=== PATIENT | female | born 1935 | race Caucasian/White ===

== ENCOUNTER 2017-06-09 16:56 | Emergency (ER) | payer MEDICAID, MEDICARE ==
[2017-06-09] MEDS ORDERED: ALBUTEROL SULFATE 0.083% NEB 2.5 MG/3 ML AMPUL NEB ONE (17:37)
--- NOTE | 2017-06-09 17:40 | ER Document Report ---
ED Medical Screen (RME) - General Chief Complaint: Shortness Of Breath Stated Complaint: DIFFICULTY BREATHING Time Seen by Provider: 06/09/17 17:37 Mode of Arrival: Wheelchair Information source: Patient Notes: Patient is an 81-year-old female with COPD who presents to the ER today for worsening shortness of breath with cough over the past couple of days. Patient also admits to right and left foot redness that she thinks is infection from an animal scratching her, specifically her left big toe. TRAVEL OUTSIDE OF THE [place] IN LAST 30 DAYS: No - Related Data Allergies/Adverse Reactions: erythromycin base [Erythromycin Base] Allergy (Verified 06/09/17 17:31) furosemide [From Lasix] Allergy (Verified 06/09/17 17:31) iodine [Iodine] Allergy (Verified 06/09/17 17:31) LOSE MEMORY levofloxacin [From Levaquin] Allergy (Verified 06/09/17 17:31) metformin HCl [From Glucophage] Allergy (Verified 06/09/17 17:31) SWELLING FACE Penicillins Allergy (Verified 06/09/17 17:31) pioglitazone HCl [From Actos] Allergy (Verified 06/09/17 17:31) SWELLING FACE Nexykbk-Dqb-Wwv Reductase Inhibitor Allergy (Verified 06/09/17 17:31) MUSCLE PAIN Sulfa (Sulfonamide Antibiotics) Allergy (Verified 06/09/17 17:31) SICK sulfamethoxazole [From Bactrim] Allergy (Verified 06/09/17 17:31) SICK trimethoprim [From Bactrim] Allergy (Verified 06/09/17 17:31) SICK Past Medical History - General Information source: Patient - Past Medical History Cardiac Medical History: Reports: Hx Coronary Artery Disease, Hx Hypercholesterolemia, Hx Hypertension Denies: Hx Heart Attack Pulmonary Medical History: Reports: Hx Asthma, Hx Bronchitis, Hx COPD, Hx Pneumonia, Hx Tuberculosis Neurological Medical History: Denies: Hx Cerebrovascular Accident, Hx Seizures Endocrine Medical History: Reports: Hx Diabetes Mellitus Type 2 Renal/ Medical History: Denies: Hx Peritoneal Dialysis GI Medical History: Reports: Hx Hiatal Hernia, Hx Ulcer - 50 YEARS AGO. Denies : Hx Hepatitis Musculoskeltal Medical History: Denies Hx Arthritis Infectious Medical History: Denies: Hx Hepatitis Past Surgical History: Reports: Hx Cholecystectomy, Hx Rectal Surgery, Hx Tubal Ligation. Denies: Hx Mastectomy, Hx Open Heart Surgery, Hx Pacemaker - Immunizations Hx Diphtheria, Pertussis, Tetanus Vaccination: Yes History of Influenza Vaccine for 06/2017 - 10/2017 Season: No Review of Systems - Review of Systems Respiratory: See HPI Physical Exam - Vital signs Vitals: Temp Pulse Resp BP Pulse Ox 98.5 F 96 18 98/77 L 94 06/09/17 17:01 06/09/17 17:01 06/09/17 17:01 06/09/17 17:01 06/09/17 17:01 - Notes Notes: PHYSICAL EXAMINATION: GENERAL: Chronically ill-appearing, but in no acute distress. LUNGS: Mild expiratory wheezes throughout, tight, on regular nasal cannula, no rales or rhonchi. Course - Vital Signs Vital signs: Temp Pulse Resp BP Pulse Ox 98.5 F 96 18 98/77 L 94 06/09/17 17:01 06/09/17 17:01 06/09/17 17:01 06/09/17 17:01 06/09/17 17:01
[2017-06-09 18:15] LABS: ABSOLUTE EOSINOPHILS # (AUTO) 0.1 10^3/uL (0.0-0.6); ABSOLUTE LYMPHOCYTES (AUTO) 0.6 10^3/uL (0.5-4.7); ABSOLUTE MONOCYTES (AUTO) 0.5 10^3/uL (0.1-1.4); ABSOLUTE NEUT (AUTO) 10.1 10^3/uL (1.7-8.2); BASOPHILS % (AUTO) 0.3 % (0-2); EOSINOPHILS % (AUTO) 0.7 % (0-6); HEMATOCRIT 36.2 % (36.0-47.0); HEMOGLOBIN 11.9 g/dL (12.0-15.5); HGB HCT DIFFERENCE -0.5; LYMPHOCYTES % (AUTO) 5.1 % (13-45); MEAN CORPUSCULAR HEMOGLOBIN 29.7 pg (27.0-33.4); MEAN CORPUSCULAR HGB CONC 32.9 g/dL (32.0-36.0); MEAN CORPUSCULAR VOLUME 90 fl (80-97); MONOCYTES % (AUTO) 4.4 % (3-13); SEGMENTED NEUTROPHILS % (AUTO) 89.5 % (42-78); WHITE BLOOD COUNT 11.2 10^3/uL (4.0-10.5)
--- NOTE | 2017-06-09 18:30 | RADIOLOGY REPORT (SQ) ---
EXAM DESCRIPTION: CHEST PA/LAT COMPLETED DATE/TIME: 06/09/2017 6:21 pm REASON FOR STUDY: copd/ acute sob with worse cough COMPARISON: 07/23/2015 EXAM PARAMETERS: NUMBER OF VIEWS: two views TECHNIQUE: Digital Frontal and Lateral radiographic views of the chest acquired. RADIATION DOSE: NA LIMITATIONS: none FINDINGS: LUNGS AND PLEURA: The lungs are hyperexpanded. There are no infiltrates or effusions. No mass is seen. MEDIASTINUM AND HILAR STRUCTURES: No masses or contour abnormalities. HEART AND VASCULAR STRUCTURES: Heart normal size. No evidence for failure. BONES: No acute findings. HARDWARE: Multilevel compression changes. Vertebroplasty/kyphoplasty changes in the lower thoracic s pine. OTHER: No other significant finding. IMPRESSION: Chronic lung changes with no acute cardiopulmonary disease. TECHNICAL DOCUMENTATION: JOB ID: [id number] [email or web address]- All Rights Reserved
[2017-06-09 18:35] LABS: ALANINE AMINOTRANSFERASE 30 U/L (9-52); ALKALINE PHOSPHATASE 130 U/L (38-126); ANION GAP 12 (5-19); ASPARTATE AMINO TRANSFERASE 20 U/L (14-36); BILIRUBIN,DIRECT 0.4 mg/dL (0.0-0.4); BILIRUBIN,TOTAL 0.5 mg/dL (0.2-1.3); BLOOD UREA NITROGEN 37 mg/dL (7-20); CALCIUM 9.5 mg/dL (8.4-10.2); CARBON DIOXIDE 31 mmol/L (22-30); CHLORIDE 101 mmol/L (98-107); CREATININE RESULT 1.31 mg/dL (0.52-1.25); GLUCOSE 182 mg/dL (75-110); POTASSIUM 5.3 mmol/L (3.6-5.0); SODIUM 143.6 mmol/L (137-145); TOTAL PROTEIN 6.6 g/dL (6.3-8.2)
--- NOTE | 2017-06-09 18:35 | ER Document Report ---
ED Respiratory Problem - General Chief Complaint: Shortness Of Breath Stated Complaint: DIFFICULTY BREATHING Time Seen by Provider: 06/09/17 17:37 Mode of Arrival: Wheelchair Notes: The patient is an 81-year-old female, past medical history COPD (on home 3L O2) , DM, CHF, presents with worsening shortness of breath over the past week. In addition, her left big toe is red and painful after she was scratched by an animal 2 days ago. She denies fevers, chest pain, nausea, vomiting, back pain, abdominal pain, leg swelling, hemoptysis, rash or headache. TRAVEL OUTSIDE OF THE [place] IN LAST 30 DAYS: No - Related Data Allergies/Adverse Reactions: erythromycin base [Erythromycin Base] Allergy (Verified 06/09/17 17:31) furosemide [From Lasix] Allergy (Verified 06/09/17 17:31) iodine [Iodine] Allergy (Verified 06/09/17 17:31) LOSE MEMORY levofloxacin [From Levaquin] Allergy (Verified 06/09/17 17:31) metformin HCl [From Glucophage] Allergy (Verified 06/09/17 17:31) SWELLING FACE Penicillins Allergy (Verified 06/09/17 17:31) pioglitazone HCl [From Actos] Allergy (Verified 06/09/17 17:31) SWELLING FACE Tqftnvs-Qti-Ssh Reductase Inhibitor Allergy (Verified 06/09/17 17:31) MUSCLE PAIN Sulfa (Sulfonamide Antibiotics) Allergy (Verified 06/09/17 17:31) SICK sulfamethoxazole [From Bactrim] Allergy (Verified 06/09/17 17:31) SICK trimethoprim [From Bactrim] Allergy (Verified 06/09/17 17:31) SICK Past Medical History - General Information source: Patient - Social History Smoking Status: Unknown if Ever Smoked Family History: Reviewed & Not Pertinent Patient has suicidal ideation: No Patient has homicidal ideation: No - Past Medical History Cardiac Medical History: Reports: Hx Coronary Artery Disease, Hx Hypercholesterolemia, Hx Hypertension Denies: Hx Heart Attack Pulmonary Medical History: Reports: Hx Asthma, Hx Bronchitis, Hx COPD, Hx Pneumonia, Hx Tuberculosis Neurological Medical History: Denies: Hx Cerebrovascular Accident, Hx Seizures Endocrine Medical History: Reports: Hx Diabetes Mellitus Type 2 Renal/ Medical History: Denies: Hx Peritoneal Dialysis GI Medical History: Reports: Hx Hiatal Hernia, Hx Ulcer - 50 YEARS AGO. Denies : Hx Hepatitis Musculoskeltal Medical History: Denies Hx Arthritis Infectious Medical History: Denies: Hx Hepatitis Past Surgical History: Reports: Hx Cholecystectomy, Hx Rectal Surgery, Hx Tubal Ligation. Denies: Hx Mastectomy, Hx Open Heart Surgery, Hx Pacemaker - Immunizations Hx Diphtheria, Pertussis, Tetanus Vaccination: Yes Hx Pneumococcal Vaccination: 06/26/13 Review of Systems - Review of Systems Notes: REVIEW OF SYSTEMS: CONSTITUTIONAL: -fevers, -chills EENT: -eye pain, -difficulty swallowing, -nasal congestion CARDIOVASCULAR:-chest pain, -syncope. RESPIRATORY: +cough, +SOB GASTROINTESTINAL: -abdominal pain, - nausea, -vomiting, -diarrhea GENITOURINARY: -dysuria, -hematuria MUSCULOSKELETAL: -back pain, -neck pain, +left foot pain and swelling SKIN: -rash or skin lesions. HEMATOLOGIC: -easy bruising or bleeding. LYMPHATIC: -swollen, enlarged glands. NEUROLOGICAL: -altered mental status or loss of consciousness, -headache, - neurologic symptoms PSYCHIATRIC: -anxiety, -depression. ALL OTHER SYSTEMS REVIEWED AND NEGATIVE. Physical Exam - Vital signs Vitals: Temp Pulse Resp BP Pulse Ox 98.5 F 96 18 98/77 L 94 06/09/17 17:01 06/09/17 17:01 06/09/17 17:01 06/09/17 17:01 06/09/17 17:01 - Notes Notes: PHYSICAL EXAMINATION: GENERAL: Well-appearing, well-nourished and in no acute distress. HEAD: Atraumatic, normocephalic. EYES: Pupils equal round and reactive to light, extraocular movements intact, sclera anicteric, conjunctiva are normal. ENT: nares patent, oropharynx clear without exudates. Moist mucous membranes. NECK: Normal range of motion, supple without lymphadenopathy LUNGS: No respiratory distress. Speaking in full sentences. Mild and expiratory wheezes. HEART: Regular rate and rhythm without murmurs ABDOMEN: Soft, nontender, normoactive bowel sounds. No guarding, no rebound. No masses appreciated. EXTREMITIES: Scratch of left big toe, no drainage or surrounding erythema. Normal range of motion, no pitting or edema. No cyanosis. NEUROLOGICAL: Cranial nerves grossly intact. Normal speech, normal gait. Normal sensory and motor exams. PSYCH: Normal mood, normal affect. Course - Re-evaluation Re-evalutation: Patient appears much better after DuoNebs and steroids. Her chest x-ray does not show a focal infiltrate and she is satting 95% on her usual 3 L nasal cannula. She is in no respiratory distress. Patient also with superficial abrasion from her cat over her left toe. Based on her diabetes history, will begin doxycycline to help with the scratch and bronchitis. Patient given very strict return precautions and she understands. - Vital Signs Vital signs: Temp Pulse Resp BP Pulse Ox 98.5 F 96 22 H 121/68 100 06/09/17 17:01 06/09/17 17:01 06/09/17 20:00 06/09/17 19:52 06/09/17 20:00 - Laboratory Result Diagrams: 06/09/17 17:47 06/09/17 17:47 Laboratory results interpreted by me: 06/09/17 06/09/17 17:47 17:47 WBC 11.2 H Hgb 11.9 L RDW 16.0 H Seg Neutrophils % 89.5 H Lymphocytes % 5.1 L Absolute Neutrophils 10.1 H Potassium 5.3 H Carbon Dioxide 31 H BUN 37 H Creatinine 1.31 H Est GFR ( Amer) 47 L Est GFR (Non-Af Amer) 39 L Glucose 182 H Alkaline Phosphatase 130 H - Diagnostic Test Radiology reviewed: Image reviewed, Reports reviewed Radiology results interpreted by me: CXR: NAD Discharge - Discharge Clinical Impression: COPD exacerbation, Animal scratch Condition: Stable Disposition: HOME, SELF-CARE Additional Instructions: BRONCHITIS WITH BRONCHOSPASM (WHEEZING): You have bronchitis with bronchospasm (wheezing). Sometimes people develop wheezing with a chest cold. This occurs either because of an underlying tendency toward asthma or because the virus itself irritates the bronchial tubes. This irritation causes cough, shortness of breath, and wheezing. Emergency treatment of bronchospasm may include adrenaline shots or bronchodilator aerosol. You may feel lightheaded and have a rapid pulse for an hour or two. Rest and get plenty of fluids. At home, we'll treat you with a bronchodilator inhaler. Corticosteroids may be required for some patients. Until you recover, avoid chemical fumes, dusts, pollens, and exercising in very cold or dry air. If you smoke, stop now! Most cases of bronchitis get better without antibiotics. We prescribe antibiotics when we believe bacteria are damaging your airways, or if there's high risk the bronchitis will worsen into pneumonia. Increase your fluid intake. A cool mist humidifier may make your lungs more comfortable. An expectorant (cough medicine that loosens phlegm) can help. Repeated episodes of bronchitis and bronchospasm may result in lung damage -- for example, chronic bronchitis, recurrent pneumonias, or emphysema. If you develop a fever, increased wheezing, chest pain, or severe shortness of breath, you should contact the doctor immediately. INHALED BRONCHODILATORS: You have received a treatment of and/or prescription for an inhaled bronchodilator -- a medication which stimulates the airways in the lung to dilate. This improves the flow of air in asthma, bronchitis, and emphysema. These medicines have some similarity to adrenaline, and can cause similar side effects: shakiness, racing heart, and a sense of nervousness. These side effects decrease with time. Contact your doctor if these side effects are severe. Do not over-use the medicine. Too-frequent use of the inhaler may make it ineffective. Call your doctor if the inhaler is not controlling your symptoms at the prescribed doses. STEROID MEDICATION: You have been given an injection of or oral medicine of the cortisone/ steroid class. This medication is used to control inflammation or allergy. Pedro t is usually only given for a short period of time, until the acute process subsides. There are usually no side effects from short-term use of cortisone-like medications. Some persons feel an increased sense of well-being and are not sleepy at bedtime. Long-term use of cortisone medications is best avoided, unless required for a severe condition. If your condition does not remit, or relapses after the course of corticosteroid medication, you should consult your physician. ANTIBIOTIC THERAPY: You have been given an antibiotic prescription. It's important that you take all the medication, unless instructed otherwise by your physician. Failure to complete the entire course can result in relapse of your condition. Common side effects of antibiotics include nausea, intestinal cramping, or diarrhea. Women may develop vaginal yeast infections, and babies can get yeast (thrush) in the mouth following the use of antibiotics. Contact your physician if you develop significant side effects from this medication. Allergy to this antibiotic can result in hives, wheezing, faintness, or itching. If symptoms of allergy occur, stop the medication and call your doctor. DOXYCYCLINE: Doxycycline (Vibramycin, Doryx) is an antibiotic of the tetracycline family. This type of drug is useful for infections of the respiratory tract and genital tract, and is sometimes used for intestinal infections. Unlike most tetracyclines, doxycycline can be taken with food. It is longer acting, and (usually) less prone to side effects than regular tetracycline. Tetracycline antibiotics can stain immature teeth and SHOULD NOT BE TAKEN BY CHILDREN, NURSING MOTHERS, OR WOMEN. Tetracyclines can make you more prone to sunburn. Abdominal cramping, nausea, and diarrhea are occasional side effects. Women may experience vaginal yeast infections. Call the doctor at once if you develop hives, itching, shortness of breath , or lightheadedness. USE OF ACETAMINOPHEN (Tylenol): Acetaminophen may be taken for pain relief or fever control. It's much safer than aspirin, offering a wider range of "safe" dosages. It is safe during . Some brand names are Tylenol, Panadol, Datril, Anacin 3, Tempra, and Liquiprin. Acetaminophen can be repeated every four hours. The following are maximum recommended dosages: >89 pounds or adults 650 mg to 900 mg Acetaminophen can be repeated every four hours. Maximum dose not to exceed 4000 mg a day. SMOKING: If you smoke, you should stop smoking. The tar and chemicals in cigarette smoke are harmful. Smoking has been shown to cause: emphysema chronic bronchitis lung cancer mouth and throat cancer stomach and pancreas cancer premature aging defects In addition, smoking increases ear and lung infections in children of smokers. FOLLOW-UP CARE: If you have been referred to a physician for follow-up care, call the physician s office for an appointment as you were instructed or within the next two days. If you experience worsening or a significant change in your symptoms, notify the physician immediately or return to the Emergency Department at any time for re-evaluation. Prescriptions: Albuterol Sulfate [Proair HFA Inhalation Aerosol 8.5 gm MDI] 2 puff IH Q4H PRN # 1 mdi PRN Reason: Doxycycline Hyclate 100 mg PO BID #14 capsule Prednisone [Deltasone 20 mg Tablet] 3 tab PO DAILY 4 Days tablet Referrals: FITO ATKINSON MD [[facility]] - Follow up as needed
[2017-06-09] MEDS ORDERED: DOXYCYCLINE HYCLATE 100 MG TABLET PO ONE (18:48)
[2017-06-09] MEDS ORDERED: IPRATROPIUM/ALBUTEROL 0.5-2.5 MG/3 ML AMPUL NEB ONE (18:49)
[2017-06-09] MEDS ORDERED: BACITRACIN ZINC OINTMENT 15 GM TP ONE (18:49)
[2017-06-09] MEDS ORDERED: PREDNISONE 20 MG TABLET PO ONE (18:50)
[2017-06-09 19:53] VITALS: BP 121/68
== END 2017-06-09 20:24 | disposition home or self-care (01) ==
LOC: ER 16:56
DX: J44.1 Chronic obstructive pulmonary disease with (acute) exacerbation (principal); S90.412A Abrasion, left great toe, initial encounter; R06.02 Shortness of breath; E11.9 Type 2 diabetes mellitus without complications; I50.9 Heart failure, unspecified; X58.XXXA Exposure to other specified factors, initial encounter
CPT/HCPCS: 99285; 36415; 85025; 80053; 71020; A9270 ×3; J3490; J7512

== ENCOUNTER 2017-06-25 02:22 | Emergency (ER) | payer MEDICARE, MEDICAID ==
[2017-06-25] MEDS ORDERED: IPRATROPIUM/ALBUTEROL 0.5-2.5 MG/3 ML AMPUL NEB ONE (02:29)
[2017-06-25] MEDS ORDERED: METHYLPREDNISOLONE INJ 125 MG/2 ML SDV IV ONE (02:29)
[2017-06-25] MEDS ORDERED: ALBUTEROL SULFATE 0.083% NEB 2.5 MG/3 ML AMPUL NEB SCH (02:44)
[2017-06-25 02:56] LABS: ABSOLUTE BASOPHILS # (AUTO) 0.1 10^3/uL (0.0-0.2); ABSOLUTE LYMPHOCYTES (AUTO) 0.6 10^3/uL (0.5-4.7); ABSOLUTE MONOCYTES (AUTO) 0.8 10^3/uL (0.1-1.4); ABSOLUTE NEUT (AUTO) 9.3 10^3/uL (1.7-8.2); BASOPHILS % (AUTO) 0.8 % (0-2); EOSINOPHILS % (AUTO) 0.1 % (0-6); HEMATOCRIT 36.9 % (36.0-47.0); HEMOGLOBIN 12.5 g/dL (12.0-15.5); HGB HCT DIFFERENCE 0.6; LYMPHOCYTES % (AUTO) 5.3 % (13-45); MEAN CORPUSCULAR HEMOGLOBIN 30.4 pg (27.0-33.4); MEAN CORPUSCULAR HGB CONC 33.8 g/dL (32.0-36.0); MEAN CORPUSCULAR VOLUME 90 fl (80-97); RED CELL DISTRIBUTION WIDTH 15.3 % (11.5-14.0); SEGMENTED NEUTROPHILS % (AUTO) 86.8 % (42-78); WHITE BLOOD COUNT 10.7 10^3/uL (4.0-10.5)
--- NOTE | 2017-06-25 03:11 | ER Document Report ---
ED Respiratory Problem - General Chief Complaint: Shortness Of Breath Stated Complaint: BREATHING DIFFICULTY Time Seen by Provider: 06/25/17 02:31 Notes: The patient is an 81-year-old female, past medical history COPD (on home 3L O2) , CHF, hypertension, presents with 1 day of wheezing and shortness of breath. She was seen in the ER last week and treated for a COPD exacerbation. She said that she is feeling much better, but when she stopped the steroids, her wheezing and shortness of breath returns. Patient denies fevers, sputum, chest pain, nausea, vomiting, leg swelling, hemoptysis, headache or rash. TRAVEL OUTSIDE OF THE [place] IN LAST 30 DAYS: No - Related Data Allergies/Adverse Reactions: erythromycin base [Erythromycin Base] Allergy (Verified 06/09/17 17:31) furosemide [From Lasix] Allergy (Verified 06/09/17 17:31) iodine [Iodine] Allergy (Verified 06/09/17 17:31) LOSE MEMORY levofloxacin [From Levaquin] Allergy (Verified 06/09/17 17:31) metformin HCl [From Glucophage] Allergy (Verified 06/09/17 17:31) SWELLING FACE Penicillins Allergy (Verified 06/09/17 17:31) pioglitazone HCl [From Actos] Allergy (Verified 06/09/17 17:31) SWELLING FACE Tsbgtnb-Gbh-Tlg Reductase Inhibitor Allergy (Verified 06/09/17 17:31) MUSCLE PAIN Sulfa (Sulfonamide Antibiotics) Allergy (Verified 06/09/17 17:31) SICK sulfamethoxazole [From Bactrim] Allergy (Verified 06/09/17 17:31) SICK trimethoprim [From Bactrim] Allergy (Verified 06/09/17 17:31) SICK Past Medical History - General Information source: Patient - Social History Smoking Status: Former Smoker Family History: Reviewed & Not Pertinent - Past Medical History Cardiac Medical History: Reports: Hx Coronary Artery Disease, Hx Hypercholesterolemia, Hx Hypertension Denies: Hx Heart Attack Pulmonary Medical History: Reports: Hx Asthma, Hx Bronchitis, Hx COPD, Hx Pneumonia, Hx Tuberculosis Neurological Medical History: Denies: Hx Cerebrovascular Accident, Hx Seizures Endocrine Medical History: Reports: Hx Diabetes Mellitus Type 2 Renal/ Medical History: Denies: Hx Peritoneal Dialysis GI Medical History: Reports: Hx Hiatal Hernia, Hx Ulcer - 50 YEARS AGO. Denies : Hx Hepatitis Musculoskeltal Medical History: Denies Hx Arthritis Infectious Medical History: Denies: Hx Hepatitis Past Surgical History: Reports: Hx Cholecystectomy, Hx Rectal Surgery, Hx Tubal Ligation. Denies: Hx Mastectomy, Hx Open Heart Surgery, Hx Pacemaker - Immunizations Hx Diphtheria, Pertussis, Tetanus Vaccination: Yes Hx Pneumococcal Vaccination: 06/26/13 Review of Systems - Review of Systems Notes: REVIEW OF SYSTEMS: CONSTITUTIONAL: -fevers, -chills EENT: -eye pain, -difficulty swallowing, -nasal congestion CARDIOVASCULAR:-chest pain, -syncope. RESPIRATORY: +cough, +SOB GASTROINTESTINAL: -abdominal pain, - nausea, -vomiting, -diarrhea GENITOURINARY: -dysuria, -hematuria MUSCULOSKELETAL: -back pain, -neck pain SKIN: -rash or skin lesions. HEMATOLOGIC: -easy bruising or bleeding. LYMPHATIC: -swollen, enlarged glands. NEUROLOGICAL: -altered mental status or loss of consciousness, -headache, - neurologic symptoms PSYCHIATRIC: -anxiety, -depression. ALL OTHER SYSTEMS REVIEWED AND NEGATIVE. Physical Exam - Vital signs Vitals: Temp Pulse Resp BP Pulse Ox 98.1 F 116 H 28 H 224/80 H 88 L 06/25/17 02:24 06/25/17 02:24 06/25/17 02:24 06/25/17 02:24 06/25/17 02:24 - Notes Notes: PHYSICAL EXAMINATION: GENERAL: Well-appearing, well-nourished and in mild acute distress. HEAD: Atraumatic, normocephalic. EYES: Pupils equal round and reactive to light, extraocular movements intact, sclera anicteric, conjunctiva are normal. ENT: nares patent, oropharynx clear without exudates. Moist mucous membranes. NECK: Normal range of motion, supple without lymphadenopathy LUNGS: Mild respiratory distress. Diffuse wheezing and tachypnea. HEART: Tachycardia. ABDOMEN: Soft, nontender, normoactive bowel sounds. No guarding, no rebound. No masses appreciated. EXTREMITIES: Normal range of motion, no pitting or edema. No cyanosis. NEUROLOGICAL: Cranial nerves grossly intact. Normal speech, normal gait. Normal sensory and motor exams. PSYCH: Normal mood, normal affect. SKIN: Warm, Dry, normal turgor, no rashes or lesions noted. Course - Re-evaluation Re-evalutation: On arrival to the ER, the patient is tachypneic and has diffuse wheezing. After Solumedrol and 3 duonebs, the patient is feeling much better and is requesting discharge. Her VBG shows a respiratory acidosis, but this was before her treatments. After treatments, she is satting 97% on her usual 3 L nasal cannula and this is maintained during ambulation. Chest x-ray does not show any acute abnormalities and rest of labs are unremarkable. Offered patient admission, but because patient is doing much better and she feels much better, she is requesting discharge. She was on a short prednisone burst last week, so we will add a longer prednisone taper to help her COPD exacerbation. Given very strict return precautions and she understands. - Vital Signs Vital signs: Temp Pulse Resp BP Pulse Ox 98.5 F 109 H 21 H 142/78 H 97 06/25/17 04:16 06/25/17 04:16 06/25/17 04:16 06/25/17 04:16 06/25/17 04:16 - Laboratory Result Diagrams: 06/25/17 02:46 06/25/17 02:46 Laboratory results interpreted by me: 06/25/17 06/25/17 06/25/17 02:46 02:46 02:46 WBC 10.7 H RDW 15.3 H Seg Neutrophils % 86.8 H Lymphocytes % 5.3 L Absolute Neutrophils 9.3 H VBG pH VBG pCO2 VBG HCO3 Sodium 145.7 H Carbon Dioxide 35 H BUN 29 H Est GFR ( Amer) 50 L Est GFR (Non-Af Amer) 41 L Glucose 196 H Alkaline Phosphatase 141 H Creatine Kinase 28 L NT-Pro-B Natriuret Pep 692 H 06/25/17 03:40 WBC RDW Seg Neutrophils % Lymphocytes % Absolute Neutrophils VBG pH 7.29 L VBG pCO2 88.2 H* VBG HCO3 41.1 H Sodium Carbon Dioxide BUN Est GFR ( Amer) Est GFR (Non-Af Amer) Glucose Alkaline Phosphatase Creatine Kinase NT-Pro-B Natriuret Pep - Diagnostic Test Radiology reviewed: Image reviewed, Reports reviewed Radiology results interpreted by me: CXR: NAD - EKG Interpretation by Me EKG shows normal: Sinus rhythm, [place], Intervals, QRS Complexes, ST-T Waves Rate: Normal Discharge - Discharge Clinical Impression: COPD with exacerbation Condition: Good Disposition: HOME, SELF-CARE Additional Instructions: BRONCHITIS WITH BRONCHOSPASM (WHEEZING): You have bronchitis with bronchospasm (wheezing). Sometimes people develop wheezing with a chest cold. This occurs either because of an underlying tendency toward asthma or because the virus itself irritates the bronchial tubes. This irritation causes cough, shortness of breath, and wheezing. Emergency treatment of bronchospasm may include adrenaline shots or bronchodilator aerosol. You may feel lightheaded and have a rapid pulse for an hour or two. Rest and get plenty of fluids. At home, we'll treat you with a bronchodilator inhaler. Corticosteroids may be required for some patients. Until you recover, avoid chemical fumes, dusts, pollens, and exercising in very cold or dry air. If you smoke, stop now! Most cases of bronchitis get better without antibiotics. We prescribe antibiotics when we believe bacteria are damaging your airways, or if there's high risk the bronchitis will worsen into pneumonia. Increase your fluid intake. A cool mist humidifier may make your lungs more comfortable. An expectorant (cough medicine that loosens phlegm) can help. Repeated episodes of bronchitis and bronchospasm may result in lung damage -- for example, chronic bronchitis, recurrent pneumonias, or emphysema. If you develop a fever, increased wheezing, chest pain, or severe shortness of breath, you should contact the doctor immediately. INHALED BRONCHODILATORS: You have received a treatment of and/or prescription for an inhaled bronchodilator -- a medication which stimulates the airways in the lung to dilate. This improves the flow of air in asthma, bronchitis, and emphysema. These medicines have some similarity to adrenaline, and can cause similar side effects: shakiness, racing heart, and a sense of nervousness. These side effects decrease with time. Contact your doctor if these side effects are severe. Do not over-use the medicine. Too-frequent use of the inhaler may make it ineffective. Call your doctor if the inhaler is not controlling your symptoms at the prescribed doses. STEROID MEDICATION: You have been given an injection of or oral medicine of the cortisone/ steroid class. This medication is used to control inflammation or allergy. Pedro t is usually only given for a short period of time, until the acute process subsides. There are usually no side effects from short-term use of cortisone-like medications. Some persons feel an increased sense of well-being and are not sleepy at bedtime. Long-term use of cortisone medications is best avoided, unless required for a severe condition. If your condition does not remit, or relapses after the course of corticosteroid medication, you should consult your physician. USE OF ACETAMINOPHEN (Tylenol): Acetaminophen may be taken for pain relief or fever control. It's much safer than aspirin, offering a wider range of "safe" dosages. It is safe during . Some brand names are Tylenol, Panadol, Datril, Anacin 3, Tempra, and Liquiprin. Acetaminophen can be repeated every four hours. The following are maximum recommended dosages: >89 pounds or adults 650 mg to 900 mg Acetaminophen can be repeated every four hours. Maximum dose not to exceed 4000 mg a day. SMOKING: If you smoke, you should stop smoking. The tar and chemicals in cigarette smoke are harmful. Smoking has been shown to cause: emphysema chronic bronchitis lung cancer mouth and throat cancer stomach and pancreas cancer premature aging defects In addition, smoking increases ear and lung infections in children of smokers. FOLLOW-UP CARE: If you have been referred to a physician for follow-up care, call the physician s office for an appointment as you were instructed or within the next two days. If you experience worsening or a significant change in your symptoms, notify the physician immediately or return to the Emergency Department at any time for re-evaluation. Prescriptions: Albuterol Sulfate [Proair HFA Inhalation Aerosol 8.5 gm MDI] 2 puff IH Q4H PRN # 1 mdi PRN Reason: Prednisone [Deltasone 10 mg Tablet] 10 mg PO ASDIR PRN #21 tablet PRN Reason: Forms: Elevated Blood Pressure Referrals: AUSTIN FIORE MD [ACTIVE STAFF] - Follow up as needed
--- NOTE | 2017-06-25 03:12 | RADIOLOGY REPORT (SQ) ---
EXAM DESCRIPTION: CHEST SINGLE VIEW COMPLETED DATE/TIME: 06/25/2017 2:57 am REASON FOR STUDY: DIFFICULTY BREATHING COMPARISON: 06/09/2017. EXAM PARAMETERS: NUMBER OF VIEWS: One view. TECHNIQUE: Single frontal radiographic view of the chest acquired. RADIATION DOSE: NA LIMITATIONS: None. FINDINGS: LUNGS AND PLEURA: Moderate emphysematous hyperinflation. Prominent interstitium. MEDIASTINUM AND HILAR STRUCTURES: No masses. Contour normal. HEART AND VASCULAR STRUCTURES: Normal cardiac silhouette size. Atherosclerosis. BONES: Moderate dextroconvexity. Vertebroplasty of 2 lower thoracic vertebral levels with partially imaged mild chronic sifh-dm-jroojxhb compression deformities of the mid -lower thoracic spine consist ent with prior exam, 06/09/2017. HARDWARE: None in the chest. OTHER: No other significant finding. IMPRESSION: No acute cardiopulmonary findings. TECHNICAL DOCUMENTATION: JOB ID: [id number]
[2017-06-25 03:22] LABS: ALANINE AMINOTRANSFERASE 25 U/L (9-52); ALBUMIN 3.8 g/dL (3.5-5.0); ALKALINE PHOSPHATASE 141 U/L (38-126); ANION GAP 12 (5-19); ASPARTATE AMINO TRANSFERASE 21 U/L (14-36); BILIRUBIN,DIRECT 0.4 mg/dL (0.0-0.4); BILIRUBIN,TOTAL 0.4 mg/dL (0.2-1.3); BLOOD UREA NITROGEN 29 mg/dL (7-20); CALCIUM 9.2 mg/dL (8.4-10.2); CARBON DIOXIDE 35 mmol/L (22-30); CHLORIDE 99 mmol/L (98-107); CREATINE KINASE 28 U/L (30-135); CREATININE RESULT 1.25 mg/dL (0.52-1.25); GLUCOSE 196 mg/dL (75-110); SODIUM 145.7 mmol/L (137-145); TOTAL PROTEIN 6.4 g/dL (6.3-8.2)
[2017-06-25] MEDS ORDERED: ONDANSETRON HCL INJ/PF 4 MG/2 ML SDV ONE (03:23)
[2017-06-25] MEDS ORDERED: ONDANSETRON HCL INJ/PF 4 MG/2 ML SDV IV ONE (03:26)
[2017-06-25 03:35] LABS: TROPONIN I < 0.012 ng/mL
[2017-06-25 04:09] LABS: VENOUS BLOOD BASE EXCESS 10.6 mmol/L; VENOUS BLOOD HCO3 41.1 mmol/L (20-32); VENOUS BLOOD PH 7.29 (7.30-7.42)
[2017-06-25 04:12] LABS: VENOUS BLOOD PCO2 88.2 mmHg (35-63)
[2017-06-25 04:29] VITALS: BP 157/72
--- NOTE | 2017-06-25 23:16 | EKG REPORT ---
SEVERITY:- ABNORMAL ECG - SINUS TACHYCARDIA ABNRM R PROG, CONSIDER ASMI OR LEAD PLACEMENT : Confirmed by: Chula De Paz 25-Jun-2017 23:15:43
== END 2017-06-25 04:29 | disposition home or self-care (01) ==
LOC: ER 02:22
DX: J44.1 Chronic obstructive pulmonary disease with (acute) exacerbation (principal); R00.0 Tachycardia, unspecified; I25.10 Atherosclerotic heart disease of native coronary artery without angina pectoris; E78.00 Pure hypercholesterolemia, unspecified; I10 Essential (primary) hypertension; E11.9 Type 2 diabetes mellitus without complications; Z90.49 Acquired absence of other specified parts of digestive tract; Z98.51 Tubal ligation status; Z88.3 Allergy status to other anti-infective agents; Z88.0 Allergy status to penicillin; Z88.2 Allergy status to sulfonamides; Z87.891 Personal history of nicotine dependence; Z99.81 Dependence on supplemental oxygen
CPT/HCPCS: 93005; 96376; 94640; 99285; 96374; 36415; 82550; 85025; 80053; 84484; 82803; 83880; 71010; 93010; J2930; J2405; A9270 ×2; J7620

== ENCOUNTER 2017-07-28 23:32 | Inpatient (IN) | payer MEDICAID, MEDICARE ==
[2017-07-28] MEDS ORDERED: IPRATROPIUM/ALBUTEROL 0.5-2.5 MG/3 ML AMPUL NEB ONE (23:49)
[2017-07-28] MEDS ORDERED: METHYLPREDNISOLONE INJ 125 MG/2 ML SDV IV ONE (23:54)
--- NOTE | 2017-07-29 00:23 | ER Document Report ---
ED General - General Chief Complaint: Shortness Of Breath Stated Complaint: DIFFICULTY BREATHING Time Seen by Provider: 07/28/17 23:43 Notes: Patient is an 81-year-old female with a history of COPD who continues to smoke presents to the ER with difficulty breathing. She says started tonight. She is using nebulizer treatment said that seemed to make her feel worse. She has been seen here several times over last month. She moved her month ago. She is still not establish herself with a primary care physician or casing man. She denies any fevers. No vomiting. No chest pain. No other complaints at this time. She wears 3 L of oxygen at home. TRAVEL OUTSIDE OF THE [place] IN LAST 30 DAYS: No - Related Data Allergies/Adverse Reactions: erythromycin base [Erythromycin Base] Allergy (Verified 07/28/17 23:33) furosemide [From Lasix] Allergy (Verified 07/28/17 23:33) iodine [Iodine] Allergy (Verified 07/28/17 23:33) LOSE MEMORY levofloxacin [From Levaquin] Allergy (Verified 07/28/17 23:33) metformin HCl [From Glucophage] Allergy (Verified 07/28/17 23:33) SWELLING FACE Penicillins Allergy (Verified 07/28/17 23:33) pioglitazone HCl [From Actos] Allergy (Verified 07/28/17 23:33) SWELLING FACE Gjshhju-Fid-Bli Reductase Inhibitor Allergy (Verified 07/28/17 23:33) MUSCLE PAIN Sulfa (Sulfonamide Antibiotics) Allergy (Verified 07/28/17 23:33) SICK sulfamethoxazole [From Bactrim] Allergy (Verified 07/28/17 23:33) SICK trimethoprim [From Bactrim] Allergy (Verified 07/28/17 23:33) SICK Past Medical History - Social History Smoking Status: Current Every Day Smoker Frequency of alcohol use: None Drug Abuse: None Family History: Reviewed & Not Pertinent Patient has suicidal ideation: No Patient has homicidal ideation: No - Past Medical History Cardiac Medical History: Reports: Hx Coronary Artery Disease, Hx Hypercholesterolemia, Hx Hypertension Denies: Hx Heart Attack Pulmonary Medical History: Reports: Hx Asthma, Hx Bronchitis, Hx COPD, Hx Pneumonia, Hx Tuberculosis Neurological Medical History: Denies: Hx Cerebrovascular Accident, Hx Seizures Endocrine Medical History: Reports: Hx Diabetes Mellitus Type 2 Renal/ Medical History: Denies: Hx Peritoneal Dialysis GI Medical History: Reports: Hx Hiatal Hernia, Hx Ulcer - 50 YEARS AGO. Denies : Hx Hepatitis Musculoskeltal Medical History: Denies Hx Arthritis Infectious Medical History: Denies: Hx Hepatitis Past Surgical History: Reports: Hx Cholecystectomy, Hx Orthopedic Surgery - back , Hx Rectal Surgery, Hx Tubal Ligation. Denies: Hx Mastectomy, Hx Open Heart Surgery, Hx Pacemaker - Immunizations Hx Diphtheria, Pertussis, Tetanus Vaccination: Yes Hx Pneumococcal Vaccination: 06/26/13 Review of Systems - Review of Systems Notes: My Normal Review Basic REVIEW OF SYSTEMS: CONSTITUTIONAL : Denies fever, chills, or sweats. Denies recent illness. EENT: Denies eye, ear, throat, or mouth pain or symptoms. Denies nasal or sinus congestion. CARDIOVASCULAR: Denies chest pain. RESPIRATORY: Dyspnea GASTROINTESTINAL: Denies abdominal pain. Denies nausea, vomiting, or diarrhea. GENITOURINARY: Denies difficulty urinating, painful urination, burning, frequency, or blood in urine. MUSCULOSKELETAL: Denies neck or back pain or joint pain or swelling. SKIN: Denies rash or skin lesions. NEUROLOGICAL: Denies altered mental status or loss of consciousness. Denies headache. Denies weakness or paralysis or loss of use of either side. Denies problems with gait or speech. Denies sensory or motor loss. ALL OTHER SYSTEMS REVIEWED AND NEGATIVE. Physical Exam - Vital signs Vitals: Temp Pulse Resp BP Pulse Ox 98.0 F 113 H 29 H 185/87 H 100 07/28/17 23:34 07/28/17 23:34 07/28/17 23:34 07/28/17 23:34 07/28/17 23:34 - Notes Notes: General Appearance: Well nourished, alert, cooperative, no acute distress, no obvious discomfort. Vitals: reviewed, See vital signs table. Head: no swelling or tenderness to the head Eyes: PERRL, EOMI, Conjuctiva clear Mouth: No decreasd moisture Throat: No tonsillar inflammation, No airway obstruction, No lymphadenopathy Neck: Supple, no neck tenderness Lungs: No wheezing, No rales, No rhonci, No accessory muscle use, fair air exchange bilaterally. Heart: Normal rate, Regular rythm, No murmur, no rub Abdomen: Normal BS, soft, No rigidity, No abdominal tenderness, No guarding, no rebound Extremities: strength 5/5 in all extremities, good pulses in all extremities, no swelling or tenderness in the extremities, no edema. Very kyphotic thoracic spine curve. Skin: warm, dry, appropriate color, no rash Neuro: speech clear, oriented x 3, normal affect, responds appropriately to questions. Course - Re-evaluation Re-evalutation: 07/29/17 02:16 Patient's lung exam shows diminished in the lung villavicencio with mild wheezing. Her CO2 is elevated 81 and she does have respiratory acidosis with a pH of 7.25 and therefore placed her on BiPAP. I spoke with the hospitalist agrees to admit the patient for further treatment of her COPD exacerbation and respiratory acidosis. Dictation of this chart was performed using voice recognition software; therefore, there may be some unintended grammatical errors. - Vital Signs Vital signs: Temp Pulse Resp BP Pulse Ox 98.0 F 113 H 29 H 185/87 H 100 07/28/17 23:34 07/28/17 23:34 07/28/17 23:34 07/28/17 23:34 07/28/17 23:34 - Laboratory Result Diagrams: 07/29/17 00:20 07/29/17 00:20 Laboratory results interpreted by me: 07/29/17 07/29/17 07/29/17 00:20 00:20 00:20 RDW 14.6 H Seg Neutrophils % 88.8 H Lymphocytes % 5.2 L Absolute Neutrophils 8.3 H VBG pH 7.25 L VBG pCO2 81.6 H* VBG HCO3 34.7 H Carbon Dioxide 37 H BUN 23 H Est GFR ( Amer) 52 L Est GFR (Non-Af Amer) 43 L Alkaline Phosphatase 135 H Discharge - Discharge Clinical Impression: Respiratory acidosis, COPD exacerbation Condition: Stable Disposition: ADMITTED INPATIENT Admitting Provider: Hospitalist Unit Admitted: [facility]
--- NOTE | 2017-07-29 00:45 | RADIOLOGY REPORT (SQ) ---
EXAM DESCRIPTION: CHEST SINGLE VIEW COMPLETED DATE/TIME: 07/29/2017 12:12 am REASON FOR STUDY: dyspnea COMPARISON: Chest x-ray 07/02/2017, 06/25/2017. EXAM PARAMETERS: NUMBER OF VIEWS: One view. TECHNIQUE: Single frontal radiographic view of the chest acquired. RADIATION DOSE: NA LIMITATIONS: The patient is rotated. FINDINGS: LUNGS AND PLEURA: No consolidation, pleural effusion or pneumothorax. Hyperlucent lungs s uggestive of emphysema. MEDIASTINUM AND HILAR STRUCTURES: No masses. Contour normal. HEART AND VASCULAR STRUCTURES: Heart normal in size. Tortuous thoracic aorta. No overt vascular con gestion. BONES: Degenerative changes in the spine. Healed left-sided rib fractures. HARDWARE: None in the chest. IMPRESSION: No acute radiographic finding in the chest. Emphysema. TECHNICAL DOCUMENTATION: JOB ID: [id number] [email or web address]- All Rights Reserved
[2017-07-29 00:49] LABS: ABSOLUTE EOSINOPHILS # (AUTO) 0.1 10^3/uL (0.0-0.6); ABSOLUTE LYMPHOCYTES (AUTO) 0.5 10^3/uL (0.5-4.7); ABSOLUTE MONOCYTES (AUTO) 0.5 10^3/uL (0.1-1.4); ABSOLUTE NEUT (AUTO) 8.3 10^3/uL (1.7-8.2); BASOPHILS % (AUTO) 0.4 % (0-2); EOSINOPHILS % (AUTO) 0.8 % (0-6); HEMATOCRIT 38.2 % (36.0-47.0); HEMOGLOBIN 12.5 g/dL (12.0-15.5); HGB HCT DIFFERENCE -0.7; LYMPHOCYTES % (AUTO) 5.2 % (13-45); MEAN CORPUSCULAR HEMOGLOBIN 29.4 pg (27.0-33.4); MEAN CORPUSCULAR HGB CONC 32.6 g/dL (32.0-36.0); MEAN CORPUSCULAR VOLUME 90 fl (80-97); MONOCYTES % (AUTO) 4.8 % (3-13); RED BLOOD COUNT 4.24 10^6/uL (3.72-5.28); RED CELL DISTRIBUTION WIDTH 14.6 % (11.5-14.0); SEGMENTED NEUTROPHILS % (AUTO) 88.8 % (42-78); WHITE BLOOD COUNT 9.4 10^3/uL (4.0-10.5)
[2017-07-29 00:52] LABS: VENOUS BLOOD BASE EXCESS 5.3 mmol/L; VENOUS BLOOD HCO3 34.7 mmol/L (20-32); VENOUS BLOOD PH 7.25 (7.30-7.42)
[2017-07-29 00:55] LABS: VENOUS BLOOD PCO2 81.6 mmHg (35-63)
[2017-07-29 01:07] LABS: ALANINE AMINOTRANSFERASE 33 U/L (9-52); ALBUMIN 3.8 g/dL (3.5-5.0); ALKALINE PHOSPHATASE 135 U/L (38-126); ANION GAP 9 (5-19); ASPARTATE AMINO TRANSFERASE 21 U/L (14-36); BILIRUBIN,DIRECT 0.4 mg/dL (0.0-0.4); BILIRUBIN,TOTAL 0.4 mg/dL (0.2-1.3); BLOOD UREA NITROGEN 23 mg/dL (7-20); CALCIUM 9.2 mg/dL (8.4-10.2); CARBON DIOXIDE 37 mmol/L (22-30); CHLORIDE 98 mmol/L (98-107); CREATININE RESULT 1.21 mg/dL (0.52-1.25); GLUCOSE 81 mg/dL (75-110); POTASSIUM 4.9 mmol/L (3.6-5.0); SODIUM 143.8 mmol/L (137-145); TOTAL PROTEIN 6.3 g/dL (6.3-8.2)
[2017-07-29] MEDS ORDERED: ALBUTEROL SULFATE 0.083% NEB 2.5 MG/3 ML AMPUL NEB ONE (01:21)
[2017-07-29] MEDS: MAGNESIUM SULFATE/D5W 1 GM/100 ML RTUPB IV SCH ×2 (01:48→03:01)
[2017-07-29] MEDS ORDERED: CHLORPHENIRAMINE MALEATE 4 MG TABLET PO ONE (02:22)
[2017-07-29] MEDS ORDERED: DEXTROSE 50%-WATER 25 GM/50 ML DISP.SYRIN IV PRN ×2 (02:22)
[2017-07-29] MEDS ORDERED: HYDRALAZINE HCL INJ/PF 20 MG/1 ML SDV IV PRN (02:22)
[2017-07-29] MEDS ORDERED: GLUCAGON,HUMAN RECOMB 1 MG INJ IM PRN (02:22)
[2017-07-29] MEDS ORDERED: ACETAMINOPHEN 325 MG TABLET PO PRN (02:22)
[2017-07-29] MEDS ORDERED: DEXTROSE 40% GEL 15 GM TUBE PO PRN ×2 (02:22)
[2017-07-29] MEDS ORDERED: NALOXONE HCL INJ/PF 0.4 MG/1 ML SDV IV ONE (02:26)
[2017-07-29] MEDS ORDERED: FLUTICASONE NASAL SPRAY 50 MCG/SPRY 120 SPRAY/16 GM NASL ONE (02:45)
[2017-07-29] MEDS ORDERED: CEFTRIAXONE 1 GM/D5W RTU 1 GM/50 ML RTUPB IV ONE (03:00)
[2017-07-29] MEDS ORDERED: NICOTINE 14 MG/24 HR PATCH.TD24 TD ONE (03:30)
[2017-07-29] MEDS ORDERED: INFLUENZA ADLT QUAD (36MOS+) 2017-18 VAC 0.5 ML SYR IM PRN (05:09)
[2017-07-29] MEDS ORDERED: FLUTICASONE NASAL SPRAY 50 MCG/SPRY 120 SPRAY/16 GM ONE (05:28)
[2017-07-29] MEDS ORDERED: CHLORPHENIRAMINE MALEATE 4 MG TABLET ONE (05:28)
[2017-07-29] MEDS: HEPARIN SOD (PORCINE) 5,000 UNIT/ML 1 ML SYRINGE SUBCUT SCH ×3 (05:45→22:40)
--- NOTE | 2017-07-29 06:15 | PDOC H&P ---
History of Present Illness Admission Date/PCP: 07/29/17 02:35 Patient complains of: Shortness of breath History of Present Illness: SRINIVASA WINN is a 81 year old female with a past medical history of oxygen dependent COPD and ongoing tobacco dependence. Patient presents after approximately 6 hours of worsening shortness of breath associated with nonproductive cough not alleviated by home regiment of oxygen and nebulizer treatment. In the emergency room she is found to have partially compensated respiratory acidosis, hypoxemia and tachypnea. She receives several albuterol Atrovent nebulizer, IV magnesium, Solu-Medrol and referred to the hospitalist for admission. Patient denies chest pain, nausea vomiting, rhinorrhea, sore throat, uncontrolled GERD or fever. She denies recent antibiotic use. Past Medical History Cardiac Medical History: Reports: Coronary Artery Disease, Hyperlipidema, Hypertension Denies: Myocardial Infarction Pulmonary Medical History: Reports: Asthma, Bronchitis, Chronic Obstructive Pulmonary Disease (COPD), Pneumonia, Tuberculosis Neurological Medical History: Denies: Seizures Endocrine Medical History: Reports: Diabetes Mellitus Type 2 GI Medical History: Reports: Hiatal Hernia Denies: Hepatitis Musculoskeltal Medical History: Denies: Arthritis Psychiatric Medical History: Reports: Tobacco Dependency Hematology: Reports: Anemia - NOW Denies: Sickle Cell Disease Past Surgical History Past Surgical History: Reports: Cholecystectomy, Orthopedic Surgery - back, Tubal Ligation Denies: Amputation, Mastectomy, Pacemaker Social History Information Source: Patient Smoking Status: Current Every Day Smoker Cigarettes Packs Per Day: 0.5 - 110 pack years Number of Years Smokin Last Time Smoked: 07/29/2017 Frequency of Alcohol Use: None Hx Recreational Drug Use: No Hx Prescription Drug Abuse: No - Advance Directive Resuscitation Status: Full Code Family History Family History: COPD Parental Family History Reviewed: Yes Children Family History Reviewed: Yes Sibling(s) Family History Reviewed.: Yes Medication/Allergy Home Medications: Albuterol Sulfate [Albuterol Sulfate 2.5mg/3 mL] 1 vial IH Q4 PRN 06/24/15 Albuterol Sulfate [Proair HFA] 1 - 2 puff IH Q4 PRN 06/24/15 Aspirin [Aspirin 325 mg Tablet] 325 mg PO DAILY 06/24/15 Bupropion HCl [Wellbutrin 100 mg Tablet] 100 mg PO DAILY 06/24/15 Calcium Carbonate/Vitamin D3 [Calcium 500 + Vit D Caplet] 1 each PO DAILY Cyanocobalamin (Vitamin B-12) [Vitamin B-12] 5,000 mcg PO DAILY 06/24/15 Dexlansoprazole [Dexilant 30 mg Capsule] 30 mg PO DAILY 06/24/15 Docusate Sodium [Stool Softener] 100 mg PO DAILY 06/24/15 Ezetimibe/Simvastatin [Vytorin 10-20 Mg Tablet] 1 each PO DAILY 06/24/15 Ferrous Sulfate [Iron] 325 mg PO DAILY 06/24/15 Fluticasone Furoate [Veramyst] 2 spray NS DAILY 06/24/15 Fluticasone/Salmeterol [Advair 500-50 Diskus 14 Dose/Diskus] 1 inh IH Q12H 06/24 Gabapentin 300 mg PO DAILY 06/24/15 Hydrocodone Bit/Acetaminophen [Hydrocodon-Acetaminophn 10-325] 1 each PO Q6H Insulin Aspart Prot/Insuln Asp [Novolog Mix 70-30 Flexpen Syrn] 30 unit SQ QHS 06/24/15 Insulin Aspart Prot/Insuln Asp [Novolog Mix 70-30 Flexpen Syrn] 40 unit SQ QAM 06/24/15 Ipratropium/Albuterol Sulfate [Combivent Respimat Inhal [place]] 2 puff IH QID Levothyroxine Sodium 75 mcg PO DAILY 06/24/15 Magnesium Oxide 400 mg PO DAILY 06/24/15 Nitroglycerin [Nitrostat 0.4 mg (1/150 Gr) Tabs 25/Bottle] 1 tab SL Q5MP PRN Ondansetron HCl [Zofran 4 mg Tablet] 1 - 2 tab PO Q4H PRN 06/24/15 Prednisone [Deltasone 10 mg Tablet] 5 mg PO ASDIR #42 tablet 06/24/15 Rivastigmine [Exelon 4.6 Mg/24 Hr Transdermal Patch] 1 each TD DAILY 06/24/15 Tiotropium [place] [Spiriva Handihaler 18 mcg/dose (30 Dose)] 1 cap IH DAILY Torsemide [Demadex 5 mg Tablet] 5 mg PO DAILY 06/24/15 Vitamin E 400 unit PO DAILY 06/24/15 Hydrocodone/Acetaminophen [[place] 5-325 Tablet] 1 each PO 6XD PRN #12 tablet Ondansetron [Zofran Odt 4 mg Tablet] 1 - 2 tab PO Q4H PRN #15 tab.rapdis Albuterol Sulfate [Proair HFA Inhalation Aerosol 8.5 gm MDI] 2 puff IH Q4H PRN # 1 mdi 06/09/17 Doxycycline Hyclate 100 mg PO BID #14 capsule 06/09/17 Prednisone [Deltasone 20 mg Tablet] 3 tab PO DAILY 4 Days tablet 06/09/17 Albuterol Sulfate [Proair HFA Inhalation Aerosol 8.5 gm MDI] 2 puff IH Q4H PRN # 1 mdi 06/25/17 Prednisone [Deltasone 10 mg Tablet] 10 mg PO ASDIR PRN #21 tablet 06/25/17 Doxycycline Hyclate 100 mg PO BID #14 capsule 07/02/17 Prednisone [Deltasone 20 mg Tablet] 3 tab PO ASDIR #30 tablet 07/02/17 Torsemide 5 mg PO BID #30 tablet 07/02/17 Allergies/Adverse Reactions: erythromycin base [Erythromycin Base] Allergy (Verified 07/28/17 23:33) furosemide [From Lasix] Allergy (Verified 07/28/17 23:33) iodine [Iodine] Allergy (Verified 07/28/17 23:33) LOSE MEMORY levofloxacin [From Levaquin] Allergy (Verified 07/28/17 23:33) metformin HCl [From Glucophage] Allergy (Verified 07/28/17 23:33) SWELLING FACE Penicillins Allergy (Verified 07/28/17 23:33) pioglitazone HCl [From Actos] Allergy (Verified 07/28/17 23:33) SWELLING FACE Socqiog-Lbh-Udx Reductase Inhibitor Allergy (Verified 07/28/17 23:33) MUSCLE PAIN Sulfa (Sulfonamide Antibiotics) Allergy (Verified 07/28/17 23:33) SICK sulfamethoxazole [From Bactrim] Allergy (Verified 07/28/17 23:33) SICK trimethoprim [From Bactrim] Allergy (Verified 07/28/17 23:33) SICK Review of Systems Constitutional: PRESENT: as per HPI, anorexia, fatigue, weakness. ABSENT: chills Eyes: ABSENT: visual disturbances Ears: ABSENT: hearing changes Cardiovascular: ABSENT: chest pain, dyspnea on exertion, edema, orthropnea, palpitations Respiratory: PRESENT: as per HPI, cough, dyspnea. ABSENT: hemoptysis, sputum Gastrointestinal: ABSENT: abdominal pain, constipation, diarrhea, hematemesis, hematochezia, nausea, vomiting Genitourinary: ABSENT: dysuria, hematuria Musculoskeletal: ABSENT: joint swelling Integumentary: ABSENT: rash, wounds Neurological: ABSENT: abnormal gait, abnormal speech, confusion, dizziness, focal weakness, syncope Psychiatric: ABSENT: anxiety, depression, homidical ideation, suicidal ideation Endocrine: ABSENT: cold intolerance, heat intolerance, polydipsia, polyuria Hematologic/Lymphatic: ABSENT: easy bleeding, easy bruising Physical Exam Vital Signs: Temp Pulse Resp BP Pulse Ox 97.9 F 113 H 20 158/68 H 99 07/29/17 04:19 07/29/17 04:19 07/29/17 04:19 07/29/17 04:19 07/29/17 04:12 Intake & Output 07/27/17 07/28/17 07/29/17 11:59 11:59 11:59 Weight 46.5 kg General appearance: PRESENT: cooperative, mild distress, thin, other - Cachexia with temporal wasting Head exam: PRESENT: atraumatic, normocephalic Eye exam: PRESENT: conjunctiva pink, EOMI, PERRLA. ABSENT: scleral icterus Ear exam: PRESENT: normal external ear exam Mouth exam: PRESENT: moist, tongue midline Neck exam: ABSENT: carotid bruit, JVD, lymphadenopathy, thyromegaly Respiratory exam: PRESENT: accessory muscle use, crackles, prolonged expiratory phas, rales, symmetrical, tachypnea. ABSENT: chest wall tenderness, clear to auscultation ramesh, rhonchi, stridor, wheezes Cardiovascular exam: PRESENT: RRR, tachycardia. ABSENT: diastolic murmur, rubs , systolic murmur Pulses: PRESENT: normal carotid pulses Vascular exam: PRESENT: normal capillary refill GI/Abdominal exam: PRESENT: normal bowel sounds, soft. ABSENT: distended, guarding, mass, organolmegaly, rebound, tenderness Rectal exam: PRESENT: deferred Extremities exam: PRESENT: full ROM. ABSENT: calf tenderness, clubbing, pedal edema Neurological exam: PRESENT: alert, awake, oriented to person, oriented to place , oriented to time, oriented to situation, CN II-XII grossly intact. ABSENT: motor sensory deficit Psychiatric exam: PRESENT: appropriate affect, normal mood. ABSENT: homicidal ideation, suicidal ideation Skin exam: PRESENT: dry, intact, warm. ABSENT: cyanosis, rash Results Impressions: Chest X-Ray 07/28/17 23:49 IMPRESSION: No acute radiographic finding in the chest. Emphysema. Assessment & Plan - Diagnosis (1) Pneumonia Is this a current diagnosis for this admission?: Yes Plan: IMCU admission, pneumonia care set, consider CT imaging given risk of malignancy , history of treated TB and lack of chest x-ray findings. Albuterol and Atrovent, flutter valve, prednisone, empiric antibiotics follow- up CBC and blood culture. (2) COPD exacerbation Is this a current diagnosis for this admission?: Yes Plan: Supplemental oxygen, flutter valve, chest PT if tolerated (3) Respiratory acidosis Is this a current diagnosis for this admission?: Yes Plan: Avoid sedation, BiPAP correction #1 (4) Tobacco abuse Is this a current diagnosis for this admission?: Yes Plan: Tobacco Dependence patient received tobacco cessation counseling and offered nicotine replacement options - Time Time Spent: 50 to 70 Minutes - Inpatient Certification Medical Necessity: Need Close Monitoring Due to Risk of Patient Decompensation
[2017-07-29] MEDS: IPRATROPIUM/ALBUTEROL 0.5-2.5 MG/3 ML AMPUL NEB SCH ×3 (07:50→19:58)
[2017-07-29] MEDS: INSULIN LISPRO 100 UNIT/ML 3 ML VIAL SUBCUT PRN ×2 (08:02→20:09)
[2017-07-29] MEDS: AZITHROMYCIN 500 MG in DEXTROSE 5%-WATER 250 ML IV SCH (08:02)
[2017-07-29] MEDS: FLUTICASONE NASAL SPRAY 50 MCG/SPRY 120 SPRAY/16 GM NASL SCH ×2 (09:51→22:38)
[2017-07-29] MEDS: NICOTINE 14 MG/24 HR PATCH.TD24 TD SCH (09:52)
[2017-07-29] MEDS: GUAIFENESIN 600 MG TABLET.SA PO SCH ×2 (09:52→22:41)
--- NOTE | 2017-07-29 10:03 | PROGRESS NOTE E ---
Progress Note NAME: SRINIVASA WINN : 1935 AGE: 81Y DATE: 07/29/2017 ROOM: 306 SUBJECTIVE: The patient is currently sitting on the side of the bed eating her breakfast. The patient is wearing her nasal cannula. She does not have the BiPAP on. The patient does not appear to be distressed. She is able to fully complete sentences. The patient denies any vomiting, but does admit to nausea. No dizziness, chest pain. The patient does admit to a strong cough and some sputum production, and the patient does not voice any other concerns at this time. REVIEW OF SYSTEMS: Rest of review of systems negative. MEDICATIONS: Medications have been reviewed. OBJECTIVE: GENERAL: The patient is an 81-year-old female who is awake, alert. She is oriented to person, place, time, and situation. She is verbal, conversational, does not appear to be in any acute distress. VITAL SIGNS: Temperature is 97.8, pulse 106, respirations 24, blood pressure is 138/67, oxygen saturation is 100% on 40% FiO2 BiPAP. SKIN: Warm and dry. No rash. She is not diaphoretic. HEENT: Pupils equal, round, and reactive to light and accommodation. Conjunctiva is pink. There is no JVP. CARDIOVASCULAR SYSTEM: Heart is regular. No murmur or rub. CHEST: Diminished, symmetrical, unlabored. The patient has severe osteoporosis. ABDOMEN: Soft. Bowel sounds present. EXTREMITIES: No clubbing, cyanosis, edema. PSYCHIATRIC: Appropriate affect. Pleasant mood. DIAGNOSTICS: Lab values are as follows: Hematology obtained on 07/29/2017: WBCs are 9.4, hemoglobin is 12.5, hematocrit is 38.2, platelet count is 248,000. Chemistry obtained on 07/29/2017: Sodium is 143, potassium 4.9, chloride is 98, carbon dioxide 37, BUN 23, creatinine is 1.12. Glucose 81, calcium is 9.2. IMPRESSION AND PLAN: 1. CHRONIC OBSTRUCTIVE PULMONARY DISEASE EXACERBATION. Will continue supplemental O2 as well as steroids and flutter valve and continue. 2. ACUTE ON CHRONIC HYPERCAPNIC RESPIRATORY FAILURE. Will repeat the patient's venous blood gas. At this time, the patient appears fairly compensated. Will continue the BiPAP, though, if needed and will re-evaluate the patient. 3. TOBACCO DEPENDENCY. Spent 3 minutes discussing tobacco cessation education. The patient declines pharmacological intervention at this time. 4. DIABETES MELLITUS TYPE 2. The patient's glucoses are significantly elevated. Most likely this is due to steroids. Will resume the patient's home oral medications once reconcilable. DISPOSITION: The patient is a FULL CODE. Pending patient's symptomatology and diagnostic findings, will re-evaluate in the a.m. Time spent on this followup including assessment, plan, physical examination, patient education, and significant amount of patient education and review of repeat labs is 60 minutes. DICTATING PHYSICIAN: LILIANA GAN NP [id number] PHY#: [id number] ID: [id number] JOB#: [id number] ACCT: [id number] cc: >
[2017-07-29] MEDS ORDERED: BISACODYL 10 MG SUPP.RECT PR ONE (11:00)
[2017-07-29 11:48] LABS: VENOUS BLOOD BASE EXCESS 7.4 mmol/L; VENOUS BLOOD HCO3 33.8 mmol/L (20-32); VENOUS BLOOD PCO2 56.3 mmHg (35-63); VENOUS BLOOD PH 7.4 (7.30-7.42)
[2017-07-29] MEDS ORDERED: ALBUTEROL SULFATE HFA (90 MCG/PUFF) 8 GM MDI (1 MDI/ER DISP) IH PRN (13:30)
[2017-07-29] MEDS ORDERED: ALBUTEROL SULFATE HFA (90 MCG/PUFF) 200 PUFF/8.5 GM MDI IH PRN (13:47)
[2017-07-29] MEDS: PROCHLORPERAZINE MALEATE 5 MG TABLET PO PRN ×2 (14:22→20:13)
[2017-07-29] MEDS ORDERED: BUPROPION HCL 100 MG TABLET PO ONE (14:30)
[2017-07-29] MEDS ORDERED: GABAPENTIN 300 MG CAPSULE PO ONE (14:30)
[2017-07-29] MEDS ORDERED: RIVASTIGMINE 4.6 MG/24 HR PATCH.TD24 TD ONE (14:30)
[2017-07-29] MEDS ORDERED: LISPRO SQ SCH (17:00)
[2017-07-29] MEDS ORDERED: INSULIN LISPRO PROTAMIN SQ SCH (17:00)
[2017-07-29] MEDS ORDERED: [UNRECOGNIZED DRUG - OTHER] SQ SCH (17:00)
[2017-07-29] MEDS: POLYETHYLENE GLYCOL 3350 POWDER 17 GM/1 PACKET PO SCH (18:26)
[2017-07-29] MEDS ORDERED: MONTELUKAST SODIUM 10 MG TABLET PO SCH (22:00)
[2017-07-30] MEDS: IPRATROPIUM/ALBUTEROL 0.5-2.5 MG/3 ML AMPUL NEB SCH ×2 (01:32→07:37)
[2017-07-30] MEDS: HEPARIN SOD (PORCINE) 5,000 UNIT/ML 1 ML SYRINGE SUBCUT SCH (05:14)
[2017-07-30 05:31] LABS: ABSOLUTE BASOPHILS # (AUTO) 0.1 10^3/uL (0.0-0.2); ABSOLUTE EOSINOPHILS # (AUTO) 0.1 10^3/uL (0.0-0.6); ABSOLUTE LYMPHOCYTES (AUTO) 1.5 10^3/uL (0.5-4.7); ABSOLUTE MONOCYTES (AUTO) 0.5 10^3/uL (0.1-1.4); BASOPHILS % (AUTO) 0.9 % (0-2); EOSINOPHILS % (AUTO) 2.3 % (0-6); HEMATOCRIT 31.8 % (36.0-47.0); HEMOGLOBIN 10.8 g/dL (12.0-15.5); HGB HCT DIFFERENCE 0.6; LYMPHOCYTES % (AUTO) 24.4 % (13-45); MEAN CORPUSCULAR HEMOGLOBIN 30.2 pg (27.0-33.4); MEAN CORPUSCULAR HGB CONC 33.8 g/dL (32.0-36.0); MEAN CORPUSCULAR VOLUME 89 fl (80-97); MONOCYTES % (AUTO) 8.7 % (3-13); RED BLOOD COUNT 3.56 10^6/uL (3.72-5.28); RED CELL DISTRIBUTION WIDTH 14.5 % (11.5-14.0); SEGMENTED NEUTROPHILS % (AUTO) 63.7 % (42-78); WHITE BLOOD COUNT 6.3 10^3/uL (4.0-10.5)
[2017-07-30 05:44] LABS: ANION GAP 8 (5-19); BLOOD UREA NITROGEN 31 mg/dL (7-20); CALCIUM 8.9 mg/dL (8.4-10.2); CARBON DIOXIDE 37 mmol/L (22-30); CHLORIDE 98 mmol/L (98-107); CREATININE RESULT 1.44 mg/dL (0.52-1.25); GLUCOSE 130 mg/dL (75-110); POTASSIUM 4.5 mmol/L (3.6-5.0); SODIUM 142.5 mmol/L (137-145)
[2017-07-30] MEDS ORDERED: LEVOTHYROXINE SODIUM 0.075 MG TABLET PO SCH (06:00)
[2017-07-30] MEDS ORDERED: CEFTRIAXONE 1 GM/D5W RTU 1 GM/50 ML RTUPB IV SCH (08:00)
[2017-07-30] MEDS ORDERED: TORSEMIDE 5 MG PO SCH (08:00)
[2017-07-30] MEDS ORDERED: TORSEMIDE 20 MG TABLET PO SCH (08:00)
[2017-07-30] MEDS ORDERED: (PENDING PHARMACY ID) (Linaclotide 145 MCG) PO SCH (08:00)
[2017-07-30] MEDS ORDERED: ISOSORBIDE MONONITRATE 30 MG TAB.ER.24H PO SCH (08:00)
[2017-07-30] MEDS ORDERED: MAG HYDROX/AL HYDROX/SIMETH SUSP 30 ML UDCUP ONE (09:02)
[2017-07-30] MEDS ORDERED: MAG HYDROX/AL HYDROX/SIMETH SUSP 30 ML UDCUP PO SCH (10:00)
[2017-07-30] MEDS ORDERED: GABAPENTIN 300 MG CAPSULE PO SCH (10:00)
[2017-07-30] MEDS ORDERED: RIVASTIGMINE 4.6 MG/24 HR PATCH.TD24 TD SCH (10:00)
[2017-07-30] MEDS ORDERED: POTASSIUM CHLORIDE 10 MEQ TABLET.SA PO SCH (10:00)
[2017-07-30] MEDS ORDERED: BUPROPION HCL 100 MG TABLET PO SCH (10:00)
[2017-07-30] MEDS ORDERED: MAGNESIUM OXIDE 400 MG TABLET PO SCH (10:00)
[2017-07-30] MEDS: AZITHROMYCIN 500 MG in DEXTROSE 5%-WATER 250 ML IV SCH (10:07)
[2017-07-30] MEDS: NICOTINE 14 MG/24 HR PATCH.TD24 TD SCH (10:14)
[2017-07-30] MEDS: FLUTICASONE NASAL SPRAY 50 MCG/SPRY 120 SPRAY/16 GM NASL SCH (10:14)
[2017-07-30] MEDS: GUAIFENESIN 600 MG TABLET.SA PO SCH (10:17)
[2017-07-30] MEDS: POLYETHYLENE GLYCOL 3350 POWDER 17 GM/1 PACKET PO SCH (10:17)
[2017-07-30 11:29] VITALS: BP 158/68
--- NOTE | 2017-07-30 12:23 | DISCHARGE SUMMARY E ---
Discharge Summary NAME: SRINIVASA WINN : 1935 AGE: 81Y ADMITTED: 07/29/2017 DISCHARGED: 07/30/2017 CODE STATUS: FULL CODE. PRIMARY CARE PROVIDER: Sarita. DISCHARGE DIAGNOSES: 1. Chronic obstructive pulmonary disease exacerbation. 2. Lqdkb-ca-puaotdl hypoxemic and hypercapnic respiratory failure secondary to #1. 3. Tobacco dependency, continuous. 4. Diabetes mellitus type 2. 5. Early dementia. 6. Hypothyroidism. 7. Chronic kidney disease stage 3. DISCHARGE MEDICATIONS: 1. Prednisone 60 mg taper. 2. Singulair 10 mg p.o. every hour of sleep 30 tablets with 0 refills. 3. Ceftin 500 mg p.o. b.i.d. 16 tablets 0 refills. 4. Zithromax 500 mg daily x3 days. 5. Potassium chloride 2 mEq p.o. daily. 6. Humalog 75/25 20 units subcutaneous b.i.d. 7. Anoro Ellipta 1 puff inhalation daily. 8. Torsemide 5 mg p.o. q.a.m. 9. Exelon patch daily. 10. MiraLax 1 packet p.o. b.i.d. 11. Magnesium oxide 400 mg daily. 12. Linzess 145 mcg p.o. q.a.m. 13. Synthroid 75 mcg p.o. q.a.m. 14. Isosorbide mononitrate ER 30 mg p.o. q.a.m. 15. Neurontin 300 mg p.o. daily. 16. Colace 100 mg p.o. daily. 17. Wellbutrin 100 mg p.o. daily. 18. Ventolin HFA 2 puff inhalation q.4 h. p.r.n. DIET: As tolerated. ACTIVITY: As tolerated. DIAGNOSTICS: Lab values are as follows: Hematology Obtained on 07/30/2017: WBCs are 6.3, hemoglobin 10.8, hematocrit 31.8, platelet count is 229,000. Venous blood gas Obtained on 07/29/2017: pH 7.4, PCO2 56.3, bicarb 33.8. Chemistry Obtained on 07/30/2017: Sodium is 145, potassium 3.5, chloride 98, carbon dioxide 37, BUN 31, creatinine 1.2, glucose 130, calcium 8.9, bilirubin 0.4, AST 21, ALT 33, alkaline phos 135, total protein 6.3, albumin 3.8. Microbiology: Blood culture Obtained on 07/29/2017 revealed no growth. Chest x-ray obtained on 07/28/2017 revealed no acute radiographic finding of the chest with evidence of emphysema. PHYSICAL EXAMINATION: GENERAL: On examination, the patient is a frail, chronically ill-appearing 81-year-old female who is awake and alert. She is oriented to person, place, time and situation. She is verbal, conversational, and ambulatory and does not appear to be in any acute distress. VITAL SIGNS FOLLOWS: Temperature 97.5, pulse 67, respirations 20, blood pressure 131/52, oxygen saturation is 100% on 3 L nasal cannula. SKIN: Pale. She is not diaphoretic. HEENT: Pupils are equal, round, and reactive to light and accommodation. Conjunctivae is pink. There is no evidence of JVP. CARDIOVASCULAR: Heart is regular. There is no murmur or rub. CHEST: Diminished, symmetrical and unlabored. ABDOMEN: Soft. Nontender, nondistended. BACK: No CVA tenderness or sacral edema. EXTREMITIES: No clubbing, cyanosis or edema. PSYCHIATRIC: Appropriate affect. Pleasant mood. HISTORY OF PRESENT ILLNESS: The patient is an 81-year-old female with a past medical history of oxygen dependent COPD as well as ongoing tobacco dependency. The patient presented to the emergency department, as she has many times before, with a chief complaint of shortness of breath. The patient presented with a 6-hour history of worsening shortness of breath that was associated with a nonproductive cough, not alleviated by home regimen of 02 and nebulizers. While in the emergency department the patient was found to have a partially compensated respiratory acidosis as well as hypoxemia and tachypnea and received several albuterol/Atrovent nebulizers as well as IV magnesium and Solu-Medrol, and the patient was referred to the hospitalist for admission and management. The patient denied any chest pain, nausea or vomiting, rhinorrhea, sore throat, uncontrolled GERD, fever, and denies recent antibiotic use. HOSPITAL COURSE: The patient was admitted to the [facility]. The patient was covered with Rocephin and Zithromax as well as encouraged to take Mucinex; however, the patient does refuse this. However, the patient does have a strong cough which is productive. The patient is on her home setting of 02 and has tolerated this well. On initial presentation, the patient was quite hypercapnic, which she has been in the past, but this did improve with BiPAP. The patient's corrected PCO2 is 56.3 and pH of 7.4. It is to be noted that whenever the patient's PCO2 was 80, she was still conversational. On rounding today, the patient stated that she is at her baseline and would like to go home. The patient was counseled about tobacco dependency and encouraged to take to guaifenesin help liquefy secretions. DISCHARGE PLANNING: The patient is advised to follow up with the primary care provider within 1 week for hospital followup. Time spent on this discharge including assessment and plan, physical examination, patient education and review of records is 25 minutes. DICTATING PHYSICIAN: LILIANA GAN NP [id number] PHY#: [id number] ID: [id number] JOB#: [id number] ACCT: [id number] cc:DOMO AZUL M.D., MICHAEL NP > MTDD
== END 2017-07-30 11:59 | disposition home health service (06) | DRG 190 ==
LOC: ER 23:32 → EH 07-29 02:35 → 3N 07-29 03:52
PROVIDERS: ADMIT Internal Medicine; ATTEND Internal Medicine
PROC: 5A09457 Assistance with Respiratory Ventilation, 24-96 Consecutive Hours, Continuous Positive Airway Pressure (ICD-10-PCS; principal; 2017-07-29)
PROC: 3E0F73Z Introduction of Anti-inflammatory into Respiratory Tract, Via Natural or Artificial Opening (ICD-10-PCS; 2017-07-29)
PROC: 3E0234Z Introduction of Serum, Toxoid and Vaccine into Muscle, Percutaneous Approach (ICD-10-PCS; 2017-07-30)
DX: J44.1 Chronic obstructive pulmonary disease with (acute) exacerbation (principal); J96.22 Acute and chronic respiratory failure with hypercapnia; J96.21 Acute and chronic respiratory failure with hypoxia; F17.210 Nicotine dependence, cigarettes, uncomplicated; F03.90 Unspecified dementia, unspecified severity, without behavioral disturbance, psychotic disturbance, mood disturbance, and anxiety; E03.9 Hypothyroidism, unspecified; E11.22 Type 2 diabetes mellitus with diabetic chronic kidney disease; N18.3 Chronic kidney disease, stage 3 (moderate); I12.9 Hypertensive chronic kidney disease with stage 1 through stage 4 chronic kidney disease, or unspecified chronic kidney disease; I25.10 Atherosclerotic heart disease of native coronary artery without angina pectoris; K21.9 Gastro-esophageal reflux disease without esophagitis; E78.5 Hyperlipidemia, unspecified; Z23 Encounter for immunization; Z79.899 Other long term (current) drug therapy; Z99.81 Dependence on supplemental oxygen; Z90.49 Acquired absence of other specified parts of digestive tract; Z83.6 Family history of other diseases of the respiratory system; Z79.82 Long term (current) use of aspirin; Z79.4 Long term (current) use of insulin; Z79.52 Long term (current) use of systemic steroids; Z88.1 Allergy status to other antibiotic agents; Z88.3 Allergy status to other anti-infective agents; Z88.0 Allergy status to penicillin; Z88.2 Allergy status to sulfonamides; Z88.8 Allergy status to other drugs, medicaments and biological substances
CPT/HCPCS: 36415; 71010; 80048; 80053; 82803; 82962; 85025; 87040; 90686; 94640; 94660; 94799; 96365; 96375; 99285; J0456; J0696; J1644; J1815; J2930; J3475; J3490; J7060; J7620; S0183

== ENCOUNTER 2017-08-29 14:08 | Emergency (ER) | payer MEDICARE, MEDICAID ==
[2017-08-29] MEDS ORDERED: IPRATROPIUM/ALBUTEROL 0.5-2.5 MG/3 ML AMPUL NEB ONE (14:25)
--- NOTE | 2017-08-29 14:41 | ER Document Report ---
ED Medical Screen (RME) - General Mode of Arrival: Ambulatory Information source: Patient TRAVEL OUTSIDE OF THE [place] IN LAST 30 DAYS: No <ELA HONEYCUTT - Last Filed: 08/29/17 16:10> <ZAHRA IRELAND - Last Filed: 08/29/17 19:33> - General Chief Complaint: Breathing Difficulty Stated Complaint: DIFFICULTY BREATHING ABDOMINAL PAIN Time Seen by Provider: 08/29/17 14:22 Notes: Patient is an 82 year old female with a history of anemia presents to the emergency department complaining of abdominal pain and difficulty breathing onset 4 days ago. Patient associated symptoms include diarrhea, which she describes as loose and dark, as well as a productive cough onset 2 weeks ago. Patient states she smoked 3 cigarettes this morning. I have greeted and performed a rapid initial assessment of this patient. A comprehensive ED assessment and evaluation of the patient, analysis of test results and completion of the medical decision making process will be conducted by additional ED providers. (ELA HONEYCUTT) - Related Data Allergies/Adverse Reactions: erythromycin base [Erythromycin Base] Allergy (Verified 07/28/17 23:33) furosemide [From Lasix] Allergy (Verified 07/28/17 23:33) iodine [Iodine] Allergy (Verified 07/28/17 23:33) LOSE MEMORY levofloxacin [From Levaquin] Allergy (Verified 07/28/17 23:33) metformin HCl [From Glucophage] Allergy (Verified 07/28/17 23:33) SWELLING FACE Penicillins Allergy (Verified 07/28/17 23:33) pioglitazone HCl [From Actos] Allergy (Verified 07/28/17 23:33) SWELLING FACE Anuhxra-Ufh-Pap Reductase Inhibitor Allergy (Verified 07/28/17 23:33) MUSCLE PAIN Sulfa (Sulfonamide Antibiotics) Allergy (Verified 07/28/17 23:33) SICK sulfamethoxazole [From Bactrim] Allergy (Verified 07/28/17 23:33) SICK trimethoprim [From Bactrim] Allergy (Verified 07/28/17 23:33) SICK Past Medical History - Social History Chew tobacco use (# tins/day): No Frequency of alcohol use: None Drug Abuse: None - Past Medical History Cardiac Medical History: Reports: Hx Coronary Artery Disease, Hx Hypercholesterolemia, Hx Hypertension Denies: Hx Heart Attack Pulmonary Medical History: Reports: Hx Asthma, Hx Bronchitis, Hx COPD, Hx Pneumonia, Hx Tuberculosis Neurological Medical History: Denies: Hx Cerebrovascular Accident, Hx Seizures Endocrine Medical History: Reports: Hx Diabetes Mellitus Type 2 Renal/ Medical History: Denies: Hx Peritoneal Dialysis GI Medical History: Reports: Hx Hiatal Hernia, Hx Ulcer - 50 YEARS AGO. Denies : Hx Hepatitis Musculoskeltal Medical History: Denies Hx Arthritis Infectious Medical History: Denies: Hx Hepatitis Past Surgical History: Reports: Hx Cholecystectomy, Hx Orthopedic Surgery - back , Hx Rectal Surgery, Hx Tubal Ligation. Denies: Hx Mastectomy, Hx Open Heart Surgery, Hx Pacemaker - Immunizations Hx Diphtheria, Pertussis, Tetanus Vaccination: Yes History of Influenza Vaccine for 06/2017 - 10/2017 Season: No <ELA HONEYCUTT - Last Filed: 08/29/17 16:10> Physical Exam - Vital signs Interpretation: Tachycardic - General General appearance: Appears well In distress: None - HEENT Head: Normocephalic, Atraumatic Eyes: Normal Conjunctiva: Normal - Respiratory Breath sounds: Wheezing - Cardiovascular Rhythm: Regular Heart sounds: Normal auscultation - Abdominal Inspection: Normal Distension: No distension Tenderness: Tender - tender to palpation to the bilateral lower quadrant <ELA HONEYCUTT - Last Filed: 08/29/17 16:10> - Vital signs Vitals: Temp Pulse Resp BP Pulse Ox 98.6 F 90 22 H 102/48 L 96 08/29/17 14:14 08/29/17 14:14 08/29/17 14:14 08/29/17 14:14 08/29/17 14:14 Course - Laboratory Result Diagrams: 08/29/17 14:54 08/29/17 14:54 <ELA HONEYCUTT - Last Filed: 08/29/17 16:10> - Laboratory Result Diagrams: 08/29/17 16:29 08/29/17 16:29 <ZAHRA IRELAND - Last Filed: 08/29/17 19:33> - Re-evaluation Re-evalutation: 08/29/17 19:33 I personally performed the services described in the documentation, reviewed and edited the documentation which was dictated to the scribe in my presence, and it accurately records my words and actions. (ZAHRA IRELAND) - Vital Signs Vital signs: Temp Pulse Resp BP Pulse Ox 98.6 F 90 22 H 102/48 L 96 08/29/17 14:14 08/29/17 14:14 08/29/17 14:14 08/29/17 14:14 08/29/17 14:14 - Laboratory Laboratory results interpreted by me: 08/29/17 08/29/17 08/29/17 16:29 16:29 16:29 RBC 3.63 L Hgb 10.8 L Hct 33.0 L RDW 14.3 H VBG pCO2 64.2 H VBG HCO3 34.2 H Carbon Dioxide 33 H BUN 32 H Creatinine 1.26 H Est GFR ( Amer) 49 L Est GFR (Non-Af Amer) 41 L Glucose 211 H Total Protein 6.0 L Ur Leukocyte Esterase Urine Ascorbic Acid 08/29/17 17:31 RBC Hgb Hct RDW VBG pCO2 VBG HCO3 Carbon Dioxide BUN Creatinine Est GFR ( Amer) Est GFR (Non-Af Amer) Glucose Total Protein Ur Leukocyte Esterase SMALL H Urine Ascorbic Acid 40 H Doctor's Discharge <ELA HONEYCUTT - Last Filed: 08/29/17 16:10> <ZAHRA IRELAND - Last Filed: 08/29/17 19:33> - Discharge Referrals: KATHY ESPITIA MD [Primary Care Provider] - Follow up as needed Scribe Documentation - Scribe Written by Scribe:: Arnie Meier, 08/29/2017 14:41 acting as scribe for :: Amilcar <ELA HONEYCUTT - Last Filed: 08/29/17 16:10>
--- NOTE | 2017-08-29 15:29 | ER Document Report ---
ED Respiratory Problem - General Chief Complaint: Breathing Difficulty Stated Complaint: DIFFICULTY BREATHING ABDOMINAL PAIN Time Seen by Provider: 08/29/17 14:22 Mode of Arrival: Ambulatory Notes: 82 years old female with a history of COPD, presents with difficulty in breathing, for the last few days. She states she went back smoking about 7/2 cigarettes within the last 2 days. Now having wheezing and shortness of breath. With a history of COPD. She also complained of lower abdominal pain particularly over the suprapubic region of the last few days with incontinence of feces. Denies any dysuria frequency or urgency. Denies any fever chills or other constitutional symptoms. Denies any nausea vomiting. TRAVEL OUTSIDE OF THE [place] IN LAST 30 DAYS: No - Related Data Allergies/Adverse Reactions: erythromycin base [Erythromycin Base] Allergy (Verified 07/28/17 23:33) furosemide [From Lasix] Allergy (Verified 07/28/17 23:33) iodine [Iodine] Allergy (Verified 07/28/17 23:33) LOSE MEMORY levofloxacin [From Levaquin] Allergy (Verified 07/28/17 23:33) metformin HCl [From Glucophage] Allergy (Verified 07/28/17 23:33) SWELLING FACE Penicillins Allergy (Verified 07/28/17 23:33) pioglitazone HCl [From Actos] Allergy (Verified 07/28/17 23:33) SWELLING FACE Jbyryhd-Jeg-Yvi Reductase Inhibitor Allergy (Verified 07/28/17 23:33) MUSCLE PAIN Sulfa (Sulfonamide Antibiotics) Allergy (Verified 07/28/17 23:33) SICK sulfamethoxazole [From Bactrim] Allergy (Verified 07/28/17 23:33) SICK trimethoprim [From Bactrim] Allergy (Verified 07/28/17 23:33) SICK Past Medical History - General Information source: Patient - Social History Smoking Status: Current Some Day Smoker Chew tobacco use (# tins/day): No Frequency of alcohol use: None Drug Abuse: None Family History: COPD Patient has suicidal ideation: No Patient has homicidal ideation: No - Past Medical History Cardiac Medical History: Reports: Hx Coronary Artery Disease, Hx Hypercholesterolemia, Hx Hypertension Denies: Hx Heart Attack Pulmonary Medical History: Reports: Hx Asthma, Hx Bronchitis, Hx COPD, Hx Pneumonia, Hx Tuberculosis Neurological Medical History: Denies: Hx Cerebrovascular Accident, Hx Seizures Endocrine Medical History: Reports: Hx Diabetes Mellitus Type 2 Renal/ Medical History: Denies: Hx Peritoneal Dialysis GI Medical History: Reports: Hx Hiatal Hernia, Hx Ulcer - 50 YEARS AGO. Denies : Hx Hepatitis Musculoskeltal Medical History: Denies Hx Arthritis Infectious Medical History: Denies: Hx Hepatitis Past Surgical History: Reports: Hx Cholecystectomy, Hx Orthopedic Surgery - back , Hx Rectal Surgery, Hx Tubal Ligation. Denies: Hx Mastectomy, Hx Open Heart Surgery, Hx Pacemaker - Immunizations Hx Diphtheria, Pertussis, Tetanus Vaccination: Yes Hx Pneumococcal Vaccination: 06/26/13 Review of Systems - Review of Systems Notes: REVIEW OF SYSTEMS: CONSTITUTIONAL : Denies fever, chills, or sweats. Denies recent illness. EENT: Denies eye, ear, throat, or mouth pain or symptoms. Denies nasal or sinus congestion or discharge. Denies throat, tongue, or mouth swelling or difficulty swallowing. CARDIOVASCULAR: Denies chest pain. Denies palpitations or racing or irregular heart beat. Denies ankle edema. RESPIRATORY: As per history of complain GASTROINTESTINAL: Denies abdominal pain or distention. Denies nausea, vomiting , or diarrhea. Denies blood in vomitus, stools, or per rectum. Denies black, tarry stools. Denies constipation. GENITOURINARY: Denies difficulty urinating, painful urination, burning, frequency, blood in urine, or discharge. FEMALE GENITOURINARY: Denies vaginal bleeding, heavy or abnormal periods, irregular periods. Denies vaginal discharge or odor. MUSCULOSKELETAL: Denies back or neck pain or stiffness. Denies joint pain or swelling. SKIN: Denies rash, lesions or sores. HEMATOLOGIC : Denies easy bruising or bleeding. LYMPHATIC: Denies swollen, enlarged glands. NEUROLOGICAL: Denies confusion or altered mental status. Denies passing out or loss of consciousness. Denies dizziness or lightheadedness. Denies headache. Denies weakness or paralysis or loss of use of either side. Denies problems with gait or speech. Denies sensory loss, numbness, or tingling. Denies seizures. PSYCHIATRIC: Denies anxiety or stress. Denies depression, suicidal ideation, or homicidal ideation. ALL OTHER SYSTEMS REVIEWED AND NEGATIVE. PHYSICAL EXAMINATION: GENERAL: Cachexia of chronic lung disease. HEAD: Atraumatic, normocephalic. EYES: Pupils equal round and reactive to light, extraocular movements intact, conjunctiva pale bilaterally ENT: Nares patent, oropharynx clear without exudates. Moist mucous membranes. NECK: Normal range of motion, supple without lymphadenopathy LUNGS: Diffusely decreased breath sounds no rales or wheezing HEART: Regular rate and rhythm without murmurs ABDOMEN: Soft, mild tenderness over the suprapubic region noted no masses.. No guarding, no rebound. No masses appreciated. Female : deferred Musculoskeletal: Normal range of motion, 1-2+ pitting edema over the ankles. No cyanosis. NEUROLOGICAL: Cranial nerves grossly intact. Normal speech, normal gait. Normal sensory, motor exams PSYCH: Normal mood, normal affect. SKIN: Warm, Dry, normal turgor, no rashes or lesions noted. Dictation was performed using [employer] voice recognition software Physical Exam - Vital signs Vitals: Temp Pulse Resp BP Pulse Ox 98.6 F 90 22 H 102/48 L 96 08/29/17 14:14 08/29/17 14:14 08/29/17 14:14 08/29/17 14:14 08/29/17 14:14 Course - Re-evaluation Re-evalutation: 08/29/17 18:39 She was given Solu-Medrol, DuoNeb with clinical improvement subsequently she was discharged home. - Vital Signs Vital signs: Temp Pulse Resp BP Pulse Ox 98.6 F 90 22 H 102/48 L 96 08/29/17 14:14 08/29/17 14:14 08/29/17 14:14 08/29/17 14:14 08/29/17 14:14 - Laboratory Result Diagrams: 08/29/17 16:29 08/29/17 16:29 Laboratory results interpreted by me: 08/29/17 08/29/17 08/29/17 16:29 16:29 16:29 RBC 3.63 L Hgb 10.8 L Hct 33.0 L RDW 14.3 H VBG pCO2 64.2 H VBG HCO3 34.2 H Carbon Dioxide 33 H BUN 32 H Creatinine 1.26 H Est GFR ( Amer) 49 L Est GFR (Non-Af Amer) 41 L Glucose 211 H Total Protein 6.0 L Ur Leukocyte Esterase Urine Ascorbic Acid 08/29/17 17:31 RBC Hgb Hct RDW VBG pCO2 VBG HCO3 Carbon Dioxide BUN Creatinine Est GFR ( Amer) Est GFR (Non-Af Amer) Glucose Total Protein Ur Leukocyte Esterase SMALL H Urine Ascorbic Acid 40 H Discharge - Discharge Clinical Impression: COPD exacerbation, Tobacco abuse Condition: Fair Disposition: HOME, SELF-CARE Instructions: Chronic Obstructive Lung Disease ([facility]) Prescriptions: Montelukast Sodium [Singulair 10 mg Tablet] 10 mg PO QHS #30 tablet Albuterol Sulfate [Proair Hfa Inhalation Aerosol 8.5 gm Mdi] 1 puff IH Q4 PRN # 1 mdi PRN Reason: Methylprednisolone [Medrol Dosepack (4 mg/Tab) 21 Tab/Dosepak] 4 mg PO ASDIR PRN #21 tab.ds.pk PRN Reason:
--- NOTE | 2017-08-29 15:44 | RADIOLOGY REPORT (SQ) ---
EXAM DESCRIPTION: CHEST SINGLE VIEW COMPLETED DATE/TIME: 08/29/2017 3:28 pm REASON FOR STUDY: SOB COMPARISON: AP chest 07/29/2017, 07/02/2017 EXAM PARAMETERS: NUMBER OF VIEWS: One view. TECHNIQUE: Single frontal radiographic view of the chest acquired. RADIATION DOSE: NA LIMITATIONS: None. FINDINGS: LUNGS AND PLEURA: No opacities, masses or pneumothorax. No pleural effusion. Lungs are hy perinflated and hyperlucent MEDIASTINUM AND HILAR STRUCTURES: Moderate size retrocardiac hiatal hernia. HEART AND VASCULAR STRUCTURES: Heart normal in size. Tortuous uncoiled thoracic aorta. BONES: Osteoporotic. Old left posterior upper rib fractures. Kyphoplasties in the thoracic spine HARDWARE: None in the chest. OTHER: No other significant finding. IMPRESSION: No acute findings. Suspect obstructive lung disease. TECHNICAL DOCUMENTATION: JOB ID: [id number] [employer]- All Rights Reserved
[2017-08-29 16:53] LABS: ABSOLUTE EOSINOPHILS # (AUTO) 0.1 10^3/uL (0.0-0.6); ABSOLUTE LYMPHOCYTES (AUTO) 1.4 10^3/uL (0.5-4.7); ABSOLUTE MONOCYTES (AUTO) 0.7 10^3/uL (0.1-1.4); ABSOLUTE NEUT (AUTO) 5.6 10^3/uL (1.7-8.2); BASOPHILS % (AUTO) 0.6 % (0-2); EOSINOPHILS % (AUTO) 1.4 % (0-6); HEMOGLOBIN 10.8 g/dL (12.0-15.5); LYMPHOCYTES % (AUTO) 18.2 % (13-45); MEAN CORPUSCULAR HEMOGLOBIN 29.9 pg (27.0-33.4); MEAN CORPUSCULAR HGB CONC 32.8 g/dL (32.0-36.0); MEAN CORPUSCULAR VOLUME 91 fl (80-97); MONOCYTES % (AUTO) 9.2 % (3-13); PLATELET COUNT 341 10^3/uL (150-450); RED BLOOD COUNT 3.63 10^6/uL (3.72-5.28); RED CELL DISTRIBUTION WIDTH 14.3 % (11.5-14.0); SEGMENTED NEUTROPHILS % (AUTO) 70.6 % (42-78); TOTAL CELLS COUNTED % (AUTO) 100 %; WHITE BLOOD COUNT 7.9 10^3/uL (4.0-10.5)
[2017-08-29 16:57] LABS: VENOUS BLOOD HCO3 34.2 mmol/L (20-32); VENOUS BLOOD PCO2 64.2 mmHg (35-63); VENOUS BLOOD PH 7.34 (7.30-7.42)
[2017-08-29 17:07] LABS: INTERNATIONAL RATION (INR) 0.83
[2017-08-29 17:17] LABS: ALANINE AMINOTRANSFERASE 44 U/L (9-52); ALBUMIN 3.5 g/dL (3.5-5.0); ALKALINE PHOSPHATASE 104 U/L (38-126); ANION GAP 9 (5-19); ASPARTATE AMINO TRANSFERASE 30 U/L (14-36); BILIRUBIN,DIRECT 0.2 mg/dL (0.0-0.4); BILIRUBIN,TOTAL 0.2 mg/dL (0.2-1.3); BLOOD UREA NITROGEN 32 mg/dL (7-20); CALCIUM 9.4 mg/dL (8.4-10.2); CARBON DIOXIDE 33 mmol/L (22-30); CHLORIDE 99 mmol/L (98-107); GLUCOSE 211 mg/dL (75-110); POTASSIUM 4.6 mmol/L (3.6-5.0); SODIUM 141.1 mmol/L (137-145)
[2017-08-29 18:02] LABS: APPEARANCE,URINE SLIGHTLY-CLOUDY; BILIRUBIN,URINE NEGATIVE (NEGATIVE); COLOR,URINE YELLOW; GLUCOSE, URINE NEGATIVE (NEGATIVE); KETONES,URINE NEGATIVE (NEGATIVE); LEUKOCYTE ESTERASE,URINE SMALL (NEGATIVE); NITRITE,URINE NEGATIVE (NEGATIVE); PROTEIN,URINE NEGATIVE (NEGATIVE); URINE SPECIFIC GRAVITY 1.011; UROBILINOGEN,URINE NEGATIVE mg/dL (<2.0)
[2017-08-29] MEDS ORDERED: METHYLPREDNISOLONE INJ 125 MG/2 ML SDV IV ONE (18:09)
--- NOTE | 2017-08-29 19:25 | RADIOLOGY REPORT (SQ) ---
EXAM DESCRIPTION: CT ABD/PELVIS WITH IV ONLY COMPLETED DATE/TIME: 08/29/2017 7:00 pm REASON FOR STUDY: Rule out pancreatitis COMPARISON: None. TECHNIQUE: CT scan of the abdomen and pelvis performed using helical scanning technique with dynamic intravenous contrast injection. No oral contrast. Images reviewed with lung, soft tissue, and bone windows. Reconstructed coronal and sagittal MPR images reviewed. Delayed images for evaluation of the urinary system also acquired. All images stored on PACS. All CT scanners at this facility use dose modulation, iterative reconstruction, and/or weight based d osing when appropriate to reduce radiation dose to as low as reasonably achievable (ALARA). [facility]: Dose Right [facility]: CareDose [facility]: Dose Right [facility]: Teradose 4D [facility]: Metabar CONTRAST TYPE AND DOSE: contrast/concentration: Isovue 370.00 mg/ml; Total Contrast Delivered: 48.0 ml; Total Saline Delivered: 65.0 ml RENAL FUNCTION: BUN 32 creatinine 1.26 RADIATION DOSE: CT Rad equipment meets quality standard of care and radiation dose reduction techniq ues were employed. CTDIvol: 4.8 mGy. DLP: 419 mGy-cm.. LIMITATIONS: None. FINDINGS: LOWER CHEST: No acute findings. Hiatus hernia. No nodules or infiltrates. LIVER: Normal size. No masses. No dilated ducts. SPLEEN: Normal size. No focal lesions. PANCREAS: No masses. No significant calcifications. No adjacent inflammation or peripancreatic fluid collections. Pancreatic duct not dilated. GALLBLADDER: Surgically absent. ADRENAL GLANDS: No significant masses or asymmetry. RIGHT KIDNEY AND URETER: No solid masses. No significant calcifications. No hydronephrosis or hyd roureter. LEFT KIDNEY AND URETER: No solid masses. No significant calcifications. No hydronephrosis or hydr oureter. AORTA AND VESSELS: No significant aneurysm. No dissection. Renal arteries, SMA, celiac without signif icant stenosis. RETROPERITONEUM: No retroperitoneal adenopathy, hemorrhage or masses. BOWEL AND PERITONEAL CAVITY: No masses or inflammatory changes. No free fluid or peritoneal masses. APPENDIX: Normal. PELVIS: No mass. No free fluid. Normal bladder. ABDOMINAL WALL: No masses. No hernias. BONES: No acute findings. OTHER: No other significant finding. IMPRESSION: No acute inflammatory changes. TECHNICAL DOCUMENTATION: JOB ID: [id number] Quality ID # [id number]: Final reports with documentation of one or more dose reduction techniques (e.g., Au tomated exposure control, adjustment of the mA and/or kV according to patient size, use of iterative reconstruction technique) 2010 [employer]- All Rights Reserved
[2017-08-29 20:14] VITALS: BP 149/73
--- NOTE | 2017-08-31 12:48 | EKG REPORT ---
SEVERITY:- BORDERLINE ECG - SINUS RHYTHM BORDERLINE R WAVE PROGRESSION, ANTERIOR LEADS : Confirmed by: Yenny Choi MD 31-Aug-2017 12:47:59
== END 2017-08-29 20:14 | disposition home or self-care (01) ==
LOC: ER 14:08
DX: J44.1 Chronic obstructive pulmonary disease with (acute) exacerbation (principal); R06.02 Shortness of breath; R10.9 Unspecified abdominal pain; R06.2 Wheezing; F17.200 Nicotine dependence, unspecified, uncomplicated
CPT/HCPCS: 93005; 94640; 99285; 96374; 86900; 86901; 36415; 87040; 87086; 86850; 85025; 85610; 82272; 87088; 80053; 81001; 84484; 82803; 83605; 71010; 74177; 93010; J2930; A9270; J7620

== ENCOUNTER 2017-09-13 18:10 | Emergency (ER) | payer MEDICARE, MEDICAID ==
[2017-09-13] MEDS ORDERED: METHYLPREDNISOLONE INJ 125 MG/2 ML SDV IM ONE (18:41)
[2017-09-13] MEDS ORDERED: IPRATROPIUM/ALBUTEROL 0.5-2.5 MG/3 ML AMPUL NEB ONE (18:41)
--- NOTE | 2017-09-13 18:50 | ER Document Report ---
ED Medical Screen (RME) - General Chief Complaint: Headache Stated Complaint: HEADACHE,DIFFICULTY BREATHING Time Seen by Provider: 09/13/17 18:40 Mode of Arrival: Wheelchair Information source: Patient - pt. with c/o L-sided RODRIGUEZ and difficulty breeathing for the past day TRAVEL OUTSIDE OF THE [place] IN LAST 30 DAYS: No - Related Data Allergies/Adverse Reactions: erythromycin base [Erythromycin Base] Allergy (Verified 09/13/17 18:35) furosemide [From Lasix] Allergy (Verified 09/13/17 18:35) iodine [Iodine] Allergy (Verified 09/13/17 18:35) LOSE MEMORY levofloxacin [From Levaquin] Allergy (Verified 09/13/17 18:35) metformin HCl [From Glucophage] Allergy (Verified 09/13/17 18:35) SWELLING FACE Penicillins Allergy (Verified 09/13/17 18:35) pioglitazone HCl [From Actos] Allergy (Verified 09/13/17 18:35) SWELLING FACE Swhlnlh-Ywa-Ezv Reductase Inhibitor Allergy (Verified 09/13/17 18:35) MUSCLE PAIN Sulfa (Sulfonamide Antibiotics) Allergy (Verified 09/13/17 18:35) SICK sulfamethoxazole [From Bactrim] Allergy (Verified 09/13/17 18:35) SICK trimethoprim [From Bactrim] Allergy (Verified 09/13/17 18:35) SICK Home Medications: Current Home Medications Dexlansoprazole [Dexilant 30 mg Capsule] 30 mg PO DAILY 09/13/17 [History] Past Medical History - Social History Chew tobacco use (# tins/day): No Frequency of alcohol use: None Drug Abuse: None - Past Medical History Cardiac Medical History: Reports: Hx Coronary Artery Disease, Hx Hypercholesterolemia, Hx Hypertension Denies: Hx Heart Attack Pulmonary Medical History: Reports: Hx Asthma, Hx Bronchitis, Hx COPD, Hx Pneumonia, Hx Tuberculosis Neurological Medical History: Denies: Hx Cerebrovascular Accident, Hx Seizures Endocrine Medical History: Reports: Hx Diabetes Mellitus Type 2 Renal/ Medical History: Denies: Hx Peritoneal Dialysis GI Medical History: Reports: Hx Hiatal Hernia, Hx Ulcer - 50 YEARS AGO. Denies : Hx Hepatitis Musculoskeltal Medical History: Denies Hx Arthritis Infectious Medical History: Denies: Hx Hepatitis Past Surgical History: Reports: Hx Cholecystectomy, Hx Orthopedic Surgery - back , Hx Rectal Surgery, Hx Tubal Ligation. Denies: Hx Mastectomy, Hx Open Heart Surgery, Hx Pacemaker - Immunizations Hx Diphtheria, Pertussis, Tetanus Vaccination: Yes History of Influenza Vaccine for 06/2017 - 10/2017 Season: No
--- NOTE | 2017-09-13 19:07 | RADIOLOGY REPORT (SQ) ---
EXAM DESCRIPTION: CT HEAD WITHOUT COMPLETED DATE/TIME: 09/13/2017 6:59 pm REASON FOR STUDY: SOB COMPARISON: None. TECHNIQUE: Axial images acquired through the brain without intravenous contrast. Images reviewed wi th bone, brain and subdural windows. Images stored on PACS. All CT scanners at this facility use dose modulation, iterative reconstruction, and/or weight based d osing when appropriate to reduce radiation dose to as low as reasonably achievable (ALARA). [facility]: Dose Right [facility]: CareDose [facility]: Dose Right [facility]: Teradose 4D [facility]: [employer] RADIATION DOSE: mGy. LIMITATIONS: None. FINDINGS: VENTRICLES: Prominent. CEREBRUM: No masses. No hemorrhage. No midline shift. Areas of low density in the white matter mos t likely due to chronic micro-vascular ischemic change. No evidence for acute infarction. CEREBELLUM: No masses. No hemorrhage. No alteration of density. No evidence for acute infarction. EXTRAAXIAL SPACES: Age-related involutional change. No fluid collections. No masses. ORBITS AND GLOBE: No intra- or extraconal masses. Normal contour of globe without masses. CALVARIUM: No fracture. PARANASAL SINUSES: No fluid or mucosal thickening. SOFT TISSUES: No mass or hematoma. OTHER: No other significant finding. IMPRESSION: CHRONIC CHANGES OF ATROPHY AND MICROVASCULAR ISCHEMIA. NO ACUTE PROCESS. EVIDENCE OF ACUTE STROKE: NO. TECHNICAL DOCUMENTATION: JOB ID: [id number] Quality ID # [id number]: Final reports with documentation of one or more dose reduction techniques (e.g., Au tomated exposure control, adjustment of the mA and/or kV according to patient size, use of iterative reconstruction technique) 2010 [employer]- All Rights Reserved
--- NOTE | 2017-09-13 19:22 | RADIOLOGY REPORT (SQ) ---
EXAM DESCRIPTION: CHEST PA/LAT COMPLETED DATE/TIME: 09/13/2017 7:15 pm REASON FOR STUDY: SOB COMPARISON: 06/09/2017, 09/01/2016 EXAM PARAMETERS: NUMBER OF VIEWS: two views TECHNIQUE: Digital Frontal and Lateral radiographic views of the chest acquired. RADIATION DOSE: NA LIMITATIONS: none FINDINGS: LUNGS AND PLEURA: No opacities, masses or pneumothorax. No pleural effusion. MEDIASTINUM AND HILAR STRUCTURES: No masses or contour abnormalities. HEART AND VASCULAR STRUCTURES: Heart normal size. No evidence for failure. BONES: Osteopenia. Scoliosis. Treated compression fractures. HARDWARE: None in the chest. OTHER: No other significant finding. IMPRESSION: No acute pulmonary disease. TECHNICAL DOCUMENTATION: JOB ID: [id number] [employer]- All Rights Reserved
[2017-09-13 19:41] LABS: ABSOLUTE LYMPHOCYTES (AUTO) 0.7 10^3/uL (0.5-4.7); ABSOLUTE MONOCYTES (AUTO) 0.4 10^3/uL (0.1-1.4); ABSOLUTE NEUT (AUTO) 8.9 10^3/uL (1.7-8.2); BASOPHILS % (AUTO) 0.4 % (0-2); EOSINOPHILS % (AUTO) 0.3 % (0-6); HEMATOCRIT 34.2 % (36.0-47.0); HEMOGLOBIN 11.4 g/dL (12.0-15.5); LYMPHOCYTES % (AUTO) 6.7 % (13-45); MEAN CORPUSCULAR HEMOGLOBIN 29.8 pg (27.0-33.4); MEAN CORPUSCULAR HGB CONC 33.2 g/dL (32.0-36.0); MEAN CORPUSCULAR VOLUME 90 fl (80-97); MONOCYTES % (AUTO) 4.4 % (3-13); PLATELET COUNT 326 10^3/uL (150-450); RED BLOOD COUNT 3.81 10^6/uL (3.72-5.28); RED CELL DISTRIBUTION WIDTH 13.7 % (11.5-14.0); SEGMENTED NEUTROPHILS % (AUTO) 88.2 % (42-78); TOTAL CELLS COUNTED % (AUTO) 100 %; WHITE BLOOD COUNT 10.1 10^3/uL (4.0-10.5)
[2017-09-13 19:57] LABS: ALANINE AMINOTRANSFERASE 35 U/L (9-52); ALBUMIN 3.8 g/dL (3.5-5.0); ALKALINE PHOSPHATASE 110 U/L (38-126); ASPARTATE AMINO TRANSFERASE 30 U/L (14-36); BILIRUBIN,DIRECT 0.3 mg/dL (0.0-0.4); BILIRUBIN,TOTAL 0.3 mg/dL (0.2-1.3); BLOOD UREA NITROGEN 30 mg/dL (7-20); CALCIUM 9.8 mg/dL (8.4-10.2); CHLORIDE 96 mmol/L (98-107); GLUCOSE 201 mg/dL (75-110); SODIUM 142.7 mmol/L (137-145); TOTAL PROTEIN 6.3 g/dL (6.3-8.2)
[2017-09-13 20:21] LABS: ERYTHROCYTE SEDIMENTATION RATE 79 mm/hr (0-30)
[2017-09-13 20:23] LABS: ANION GAP 9 (5-19)
[2017-09-13 20:24] LABS: CARBON DIOXIDE 38 mmol/L (22-30)
--- NOTE | 2017-09-13 20:32 | ER Document Report ---
ED General - General Chief Complaint: Headache Stated Complaint: HEADACHE,DIFFICULTY BREATHING Time Seen by Provider: 09/13/17 18:40 Mode of Arrival: Wheelchair TRAVEL OUTSIDE OF THE [place] IN LAST 30 DAYS: No - HPI Notes: Patient is an 82-year-old female with a history of diabetes, oxygen dependent COPD, CKD who presents to the ED with continued wheezing, shortness of breath since her visit about 2 weeks ago. Patient states that she was feeling well during that visit, but when she went home her symptoms began to worsen again. Patient states that she has been having a dry nonproductive cough since then with intermittent episodes of wheezing and trouble breathing. Patient states that she has been having issues with her COPD over the last several months as well. Patient states that she did develop a left-sided mild headache that started gradually 3 days ago from her coughing she will use. Patient states that she will feel nauseous on occasion, but has not been vomiting. Patient states that she had one episode last week of posttussive emesis. Patient is otherwise eating and drinking without any difficulties. She is urinating normally and having normal bowel movements. Patient states that she is able to perform her ADLs without any difficulties. Denies any fever, head injury, neck pain, changes in vision/speech/mentation/hearing, URI, sore throat, chest pain, palpitations, syncope, abdominal pain, nausea/vomiting/diarrhea, urinary retention, dysuria, hematuria, loss of control of bowel or bladder, numbness/ tingling, saddle anesthesia, muscle paralysis/weakness, or rash. Patient denies any significant cardiac history, PE, or DVT. She denies any prolonged immobilization, hormone replacement, diabetes, cancer, recent injury/trauma. - Related Data Allergies/Adverse Reactions: erythromycin base [Erythromycin Base] Allergy (Verified 09/13/17 18:35) furosemide [From Lasix] Allergy (Verified 09/13/17 18:35) iodine [Iodine] Allergy (Verified 09/13/17 18:35) LOSE MEMORY levofloxacin [From Levaquin] Allergy (Verified 09/13/17 18:35) metformin HCl [From Glucophage] Allergy (Verified 09/13/17 18:35) SWELLING FACE Penicillins Allergy (Verified 09/13/17 18:35) pioglitazone HCl [From Actos] Allergy (Verified 01/13/18 18:35) SWELLING FACE Jntrpgb-Lyq-Bws Reductase Inhibitor Allergy (Verified 09/13/17 18:35) MUSCLE PAIN Sulfa (Sulfonamide Antibiotics) Allergy (Verified 09/13/17 18:35) SICK sulfamethoxazole [From Bactrim] Allergy (Verified 09/13/17 18:35) SICK trimethoprim [From Bactrim] Allergy (Verified 09/13/17 18:35) SICK Home Medications: Current Home Medications Dexlansoprazole [Dexilant 30 mg Capsule] 30 mg PO DAILY 09/13/17 [History] Past Medical History - General Information source: Patient - pt. with c/o L-sided RODRIGUEZ and difficulty breeathing for the past day - Social History Smoking Status: Current Some Day Smoker Chew tobacco use (# tins/day): No Frequency of alcohol use: None Drug Abuse: None Family History: Reviewed & Not Pertinent, COPD Patient has suicidal ideation: No Patient has homicidal ideation: No - Past Medical History Cardiac Medical History: Reports: Hx Coronary Artery Disease, Hx Hypercholesterolemia, Hx Hypertension Denies: Hx Heart Attack Pulmonary Medical History: Reports: Hx Asthma, Hx Bronchitis, Hx COPD, Hx Pneumonia, Hx Tuberculosis Neurological Medical History: Denies: Hx Cerebrovascular Accident, Hx Seizures Endocrine Medical History: Reports: Hx Diabetes Mellitus Type 2 Renal/ Medical History: Denies: Hx Peritoneal Dialysis GI Medical History: Reports: Hx Hiatal Hernia, Hx Ulcer - 50 YEARS AGO. Denies : Hx Hepatitis Musculoskeltal Medical History: Denies Hx Arthritis Infectious Medical History: Denies: Hx Hepatitis Past Surgical History: Reports: Hx Cholecystectomy, Hx Orthopedic Surgery - back , Hx Rectal Surgery, Hx Tubal Ligation. Denies: Hx Mastectomy, Hx Open Heart Surgery, Hx Pacemaker - Immunizations Hx Diphtheria, Pertussis, Tetanus Vaccination: Yes Hx Pneumococcal Vaccination: 06/26/13 Review of Systems - Review of Systems Notes: REVIEW OF SYSTEMS: CONSTITUTIONAL : Denies fever, chills, or sweats. Denies recent illness. EENT: Denies eye, ear, throat, or mouth pain or symptoms. Denies nasal or sinus congestion or discharge. Denies throat, tongue, or mouth swelling or difficulty swallowing. CARDIOVASCULAR: Denies chest pain. Denies palpitations or racing or irregular heart beat. Denies ankle edema. RESPIRATORY: See HPI GASTROINTESTINAL: See HPI. denies abdominal pain or distention. Denies current nausea, vomiting, or diarrhea. Denies blood in vomitus, stools, or per rectum. Denies black, tarry stools. Denies constipation. GENITOURINARY: Denies difficulty urinating, painful urination, burning, frequency, blood in urine, or discharge. MUSCULOSKELETAL: Denies back or neck pain or stiffness. Denies joint pain or swelling. SKIN: Denies rash, lesions or sores. NEUROLOGICAL: see hpi. Denies confusion or altered mental status. Denies passing out or loss of consciousness. Denies dizziness or lightheadedness. Denies weakness or paralysis or loss of use of either side. Denies problems with gait or speech. Denies sensory loss, numbness, or tingling. Denies seizures. PSYCHIATRIC: Denies anxiety or stress. Denies depression, suicidal ideation, or homicidal ideation. ALL OTHER SYSTEMS REVIEWED AND NEGATIVE. Dictation was performed using [employer] voice recognition software Physical Exam - Vital signs Notes: PHYSICAL EXAMINATION: GENERAL: Well-appearing, well-nourished and in no acute distress. A&Ox4 HEAD: Atraumatic, normocephalic. Non-tender. No doyle sign EYES: Pupils equal round and reactive to light, extraocular movements intact, sclera anicteric, conjunctiva are normal. No raccoon eyes/entrapment. No nystagmus or lid lag. ENT: EAC clear b/l. TM's intact b/l without erythema, fluid, or perforation. Nares patent and without discharge. oropharynx clear without exudates. No tonsilar hypertrophy or erythema. Moist mucous membranes. No sinus tenderness. No hemotympanum/CSF discharge. NECK: Normal range of motion, supple without lymphadenopathy. No rigidity. No midline tenderness. Spurling negative. NEXUS negative. Chest: No flail chest. equal rise/fall. Non-tender LUNGS: prolonged expiration, b/l wheezes, dec air movement HEART: Regular rate and rhythm without murmurs, rubs, gallops. ABDOMEN: Soft, nontender, nondistended abdomen. No guarding, no rebound. No masses appreciated. Normal bowel sounds present. No CVA tenderness bilaterally. Musculoskeletal: Ext b/l: FROM to passive/active. Strength 5+/5. No deficits noted. No bony tenderness of extremities. Volodymyr neg. no calf erythema/ swelling. Back: FROM to passive/active. Strength 5+/5. No vertebral point tenderness, stepoffs, or deformities. No other bony tenderness or ecchymosis. SLR negative b/l. Extremities: No cyanosis, clubbing, or edema b/l. Peripheral pulses 2+. Capillary refill less than 2 seconds. NEUROLOGICAL: NIH 0, GCS 15, MMSE intact. Cranial nerves grossly intact. Normal speech, normal gait. Normal sensory, motor exams. Reflexes 2+ b/l. JOHN' s negative. Pronator drift negative. Heel/jimenez, finger/nose wnl. PSYCH: Normal mood, normal affect. SKIN: Warm, Dry, normal turgor, no rashes or lesions noted. Course - Re-evaluation Re-evalutation: 09/13/17 21:55 Patient is an afebrile, well-hydrated, 82-year-old female who presents the ED with a COPD exacerbation and RODRIGUEZ. Vitals are stable. PE is otherwise unremarkable. CBC, CMP, cardiac enzymes 1/EKG unremarkable for any acute pathology. Chest x-ray was unremarkable for any acute pathology. Patient was given Solu-Medrol, 2 neb treatments, and magnesium 2. Pt has had this wheezing /sob for 2 weeks +/- w/o any chest pain. CXR and CT scan of the head unremarkable. Pt's RODRIGUEZ has improved. Patient's oxygen saturation is 100% on 3 L NC and is not tachycardic or tachypneic. Lung sounds to improve from initial evaluation. Patient states that she is feeling better than when she first arrived and would like to go home. Low suspicion for any ACS, PE, pneumothorax , pericarditis, dissection, respiratory compromise, severe dehydration, sepsis, meningitis, or other systemic emergent condition at this time. Patient is aware that her condition can change from initial presentation and she needs to monitor symptoms closely and seek medical attention for any acute changes. I will send her home with a prescription for Doxy and a pred taper to take as directed. Recommend conservative measures for symptoms. Recheck with your PCM in 3-5 days. Return to the ED with any worsening/concerning symptoms otherwise as reviewed in discharge. Patient is in agreement. - Laboratory Result Diagrams: 09/13/17 19:24 09/13/17 19:24 Laboratory results interpreted by me: 09/13/17 09/13/17 19:24 19:24 Hgb 11.4 L Hct 34.2 L Seg Neutrophils % 88.2 H Lymphocytes % 6.7 L Absolute Neutrophils 8.9 H ESR 79 H Chloride 96 L Carbon Dioxide 38 H BUN 30 H Creatinine 1.57 H Est GFR ( Amer) 38 L Est GFR (Non-Af Amer) 32 L Glucose 201 H Discharge - Discharge Clinical Impression: COPD exacerbation Headache Qualifiers: Headache type: unspecified Headache chronicity pattern: acute headache Intractability: not intractable Qualified Code(s): R51 - Headache Condition: Stable Disposition: HOME, SELF-CARE Instructions: Chronic Obstructive Lung Disease ([facility]), Headache ([facility]) Additional Instructions: Maintain adequate fluid intake Take meds as directed Continue at-home oxygen and breathing treatments tylenol/ibuprofen as needed over the counter cold medication as needed for symptoms Humidified air may help F/u: with your PCM in 3-5 days for a recheck Return to the ED with any fever, worsening pain, chest pain, palpitations, syncope, worsening RODRIGUEZ, neck pain/stiffness, shortness of breath, wheezing, drooling, trouble swallowing/breathing, abdominal pain, n/v/d, rash, or worsening/concerning symptoms otherwise. Prescriptions: Doxycycline Hyclate 100 mg PO BID #20 capsule Prednisone [Deltasone 20 mg Tablet] 1 tab PO ASDIR PRN 5 Days tablet PRN Reason: Forms: Smoking Cessation Education Referrals: AUSTIN FIORE MD [ACTIVE STAFF] - Follow up as needed
[2017-09-13] MEDS: MAGNESIUM SULFATE/D5W 1 GM/100 ML RTUPB IV SCH ×2 (21:16→21:17)
[2017-09-13] MEDS ORDERED: MECLIZINE HCL 12.5 MG TABLET PO ONE (21:57)
[2017-09-13 22:38] VITALS: BP 134/77
--- NOTE | 2017-09-14 08:51 | EKG REPORT ---
SEVERITY:- ABNORMAL ECG - SINUS TACHYCARDIA BIATRIAL ABNORMALITIES CONSIDER ANTERIOR INFARCT : Confirmed by: Abner Sanchez MD 14-Sep-2017 08:51:18
== END 2017-09-13 22:30 | disposition home or self-care (01) ==
LOC: ER 18:10
DX: J44.1 Chronic obstructive pulmonary disease with (acute) exacerbation (principal); R51 Headache; E11.9 Type 2 diabetes mellitus without complications; N18.9 Chronic kidney disease, unspecified; I25.10 Atherosclerotic heart disease of native coronary artery without angina pectoris; E78.00 Pure hypercholesterolemia, unspecified; I12.9 Hypertensive chronic kidney disease with stage 1 through stage 4 chronic kidney disease, or unspecified chronic kidney disease; Z88.3 Allergy status to other anti-infective agents; Z99.81 Dependence on supplemental oxygen; Z90.49 Acquired absence of other specified parts of digestive tract
CPT/HCPCS: 93005; 99285; 96372; 96365; 36415; 85025; 85652; 80053; 84484; 71046; 70450; 93010; J2930; J3475; A9270; J7620

== ENCOUNTER → 2017-11-13 | Outpatient (CLI) | payer MEDICARE, MEDICAID ==
--- NOTE | 2017-11-13 15:39 | RADIOLOGY REPORT (SQ) ---
EXAM DESCRIPTION: CT CHEST WITHOUT COMPLETED DATE/TIME: 11/13/2017 1:49 pm REASON FOR STUDY: EXERTIONAL DYSPNEA R06.09 OTHER FORMS OF DYSPNEA R09.02 HYPOXEMIA R91.8 OTHER N ONSPECIFIC ABNORMAL FINDING OF LUNG FIELD COMPARISON: Chest x-ray dated 09/13/2017. TECHNIQUE: CT scan performed of the chest without intravenous contrast. Images reviewed with lung, soft tissue and bone windows. Reconstructed coronal and sagittal MPR images reviewed. All images st ored on PACS. All CT scanners at this facility use dose modulation, iterative reconstruction, and/or weight based d osing when appropriate to reduce radiation dose to as low as reasonably achievable (ALARA). [facility]: Dose Right [facility]: CareDose [facility]: Dose Right [facility]: Teradose 4D [facility]: Yuenimei RADIATION DOSE: CT Rad equipment meets quality standard of care and radiation dose reduction techniq ues were employed. CTDIvol: 2.8 mGy. DLP: 114 mGy-cm. mGy. LIMITATIONS: No technical limitations. FINDINGS: LUNGS AND PLEURA: Hyperinflation with chronic emphysematous changes. No masses, infiltrat es, pneumothorax. No pleural effusions, calcifications. HILAR AND MEDIASTINAL STRUCTURES: No identified masses or abnormal nodes. No obvious aneurysm. HEART AND VASCULAR STRUCTURES: No aneurysm. No pericardial effusion. UPPER ABDOMEN: No significant findings. Limited exam. THYROID AND OTHER SOFT TISSUES: No masses. No adenopathy. BONES: No significant finding. Chronic changes in the spine with multiple wedge deformities and prev ious kyphoplasty. HARDWARE: None in the chest. OTHER: No other significant findings. IMPRESSION: COPD. HYPERINFLATION WITH CHRONIC EMPHYSEMATOUS CHANGES. NO OTHER ACUTE OR SIGNIFICANT FINDING ON NON-CONTRASTED CHEST CT. TECHNICAL DOCUMENTATION: JOB ID: [id number] Quality ID # [id number]: Final reports with documentation of one or more dose reduction techniques (e.g., Au tomated exposure control, adjustment of the mA and/or kV according to patient size, use of iterative reconstruction technique) 2010 [employer]- All Rights Reserved Reading location - IP/workstation name: [email or web address]
== END ==
LOC: RAD 13:28
PROVIDERS: ATTEND Internal Medicine Critical Care Medicine
DX: J44.9 Chronic obstructive pulmonary disease, unspecified (principal); R06.09 Other forms of dyspnea; R09.02 Hypoxemia; R91.8 Other nonspecific abnormal finding of lung field; R05 Cough; Z87.01 Personal history of pneumonia (recurrent); Z72.0 Tobacco use; Z85.048 Personal history of other malignant neoplasm of rectum, rectosigmoid junction, and anus; Z92.21 Personal history of antineoplastic chemotherapy
CPT/HCPCS: 71250

== ENCOUNTER 2017-12-11 20:14 | Inpatient (IN) | payer MEDICARE, MEDICAID ==
[2017-12-11] MEDS ORDERED: IPRATROPIUM/ALBUTEROL 0.5-2.5 MG/3 ML AMPUL NEB ONE (21:06)
[2017-12-11] MEDS ORDERED: ALBUTEROL SULFATE 0.083% NEB 2.5 MG/3 ML AMPUL NEB SCH (21:21)
[2017-12-11 22:02] LABS: ABSOLUTE EOSINOPHILS # (AUTO) 0.1 10^3/uL (0.0-0.6); ABSOLUTE LYMPHOCYTES (AUTO) 0.9 10^3/uL (0.5-4.7); ABSOLUTE MONOCYTES (AUTO) 0.6 10^3/uL (0.1-1.4); ABSOLUTE NEUT (AUTO) 6.1 10^3/uL (1.7-8.2); BASOPHILS % (AUTO) 0.4 % (0-2); EOSINOPHILS % (AUTO) 0.8 % (0-6); HEMATOCRIT 31.9 % (36.0-47.0); HEMOGLOBIN 10.5 g/dL (12.0-15.5); LYMPHOCYTES % (AUTO) 11.3 % (13-45); MEAN CORPUSCULAR HEMOGLOBIN 29.4 pg (27.0-33.4); MEAN CORPUSCULAR HGB CONC 32.8 g/dL (32.0-36.0); MEAN CORPUSCULAR VOLUME 90 fl (80-97); MONOCYTES % (AUTO) 8.3 % (3-13); PLATELET COUNT 268 10^3/uL (150-450); RED BLOOD COUNT 3.56 10^6/uL (3.72-5.28); RED CELL DISTRIBUTION WIDTH 14.5 % (11.5-14.0); SEGMENTED NEUTROPHILS % (AUTO) 79.2 % (42-78); TOTAL CELLS COUNTED % (AUTO) 100 %; WHITE BLOOD COUNT 7.7 10^3/uL (4.0-10.5)
[2017-12-11 22:09] LABS: ALANINE AMINOTRANSFERASE 22 U/L (9-52); ALBUMIN 3.6 g/dL (3.5-5.0); ALKALINE PHOSPHATASE 119 U/L (38-126); ANION GAP 9 (5-19); ASPARTATE AMINO TRANSFERASE 28 U/L (14-36); BILIRUBIN,DIRECT 0.2 mg/dL (0.0-0.4); BILIRUBIN,TOTAL 0.2 mg/dL (0.2-1.3); BLOOD UREA NITROGEN 31 mg/dL (7-20); CALCIUM 8.7 mg/dL (8.4-10.2); CARBON DIOXIDE 34 mmol/L (22-30); CHLORIDE 97 mmol/L (98-107); GLUCOSE 184 mg/dL (75-110); POTASSIUM 4.1 mmol/L (3.6-5.0); SODIUM 139.6 mmol/L (137-145); TOTAL PROTEIN 6.7 g/dL (6.3-8.2)
--- NOTE | 2017-12-11 22:09 | RADIOLOGY REPORT (SQ) ---
EXAM DESCRIPTION: CHEST 2 VIEWS COMPLETED DATE/TIME: 12/11/2017 9:29 pm REASON FOR STUDY: cough COMPARISON: 09/13/2017 EXAM PARAMETERS: NUMBER OF VIEWS: two views TECHNIQUE: Digital Frontal and Lateral radiographic views of the chest acquired. RADIATION DOSE: NA LIMITATIONS: none FINDINGS: LUNGS AND PLEURA: No acute opacities, masses or pneumothorax. No pleural effusion. MEDIASTINUM AND HILAR STRUCTURES: Stable. HEART AND VASCULAR STRUCTURES: Stable. BONES: No acute findings. HARDWARE: None in the chest. OTHER: No other significant finding. IMPRESSION: NO ACUTE RADIOGRAPHIC FINDING IN THE CHEST. TECHNICAL DOCUMENTATION: JOB ID: [id number] 2010 [employer]- All Rights Reserved Reading location - IP/workstation name: [email or web address]
[2017-12-11] MEDS ORDERED: MONTELUKAST SODIUM 10 MG TABLET PO ONE (22:41)
[2017-12-11] MEDS ORDERED: METHYLPREDNISOLONE INJ 125 MG/2 ML SDV IV ONE (22:41)
[2017-12-11] MEDS ORDERED: ALBUTEROL SULFATE 0.083% NEB 2.5 MG/3 ML AMPUL NEB ONE (22:41)
[2017-12-11] MEDS ORDERED: NICOTINE 21 MG/24 HR PATCH.TD24 TD ONE (22:41)
[2017-12-11 23:17] LABS: APPEARANCE,URINE CLEAR; BILIRUBIN,URINE NEGATIVE (NEGATIVE); COLOR,URINE YELLOW; GLUCOSE, URINE NEGATIVE (NEGATIVE); KETONES,URINE NEGATIVE (NEGATIVE); LEUKOCYTE ESTERASE,URINE TRACE (NEGATIVE); NITRITE,URINE NEGATIVE (NEGATIVE); PROTEIN,URINE 30 mg/dL (NEGATIVE); URINE SPECIFIC GRAVITY 1.015; UROBILINOGEN,URINE NEGATIVE mg/dL (<2.0)
[2017-12-11] MEDS ORDERED: CEFTRIAXONE INJ 1000 MG VIAL IV ONE (23:42)
--- NOTE | 2017-12-11 23:42 | ER Document Report ---
ED Respiratory Problem - General Chief Complaint: Shortness Of Breath Stated Complaint: TROUBLE BREATHING Time Seen by Provider: 12/11/17 20:39 Mode of Arrival: Wheelchair Information source: Patient TRAVEL OUTSIDE OF THE [place] IN LAST 30 DAYS: No - HPI Patient complains to provider of: COPD, Cough, Short of breath Onset: Last week Duration: Worse/persistent Quality of pain: Achy Severity: Mild Pain Level: 2 Context: Hx COPD, Smoker Short of Breath: Severe Chest pain/discomfort: Tightness Cough: Productive Sputum amount: Small Sputum color: Yellow Sputum consistency: Mucoid At home treatment: Bronchodilators Associated symptoms: Chills, Congestion, Cough, Fever, Short of breath Notes: Patient is an 82-year-old female presenting to the emergency room today complaining of fever with cough and shortness of breath this been worsening over the past week, patient is a smoker, has a history of COPD exacerbation, is on 3 L of oxygen at home, she has not sought medical attention over the past week for her symptoms, arrives to the emergency department today in moderate respiratory distress with hypoxia - Related Data Allergies/Adverse Reactions: erythromycin base [Erythromycin Base] Allergy (Verified 09/13/17 18:35) furosemide [From Lasix] Allergy (Verified 09/13/17 18:35) iodine [Iodine] Allergy (Verified 09/13/17 18:35) LOSE MEMORY levofloxacin [From Levaquin] Allergy (Verified 09/13/17 18:35) metformin HCl [From Glucophage] Allergy (Verified 09/13/17 18:35) SWELLING FACE Penicillins Allergy (Verified 09/13/17 18:35) pioglitazone HCl [From Actos] Allergy (Verified 09/13/17 18:35) SWELLING FACE Xypmcbn-Gml-Lgb Reductase Inhibitor Allergy (Verified 09/13/17 18:35) MUSCLE PAIN Sulfa (Sulfonamide Antibiotics) Allergy (Verified 09/13/17 18:35) SICK sulfamethoxazole [From Bactrim] Allergy (Verified 09/13/17 18:35) SICK trimethoprim [From Bactrim] Allergy (Verified 09/13/17 18:35) SICK Past Medical History - General Information source: Patient - Social History Smoking Status: Current Every Day Smoker Frequency of alcohol use: None Drug Abuse: None Family History: Reviewed & Not Pertinent, COPD Patient has suicidal ideation: No Patient has homicidal ideation: No - Past Medical History Cardiac Medical History: Reports: Hx Coronary Artery Disease, Hx Hypercholesterolemia, Hx Hypertension Denies: Hx Heart Attack Pulmonary Medical History: Reports: Hx Asthma, Hx Bronchitis, Hx COPD, Hx Pneumonia, Hx Tuberculosis Neurological Medical History: Denies: Hx Cerebrovascular Accident, Hx Seizures Endocrine Medical History: Reports: Hx Diabetes Mellitus Type 2 Renal/ Medical History: Denies: Hx Peritoneal Dialysis GI Medical History: Reports: Hx Hiatal Hernia, Hx Ulcer - 50 YEARS AGO. Denies : Hx Hepatitis Musculoskeltal Medical History: Denies Hx Arthritis Infectious Medical History: Denies: Hx Hepatitis Past Surgical History: Reports: Hx Cholecystectomy, Hx Orthopedic Surgery - back , Hx Rectal Surgery, Hx Tubal Ligation. Denies: Hx Mastectomy, Hx Open Heart Surgery, Hx Pacemaker - Immunizations Hx Diphtheria, Pertussis, Tetanus Vaccination: Yes Hx Pneumococcal Vaccination: 06/26/13 Review of Systems - Review of Systems Constitutional: Chills, Fever EENT: No symptoms reported Cardiovascular: No symptoms reported Respiratory: See HPI Gastrointestinal: No symptoms reported Genitourinary: No symptoms reported Female Genitourinary: No symptoms reported Musculoskeletal: No symptoms reported Skin: No symptoms reported Hematologic/Lymphatic: No symptoms reported Neurological/Psychological: No symptoms reported -: Yes All other systems reviewed and negative Physical Exam - Vital signs Vitals: Temp Pulse Resp BP Pulse Ox 99.1 F 106 H 18 160/83 H 90 L 12/11/17 20:22 12/11/17 20:22 12/11/17 20:22 12/11/17 20:22 12/11/17 20:22 Interpretation: Tachycardic, Hypoxic - General General appearance: Appears well, Alert - HEENT Head: Normocephalic, Atraumatic Eyes: Normal Pupils: PERRL - Respiratory Respiratory status: Labored, Pursed lip breathing, Tachypnea Chest status: Nontender Breath sounds: Decreased air movement, Productive cough, Wheezing Chest palpation: Normal - Cardiovascular Rhythm: Regular, Tachycardia Heart sounds: Normal auscultation Murmur: No - Abdominal Inspection: Normal Distension: No distension Bowel sounds: Normal Tenderness: Nontender Organomegaly: No organomegaly - Back Back: Normal, Nontender - Extremities General upper extremity: Normal inspection, Nontender, Normal color, Normal ROM , Normal temperature General lower extremity: Normal inspection, Nontender, Normal color, Normal ROM , Normal temperature, Normal weight bearing. No: Volodymyr's sign - Neurological Neuro grossly intact: Yes Cognition: Normal Orientation: AAOx4 Be Coma Scale Eye Opening: Spontaneous Be Coma Scale Verbal: Oriented Brilliant Coma Scale Motor: Obeys Commands Brilliant Coma Scale Total: 15 Speech: Normal Motor strength normal: LUE, RUE, LLE, RLE Sensory: Normal - Psychological Associated symptoms: Normal affect, Normal mood - Skin Skin Temperature: Warm Skin Moisture: Dry Skin Color: Normal Course - Re-evaluation Re-evalutation: 12/12/17 01:14 Patient with COPD exacerbation, possible clinical pneumonia given the fact that she has had a fever all week and has a productive cough, she was given breathing treatments, IV steroids, and an IV antibiotics, discussed with her primary care provider who agrees to admit for further evaluation and treatment - Vital Signs Vital signs: Temp Pulse Resp BP Pulse Ox 99.1 F 106 H 27 H 183/96 H 98 12/11/17 20:22 12/11/17 20:22 12/12/17 00:00 12/11/17 20:42 12/11/17 23:00 - Laboratory Result Diagrams: 12/11/17 20:50 12/11/17 20:50 Laboratory results interpreted by me: 12/11/17 12/11/17 12/11/17 20:50 20:50 22:28 RBC 3.56 L Hgb 10.5 L Hct 31.9 L RDW 14.5 H Seg Neutrophils % 79.2 H Lymphocytes % 11.3 L Chloride 97 L Carbon Dioxide 34 H BUN 31 H Creatinine 1.61 H Est GFR ( Amer) 37 L Est GFR (Non-Af Amer) 31 L Glucose 184 H Urine Protein 30 H Ur Leukocyte Esterase TRACE H Urine Ascorbic Acid 40 H - Diagnostic Test Radiology reviewed: Image reviewed, Reports reviewed Discharge - Discharge Clinical Impression: COPD exacerbation Acute bronchitis Qualifiers: Bronchitis organism: unspecified organism Qualified Code(s): J20.9 - Acute bronchitis, unspecified Condition: Fair Disposition: ADMITTED INPATIENT Admitting Provider: Sunil Unit Admitted: Telemetry
[2017-12-12] MEDS: NORMAL SALINE 1000 ML 1,000 ML IV PRN ×2 (02:05→21:59)
[2017-12-12] MEDS: IPRATROPIUM/ALBUTEROL 0.5-2.5 MG/3 ML AMPUL NEB PRN ×4 (07:39→23:25)
--- NOTE | 2017-12-12 07:57 | EKG REPORT ---
SEVERITY:- ABNORMAL ECG - SINUS TACHYCARDIA POOR RWAVE PROGRESSION ,? LEAD PLACEMENT ERROR VS OLD ANT.PA : Confirmed by: Abner Sanchez MD 12-Dec-2017 07:57:16
[2017-12-12] MEDS: METHYLPREDNISOLONE INJ 125 MG/2 ML SDV IV SCH ×3 (08:19→21:57)
[2017-12-12] MEDS: LANSOPRAZOLE 30 MG TAB.RAP.DR PO SCH ×2 (08:19→18:31)
[2017-12-12] MEDS ORDERED: CEFTRIAXONE 1 GM/D5W RTU 1 GM/50 ML RTUPB IV SCH (10:00)
[2017-12-12] MEDS ORDERED: DEXTROSE 50%-WATER SYRINGE 25 GM/50 ML DOSE IV PRN (10:23)
[2017-12-12] MEDS ORDERED: DEXTROSE 40% GEL 15 GM TUBE PO PRN (10:23)
[2017-12-12] MEDS ORDERED: DEXTROSE 50%-WATER SYRINGE 12.5 GM/25 ML DOSE IV PRN (10:23)
[2017-12-12] MEDS ORDERED: GLUCAGON,HUMAN RECOMB 1 MG INJ IM PRN (10:23)
[2017-12-12] MEDS ORDERED: DEXTROSE 40% GEL 15 GM TUBE X 2 PO PRN (10:23)
[2017-12-12] MEDS: ENOXAPARIN SODIUM INJ 30 MG/0.3 ML DISP.SYRIN SUBCUT SCH (10:32)
[2017-12-12] MEDS: CEFTRIAXONE SODIUM 1,000 MG in NORMAL SALINE 100 ML IV SCH (10:32)
[2017-12-12] MEDS ORDERED: ISOSORBIDE MONONITRATE 30 MG TAB.ER.24H PO ONE (12:00)
[2017-12-12] MEDS ORDERED: ASPIRIN 81 MG TABLET, CHEWABLE PO ONE (12:00)
[2017-12-12] MEDS ORDERED: BUPROPION HCL 100 MG TABLET PO ONE (12:00)
[2017-12-12] MEDS ORDERED: RIVASTIGMINE 4.6 MG/24 HR PATCH.TD24 TD ONE (12:00)
[2017-12-12] MEDS ORDERED: LEVOTHYROXINE SODIUM 0.075 MG TABLET PO ONE (12:00)
[2017-12-12] MEDS ORDERED: GABAPENTIN 300 MG CAPSULE PO ONE (12:00)
[2017-12-12] MEDS: ONDANSETRON 4 MG TAB.RAPDIS PO PRN (12:16)
[2017-12-12] MEDS: INSULIN LISPRO 100 UNIT/ML 3 ML VIAL SUBCUT PRN ×4 (12:17→22:02)
[2017-12-12] MEDS: ACETAMINOPHEN 325 MG TABLET PO PRN (13:19)
[2017-12-12] MEDS ORDERED: LISPRO SUBCUT SCH (17:00)
[2017-12-12] MEDS ORDERED: INSULIN LISPRO PROTAMIN SUBCUT SCH (17:00)
[2017-12-12] MEDS ORDERED: [UNRECOGNIZED DRUG - OTHER] SUBCUT SCH (17:00)
--- NOTE | 2017-12-12 17:01 | PDOC H&P ---
History of Present Illness Admission Date/PCP: 12/11/17 23:49 Patient complains of: Worsening difficulty with breathing History of Present Illness: SRINIVASA WINN is a 82 year old female known to my practice who presented to the ED with worsening difficulty with breathing and associated fever, chest congestion, productive cough and chest pain with coughing. She described her chest pain as tightness in her chest and her sputum as yellow and mucoid. She denied any blood in her phlegm. She continue to smoke cigarette regularly. She currently smoke about 1/2 PPD. She remain on supplemental oxygen at 3L/min via nasal cannula at home. Her initial evaluation in the ED was remarkable for tachypnea with hypoxemia and need for respiratory support through BiPAP. Her morbidities include Hypertension, Coronary Artery Disease, Hyperlipidemia, COPD , Tobacco dependency, Diabetes Mellitus Type 2, Hypothyroidism, Dementia, and significant Hiatal Hernia. She was advised hospitalization for further evaluation and management for exacerbated COPD with acute bronchitis. Past Medical History Cardiac Medical History: Reports: Coronary Artery Disease, Hyperlipidema, Hypertension Denies: Myocardial Infarction Pulmonary Medical History: Reports: Asthma, Bronchitis, Chronic Obstructive Pulmonary Disease (COPD), Pneumonia, Tuberculosis Neurological Medical History: Denies: Seizures Endocrine Medical History: Reports: Diabetes Mellitus Type 2 GI Medical History: Reports: Hiatal Hernia Denies: Hepatitis Musculoskeltal Medical History: Denies: Arthritis Psychiatric Medical History: Reports: Depression Hematology: Reports: Anemia - NOW Denies: Sickle Cell Disease Past Surgical History Past Surgical History: Reports: Cholecystectomy, Orthopedic Surgery - back, Tubal Ligation Denies: Amputation, Mastectomy, Pacemaker Social History Smoking Status: Current Some Day Smoker Cigarettes Packs Per Day: 1 Number of Years Smokin Last Time Smoked: 12/05/2017 Frequency of Alcohol Use: None Hx Recreational Drug Use: No Hx Prescription Drug Abuse: No - Advance Directive Resuscitation Status: Full Code - I hadextensive discusion with patient at bedside during my visit. At presnt she wants to be a full code status. Family History Family History: Reviewed & Not Pertinent, COPD Parental Family History Reviewed: Yes Children Family History Reviewed: Yes Sibling(s) Family History Reviewed.: Yes Medication/Allergy Home Medications: Albuterol Sulfate [Proair HFA] 2 puff IH Q4HP PRN 12/12/17 Aspirin [Aspirin 81 mg Chewable Tablet] 81 mg PO DAILY 12/12/17 Bupropion HCl [Wellbutrin 100 mg Tablet] 100 mg PO DAILY 12/12/17 Ciclesonide [Alvesco HFA] 1 puff IH BID 12/12/17 Dexlansoprazole [Dexilant 30 mg Capsule] 30 mg PO Q6AM 12/12/17 Docusate Sodium [Colace 100 mg Capsule] 100 mg PO DAILY 12/12/17 Fluticasone Propionate [Flonase Nasal [place] 50 Mcg/[place] 16 gm] 2 sprays NASL Q12 12/12/17 Gabapentin [Neurontin 300 mg Capsule] 300 mg PO DAILY 12/12/17 Insulin Lispro Protamin/Lispro [Humalog Mix 75-25 100 unit/mL] 15 unit SUBCUT BIDBS 12/12/17 Isosorbide Mononitrate [Imdur 30 mg Tablet.er] 30 mg PO DAILY 12/12/17 Levothyroxine Sodium [Synthroid 0.075 mg Tablet] 0.075 mg PO Q6AM 12/12/17 Linaclotide [Linzess 145 Mcg Capsule] 145 mcg PO DAILY 12/12/17 Montelukast Sodium [Singulair 10 mg Tablet] 10 mg PO QHS 12/12/17 Ondansetron [Zofran Odt 4 mg Tablet] 1 tab PO Q8HP PRN 12/12/17 Polyethylene Glycol 3350 [Miralax Powder 17 gm/Packet] 1 packet PO DAILYP PRN Rivastigmine [Exelon 4.6 Mg/24 Hr Transdermal Patch] 1 each TD DAILY 12/12/17 Torsemide [Demadex] 5 mg PO QAM 12/12/17 Umeclidinium Brm/Vilanterol Tr [Anoro Ellipta 62.5-25 Mcg INH] 1 puff IH DAILY 12/12/17 Allergies/Adverse Reactions: erythromycin base [Erythromycin Base] Allergy (Verified 09/13/17 18:35) furosemide [From Lasix] Allergy (Verified 09/13/17 18:35) iodine [Iodine] Allergy (Verified 09/13/17 18:35) LOSE [employer]ORY levofloxacin [From Levaquin] Allergy (Verified 09/13/17 18:35) metformin HCl [From Glucophage] Allergy (Verified 09/13/17 18:35) SWELLING FACE Penicillins Allergy (Verified 09/13/17 18:35) pioglitazone HCl [From Actos] Allergy (Verified 09/13/17 18:35) SWELLING FACE Blauayb-Cni-Uow Reductase Inhibitor Allergy (Verified 09/13/17 18:35) MUSCLE PAIN Sulfa (Sulfonamide Antibiotics) Allergy (Verified 09/13/17 18:35) SICK sulfamethoxazole [From Bactrim] Allergy (Verified 09/13/17 18:35) SICK trimethoprim [From Bactrim] Allergy (Verified 09/13/17 18:35) SICK Review of Systems Constitutional: PRESENT: chills, fever(s) Cardiovascular: PRESENT: dyspnea on exertion Respiratory: PRESENT: cough, dyspnea, sputum Gastrointestinal: ABSENT: abdominal pain, constipation, diarrhea, hematemesis, hematochezia, nausea, vomiting Genitourinary: ABSENT: dysuria, hematuria Musculoskeletal: ABSENT: joint swelling Integumentary: PRESENT: diaphoresis Neurological: ABSENT: abnormal gait, abnormal speech, confusion, dizziness, focal weakness, syncope Psychiatric: ABSENT: anxiety, depression, homidical ideation, suicidal ideation Endocrine: ABSENT: cold intolerance, heat intolerance, polydipsia, polyuria Hematologic/Lymphatic: ABSENT: easy bleeding, easy bruising, lymphadenopathy Allergic/Immunologic: ABSENT: seasonal rhinorrhea Physical Exam Vital Signs: Temp Pulse Resp BP Pulse Ox 97.9 F 92 18 173/68 H 95 12/12/17 08:10 12/12/17 13:17 12/12/17 13:17 12/12/17 08:10 12/12/17 13:17 Intake & Output 12/11/17 12/12/17 12/13/17 06:59 06:59 06:59 Intake Total 468 Output Total 300 Balance 168 General appearance: PRESENT: mild distress - with supplemental oxygen via nasal cannula at 3L/min, thin Head exam: PRESENT: atraumatic, normocephalic Eye exam: PRESENT: conjunctiva pink, EOMI, PERRLA. ABSENT: scleral icterus Mouth exam: PRESENT: moist, tongue midline Neck exam: PRESENT: full ROM. ABSENT: carotid bruit, JVD, lymphadenopathy, thyromegaly Respiratory exam: PRESENT: accessory muscle use, decreased breath sounds, prolonged expiratory phas, rhonchi Cardiovascular exam: PRESENT: RRR. ABSENT: diastolic murmur, rubs, systolic murmur Pulses: PRESENT: +1 pedal pulses bilateral Vascular exam: PRESENT: normal capillary refill. ABSENT: pallor GI/Abdominal exam: PRESENT: normal bowel sounds, soft. ABSENT: distended, guarding, mass, organolmegaly, rebound, tenderness Rectal exam: PRESENT: deferred Extremities exam: PRESENT: pedal edema - chronic bilateral minimal pitting pedal edema Musculoskeletal exam: PRESENT: deformity - significant thoracic kyphosis and multiple joints involvement with arthritis Neurological exam: PRESENT: alert, awake, oriented to person, oriented to place , oriented to time, oriented to situation, CN II-XII grossly intact. ABSENT: motor sensory deficit Psychiatric exam: PRESENT: appropriate affect, normal mood. ABSENT: homicidal ideation, suicidal ideation Skin exam: PRESENT: dry, intact, warm. ABSENT: cyanosis, rash Results Laboratory Results: I reviewed her lab results on [employer] and form significant part of my medical decision making. Impressions: Chest X-Ray 12/11/17 21:06 IMPRESSION: NO ACUTE RADIOGRAPHIC FINDING IN THE CHEST. Assessment & Plan - Diagnosis (1) COPD exacerbation Is this a current diagnosis for this admission?: Yes Plan: See admitting attending physician orders. (2) Acute bronchitis Qualifiers: Bronchitis organism: unspecified organism Qualified Code(s): J20.9 - Acute bronchitis, unspecified Is this a current diagnosis for this admission?: Yes Plan: See admitting attending physician orders. (3) HTN (hypertension) Qualifiers: Hypertension type: essential hypertension Qualified Code(s): I10 - Essential (primary) hypertension Is this a current diagnosis for this admission?: Yes Plan: See admitting attending physician orders. (4) Diabetes mellitus type 2 in nonobese Is this a current diagnosis for this admission?: Yes Plan: See admitting attending physician orders. (5) Adult failure to thrive syndrome Is this a current diagnosis for this admission?: Yes Plan: See admitting attending physician orders. (6) CAD (coronary artery disease) Qualifiers: Coronary Disease-Associated Artery/Lesion type: [place] artery Associated angina: without angina Is this a current diagnosis for this admission?: Yes Plan: See admitting attending physician orders. (7) HLD (hyperlipidemia) Qualifiers: Hyperlipidemia type: pure hypercholesterolemia Qualified Code(s): E78.00 - Pure hypercholesterolemia, unspecified; E78.0 - Pure hypercholesterolemia Is this a current diagnosis for this admission?: Yes Plan: See admitting attending physician orders. (8) Hiatal hernia with GERD Is this a current diagnosis for this admission?: Yes Plan: See admitting attending physician orders. (9) Hypothyroidism (acquired) Is this a current diagnosis for this admission?: Yes Plan: See admitting attending physician orders. (10) Senile dementia uncomp Qualifiers: Dementia behavioral disturbance: without behavioral disturbance Qualified Code(s): F03.90 - Unspecified dementia without behavioral disturbance Plan: See admitting attending physician orders. (11) Tobacco dependence due to cigarettes Is this a current diagnosis for this admission?: Yes Plan: See admitting attending physician orders. - Time Time Spent: 50 to 70 Minutes Smoking Cessation Education: 3 to 10 minutes Medications reviewed and adjusted accordingly: Yes Anticipated discharge: Home with Homehealth Within: Other - Inpatient Certification Based on my medical assessment, after consideration of the patient's comorbidities, presenting symptoms, or acuity I expect that the services needed warrant INPATIENT care.: Yes I certify that my determination is in accordance with my understanding of Medicare's requirements for reasonable and necessary INPATIENT services [42 CFR 412.3e].: Yes Medical Necessity: Need Close Monitoring Due to Risk of Patient Decompensation, Need For IV Fluids, Need For Continuous Telemetry Monitoring, Need for Nebulizer Therapy and Monitoring of Response, Need for IV Antibiotics, Risk of Complication if Not Cared For in Hospital Post Hospital Care: D/C 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
[2017-12-12] MEDS: FLUTICASONE NASAL SPRAY 50 MCG/SPRY 120 SPRAY/16 GM NASL SCH (21:58)
[2017-12-12] MEDS: MONTELUKAST SODIUM 10 MG TABLET PO SCH (21:58)
[2017-12-12] MEDS: NICOTINE 21 MG/24 HR PATCH.TD24 TD PRN (22:07)
[2017-12-13] MEDS ORDERED: ISOSORBIDE MONONITRATE 30 MG TAB.ER.24H PO ONE (00:45)
[2017-12-13] MEDS: LANSOPRAZOLE 30 MG TAB.RAP.DR PO SCH ×2 (05:33→16:52)
[2017-12-13] MEDS: LEVOTHYROXINE SODIUM 0.075 MG TABLET PO SCH (05:33)
[2017-12-13] MEDS: METHYLPREDNISOLONE INJ 125 MG/2 ML SDV IV SCH ×3 (05:33→21:55)
[2017-12-13] MEDS: INSULIN LISPRO 100 UNIT/ML 3 ML VIAL SUBCUT PRN ×3 (07:29→17:48)
[2017-12-13] MEDS: IPRATROPIUM/ALBUTEROL 0.5-2.5 MG/3 ML AMPUL NEB PRN ×4 (07:50→23:46)
[2017-12-13] MEDS ORDERED: TORSEMIDE 5 MG PO SCH (08:00)
[2017-12-13] MEDS: FLUTICASONE NASAL SPRAY 50 MCG/SPRY 120 SPRAY/16 GM NASL SCH ×2 (09:11→21:56)
[2017-12-13] MEDS: GABAPENTIN 300 MG CAPSULE PO SCH (09:11)
[2017-12-13] MEDS: DOCUSATE SODIUM 100 MG CAPSULE PO SCH (09:11)
[2017-12-13] MEDS: ASPIRIN 81 MG TABLET, CHEWABLE PO SCH (09:11)
[2017-12-13] MEDS: BUPROPION HCL 100 MG TABLET PO SCH (09:11)
[2017-12-13] MEDS: CEFTRIAXONE SODIUM 1,000 MG in NORMAL SALINE 100 ML IV SCH (09:12)
[2017-12-13] MEDS: ENOXAPARIN SODIUM INJ 30 MG/0.3 ML DISP.SYRIN SUBCUT SCH (09:12)
[2017-12-13] MEDS: ISOSORBIDE MONONITRATE 30 MG TAB.ER.24H PO SCH (09:12)
[2017-12-13] MEDS: RIVASTIGMINE 4.6 MG/24 HR PATCH.TD24 TD SCH (09:12)
[2017-12-13] MEDS ORDERED: ISOSORBIDE MONONITRATE 30 MG TAB.ER.24H PO SCH (10:00)
[2017-12-13] MEDS ORDERED: (PENDING PHARMACY ID) (Linaclotide 145 MCG) PO SCH (10:00)
[2017-12-13] MEDS ORDERED: NITROGLYCERIN 50 MG/D5W 250 ML IV PRN (10:00)
--- NOTE | 2017-12-13 16:27 | PDOC PROGRESS REPORT ---
Subjective Progress Note for:: 12/13/17 Subjective:: Patient was admitted for COPD exacerbation, blood pressure elevated, transferred to [facility] Reason For Visit: OBSTRUCTIVE CHRONIC BRONCHITIS WITH EXACERBATION Physical Exam Vital Signs: Temp Pulse Resp BP Pulse Ox 98.4 F 104 H 28 H 162/68 H 100 12/13/17 16:00 12/13/17 16:00 12/13/17 16:00 12/13/17 15:38 12/13/17 16:00 Intake & Output 12/12/17 12/13/17 12/14/17 06:59 06:59 06:59 Intake Total 468 2445 Output Total 300 650 Balance 168 1795 General appearance: PRESENT: mild distress Head exam: PRESENT: atraumatic, normocephalic Eye exam: PRESENT: PERRLA. ABSENT: scleral icterus Ear exam: PRESENT: normal external ear exam Mouth exam: PRESENT: moist, tongue midline Neck exam: PRESENT: full ROM Respiratory exam: PRESENT: wheezes Cardiovascular exam: PRESENT: +S1, +S2 Vascular exam: PRESENT: normal capillary refill GI/Abdominal exam: PRESENT: normal bowel sounds, soft Rectal exam: PRESENT: deferred Neurological exam: PRESENT: alert. ABSENT: motor sensory deficit Psychiatric exam: PRESENT: appropriate affect, normal mood Skin exam: PRESENT: dry, intact, warm. ABSENT: cyanosis, rash Results Impressions: Chest X-Ray 12/11/17 21:06 IMPRESSION: NO ACUTE RADIOGRAPHIC FINDING IN THE CHEST. Assessment & Plan - Diagnosis (1) COPD exacerbation Is this a current diagnosis for this admission?: Yes Plan: Continue IV treatment and all the management
[2017-12-13] MEDS ORDERED: AMLODIPINE BESYLATE 10 MG TABLET PO ONE (17:00)
[2017-12-13] MEDS: NORMAL SALINE 1000 ML 1,000 ML IV PRN (18:44)
[2017-12-13] MEDS: MONTELUKAST SODIUM 10 MG TABLET PO SCH (21:54)
[2017-12-13] MEDS: ACETAMINOPHEN 325 MG TABLET PO PRN (21:54)
[2017-12-13] MEDS: ONDANSETRON 4 MG TAB.RAPDIS PO PRN (22:37)
[2017-12-14] MEDS: INSULIN LISPRO 100 UNIT/ML 3 ML VIAL SUBCUT PRN ×5 (00:47→22:44)
[2017-12-14] MEDS: IPRATROPIUM/ALBUTEROL 0.5-2.5 MG/3 ML AMPUL NEB PRN ×4 (04:23→18:28)
[2017-12-14] MEDS: LEVOTHYROXINE SODIUM 0.075 MG TABLET PO SCH (06:32)
[2017-12-14] MEDS: METHYLPREDNISOLONE INJ 125 MG/2 ML SDV IV SCH ×3 (06:32→21:38)
[2017-12-14] MEDS: LANSOPRAZOLE 30 MG TAB.RAP.DR PO SCH ×2 (06:32→17:17)
[2017-12-14] MEDS: NICOTINE 21 MG/24 HR PATCH.TD24 TD PRN (06:59)
[2017-12-14] MEDS: ENOXAPARIN SODIUM INJ 30 MG/0.3 ML DISP.SYRIN SUBCUT SCH (09:13)
[2017-12-14] MEDS: ASPIRIN 81 MG TABLET, CHEWABLE PO SCH (09:14)
[2017-12-14] MEDS: DOCUSATE SODIUM 100 MG CAPSULE PO SCH (09:14)
[2017-12-14] MEDS: AMLODIPINE BESYLATE 10 MG TABLET PO SCH (09:14)
[2017-12-14] MEDS: BUPROPION HCL 100 MG TABLET PO SCH (09:14)
[2017-12-14] MEDS: RIVASTIGMINE 4.6 MG/24 HR PATCH.TD24 TD SCH (09:14)
[2017-12-14] MEDS: ISOSORBIDE MONONITRATE 30 MG TAB.ER.24H PO SCH (09:14)
[2017-12-14] MEDS: GABAPENTIN 300 MG CAPSULE PO SCH (09:14)
[2017-12-14] MEDS: FLUTICASONE NASAL SPRAY 50 MCG/SPRY 120 SPRAY/16 GM NASL SCH ×2 (09:14→21:39)
[2017-12-14] MEDS: CEFTRIAXONE SODIUM 1,000 MG in NORMAL SALINE 100 ML IV SCH (09:15)
[2017-12-14] MEDS: POLYETHYLENE GLYCOL 3350 POWDER 17 GM/1 PACKET PO PRN (09:20)
[2017-12-14] MEDS: NORMAL SALINE 1000 ML 1,000 ML IV PRN (13:25)
[2017-12-14] MEDS: ONDANSETRON 4 MG TAB.RAPDIS PO PRN ×2 (14:07→18:31)
--- NOTE | 2017-12-14 15:11 | PDOC PROGRESS REPORT ---
Subjective Progress Note for:: 12/14/17 Subjective:: She was seen by the bedside, she was admitted for acute COPD, she was transferred to [facility] because of hypertensive urgency, she was supposed to be treated with IV nitroglycerin but this was never started presently on p.o. amlodipine, the combination of IV Solu-Medrol and IV normal saline could increase the blood pressure. The normal saline will be discontinued. 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 Reason For Visit: OBSTRUCTIVE CHRONIC BRONCHITIS WITH EXACERBATION Physical Exam Vital Signs: Temp Pulse Resp BP Pulse Ox 98.4 F 107 H 18 163/56 H 100 12/14/17 11:04 12/14/17 13:22 12/14/17 13:22 12/14/17 11:04 12/14/17 11:04 Intake & Output 12/13/17 12/14/17 12/15/17 06:59 06:59 06:59 Intake Total 2445 2225 118 Output Total 650 Balance 1795 2225 118 General appearance: PRESENT: no acute distress Eye exam: PRESENT: PERRLA Respiratory exam: PRESENT: decreased breath sounds, other - Barrel-shaped deformity of the chest Cardiovascular exam: PRESENT: +S1, +S2 GI/Abdominal exam: PRESENT: soft Neurological exam: PRESENT: alert Results Laboratory Results: 12/12/17 12:28 Sputum Gram Stain - Final 12/12/17 12:28 Sputum Sputum Culture - Final NORMAL ASHLEY Impressions: Chest X-Ray 12/11/17 21:06 IMPRESSION: NO ACUTE RADIOGRAPHIC FINDING IN THE CHEST. Assessment & Plan - Diagnosis (1) COPD exacerbation Is this a current diagnosis for this admission?: Yes Plan: Continue IV Solu-Medrol, bronchodilators and IV antibiotic, patient seems to be responding to this regimen (2) Hypertension Qualifiers: Hypertension type: essential hypertension Qualified Code(s): I10 - Essential (primary) hypertension Is this a current diagnosis for this admission?: Yes Plan: Discontinue IV fluids, continue amlodipine, will need to monitor blood pressure closely
[2017-12-14] MEDS: ACETAMINOPHEN 325 MG TABLET PO PRN (20:11)
[2017-12-14] MEDS: MONTELUKAST SODIUM 10 MG TABLET PO SCH (21:39)
[2017-12-15] MEDS: IPRATROPIUM/ALBUTEROL 0.5-2.5 MG/3 ML AMPUL NEB PRN ×5 (00:40→20:24)
[2017-12-15] MEDS: LEVOTHYROXINE SODIUM 0.075 MG TABLET PO SCH (06:03)
[2017-12-15] MEDS: LANSOPRAZOLE 30 MG TAB.RAP.DR PO SCH ×2 (06:03→18:12)
[2017-12-15] MEDS: METHYLPREDNISOLONE INJ 125 MG/2 ML SDV IV SCH ×3 (06:05→21:19)
--- NOTE | 2017-12-15 08:07 | PDOC PROGRESS REPORT ---
Subjective Progress Note for:: 12/15/17 Subjective:: Patient reported some improvement in her breathing. Coughing is less and less productive. No chest pain. No fever or chills.No nausea, vomiting, or abdominal pain. Reason For Visit: OBSTRUCTIVE CHRONIC BRONCHITIS WITH EXACERBATION Physical Exam Vital Signs: Temp Pulse Resp BP Pulse Ox 98.0 F 101 H 20 154/66 H 100 12/15/17 03:29 12/15/17 03:29 12/15/17 03:29 12/15/17 03:29 12/15/17 03:29 Intake & Output 12/14/17 12/15/17 12/16/17 06:59 06:59 06:59 Intake Total 2225 661 Balance 2225 661 General appearance: PRESENT: no acute distress, cooperative, mild distress - remain on supplemental oxygen via nasal cannula Head exam: PRESENT: atraumatic, normocephalic Mouth exam: PRESENT: moist Respiratory exam: PRESENT: decreased breath sounds - at lung bases, rhonchi - minimal expirtpory rhonchi Cardiovascular exam: PRESENT: RRR. ABSENT: diastolic murmur, rubs, systolic murmur Vascular exam: PRESENT: normal capillary refill. ABSENT: pallor GI/Abdominal exam: PRESENT: normal bowel sounds, soft. ABSENT: distended, guarding, mass, organolmegaly, rebound, tenderness Extremities exam: ABSENT: pedal edema Musculoskeletal exam: PRESENT: deformity - significant thoracic kyphosis Neurological exam: PRESENT: alert, awake, oriented to person, oriented to place , oriented to time, oriented to situation, CN II-XII grossly intact. ABSENT: motor sensory deficit Psychiatric exam: PRESENT: appropriate affect, normal mood. ABSENT: homicidal ideation, suicidal ideation Skin exam: PRESENT: dry, intact, warm. ABSENT: cyanosis, rash Results Laboratory Results: 12/12/17 12:28 Sputum Gram Stain - Final 12/12/17 12:28 Sputum Sputum Culture - Final NORMAL ASHLEY Impressions: Chest X-Ray 12/11/17 21:06 IMPRESSION: NO ACUTE RADIOGRAPHIC FINDING IN THE CHEST. Assessment & Plan - Diagnosis (1) COPD exacerbation Is this a current diagnosis for this admission?: Yes (2) Acute bronchitis Qualifiers: Bronchitis organism: unspecified organism Qualified Code(s): J20.9 - Acute bronchitis, unspecified Is this a current diagnosis for this admission?: Yes (3) HTN (hypertension) Qualifiers: Hypertension type: essential hypertension Qualified Code(s): I10 - Essential (primary) hypertension Is this a current diagnosis for this admission?: Yes (4) Diabetes mellitus type 2 in nonobese Is this a current diagnosis for this admission?: Yes (5) Adult failure to thrive syndrome Is this a current diagnosis for this admission?: Yes (6) CAD (coronary artery disease) Qualifiers: Coronary Disease-Associated Artery/Lesion type: [place] artery Associated angina: without angina Is this a current diagnosis for this admission?: Yes (7) HLD (hyperlipidemia) Qualifiers: Hyperlipidemia type: pure hypercholesterolemia Qualified Code(s): E78.00 - Pure hypercholesterolemia, unspecified; E78.0 - Pure hypercholesterolemia Is this a current diagnosis for this admission?: Yes (8) Hiatal hernia with GERD Is this a current diagnosis for this admission?: Yes (9) Hypothyroidism (acquired) Is this a current diagnosis for this admission?: Yes (10) Senile dementia uncomp Qualifiers: Dementia behavioral disturbance: without behavioral disturbance Qualified Code(s): F03.90 - Unspecified dementia without behavioral disturbance Is this a current diagnosis for this admission?: Yes (11) Tobacco dependence due to cigarettes Is this a current diagnosis for this admission?: Yes - Time Time Spent with patient: 25-34 minutes Medications reviewed and adjusted accordingly: Yes Anticipated discharge: Home with Homehealth Within: Other - Inpatient Certification Based on my medical assessment, after consideration of the patient's comorbidities, presenting symptoms, or acuity I expect that the services needed warrant INPATIENT care.: Yes I certify that my determination is in accordance with my understanding of Medicare's requirements for reasonable and necessary INPATIENT services [42 CFR 412.3e].: Yes Medical Necessity: Need Close Monitoring Due to Risk of Patient Decompensation, Need For IV Fluids, Need For Continuous Telemetry Monitoring, Need for Nebulizer Therapy and Monitoring of Response, Need for IV Antibiotics, Risk of Complication if Not Cared For in Hospital Post Hospital Care: D/C Code Machine Operator Documentation - Plan Summary Plan Summary: See attending physician orders. Decrease IV Solu Medrol to 60 mg IV [id number]. Continue ll other current medication management. Obtain CBC with diff and BMP.
[2017-12-15 09:05] LABS: HEMOGLOBIN 9.8 g/dL (12.0-15.5); MEAN CORPUSCULAR HEMOGLOBIN 28.6 pg (27.0-33.4); MEAN CORPUSCULAR HGB CONC 32.5 g/dL (32.0-36.0); MEAN CORPUSCULAR VOLUME 88 fl (80-97); PLATELET COUNT 340 10^3/uL (150-450); RED BLOOD COUNT 3.41 10^6/uL (3.72-5.28); RED CELL DISTRIBUTION WIDTH 14.6 % (11.5-14.0); WHITE BLOOD COUNT 7.9 10^3/uL (4.0-10.5)
[2017-12-15 09:38] LABS: ANION GAP 9 (5-19); BLOOD UREA NITROGEN 43 mg/dL (7-20); CALCIUM 9.3 mg/dL (8.4-10.2); CARBON DIOXIDE 30 mmol/L (22-30); CHLORIDE 103 mmol/L (98-107); GLUCOSE 363 mg/dL (75-110); POTASSIUM 4.8 mmol/L (3.6-5.0)
[2017-12-15 09:56] LABS: ABSOLUTE LYMPHOCYTES# (MANUAL) 0.2 10^3/uL (0.5-4.7); ABSOLUTE NEUTROPHILS# (MANUAL) 7.7 10^3/uL (1.7-8.2); BASOPHILS % (MANUAL) 0 % (0-2); EOSINOPHILS % (MANUAL) 0 % (0-6); LYMPHOCYTES % (MANUAL) 2 % (13-45); MONOCYTES % (MANUAL) 0 % (3-13); SEGMENTED NEUTROPHILS % (MAN) 98 % (42-78); TOTAL CELLS COUNTED 100; TOXIC GRANULATION 1+
[2017-12-15 09:57] LABS: ANISOCYTOSIS SLIGHT; OVALOCYTES 1+; PLATELET COMMENT ADEQUATE; POIKILOCYTOSIS 1+
[2017-12-15] MEDS: ASPIRIN 81 MG TABLET, CHEWABLE PO SCH (10:06)
[2017-12-15] MEDS: GABAPENTIN 300 MG CAPSULE PO SCH (10:06)
[2017-12-15] MEDS: BUPROPION HCL 100 MG TABLET PO SCH (10:06)
[2017-12-15] MEDS: ISOSORBIDE MONONITRATE 30 MG TAB.ER.24H PO SCH (10:06)
[2017-12-15] MEDS: DOCUSATE SODIUM 100 MG CAPSULE PO SCH (10:07)
[2017-12-15] MEDS: AMLODIPINE BESYLATE 10 MG TABLET PO SCH (10:07)
[2017-12-15] MEDS: NICOTINE 21 MG/24 HR PATCH.TD24 TD PRN (10:08)
[2017-12-15] MEDS: POLYETHYLENE GLYCOL 3350 POWDER 17 GM/1 PACKET PO PRN (10:08)
[2017-12-15] MEDS: ONDANSETRON 4 MG TAB.RAPDIS PO PRN (10:08)
[2017-12-15] MEDS: ENOXAPARIN SODIUM INJ 30 MG/0.3 ML DISP.SYRIN SUBCUT SCH (10:09)
[2017-12-15] MEDS: FLUTICASONE NASAL SPRAY 50 MCG/SPRY 120 SPRAY/16 GM NASL SCH ×2 (10:10→21:20)
[2017-12-15] MEDS: RIVASTIGMINE 4.6 MG/24 HR PATCH.TD24 TD SCH (10:11)
[2017-12-15] MEDS: CEFTRIAXONE SODIUM 1,000 MG in NORMAL SALINE 100 ML IV SCH (10:12)
[2017-12-15] MEDS: INSULIN LISPRO 100 UNIT/ML 3 ML VIAL SUBCUT PRN ×3 (10:27→22:04)
[2017-12-15] MEDS ORDERED: BISACODYL 10 MG SUPP.RECT PR ONE (14:00)
[2017-12-15] MEDS ORDERED: LUBIPROSTONE 24 MCG CAPSULE PO ONE (19:30)
[2017-12-15] MEDS: MONTELUKAST SODIUM 10 MG TABLET PO SCH (21:19)
[2017-12-15] MEDS: ACETAMINOPHEN 325 MG TABLET PO PRN (21:20)
[2017-12-16] MEDS: IPRATROPIUM/ALBUTEROL 0.5-2.5 MG/3 ML AMPUL NEB PRN ×4 (01:10→20:36)
[2017-12-16] MEDS: LANSOPRAZOLE 30 MG TAB.RAP.DR PO SCH ×2 (05:12→17:11)
[2017-12-16] MEDS: METHYLPREDNISOLONE INJ 125 MG/2 ML SDV IV SCH (05:12)
[2017-12-16] MEDS: LEVOTHYROXINE SODIUM 0.075 MG TABLET PO SCH (05:12)
[2017-12-16] MEDS: RIVASTIGMINE 4.6 MG/24 HR PATCH.TD24 TD SCH (09:35)
[2017-12-16] MEDS: ISOSORBIDE MONONITRATE 30 MG TAB.ER.24H PO SCH (09:36)
[2017-12-16] MEDS: FLUTICASONE NASAL SPRAY 50 MCG/SPRY 120 SPRAY/16 GM NASL SCH ×2 (09:36→21:28)
[2017-12-16] MEDS: GABAPENTIN 300 MG CAPSULE PO SCH (09:36)
[2017-12-16] MEDS: BUPROPION HCL 100 MG TABLET PO SCH (09:37)
[2017-12-16] MEDS: AMLODIPINE BESYLATE 10 MG TABLET PO SCH (09:37)
[2017-12-16] MEDS: ASPIRIN 81 MG TABLET, CHEWABLE PO SCH (09:37)
[2017-12-16] MEDS: LUBIPROSTONE 24 MCG CAPSULE PO SCH ×2 (09:37→17:10)
[2017-12-16] MEDS: DOCUSATE SODIUM 100 MG CAPSULE PO SCH (09:38)
[2017-12-16] MEDS: ENOXAPARIN SODIUM INJ 30 MG/0.3 ML DISP.SYRIN SUBCUT SCH (09:38)
[2017-12-16] MEDS: CEFTRIAXONE SODIUM 1,000 MG in NORMAL SALINE 100 ML IV SCH (09:40)
[2017-12-16] MEDS: INSULIN LISPRO 100 UNIT/ML 3 ML VIAL SUBCUT PRN ×3 (09:40→21:54)
[2017-12-16] MEDS: ONDANSETRON 4 MG TAB.RAPDIS PO PRN (10:54)
[2017-12-16] MEDS: ACETAMINOPHEN 325 MG TABLET PO PRN (11:54)
[2017-12-16] MEDS: NICOTINE 21 MG/24 HR PATCH.TD24 TD PRN (11:55)
[2017-12-16] MEDS: METHYLPREDNISOLONE INJ 40 MG/1 ML SDV IV SCH ×2 (13:31→21:28)
--- NOTE | 2017-12-16 19:29 | PDOC PROGRESS REPORT ---
Subjective Progress Note for:: 12/16/17 Subjective:: Patient denied chest pain. Breathing and coughing improving. No fever or chills. No nausea, vomiting, or abdominal pain. Satisfactory bowel movement since last clinical evaluation. Reason For Visit: OBSTRUCTIVE CHRONIC BRONCHITIS WITH EXACERBATION Physical Exam Vital Signs: Temp Pulse Resp BP Pulse Ox 97.8 F 114 H 18 163/63 H 3 L 12/16/17 11:39 12/16/17 18:58 12/16/17 16:17 12/16/17 11:39 12/16/17 16:17 Intake & Output 12/15/17 12/16/17 12/17/17 06:59 06:59 06:59 Intake Total 661 731 200 Balance 661 731 200 Weight 53.5 kg Physical Exam: General appearance: PRESENT: no acute distress, cooperative, mild distress - remain on supplemental oxygen via nasal cannula Head exam: PRESENT: atraumatic, normocephalic Mouth exam: PRESENT: moist Respiratory exam: PRESENT: decreased breath sounds - at lung bases, rhonchi - very minimal expiratory rhonchi Cardiovascular exam: PRESENT: RRR. ABSENT: diastolic murmur, rubs, systolic murmur Vascular exam: PRESENT: normal capillary refill. ABSENT: pallor GI/Abdominal exam: PRESENT: normal bowel sounds, soft. ABSENT: distended, guarding, mass, organomegaly, rebound, tenderness Extremities exam: ABSENT: pedal edema Musculoskeletal exam: PRESENT: deformity - significant thoracic kyphosis Neurological exam: PRESENT: alert, awake, oriented to person, oriented to place , oriented to time, oriented to situation, CN II-XII grossly intact. ABSENT: motor sensory deficit Psychiatric exam: PRESENT: appropriate affect, normal mood. ABSENT: homicidal ideation, suicidal ideation Skin exam: PRESENT: dry, intact, warm. ABSENT: cyanosis, rash Results Laboratory Results: 12/15/17 08:33 12/15/17 08:33 Impressions: Chest X-Ray 12/11/17 21:06 IMPRESSION: NO ACUTE RADIOGRAPHIC FINDING IN THE CHEST. Assessment & Plan - Diagnosis (1) COPD exacerbation Is this a current diagnosis for this admission?: Yes (2) Acute bronchitis Qualifiers: Bronchitis organism: unspecified organism Qualified Code(s): J20.9 - Acute bronchitis, unspecified Is this a current diagnosis for this admission?: Yes (3) HTN (hypertension) Qualifiers: Hypertension type: essential hypertension Qualified Code(s): I10 - Essential (primary) hypertension Is this a current diagnosis for this admission?: Yes (4) Diabetes mellitus type 2 in nonobese Is this a current diagnosis for this admission?: Yes (5) Adult failure to thrive syndrome Is this a current diagnosis for this admission?: Yes (6) CAD (coronary artery disease) Qualifiers: Coronary Disease-Associated Artery/Lesion type: [place] artery Associated angina: without angina Is this a current diagnosis for this admission?: Yes (7) HLD (hyperlipidemia) Qualifiers: Hyperlipidemia type: pure hypercholesterolemia Qualified Code(s): E78.00 - Pure hypercholesterolemia, unspecified; E78.0 - Pure hypercholesterolemia Is this a current diagnosis for this admission?: Yes (8) Hiatal hernia with GERD Is this a current diagnosis for this admission?: Yes (9) Hypothyroidism (acquired) Is this a current diagnosis for this admission?: Yes (10) Senile dementia uncomp Qualifiers: Dementia behavioral disturbance: without behavioral disturbance Qualified Code(s): F03.90 - Unspecified dementia without behavioral disturbance Is this a current diagnosis for this admission?: Yes (11) Tobacco dependence due to cigarettes Is this a current diagnosis for this admission?: Yes - Time Time Spent with patient: 25-34 minutes Medications reviewed and adjusted accordingly: Yes Anticipated discharge: Home with Homehealth Within: within 24 hours - Inpatient Certification Based on my medical assessment, after consideration of the patient's comorbidities, presenting symptoms, or acuity I expect that the services needed warrant INPATIENT care.: Yes I certify that my determination is in accordance with my understanding of Medicare's requirements for reasonable and necessary INPATIENT services [42 CFR 412.3e].: Yes Medical Necessity: Need Close Monitoring Due to Risk of Patient Decompensation, Need For IV Fluids, Need For Continuous Telemetry Monitoring, Need for IV Antibiotics, Risk of Complication if Not Cared For in Hospital Post Hospital Care: D/C Desktop Support Specialist Documentation - Plan Summary Plan Summary: Decrease IV Solu Medrol to 40 mg IV Q 8hours. Possible transition to oral Prednisone therapy and discharge home on same tomorrow.
[2017-12-16] MEDS: MONTELUKAST SODIUM 10 MG TABLET PO SCH (21:28)
[2017-12-17] MEDS: IPRATROPIUM/ALBUTEROL 0.5-2.5 MG/3 ML AMPUL NEB PRN ×2 (01:55→08:37)
[2017-12-17] MEDS: LEVOTHYROXINE SODIUM 0.075 MG TABLET PO SCH (05:17)
[2017-12-17] MEDS: METHYLPREDNISOLONE INJ 40 MG/1 ML SDV IV SCH (05:17)
[2017-12-17] MEDS: LANSOPRAZOLE 30 MG TAB.RAP.DR PO SCH (05:18)
[2017-12-17] MEDS: FLUTICASONE NASAL SPRAY 50 MCG/SPRY 120 SPRAY/16 GM NASL SCH (09:20)
[2017-12-17] MEDS: ENOXAPARIN SODIUM INJ 30 MG/0.3 ML DISP.SYRIN SUBCUT SCH (09:20)
[2017-12-17] MEDS: AMLODIPINE BESYLATE 10 MG TABLET PO SCH (09:21)
[2017-12-17] MEDS: RIVASTIGMINE 4.6 MG/24 HR PATCH.TD24 TD SCH (09:21)
[2017-12-17] MEDS: ISOSORBIDE MONONITRATE 30 MG TAB.ER.24H PO SCH (09:22)
[2017-12-17] MEDS: ASPIRIN 81 MG TABLET, CHEWABLE PO SCH (09:22)
[2017-12-17] MEDS: BUPROPION HCL 100 MG TABLET PO SCH (09:22)
[2017-12-17] MEDS: DOCUSATE SODIUM 100 MG CAPSULE PO SCH (09:23)
[2017-12-17] MEDS: LUBIPROSTONE 24 MCG CAPSULE PO SCH (09:23)
[2017-12-17] MEDS: GABAPENTIN 300 MG CAPSULE PO SCH (09:23)
[2017-12-17] MEDS: CEFTRIAXONE SODIUM 1,000 MG in NORMAL SALINE 100 ML IV SCH (09:23)
[2017-12-17 09:49] VITALS: BP 162/68
--- NOTE | 2017-12-17 18:21 | PDOC DISCHARGE SUMMARY ---
General - Admit/Disc Date/PCP Admission Date/Primary Care Provider: 12/11/17 23:49 Discharge Date: 12/17/17 - Discharge Diagnosis (1) COPD exacerbation Is this a current diagnosis for this admission?: Yes (2) Acute bronchitis Is this a current diagnosis for this admission?: Yes (3) HTN (hypertension) Is this a current diagnosis for this admission?: Yes (4) Diabetes mellitus type 2 in nonobese Is this a current diagnosis for this admission?: Yes (5) Adult failure to thrive syndrome Is this a current diagnosis for this admission?: Yes (6) CAD (coronary artery disease) Is this a current diagnosis for this admission?: Yes (7) HLD (hyperlipidemia) Is this a current diagnosis for this admission?: Yes (8) Hiatal hernia with GERD Is this a current diagnosis for this admission?: Yes (9) Hypothyroidism (acquired) Is this a current diagnosis for this admission?: Yes (10) Senile dementia uncomp Is this a current diagnosis for this admission?: Yes (11) Tobacco dependence due to cigarettes Is this a current diagnosis for this admission?: Yes - Additional Information Resuscitation Status: Full Code - I hadextensive discusion with patient at bedside during my visit. At presnt she wants to be a full code status. Discharge Diet: Cardiac, Diabetic Discharge Activity: Activity As Tolerated Prescriptions: Nicotine [Nicoderm 21 mg/24 Hr Transderm Patch] 1 each TD DAILYP PRN #30 patch.td24 PRN Reason: Prednisone 10 mg PO ASDIR PRN #8 tablet PRN Reason: Home Medications: Albuterol Sulfate [Proair HFA] 2 puff IH Q4HP PRN 12/12/17 Aspirin [Aspirin 81 mg Chewable Tablet] 81 mg PO DAILY 12/12/17 Bupropion HCl [Wellbutrin 100 mg Tablet] 100 mg PO DAILY 12/12/17 Ciclesonide [Alvesco HFA] 1 puff IH BID 12/12/17 Dexlansoprazole [Dexilant 30 mg Capsule] 30 mg PO Q6AM 12/12/17 Docusate Sodium [Colace 100 mg Capsule] 100 mg PO DAILY 12/12/17 Fluticasone Propionate [Flonase Nasal [place] 50 Mcg/[place] 16 gm] 2 sprays NASL Q12 12/12/17 Gabapentin [Neurontin 300 mg Capsule] 300 mg PO DAILY 12/12/17 Insulin Lispro Protamin/Lispro [Humalog Mix 75-25 100 unit/mL] 15 unit SUBCUT BIDBS 12/12/17 Isosorbide Mononitrate [Imdur 30 mg Tablet.er] 30 mg PO DAILY 12/12/17 Levothyroxine Sodium [Synthroid 0.075 mg Tablet] 0.075 mg PO Q6AM 12/12/17 Linaclotide [Linzess 145 Mcg Capsule] 145 mcg PO DAILY 12/12/17 Montelukast Sodium [Singulair 10 mg Tablet] 10 mg PO QHS 12/12/17 Ondansetron [Zofran Odt 4 mg Tablet] 1 tab PO Q8HP PRN 12/12/17 Polyethylene Glycol 3350 [Miralax Powder 17 gm/Packet] 1 packet PO DAILYP PRN Rivastigmine [Exelon 4.6 mg/24 Hr Transdermal Patch] 1 each TD DAILY 12/12/17 Torsemide [Demadex] 5 mg PO QAM 12/12/17 Umeclidinium Brm/Vilanterol Tr [Anoro Ellipta 62.5-25 Mcg INH] 1 puff IH DAILY 12/12/17 Nicotine [Nicoderm 21 mg/24 Hr Transderm Patch] 1 each TD DAILYP PRN #30 patch.td24 12/17/17 Prednisone 10 mg PO ASDIR PRN #8 tablet 12/17/17 History of Present Illness Patient complains of: Difficulty with breathing, productive cough, chest pain and congestion History of Present Illness: SRINIVASA WINN is a 82 year old female known to my practice who presented to the ED with worsening difficulty with breathing and associated fever, chest congestion, productive cough and chest pain with coughing. She described her chest pain as tightness in her chest and her sputum as yellow and mucoid. She denied any blood in her phlegm. She continue to smoke cigarette regularly. She currently smoke about 1/2 PPD. She remain on supplemental oxygen at 3L/min via nasal cannula at home. Her initial evaluation in the ED was remarkable for tachypnea with hypoxemia and need for respiratory support through BiPAP. Her morbidities include Hypertension, Coronary Artery Disease, Hyperlipidemia, COPD , Tobacco dependency, Diabetes Mellitus Type 2, Hypothyroidism, Dementia, and significant Hiatus Hernia. She was advised hospitalization for further evaluation and management for exacerbated COPD with acute bronchitis. Hospital Course Hospital Course: Patient was admitted and treated as case of exacerbated COPD with acute Bronchitis. Her presenting symptoms did improved. Her blood culture and sputum culture were no growth after adequate incubation period. She has been transition off IV Solu Medrol. She will be discharge home on rapid taper oral Prednisone. She will continue on all her preadmission medications. She will follow up with me in the office as instructed upon discharge. Physical Exam Vital Signs: Temp Pulse Resp BP Pulse Ox 97.9 F 98 20 173/58 H 100 12/17/17 07:16 12/17/17 07:16 12/17/17 07:16 12/17/17 07:16 12/17/17 07:16 Intake & Output 12/16/17 12/17/17 12/18/17 06:59 06:59 06:59 Intake Total 731 1227 Balance 731 1227 Weight 53.5 kg Physical Exam: General appearance: PRESENT: no acute distress, cooperative, mild distress - remain on supplemental oxygen via nasal cannula Head exam: PRESENT: atraumatic, normocephalic Mouth exam: PRESENT: moist Respiratory exam: PRESENT: decreased breath sounds - at lung bases, rhonchi - very minimal expiratory rhonchi Cardiovascular exam: PRESENT: RRR. ABSENT: diastolic murmur, rubs, systolic murmur Vascular exam: PRESENT: normal capillary refill. ABSENT: pallor GI/Abdominal exam: PRESENT: normal bowel sounds, soft. ABSENT: distended, guarding, mass, organomegaly, rebound, tenderness Extremities exam: ABSENT: pedal edema Musculoskeletal exam: PRESENT: deformity - significant thoracic kyphosis Neurological exam: PRESENT: alert, awake, oriented to person, oriented to place , oriented to time, oriented to situation, CN II-XII grossly intact. ABSENT: motor sensory deficit Psychiatric exam: PRESENT: appropriate affect, normal mood. ABSENT: homicidal ideation, suicidal ideation Skin exam: PRESENT: dry, intact, warm. ABSENT: cyanosis, rash Results Laboratory Results: 12/15/17 08:33 12/15/17 08:33 Impressions: Chest X-Ray 12/11/17 21:06 IMPRESSION: NO ACUTE RADIOGRAPHIC FINDING IN THE CHEST. Qualifiers - * PATEINT BEING DISCHARGED WITH ANY OF THE FOLLOWING DIAGNOSIS?: No Plan Discharge Plan: D/C home today with CNP services and continue on tapering dose regimen of Prednisone. Follow up in the office as instructed upon discharge.
== END 2017-12-17 11:38 | disposition home health service (06) | DRG 192 ==
LOC: ER 20:14 → UNDOADMIN 23:49 → EH 23:49 → 5 23:49 → EH 12-12 00:52 → 3W 12-13 09:23
PROVIDERS: ADMIT Internal Medicine Geriatric Medicine; ATTEND Internal Medicine Geriatric Medicine
PROC: 3E0F73Z Introduction of Anti-inflammatory into Respiratory Tract, Via Natural or Artificial Opening (ICD-10-PCS; principal; 2017-12-12)
DX: J44.1 Chronic obstructive pulmonary disease with (acute) exacerbation (principal); J20.9 Acute bronchitis, unspecified; J44.0 Chronic obstructive pulmonary disease with (acute) lower respiratory infection; I10 Essential (primary) hypertension; E11.9 Type 2 diabetes mellitus without complications; R62.7 Adult failure to thrive; I25.10 Atherosclerotic heart disease of native coronary artery without angina pectoris; E78.00 Pure hypercholesterolemia, unspecified; K21.9 Gastro-esophageal reflux disease without esophagitis; K44.9 Diaphragmatic hernia without obstruction or gangrene; E03.9 Hypothyroidism, unspecified; F03.90 Unspecified dementia, unspecified severity, without behavioral disturbance, psychotic disturbance, mood disturbance, and anxiety; F32.9 Major depressive disorder, single episode, unspecified; D64.9 Anemia, unspecified; F17.210 Nicotine dependence, cigarettes, uncomplicated; Z90.49 Acquired absence of other specified parts of digestive tract; Z79.82 Long term (current) use of aspirin; Z79.4 Long term (current) use of insulin; Z79.899 Other long term (current) drug therapy; Z88.1 Allergy status to other antibiotic agents; Z88.3 Allergy status to other anti-infective agents; Z88.0 Allergy status to penicillin; Z88.2 Allergy status to sulfonamides; Z88.8 Allergy status to other drugs, medicaments and biological substances; Z83.6 Family history of other diseases of the respiratory system
CPT/HCPCS: 36415; 71046; 80048; 80053; 81001; 82962; 85025; 87040; 87070; 87086; 87088; 87205; 93005; 93010; 94640; 96360; 96361; 99285; J0696; J1650; J1815; J2920; J2930; J3490; J7030; J7620; S0119

== ENCOUNTER 2018-02-07 20:05 | Emergency (ER) | payer MEDICARE, MEDICAID ==
--- NOTE | 2018-02-07 20:32 | ER Document Report ---
ED Medical Screen (RME) - General Chief Complaint: Productive Cough Stated Complaint: BREATHING PROBLEMS Time Seen by Provider: 02/07/18 20:30 Mode of Arrival: Ambulatory Information source: Patient Notes: This is an 82-year-old female with a history of COPD (3 L nasal cannula at home ) who presents to the emergency room with 2-3 days of fever, shortness of breath , new cough productive of green sputum. [facility] physician: Dr. Sunil Jean have greeted and performed a rapid initial assessment of this patient. A comprehensive ED assessment and evaluation of the patient, analysis of test results and completion of medical decision making process we will be contacted by additional ED providers. TRAVEL OUTSIDE OF THE [place] IN LAST 30 DAYS: No - Related Data Allergies/Adverse Reactions: erythromycin base [Erythromycin Base] Allergy (Verified 02/07/18 20:06) furosemide [From Lasix] Allergy (Verified 02/07/18 20:06) levofloxacin [From Levaquin] Allergy (Verified 02/07/18 20:06) metformin HCl [From Glucophage] Allergy (Verified 02/07/18 20:06) SWELLING FACE Penicillins Allergy (Verified 02/07/18 20:06) pioglitazone HCl [From Actos] Allergy (Verified 02/07/18 20:06) SWELLING FACE Jkutywm-Kwn-Jwv Reductase Inhibitor Allergy (Verified 02/07/18 20:06) MUSCLE PAIN Sulfa (Sulfonamide Antibiotics) Allergy (Verified 02/07/18 20:06) SICK sulfamethoxazole [From Bactrim] Allergy (Verified 02/07/18 20:06) SICK trimethoprim [From Bactrim] Allergy (Verified 02/07/18 20:06) SICK Iodinated Contrast- Oral and IV Dye Adverse Reaction (Verified 02/07/18 20:06) Past Medical History - Past Medical History Cardiac Medical History: Reports: Hx Coronary Artery Disease, Hx Hypercholesterolemia, Hx Hypertension Denies: Hx Heart Attack Pulmonary Medical History: Reports: Hx Asthma, Hx Bronchitis, Hx COPD, Hx Pneumonia, Hx Tuberculosis Neurological Medical History: Denies: Hx Cerebrovascular Accident, Hx Seizures Endocrine Medical History: Reports: Hx Diabetes Mellitus Type 2 Renal/ Medical History: Denies: Hx Peritoneal Dialysis GI Medical History: Reports: Hx Hiatal Hernia, Hx Ulcer - 50 YEARS AGO. Denies : Hx Hepatitis Musculoskeltal Medical History: Denies Hx Arthritis Psychiatric Medical History: Reports: Hx Depression Infectious Medical History: Denies: Hx Hepatitis Past Surgical History: Reports: Hx Cholecystectomy, Hx Orthopedic Surgery - back , Hx Rectal Surgery, Hx Tubal Ligation. Denies: Hx Mastectomy, Hx Open Heart Surgery, Hx Pacemaker - Immunizations Hx Diphtheria, Pertussis, Tetanus Vaccination: Yes History of Influenza Vaccine for 06/2017 - 10/2017 Season: Yes Influenza Administration Date for 06/2017 - 10/2017 Season: 06/01/18 Physical Exam - Vital signs Vitals: Temp Pulse Resp BP Pulse Ox 99.0 F 94 16 127/55 H 96 02/07/18 20:11 02/07/18 20:11 02/07/18 20:11 02/07/18 20:11 02/07/18 20:11 Course - Vital Signs Vital signs: Temp Pulse Resp BP Pulse Ox 99.0 F 94 16 127/55 H 96 02/07/18 20:11 02/07/18 20:11 02/07/18 20:11 02/07/18 20:11 02/07/18 20:11 Doctor's Discharge - Discharge Referrals: BIENVENIDO NAM MD [Primary Care Provider] - Follow up as needed
[2018-02-07 21:10] LABS: ABSOLUTE BASOPHILS # (AUTO) 0.1 10^3/uL (0.0-0.2); ABSOLUTE EOSINOPHILS # (AUTO) 0.2 10^3/uL (0.0-0.6); ABSOLUTE LYMPHOCYTES (AUTO) 1.4 10^3/uL (0.5-4.7); ABSOLUTE MONOCYTES (AUTO) 0.7 10^3/uL (0.1-1.4); ABSOLUTE NEUT (AUTO) 5.3 10^3/uL (1.7-8.2); BASOPHILS % (AUTO) 0.9 % (0-2); EOSINOPHILS % (AUTO) 2.2 % (0-6); HEMATOCRIT 30.5 % (36.0-47.0); HEMOGLOBIN 10.1 g/dL (12.0-15.5); MEAN CORPUSCULAR HEMOGLOBIN 28.3 pg (27.0-33.4); MEAN CORPUSCULAR HGB CONC 33.1 g/dL (32.0-36.0); MEAN CORPUSCULAR VOLUME 85 fl (80-97); MONOCYTES % (AUTO) 9.3 % (3-13); PLATELET COUNT 326 10^3/uL (150-450); RED BLOOD COUNT 3.58 10^6/uL (3.72-5.28); RED CELL DISTRIBUTION WIDTH 15.6 % (11.5-14.0); SEGMENTED NEUTROPHILS % (AUTO) 69.6 % (42-78); TOTAL CELLS COUNTED % (AUTO) 100 %; WHITE BLOOD COUNT 7.7 10^3/uL (4.0-10.5)
[2018-02-07 21:36] LABS: ALANINE AMINOTRANSFERASE 16 U/L (9-52); ALBUMIN 3.6 g/dL (3.5-5.0); ALKALINE PHOSPHATASE 101 U/L (38-126); ANION GAP 9 (5-19); ASPARTATE AMINO TRANSFERASE 18 U/L (14-36); BLOOD UREA NITROGEN 25 mg/dL (7-20); CALCIUM 9.4 mg/dL (8.4-10.2); CARBON DIOXIDE 35 mmol/L (22-30); CHLORIDE 101 mmol/L (98-107); GLUCOSE 48 mg/dL (75-110); POTASSIUM 5.3 mmol/L (3.6-5.0); SODIUM 145.4 mmol/L (137-145); TOTAL PROTEIN 6.6 g/dL (6.3-8.2)
[2018-02-07 21:42] LABS: BILIRUBIN,TOTAL < 0.1 mg/dL (0.2-1.3)
--- NOTE | 2018-02-07 22:04 | RADIOLOGY REPORT (SQ) ---
EXAM DESCRIPTION: CHEST SINGLE VIEW COMPLETED DATE/TIME: 02/07/2018 9:26 pm REASON FOR STUDY: sob COMPARISON: Chest x-ray 12/11/2017. EXAM PARAMETERS: NUMBER OF VIEWS: One view. TECHNIQUE: Single frontal radiographic view of the chest acquired. RADIATION DOSE: NA LIMITATIONS: None. FINDINGS: LUNGS AND PLEURA: No consolidation, pneumothorax or pleural effusion. MEDIASTINUM AND HILAR STRUCTURES: No masses. Contour normal. HEART AND VASCULAR STRUCTURES: Heart normal in size. Normal vasculature. BONES: Vertebroplasty changes at the lower thoracic spine. Healed fracture at the left 4th rib. HARDWARE: None in the chest. IMPRESSION: No acute radiographic finding in the chest. TECHNICAL DOCUMENTATION: JOB ID: [id number] [employer]- All Rights Reserved Reading location - IP/workstation name: [email or web address]
[2018-02-07 22:05] VITALS: BP 148/58
[2018-02-07] MEDS ORDERED: IPRATROPIUM/ALBUTEROL 0.5-2.5 MG/3 ML AMPUL NEB ONE (22:07)
[2018-02-07] MEDS ORDERED: DOXYCYCLINE HYCLATE 100 MG TABLET PO ONE (22:08)
[2018-02-07] MEDS ORDERED: PREDNISONE 20 MG TABLET PO ONE (22:08)
--- NOTE | 2018-02-07 22:10 | ER Document Report ---
ED General - General Chief Complaint: Productive Cough Stated Complaint: BREATHING PROBLEMS Time Seen by Provider: 02/07/18 20:30 Mode of Arrival: Ambulatory Notes: The patient is an 82-year-old female with a history of COPD with 3 L of nasal cannula oxygen dependence at baseline who presents with 2 days of progressively worsening cough and sputum production as well as moderately increased shortness of breath relative to baseline. The patient reports that she is concerned that she may have a recurrence of pneumonia which apparently she had approximately 2 months ago. She denies any fever or constitutional symptoms. Nothing seems to improve or worsen her shortness of breath or coughing. She has not seen her primary doctor regarding today's concerns. She denies any increased lower extremity swelling, chest pain, headache, neck pain or syncope. TRAVEL OUTSIDE OF THE [place] IN LAST 30 DAYS: No - Related Data Allergies/Adverse Reactions: erythromycin base [Erythromycin Base] Allergy (Verified 02/07/18 20:06) furosemide [From Lasix] Allergy (Verified 02/07/18 20:06) levofloxacin [From Levaquin] Allergy (Verified 02/07/18 20:06) metformin HCl [From Glucophage] Allergy (Verified 02/07/18 20:06) SWELLING FACE Penicillins Allergy (Verified 02/07/18 20:06) pioglitazone HCl [From Actos] Allergy (Verified 02/07/18 20:06) SWELLING FACE Nuenctf-Jdv-Zqe Reductase Inhibitor Allergy (Verified 02/07/18 20:06) MUSCLE PAIN Sulfa (Sulfonamide Antibiotics) Allergy (Verified 02/07/18 20:06) SICK sulfamethoxazole [From Bactrim] Allergy (Verified 02/07/18 20:06) SICK trimethoprim [From Bactrim] Allergy (Verified 02/07/18 20:06) SICK Iodinated Contrast- Oral and IV Dye Adverse Reaction (Verified 02/07/18 20:06) Past Medical History - General Information source: Patient - Social History Smoking Status: Current Some Day Smoker Frequency of alcohol use: None Drug Abuse: None Lives with: Family Family History: Reviewed & Not Pertinent, COPD Patient has suicidal ideation: No Patient has homicidal ideation: No - Past Medical History Cardiac Medical History: Reports: Hx Coronary Artery Disease, Hx Hypercholesterolemia, Hx Hypertension Denies: Hx Heart Attack Pulmonary Medical History: Reports: Hx Asthma, Hx Bronchitis, Hx COPD, Hx Pneumonia, Hx Tuberculosis Neurological Medical History: Denies: Hx Cerebrovascular Accident, Hx Seizures Endocrine Medical History: Reports: Hx Diabetes Mellitus Type 2 Renal/ Medical History: Denies: Hx Peritoneal Dialysis GI Medical History: Reports: Hx Hiatal Hernia, Hx Ulcer - 50 YEARS AGO. Denies : Hx Hepatitis Musculoskeltal Medical History: Denies Hx Arthritis Psychiatric Medical History: Reports: Hx Depression Infectious Medical History: Denies: Hx Hepatitis Past Surgical History: Reports: Hx Cholecystectomy, Hx Orthopedic Surgery - back , Hx Rectal Surgery, Hx Tubal Ligation. Denies: Hx Mastectomy, Hx Open Heart Surgery, Hx Pacemaker - Immunizations Hx Diphtheria, Pertussis, Tetanus Vaccination: Yes Hx Pneumococcal Vaccination: 06/26/13 Review of Systems - Review of Systems Notes: Constitutional: Negative for fever. HENT: Negative for sore throat. Eyes: Negative for visual changes. Cardiovascular: Negative for chest pain. Respiratory: Positive for shortness of breath, cough and sputum production Gastrointestinal: Negative for abdominal pain, vomiting or diarrhea. Genitourinary: Negative for dysuria. Musculoskeletal: Negative for back pain. Skin: Negative for rash. Neurological: Negative for headaches, weakness or numbness. 10 point ROS negative except as marked above and in HPI. Physical Exam - Vital signs Vitals: Temp Pulse Resp BP Pulse Ox 99.0 F 94 16 127/55 H 96 02/07/18 20:11 02/07/18 20:11 02/07/18 20:11 02/07/18 20:11 02/07/18 20:11 Interpretation: Normal Notes: PHYSICAL EXAMINATION: GENERAL: Cachectic, frail but in no acute distress. HEAD: Atraumatic, normocephalic. EYES: Pupils equal round and reactive to light, extraocular movements intact, sclera anicteric, conjunctiva are normal. ENT: nares patent, oropharynx clear without exudates. Moist mucous membranes. NECK: Normal range of motion, supple without lymphadenopathy LUNGS: Breath sounds clear to auscultation bilaterally and equal. Faint, scattered wheezing in all lung villavicencio. HEART: Regular rate and rhythm without murmurs ABDOMEN: Soft, nontender, normoactive bowel sounds. No guarding, no rebound. No masses appreciated. EXTREMITIES: Normal range of motion, no pitting or edema. No cyanosis. NEUROLOGICAL: No focal neurological deficits. Moves all extremities spontaneously and on command. PSYCH: Normal mood, normal affect. SKIN: Warm, Dry, normal turgor, no rashes or lesions noted. Course - Re-evaluation Re-evalutation: 02/07/18 22:08 Patient presents with a mild exacerbation of their baseline COPD. Mild wheezing at time of presentation but vitals do not show significant hypoxemia or tachypnea. No retractions. Patient did clinically improve after receiving nebulizers here in the emergency department. Chest x-ray without evidence of an acute pneumonia. Laboratories do not show acute kidney injury or significant leukocytosis. Patient able to ambulate without any respiratory distress. Based on patient's overall reassuring assessment, I believe they are stable for outpatient management with steroids and oral antibiotics. Patient has nebulizers at home. I do not suspect an acute alternative pathology at this time based on history and exam including acute pulmonary embolus, ACS, pneumothorax, or aortic dissection. At this time will discharge with return precautions and follow-up recommendations. Verbal discharge instructions given a the bedside and opportunity for questions given. Medication warnings reviewed. Patient is in agreement with this plan and has verbalized understanding of return precautions and the need for primary care follow-up in the next 24-72 hours. - Vital Signs Vital signs: Temp Pulse Resp BP Pulse Ox 98 F 94 18 148/58 H 100 02/07/18 23:03 02/07/18 20:11 02/07/18 22:02 02/07/18 22:02 02/07/18 21:01 - Laboratory Result Diagrams: 02/07/18 20:45 02/07/18 20:45 Laboratory results interpreted by me: 02/07/18 02/07/18 20:45 20:45 RBC 3.58 L Hgb 10.1 L Hct 30.5 L RDW 15.6 H Sodium 145.4 H Potassium 5.3 H Carbon Dioxide 35 H BUN 25 H Creatinine 1.37 H Est GFR ( Amer) 45 L Est GFR (Non-Af Amer) 37 L Glucose 48 L Total Bilirubin < 0.1 L - Diagnostic Test Radiology reviewed: Image reviewed, Reports reviewed Radiology results interpreted by me: 02/07/18 22:08 Chest x-ray: No acute infiltrate or pneumothorax - EKG Interpretation by Me Additional EKG results interpreted by me: 02/08/18 03:49 Sinus rhythm. Rate 88. No ST elevations or depressions. QTC is 446. Discharge - Discharge Clinical Impression: COPD exacerbation, Tobacco dependence due to cigarettes, Shortness of breath Acute bronchitis Qualifiers: Bronchitis organism: unspecified organism Qualified Code(s): J20.9 - Acute bronchitis, unspecified Condition: Stable Disposition: HOME, SELF-CARE Additional Instructions: You were seen for a COPD exacerbation. Your symptoms improved with treatment here in the emergency department. However, it is very important that you return to the emergency department immediately if you began to have worsening difficulty breathing that does not respond to your normal home nebulizers. You are also being sent home on a five-day course of steroids that you should start taking tomorrow. Please also take the antibiotics as prescribed. Please also follow closely with your primary care physician. You should return to emergency department if you develop fever greater than 101, persistent cough, persistent vomiting, pass out, or any other symptoms that are concerning to you. Prescriptions: Doxycycline Hyclate 100 mg PO BID #14 capsule Prednisone [Deltasone 20 mg Tablet] 3 tab PO DAILY 5 Days tablet Referrals: BIENVENIDO NAM MD [Primary Care Provider] - Follow up tomorrow
--- NOTE | 2018-02-09 07:51 | EKG REPORT ---
SEVERITY:- NORMAL ECG - SINUS RHYTHM : Confirmed by: Abner Sanchez MD 09-Feb-2018 07:50:23
== END 2018-02-07 23:17 | disposition home or self-care (01) ==
LOC: ER 20:05
DX: J44.0 Chronic obstructive pulmonary disease with (acute) lower respiratory infection (principal); J20.9 Acute bronchitis, unspecified; J44.1 Chronic obstructive pulmonary disease with (acute) exacerbation; Z99.81 Dependence on supplemental oxygen; R05 Cough; R06.02 Shortness of breath; F17.210 Nicotine dependence, cigarettes, uncomplicated; I25.10 Atherosclerotic heart disease of native coronary artery without angina pectoris; I10 Essential (primary) hypertension; E11.9 Type 2 diabetes mellitus without complications; Z87.01 Personal history of pneumonia (recurrent); Z88.1 Allergy status to other antibiotic agents; Z88.8 Allergy status to other drugs, medicaments and biological substances; Z88.0 Allergy status to penicillin; Z88.2 Allergy status to sulfonamides
CPT/HCPCS: 93005; 94640; 99284; 36415; 85025; 80053; 71045; 93010; A9270 ×3; J7512; J7620

== ENCOUNTER 2018-03-30 13:40 | Emergency (ER) | payer MEDICARE, MEDICAID ==
[2018-03-30] MEDS ORDERED: IPRATROPIUM/ALBUTEROL 0.5-2.5 MG/3 ML AMPUL NEB ONE (13:51)
[2018-03-30] MEDS ORDERED: METHYLPREDNISOLONE INJ 125 MG/2 ML SDV IV ONE (13:51)
[2018-03-30 13:53] VITALS: BP 191/82
--- NOTE | 2018-03-30 13:53 | ER Document Report ---
ED Medical Screen (RME) - General Chief Complaint: Shortness Of Breath Stated Complaint: DIFFICULTY BREATHING Time Seen by Provider: 03/30/18 13:48 Notes: 82 years old female with a history of COPD, on oxygen 3 L/min by nasal cannula, still smoking. Presents today with 3 day history of increasing shortness of breath and wheezing associated with nausea. No fever chills. No chest pain. TRAVEL OUTSIDE OF THE [place] IN LAST 30 DAYS: No - Related Data Allergies/Adverse Reactions: erythromycin base [Erythromycin Base] Allergy (Verified 03/30/18 13:41) furosemide [From Lasix] Allergy (Verified 03/30/18 13:41) levofloxacin [From Levaquin] Allergy (Verified 03/30/18 13:41) metformin HCl [From Glucophage] Allergy (Verified 03/30/18 13:41) SWELLING FACE Penicillins Allergy (Verified 03/30/18 13:41) pioglitazone HCl [From Actos] Allergy (Verified 03/30/18 13:41) SWELLING FACE Xtmppjc-Rly-Hds Reductase Inhibitor Allergy (Verified 03/30/18 13:41) MUSCLE PAIN Sulfa (Sulfonamide Antibiotics) Allergy (Verified 03/30/18 13:41) SICK sulfamethoxazole [From Bactrim] Allergy (Verified 03/30/18 13:41) SICK trimethoprim [From Bactrim] Allergy (Verified 03/30/18 13:41) SICK Iodinated Contrast- Oral and IV Dye Adverse Reaction (Verified 03/30/18 13:41) Past Medical History - Social History Chew tobacco use (# tins/day): No Frequency of alcohol use: None Drug Abuse: None - Past Medical History Cardiac Medical History: Reports: Hx Coronary Artery Disease, Hx Hypercholesterolemia, Hx Hypertension Denies: Hx Heart Attack Pulmonary Medical History: Reports: Hx Asthma, Hx Bronchitis, Hx COPD, Hx Pneumonia, Hx Tuberculosis Neurological Medical History: Denies: Hx Cerebrovascular Accident, Hx Seizures Endocrine Medical History: Reports: Hx Diabetes Mellitus Type 2 Renal/ Medical History: Denies: Hx Peritoneal Dialysis GI Medical History: Reports: Hx Hiatal Hernia, Hx Ulcer - 50 YEARS AGO. Denies : Hx Hepatitis Musculoskeltal Medical History: Denies Hx Arthritis Psychiatric Medical History: Reports: Hx Depression Infectious Medical History: Denies: Hx Hepatitis Past Surgical History: Reports: Hx Cholecystectomy, Hx Orthopedic Surgery - back , Hx Rectal Surgery, Hx Tubal Ligation. Denies: Hx Mastectomy, Hx Open Heart Surgery, Hx Pacemaker - Immunizations Hx Diphtheria, Pertussis, Tetanus Vaccination: Yes History of Influenza Vaccine for 06/2017 - 10/2017 Season: Yes Influenza Administration Date for 06/2017 - 10/2017 Season: 06/01/18 Doctor's Discharge - Discharge Referrals: BIENVENIDO NAM MD [Primary Care Provider] - Follow up as needed
--- NOTE | 2018-03-30 14:34 | RADIOLOGY REPORT (SQ) ---
EXAM DESCRIPTION: CHEST SINGLE VIEW COMPLETED DATE/TIME: 03/30/2018 2:23 pm REASON FOR STUDY: sob COMPARISON: 698 T EXAM PARAMETERS: NUMBER OF VIEWS: One view. TECHNIQUE: Single frontal radiographic view of the chest acquired. RADIATION DOSE: NA LIMITATIONS: None. FINDINGS: LUNGS AND PLEURA: No opacities, masses or pneumothorax. No pleural effusion. Overexpansion concerning COPD MEDIASTINUM AND HILAR STRUCTURES: No masses. Contour normal. HEART AND VASCULAR STRUCTURES: Heart normal in size. Normal vasculature. BONES: Scoliosis and vertebroplasty again noted. HARDWARE: None in the chest. OTHER: No other significant finding. IMPRESSION: Nothing acute. Likely COPD. TECHNICAL DOCUMENTATION: JOB ID: [id number] [employer]- All Rights Reserved Reading location - IP/workstation name: [email or web address]
--- NOTE | 2018-03-30 14:38 | ER Document Report ---
ED Respiratory Problem - General Chief Complaint: Shortness Of Breath Stated Complaint: DIFFICULTY BREATHING Time Seen by Provider: 03/30/18 13:48 Notes: 82-year-old female patient, history of COPD, smoker, frequent pneumonias to the emergency department for evaluation of shortness of breath. Patient states that she is having bronchitis flareup versus pneumonia. Recently she tried to quit smoking. Got a hold of some cigarettes today. Began having increased shortness of breath difficulty breathing. Denies any fever, chills, sweats. Denies any chest pain at this time. Positive wheezing. TRAVEL OUTSIDE OF THE [place] IN LAST 30 DAYS: No - HPI Patient complains to provider of: COPD, Cough, Hurts to breath, Short of breath Onset: Yesterday Duration: Worse/persistent Initiating Event: Exposure to smoke - Related Data Allergies/Adverse Reactions: erythromycin base [Erythromycin Base] Allergy (Verified 03/30/18 13:41) furosemide [From Lasix] Allergy (Verified 03/30/18 13:41) levofloxacin [From Levaquin] Allergy (Verified 03/30/18 13:41) metformin HCl [From Glucophage] Allergy (Verified 03/30/18 13:41) SWELLING FACE Penicillins Allergy (Verified 03/30/18 13:41) pioglitazone HCl [From Actos] Allergy (Verified 03/30/18 13:41) SWELLING FACE Ptlsgov-Tmd-Mmx Reductase Inhibitor Allergy (Verified 03/30/18 13:41) MUSCLE PAIN Sulfa (Sulfonamide Antibiotics) Allergy (Verified 03/30/18 13:41) SICK sulfamethoxazole [From Bactrim] Allergy (Verified 03/30/18 13:41) SICK trimethoprim [From Bactrim] Allergy (Verified 03/30/18 13:41) SICK Iodinated Contrast- Oral and IV Dye Adverse Reaction (Verified 03/30/18 13:41) Past Medical History - Social History Smoking Status: Current Some Day Smoker Chew tobacco use (# tins/day): No Frequency of alcohol use: None Drug Abuse: None Family History: Reviewed & Not Pertinent, COPD Patient has suicidal ideation: No Patient has homicidal ideation: No - Past Medical History Cardiac Medical History: Reports: Hx Coronary Artery Disease, Hx Hypercholesterolemia, Hx Hypertension Denies: Hx Heart Attack Pulmonary Medical History: Reports: Hx Asthma, Hx Bronchitis, Hx COPD, Hx Pneumonia, Hx Tuberculosis Neurological Medical History: Denies: Hx Cerebrovascular Accident, Hx Seizures Endocrine Medical History: Reports: Hx Diabetes Mellitus Type 2 Renal/ Medical History: Denies: Hx Peritoneal Dialysis GI Medical History: Reports: Hx Hiatal Hernia, Hx Ulcer - 50 YEARS AGO. Denies : Hx Hepatitis Musculoskeletal Medical History: Denies Hx Arthritis Psychiatric Medical History: Reports: Hx Depression Infectious Medical History: Denies: Hx Hepatitis Past Surgical History: Reports: Hx Cholecystectomy, Hx Orthopedic Surgery - back , Hx Rectal Surgery, Hx Tubal Ligation. Denies: Hx Mastectomy, Hx Open Heart Surgery, Hx Pacemaker - Immunizations Hx Diphtheria, Pertussis, Tetanus Vaccination: Yes Hx Pneumococcal Vaccination: 06/26/13 Review of Systems - Review of Systems Constitutional: denies: Fever, Malaise, Weakness EENT: denies: Blurred vision, Ear pain, Difficulty swallowing Cardiovascular: Dyspnea. denies: Chest pain, Palpitations, Heart racing Respiratory: Cough, Short of breath, Wheezing. denies: Hurts to breathe Gastrointestinal: denies: Abdominal pain, Diarrhea, Nausea, Vomiting Musculoskeletal: denies: Back pain, Joint pain, Muscle pain, Leg swelling Skin: denies: Dryness, Lesions, Lumps, Rash Hematologic/Lymphatic: denies: Anemia, Blood clots, Easy bleeding, Easy bruising Neurological/Psychological: denies: Confusion, Weakness, Numbness Physical Exam - Vital signs Vitals: Temp Pulse Resp BP Pulse Ox 98.0 F 110 H 22 H 191/82 H 84 L 03/30/18 13:49 03/30/18 13:49 03/30/18 13:49 03/30/18 13:49 03/30/18 13:49 Interpretation: Hypertensive, Tachycardic - General General appearance: Appears well, Alert - HEENT Head: Normocephalic, Atraumatic Eyes: Normal Pupils: PERRL - Respiratory Respiratory status: No respiratory distress Chest status: Nontender Breath sounds: Wheezing. No: Productive cough, Rales, Rhonchi Chest palpation: Normal - Cardiovascular Rhythm: Tachycardia Heart sounds: Normal auscultation Murmur: No - Abdominal Inspection: Normal Distension: No distension Bowel sounds: Normal Tenderness: Nontender Organomegaly: No organomegaly - Back Back: Normal, Nontender - Extremities General upper extremity: Normal inspection, Nontender, Normal color, Normal ROM , Normal temperature General lower extremity: Normal inspection, Nontender, Normal color, Normal ROM , Normal temperature, Normal weight bearing. No: Volodymyr's sign - Neurological Neuro grossly intact: Yes Cognition: Normal Orientation: AAOx4 [place] Coma Scale Eye Opening: Spontaneous [place] Coma Scale Verbal: Oriented [place] Coma Scale Motor: Obeys Commands [place] Coma Scale Total: 15 Speech: Normal Motor strength normal: LUE, RUE, LLE, RLE Sensory: Normal - Psychological Associated symptoms: Normal affect, Normal mood - Skin Skin Temperature: Warm Skin Moisture: Dry Skin Color: Normal Course - Re-evaluation Re-evalutation: 03/30/18 15:59 Patient is a little bit better. Had her Solu-Medrol some magnesium and a breathing treatment. States that she wants to go home because she is here with a friend who just had an upper endoscopy and is getting sleepy. We will prescribe her some doxycycline, prednisone, albuterol. Encourage her to return for worsening symptoms at this time. 03/30/18 15:59 Laboratory 03/30/18 03/30/18 03/30/18 14:46 14:46 14:46 WBC 8.8 RBC 4.03 Hgb 11.2 L Hct 34.2 L MCV 85 MCH 27.9 MCHC 32.9 RDW 16.1 H Plt Count 304 Seg Neutrophils % 90.0 H Lymphocytes % 6.3 L Monocytes % 2.6 L Eosinophils % 0.6 Basophils % 0.5 Absolute Neutrophils 7.9 Absolute Lymphocytes 0.6 Absolute Monocytes 0.2 Absolute Eosinophils 0.1 Absolute Basophils 0.0 Sodium 146.1 H Potassium 4.0 Chloride 98 Carbon Dioxide 34 H Anion Gap 14 BUN 21 H Creatinine 1.25 Est GFR ( Amer) 50 L Est GFR (Non-Af Amer) 41 L Glucose 164 H Calcium 9.2 Total Bilirubin 0.3 Direct Bilirubin 0.3 Neonat Total Bilirubin Not Reportable Neonat Direct Bilirubin Not Reportable Neonat Indirect Bili Not Reportable AST 16 ALT 18 Alkaline Phosphatase 109 Troponin I 0.013 NT-Pro-B Natriuret Pep 1050 H Total Protein 6.7 Albumin 3.7 Chest X-Ray 03/30/18 13:50 IMPRESSION: Nothing acute. Likely COPD. - Vital Signs Vital signs: Temp Pulse Resp BP Pulse Ox 98.0 F 110 H 22 H 191/82 H 84 L 03/30/18 13:49 03/30/18 13:49 03/30/18 13:49 03/30/18 13:49 03/30/18 13:49 - Laboratory Result Diagrams: 03/30/18 14:46 03/30/18 14:46 Laboratory results interpreted by me: 03/30/18 03/30/18 03/30/18 14:46 14:46 14:46 Hgb 11.2 L Hct 34.2 L RDW 16.1 H Seg Neutrophils % 90.0 H Lymphocytes % 6.3 L Monocytes % 2.6 L Sodium 146.1 H Carbon Dioxide 34 H BUN 21 H Est GFR ( Amer) 50 L Est GFR (Non-Af Amer) 41 L Glucose 164 H NT-Pro-B Natriuret Pep 1050 H - EKG Interpretation by Me EKG shows normal: Ewing, Intervals, QRS Complexes, ST-T Waves Rate: Tachycardia Discharge - Discharge Clinical Impression: COPD exacerbation Condition: Good Disposition: HOME, SELF-CARE Instructions: Chronic Obstructive Lung Disease ([facility]) Prescriptions: Albuterol Sulfate [Proair HFA Inhalation Aerosol 8.5 gm MDI] 2 puff IH Q4H PRN # 1 mdi PRN Reason: Doxycycline Hyclate 100 mg PO BID #14 capsule Prednisone [Deltasone 20 mg Tablet] 3 tab PO DAILY 5 Days #15 tablet Referrals: BIENVENIDO NAM MD [Primary Care Provider] - Follow up in 3-5 days
[2018-03-30 15:06] LABS: ABSOLUTE EOSINOPHILS # (AUTO) 0.1 10^3/uL (0.0-0.6); ABSOLUTE LYMPHOCYTES (AUTO) 0.6 10^3/uL (0.5-4.7); ABSOLUTE MONOCYTES (AUTO) 0.2 10^3/uL (0.1-1.4); ABSOLUTE NEUT (AUTO) 7.9 10^3/uL (1.7-8.2); BASOPHILS % (AUTO) 0.5 % (0-2); EOSINOPHILS % (AUTO) 0.6 % (0-6); HEMATOCRIT 34.2 % (36.0-47.0); HEMOGLOBIN 11.2 g/dL (12.0-15.5); LYMPHOCYTES % (AUTO) 6.3 % (13-45); MEAN CORPUSCULAR HEMOGLOBIN 27.9 pg (27.0-33.4); MEAN CORPUSCULAR HGB CONC 32.9 g/dL (32.0-36.0); MEAN CORPUSCULAR VOLUME 85 fl (80-97); MONOCYTES % (AUTO) 2.6 % (3-13); PLATELET COUNT 304 10^3/uL (150-450); RED BLOOD COUNT 4.03 10^6/uL (3.72-5.28); RED CELL DISTRIBUTION WIDTH 16.1 % (11.5-14.0); TOTAL CELLS COUNTED % (AUTO) 100 %; WHITE BLOOD COUNT 8.8 10^3/uL (4.0-10.5)
[2018-03-30] MEDS: MAGNESIUM SULFATE/D5W 1 GM/100 ML RTUPB IV SCH ×2 (15:22→16:13)
[2018-03-30 15:28] LABS: ALANINE AMINOTRANSFERASE 18 U/L (9-52); ALBUMIN 3.7 g/dL (3.5-5.0); ALKALINE PHOSPHATASE 109 U/L (38-126); ANION GAP 14 (5-19); ASPARTATE AMINO TRANSFERASE 16 U/L (14-36); BILIRUBIN,DIRECT 0.3 mg/dL (0.0-0.4); BILIRUBIN,TOTAL 0.3 mg/dL (0.2-1.3); BLOOD UREA NITROGEN 21 mg/dL (7-20); CALCIUM 9.2 mg/dL (8.4-10.2); CARBON DIOXIDE 34 mmol/L (22-30); CHLORIDE 98 mmol/L (98-107); GLUCOSE 164 mg/dL (75-110); SODIUM 146.1 mmol/L (137-145); TOTAL PROTEIN 6.7 g/dL (6.3-8.2)
[2018-03-30 15:38] LABS: TROPONIN I 0.013 ng/mL
[2018-03-30] MEDS ORDERED: DOXYCYCLINE HYCLATE 100 MG TABLET PO ONE (15:58)
--- NOTE | 2018-03-30 17:59 | EKG REPORT ---
SEVERITY:- OTHERWISE NORMAL ECG - SINUS TACHYCARDIA BORDERLINE RIGHT AXIS DEVIATION : Confirmed by: Chula De Paz 30-Mar-2018 17:58:20
== END 2018-03-30 16:34 | disposition home or self-care (01) ==
LOC: ER 13:40
DX: J44.1 Chronic obstructive pulmonary disease with (acute) exacerbation (principal); R06.02 Shortness of breath; R05 Cough; R00.0 Tachycardia, unspecified; I25.10 Atherosclerotic heart disease of native coronary artery without angina pectoris; I10 Essential (primary) hypertension; E11.9 Type 2 diabetes mellitus without complications; F17.210 Nicotine dependence, cigarettes, uncomplicated; Z87.01 Personal history of pneumonia (recurrent); Z88.1 Allergy status to other antibiotic agents; Z88.8 Allergy status to other drugs, medicaments and biological substances; Z88.0 Allergy status to penicillin; Z88.2 Allergy status to sulfonamides
CPT/HCPCS: 93005; 94640; 99285; 96375; 96365; 36415; 85025; 80053; 84484; 83880; 71045; 93010; A9270 ×2; J2930; J3475; J7620

== ENCOUNTER → 2018-04-16 | Outpatient (CLI) | payer MEDICARE, MEDICAID ==
--- NOTE | 2018-04-16 11:54 | RADIOLOGY REPORT (SQ) ---
EXAM DESCRIPTION: CT ABD/PELVIS WITH IV ORAL COMPLETED DATE/TIME: 04/16/2018 9:36 am REASON FOR STUDY: RIGHT LOWER QUADRANT PAIN R10.31 RIGHT LOWER QUADRANT PAIN COMPARISON: CT chest 11/13/2017 CT abdomen pelvis 08/29/2017 TECHNIQUE: CT scan of the abdomen and pelvis performed using helical scanning technique with dynamic intravenous contrast injection. Patient drank oral contrast. Images reviewed with lung, soft tissue , and bone windows. Reconstructed coronal and sagittal MPR images reviewed. Delayed images for evalua tion of the urinary system also acquired. All images stored on PACS. All CT scanners at this facility use dose modulation, iterative reconstruction, and/or weight based d osing when appropriate to reduce radiation dose to as low as reasonably achievable (ALARA). [facility]: Dose Right [facility]: CareDose [facility]: Dose Right [facility]: Teradose 4D [facility]: eTask.it CONTRAST TYPE AND DOSE: contrast/concentration: Isovue 300.00 mg/ml; Total Contrast Delivered: 50.0 ml; Total Saline Delivered: 65.0 ml RENAL FUNCTION: Creatinine 1.2 RADIATION DOSE: CT Rad equipment meets quality standard of care and radiation dose reduction techniq ues were employed. CTDIvol: 3.5 - 4.1 mGy. DLP: 328 mGy-cm.. LIMITATIONS: None. FINDINGS: LOWER CHEST: Large retrocardiac hiatal hernia containing the majority of the stomach fundu s. Obstructive lung disease at the bases. LIVER: Normal size. No masses. No dilated ducts. SPLEEN: Normal size. No focal lesions. PANCREAS: No masses. No significant calcifications. No adjacent inflammation or peripancreatic fluid collections. Pancreatic duct not dilated. GALLBLADDER: Surgically absent. ADRENAL GLANDS: No significant masses or asymmetry. RIGHT KIDNEY AND URETER: No solid masses. No significant calcifications. No hydronephrosis or hyd roureter. LEFT KIDNEY AND URETER: No solid masses. No significant calcifications. No hydronephrosis or hydr oureter. AORTA AND VESSELS: No aneurysm. No dissection. Renal arteries, SMA, celiac without stenosis. RETROPERITONEUM: No retroperitoneal adenopathy, hemorrhage or masses. BOWEL AND PERITONEAL CAVITY: Patient drank oral contrast. No CT evidence of bowel obstruction. No f ree intraperitoneal air or fluid. No CT signs of acute diverticulitis. No abscess. APPENDIX: Normal, best shown on coronal image 44 PELVIS: No mass. No free fluid. Normal bladder. Postmenopausal female pelvic organs are present ABDOMINAL WALL: No masses. No hernias. BONES: Old lower thoracic kyphoplasties OTHER: No other significant finding. IMPRESSION: NO SIGNIFICANT OR ACUTE FINDING IN THE ABDOMEN OR PELVIS ON CT SCAN WITH IV CONTRAST. TECHNICAL DOCUMENTATION: JOB ID: [id number] Quality ID # [id number]: Final reports with documentation of one or more dose reduction techniques (e.g., Au tomated exposure control, adjustment of the mA and/or kV according to patient size, use of iterative reconstruction technique) 2010 [employer]- All Rights Reserved Reading location - IP/workstation name: [email or web address]
== END ==
LOC: RAD 08:40
PROVIDERS: ATTEND Internal Medicine Geriatric Medicine
DX: R10.31 Right lower quadrant pain (principal)
CPT/HCPCS: 74177; 82565

== ENCOUNTER → 2018-06-26 | Outpatient (CLI) | payer MEDICARE, MEDICAID ==
--- NOTE | 2018-06-26 12:07 | RADIOLOGY REPORT (SQ) ---
EXAM DESCRIPTION: CAROTID DOPPLER COMPLETED DATE/TIME: 06/26/2018 11:55 am REASON FOR STUDY: PVD I73.9 PERIPHERAL VASCULAR DISEASE, UNSPECIFIED COMPARISON: None. TECHNIQUE: Grayscale ultrasound, Doppler velocity and spectra, and color Doppler images acquired of the extra-cranial carotid and vertebral arteries. Images stored on PACS. LIMITATIONS: None. FINDINGS: RIGHT CAROTID CCA Velocities: 96 centimeters/second ICA Velocities Peak systolic 121 cm/s. End diastolic 13 cm/s. Proximal ICA/CCA peak systolic ratio 1.3. Multiple small plaques are present in the carotid bulb and internal and external carotid artery LEFT CAROTID CCA Velocities: 168 centimeters/second ICA Velocities Peak systolic 146 cm/s. End diastolic 31 cm/s. Proximal ICA/CCA peak systolic ratio 1. Multiple small plaques are present. There is moderate plaque in the carotid bulb and proximal training intern al carotid. VERTEBRAL ARTERIES: Antegrade flow. Normal waveforms. SUBCLAVIAN ARTERIES: No finding. OTHER: No other significant finding. IMPRESSION: Atherosclerotic changes with no hemodynamically significant lesion. COMMENT: Quality ID #[id number]: Velocity criteria are extrapolated from the diameter data as defined by t he Society of Radiologists in Ultrasound Consensus Conference. Radiology 2003: 229; 340-346. TECHNICAL DOCUMENTATION: JOB ID: [id number] [employer]- All Rights Reserved Reading location - IP/workstation name: [email or web address]
== END ==
LOC: RAD 10:37
PROVIDERS: ATTEND Internal Medicine Geriatric Medicine
DX: I73.9 Peripheral vascular disease, unspecified (principal)
CPT/HCPCS: 93880

== ENCOUNTER 2018-07-30 14:21 | Emergency (ER) | payer MEDICARE, MEDICAID ==
--- NOTE | 2018-07-30 15:15 | ER Document Report ---
ED Medical Screen (RME) - General Chief Complaint: Constipation Stated Complaint: SHORTNESS OF BREATH, NO BOWEL MOVEMENT SINCE THANK Time Seen by Provider: 07/30/18 15:13 Notes: 82 years old female with a history of COPD presents today because of constipations for the last 8 days. Had no bowel movement. This causing increasing shortness of breath. She is on home oxygen. Examination emphysematous chest, barrel-shaped, decreased breath sounds TRAVEL OUTSIDE OF THE [place] IN LAST 30 DAYS: No - Related Data Allergies/Adverse Reactions: erythromycin base [Erythromycin Base] Allergy (Verified 07/30/18 15:15) furosemide [From Lasix] Allergy (Verified 07/30/18 15:15) levofloxacin [From Levaquin] Allergy (Verified 07/30/18 15:15) metformin HCl [From Glucophage] Allergy (Verified 07/30/18 15:15) SWELLING FACE Penicillins Allergy (Verified 07/30/18 15:15) pioglitazone HCl [From Actos] Allergy (Verified 07/30/18 15:15) SWELLING FACE Knebslu-Gnn-Caq Reductase Inhibitor Allergy (Verified 07/30/18 15:15) MUSCLE PAIN Sulfa (Sulfonamide Antibiotics) Allergy (Verified 07/30/18 15:15) SICK sulfamethoxazole [From Bactrim] Allergy (Verified 07/30/18 15:15) SICK trimethoprim [From Bactrim] Allergy (Verified 07/30/18 15:15) SICK Iodinated Contrast- Oral and IV Dye Adverse Reaction (Verified 07/30/18 15:15) Past Medical History - Past Medical History Cardiac Medical History: Reports: Hx Coronary Artery Disease, Hx Hypercholesterolemia, Hx Hypertension Denies: Hx Heart Attack Pulmonary Medical History: Reports: Hx Asthma, Hx Bronchitis, Hx COPD, Hx Pneumonia, Hx Tuberculosis Neurological Medical History: Denies: Hx Cerebrovascular Accident, Hx Seizures Endocrine Medical History: Reports: Hx Diabetes Mellitus Type 2 Renal/ Medical History: Denies: Hx Peritoneal Dialysis GI Medical History: Reports: Hx Hiatal Hernia, Hx Ulcer - 50 YEARS AGO. Denies : Hx Hepatitis Musculoskeltal Medical History: Denies Hx Arthritis Psychiatric Medical History: Reports: Hx Depression Infectious Medical History: Denies: Hx Hepatitis Past Surgical History: Reports: Hx Cholecystectomy, Hx Orthopedic Surgery - back , Hx Rectal Surgery, Hx Tubal Ligation. Denies: Hx Mastectomy, Hx Open Heart Surgery, Hx Pacemaker - Immunizations Hx Diphtheria, Pertussis, Tetanus Vaccination: Yes History of Influenza Vaccine for 06/2017 - 10/2017 Season: Yes Influenza Administration Date for 06/2017 - 10/2017 Season: 06/01/18 Physical Exam - Vital signs Vitals: Temp Pulse Resp BP Pulse Ox 98.1 F 100 16 135/68 H 91 L 07/30/18 14:28 07/30/18 14:28 07/30/18 14:28 07/30/18 14:28 07/30/18 14:28 Course - Vital Signs Vital signs: Temp Pulse Resp BP Pulse Ox 98.1 F 100 16 135/68 H 91 L 07/30/18 14:28 07/30/18 14:28 07/30/18 14:28 07/30/18 14:28 07/30/18 14:28 Doctor's Discharge - Discharge Referrals: BIENVENIDO NAM MD [Primary Care Provider] - Follow up as needed
[2018-07-30] MEDS ORDERED: LACTULOSE SYRUP 20 GM/30 ML UDCUP PR ONE (15:17)
--- NOTE | 2018-07-30 15:46 | RADIOLOGY REPORT (SQ) ---
EXAM DESCRIPTION: KUB/ABDOMEN (SINGLE VIEW) COMPLETED DATE/TIME: 07/30/2018 3:37 pm REASON FOR STUDY: Abdominal pain COMPARISON: 06/18/2015. NUMBER OF VIEWS: One view. TECHNIQUE: Supine radiographic image of the abdomen acquired. LIMITATIONS: None. FINDINGS: BOWEL GAS PATTERN: Normal bowel gas pattern. No dilated loops. CALCIFICATIONS: No suspicious calcifications. SOFT TISSUES: No gross mass or suggestion of organomegaly. HARDWARE: Surgical clips. BONES: Degenerative changes in the spine and hips. Previous kyphoplasty. No acute findings. OTHER: No other significant finding. IMPRESSION: NO RADIOGRAPHIC EVIDENCE FOR ACUTE ABDOMINAL DISEASE. TECHNICAL DOCUMENTATION: JOB ID: [id number] [employer]- All Rights Reserved Reading location - IP/workstation name: [email or web address]
[2018-07-30] MEDS ORDERED: IPRATROPIUM/ALBUTEROL 0.5-2.5 MG/3 ML AMPUL NEB ONE (15:51)
[2018-07-30] MEDS ORDERED: ALBUTEROL SULFATE 0.083% NEB 2.5 MG/3 ML AMPUL NEB ONE (15:51)
--- NOTE | 2018-07-30 16:32 | ER Document Report ---
ED GI/ - General Chief Complaint: Constipation Stated Complaint: SHORTNESS OF BREATH, NO BOWEL MOVEMENT SINCE THANK Time Seen by Provider: 07/30/18 15:13 Mode of Arrival: Ambulatory Information source: Patient TRAVEL OUTSIDE OF THE [place] IN LAST 30 DAYS: No - HPI Patient complains to provider of: Other - constipation Timing/Duration: Persistent Quality of pain: Achy, Cramping Severity at maximum: Moderate Severity in ED: Moderate Pain Level: 3 Associated symptoms: Shortness of breath Exacerbated by: Denies Relieved by: Denies Similar symptoms previously: Yes Recently seen / treated by doctor: Yes Notes: 07/30/18 16:30 Patient is an 82-year-old female with history of COPD/emphysema who is on 3 L oxygen 24/03, presenting to the emergency room complaining of constipation with inability to have a bowel movement for the past 9 days, this is unusual for her although she has had a history of this approximately 2 years ago, states she came to the emergency room and drank something which made her have a bowel movement appropriately, she denies any abdominal surgeries but did have a rectal cancer surgery in 1999, followed by chemotherapy and radiation, she has had a productive cough with yellow sputum, denies any fever, she does have some wheezing and uses nebulizer treatments at home, at home she has tried MiraLAX, Linzess, a suppository and mag citrate and has produced a very small bowel movement in the process, she is complaining of abdominal cramping with increased abdominal distention - Related Data Allergies/Adverse Reactions: erythromycin base [Erythromycin Base] Allergy (Verified 07/30/18 15:15) furosemide [From Lasix] Allergy (Verified 07/30/18 15:15) levofloxacin [From Levaquin] Allergy (Verified 07/30/18 15:15) metformin HCl [From Glucophage] Allergy (Verified 07/30/18 15:15) SWELLING FACE Penicillins Allergy (Verified 07/30/18 15:15) pioglitazone HCl [From Actos] Allergy (Verified 07/30/18 15:15) SWELLING FACE Zkagehl-Hfy-Qwb Reductase Inhibitor Allergy (Verified 07/30/18 15:15) MUSCLE PAIN Sulfa (Sulfonamide Antibiotics) Allergy (Verified 07/30/18 15:15) SICK sulfamethoxazole [From Bactrim] Allergy (Verified 07/30/18 15:15) SICK trimethoprim [From Bactrim] Allergy (Verified 07/30/18 15:15) SICK Iodinated Contrast- Oral and IV Dye Adverse Reaction (Verified 07/30/18 15:15) Past Medical History - General Information source: Patient - Social History Smoking Status: Current Every Day Smoker Family History: Reviewed & Not Pertinent, COPD Patient has suicidal ideation: No Patient has homicidal ideation: No - Past Medical History Cardiac Medical History: Reports: Hx Coronary Artery Disease, Hx Hypercholesterolemia, Hx Hypertension Denies: Hx Heart Attack Pulmonary Medical History: Reports: Hx Asthma, Hx Bronchitis, Hx COPD, Hx Pneumonia, Hx Tuberculosis Neurological Medical History: Denies: Hx Cerebrovascular Accident, Hx Seizures Endocrine Medical History: Reports: Hx Diabetes Mellitus Type 2 Renal/ Medical History: Denies: Hx Peritoneal Dialysis GI Medical History: Reports: Hx Hiatal Hernia, Hx Ulcer - 50 YEARS AGO. Denies : Hx Hepatitis Musculoskeletal Medical History: Denies Hx Arthritis Psychiatric Medical History: Reports: Hx Depression Infectious Medical History: Denies: Hx Hepatitis Past Surgical History: Reports: Hx Cholecystectomy, Hx Orthopedic Surgery - back , Hx Rectal Surgery, Hx Tubal Ligation. Denies: Hx Mastectomy, Hx Open Heart Surgery, Hx Pacemaker - Immunizations Hx Diphtheria, Pertussis, Tetanus Vaccination: Yes Hx Pneumococcal Vaccination: 06/26/13 Review of Systems - Review of Systems Constitutional: No symptoms reported EENT: No symptoms reported Cardiovascular: No symptoms reported Respiratory: Cough, Short of breath, Wheezing Gastrointestinal: Abdomen distended, Constipation Genitourinary: No symptoms reported Female Genitourinary: No symptoms reported Musculoskeletal: No symptoms reported Skin: No symptoms reported Hematologic/Lymphatic: No symptoms reported Neurological/Psychological: No symptoms reported -: Yes All other systems reviewed and negative Physical Exam - Vital signs Vitals: Temp Pulse Resp BP Pulse Ox 98.1 F 100 16 135/68 H 91 L 07/30/18 14:28 07/30/18 14:28 07/30/18 14:28 07/30/18 14:28 07/30/18 14:28 Interpretation: Normal - General General appearance: Alert In distress: None Notes: On oxygen, frail-appearing - HEENT Head: Normocephalic, Atraumatic Eyes: Normal Pupils: PERRL - Respiratory Respiratory status: No respiratory distress Chest status: Nontender Breath sounds: Productive cough, Wheezing Chest palpation: Normal - Cardiovascular Rhythm: Regular Heart sounds: Normal auscultation Murmur: No - Abdominal Inspection: Normal Distension: Distended - Mild Bowel sounds: Normal Tenderness: Tender - Mild diffuse tenderness Organomegaly: No organomegaly - Back Back: Normal, Nontender - Extremities General upper extremity: Normal inspection, Nontender, Normal color, Normal ROM , Normal temperature General lower extremity: Nontender, Edema - Bilateral lower extremities, Normal color, Normal ROM, Normal temperature. No: Volodymyr's sign - Neurological Neuro grossly intact: Yes Cognition: Normal Orientation: AAOx4 Be Coma Scale Eye Opening: Spontaneous Be Coma Scale Verbal: Oriented [place] Coma Scale Motor: Obeys Commands Be Coma Scale Total: 15 Speech: Normal Motor strength normal: LUE, RUE, LLE, RLE Sensory: Normal - Psychological Associated symptoms: Normal affect, Normal mood - Skin Skin Temperature: Warm Skin Moisture: Dry Skin Color: Normal Course - Re-evaluation Re-evalutation: 07/30/18 22:01 Lab and imaging findings discussed with patient at bedside, her main complaint is constipation, she requested has some GoLYTELY to take home so that she could proceed with having a bowel movement in her own home, she did also have slight shortness of breath, CO2 is elevated, patient is on oxygen at home but continues to smoke occasionally, likely this is her baseline, on reevaluation lungs are clear to auscultation, patient was advised to follow-up with her primary care provider, quit smoking, return if symptoms worsen, patient acknowledges understanding and agreement with this plan - Vital Signs Vital signs: Temp Pulse Resp BP Pulse Ox 98.1 F 100 20 165/76 H 99 07/30/18 14:28 07/30/18 14:28 07/30/18 20:02 07/30/18 20:02 07/30/18 20:02 - Laboratory Result Diagrams: 07/30/18 16:38 07/30/18 16:38 Laboratory results interpreted by me: 07/30/18 07/30/18 07/30/18 16:38 16:38 16:38 RBC 3.47 L Hgb 9.8 L Hct 30.1 L RDW 16.6 H Chloride 95 L Carbon Dioxide 40 H* BUN 29 H Creatinine 1.41 H Est GFR ( Amer) 43 L Est GFR (Non-Af Amer) 36 L Glucose 147 H Alkaline Phosphatase 130 H NT-Pro-B Natriuret Pep 956 H - Diagnostic Test Radiology reviewed: Image reviewed, Reports reviewed - EKG Interpretation by Me EKG shows normal: Sinus rhythm Rate: Normal Rhythm: NSR Discharge - Discharge Clinical Impression: COPD exacerbation Constipation Qualifiers: Constipation type: unspecified constipation type Qualified Code(s): K59.00 - Constipation, unspecified Condition: Stable Disposition: HOME, SELF-CARE Instructions: Chronic Obstructive Lung Disease ([facility]), Constipation ([facility]) Additional Instructions: Follow up with your primary care provider in one to 2 days. Return to the emergency room immediately if symptoms worsen or any additional concerns. Referrals: BIENVENIDO NAM MD [Primary Care Provider] - Follow up as needed
--- NOTE | 2018-07-30 16:35 | RADIOLOGY REPORT (SQ) ---
EXAM DESCRIPTION: CHEST 2 VIEWS COMPLETED DATE/TIME: 07/30/2018 4:13 pm REASON FOR STUDY: sob COMPARISON: 12/11/2017. NUMBER OF VIEWS: Two view. TECHNIQUE: Frontal and lateral radiographic views of the chest acquired. LIMITATIONS: None. FINDINGS: LUNGS AND PLEURA: Chronic interstitial scarring. No infiltrates, masses or pneumothorax. No pleural effusion. Attenuated blood vessels and flattened anand-diaphragms. MEDIASTINUM AND HILAR STRUCTURES: No masses. No contour abnormalities. HEART AND VASCULAR STRUCTURES: Heart normal in size and contour. No evidence for failure. BONES: Chronic changes in the spine. Previous kyphoplasty. HARDWARE: None in the chest. OTHER: No other significant finding. IMPRESSION: COPD. NO ACUTE RADIOGRAPHIC FINDING IN THE CHEST. TECHNICAL DOCUMENTATION: JOB ID: [id number] [employer]- All Rights Reserved Reading location - IP/workstation name: [facility]
[2018-07-30 16:57] LABS: ABSOLUTE EOSINOPHILS # (AUTO) 0.3 10^3/uL (0.0-0.6); HEMOGLOBIN 9.8 g/dL (12.0-15.5); TOTAL CELLS COUNTED % (AUTO) 100 %
[2018-07-30 17:00] LABS: ABSOLUTE LYMPHOCYTES (AUTO) 1.6 10^3/uL (0.5-4.7); ABSOLUTE MONOCYTES (AUTO) 0.6 10^3/uL (0.1-1.4); ABSOLUTE NEUT (AUTO) 5.5 10^3/uL (1.7-8.2); BASOPHILS % (AUTO) 0.5 % (0-2); EOSINOPHILS % (AUTO) 4.1 % (0-6); HEMATOCRIT 30.1 % (36.0-47.0); LYMPHOCYTES % (AUTO) 19.8 % (13-45); MEAN CORPUSCULAR HEMOGLOBIN 28.3 pg (27.0-33.4); MEAN CORPUSCULAR HGB CONC 32.6 g/dL (32.0-36.0); MEAN CORPUSCULAR VOLUME 87 fl (80-97); MONOCYTES % (AUTO) 7.6 % (3-13); PLATELET COUNT 322 10^3/uL (150-450); RED BLOOD COUNT 3.47 10^6/uL (3.72-5.28); RED CELL DISTRIBUTION WIDTH 16.6 % (11.5-14.0); WHITE BLOOD COUNT 8.1 10^3/uL (4.0-10.5)
[2018-07-30 17:27] LABS: ALANINE AMINOTRANSFERASE 13 U/L (9-52); ALBUMIN 3.6 g/dL (3.5-5.0); ALKALINE PHOSPHATASE 130 U/L (38-126); ASPARTATE AMINO TRANSFERASE 24 U/L (14-36); BILIRUBIN,DIRECT 0.2 mg/dL (0.0-0.4); BILIRUBIN,TOTAL 0.3 mg/dL (0.2-1.3); BLOOD UREA NITROGEN 29 mg/dL (7-20); CHLORIDE 95 mmol/L (98-107); GLUCOSE 147 mg/dL (75-110); SODIUM 141.7 mmol/L (137-145)
[2018-07-30 17:55] LABS: ANION GAP 7 (5-19)
[2018-07-30 17:57] LABS: CARBON DIOXIDE 40 mmol/L (22-30)
[2018-07-30] MEDS ORDERED: PEG 3350/NA SULF,BICARB,CL/KCL 4000 ML PO ONE (18:54)
[2018-07-30 20:20] VITALS: BP 165/76
--- NOTE | 2018-07-31 07:57 | EKG REPORT ---
SEVERITY:- ABNORMAL ECG - SINUS RHYTHM WITH PACS : Confirmed by: Abner Sanchez MD 31-Jul-2018 07:56:33
== END 2018-07-30 20:30 | disposition home or self-care (01) ==
LOC: ER 14:21
DX: J43.9 Emphysema, unspecified (principal); K59.00 Constipation, unspecified; R06.02 Shortness of breath; R05 Cough; R10.9 Unspecified abdominal pain; R14.0 Abdominal distension (gaseous); Z99.81 Dependence on supplemental oxygen; F17.200 Nicotine dependence, unspecified, uncomplicated; I25.10 Atherosclerotic heart disease of native coronary artery without angina pectoris; I10 Essential (primary) hypertension; E11.9 Type 2 diabetes mellitus without complications
CPT/HCPCS: 93005; 94640 ×2; 99284; 36415; 87040; 85025; 87077; 80053; 87186; 83880; 71046; 74018; 93010; A9270 ×3; J3490; J7620

== ENCOUNTER 2018-08-31 13:51 | Inpatient (IN) | payer MEDICARE, MEDICAID ==
[2018-08-31] MEDS ORDERED: METHYLPREDNISOLONE INJ 125 MG/2 ML SDV IV ONE (14:17)
[2018-08-31] MEDS ORDERED: IPRATROPIUM/ALBUTEROL 0.5-2.5 MG/3 ML AMPUL NEB ONE (14:17)
[2018-08-31 14:29] LABS: HEMATOCRIT 33.3 % (36.0-47.0); HEMOGLOBIN 10.8 g/dL (12.0-15.5); MEAN CORPUSCULAR HEMOGLOBIN 28.1 pg (27.0-33.4); MEAN CORPUSCULAR HGB CONC 32.4 g/dL (32.0-36.0); MEAN CORPUSCULAR VOLUME 87 fl (80-97); PLATELET COUNT 298 10^3/uL (150-450); RED BLOOD COUNT 3.84 10^6/uL (3.72-5.28); RED CELL DISTRIBUTION WIDTH 15.4 % (11.5-14.0); WHITE BLOOD COUNT 8.3 10^3/uL (4.0-10.5)
[2018-08-31 14:44] LABS: ALANINE AMINOTRANSFERASE 12 U/L (9-52); ALBUMIN 3.6 g/dL (3.5-5.0); ALKALINE PHOSPHATASE 163 U/L (38-126); ASPARTATE AMINO TRANSFERASE 18 U/L (14-36); BILIRUBIN,DIRECT 0.2 mg/dL (0.0-0.4); BILIRUBIN,TOTAL 0.4 mg/dL (0.2-1.3); BLOOD UREA NITROGEN 24 mg/dL (7-20); CHLORIDE 94 mmol/L (98-107); CREATINE KINASE 28 U/L (30-135); GLUCOSE 183 mg/dL (75-110); POTASSIUM 4.7 mmol/L (3.6-5.0); SODIUM 139.3 mmol/L (137-145); TOTAL PROTEIN 6.6 g/dL (6.3-8.2)
[2018-08-31 14:51] LABS: ANION GAP 5 (5-19)
[2018-08-31 14:55] LABS: CREATINE KINASE MB 1.63 ng/mL (<4.55)
[2018-08-31 14:56] LABS: CARBON DIOXIDE 40 mmol/L (22-30)
[2018-08-31 14:57] LABS: TROPONIN I 0.073 ng/mL
[2018-08-31 15:08] LABS: ARTERIAL BLOOD H2CO3 1.91 mmol/L (1.05-1.35); ARTERIAL BLOOD HCO3 39.8 mmol/L (20-24); ARTERIAL BLOOD O2 SATURATION 97.1 % (94-98); ARTERIAL BLOOD PCO2 63.4 mmHg (35-45); ARTERIAL BLOOD PH 7.42 (7.35-7.45); ARTERIAL BLOOD PO2 94.3 mmHg (80-100); ARTERIAL BLOOD TOTAL CO2 41.8 mmol/L (21-25)
--- NOTE | 2018-08-31 15:09 | RADIOLOGY REPORT (SQ) ---
EXAM DESCRIPTION: CHEST SINGLE VIEW COMPLETED DATE/TIME: 08/31/2018 2:31 pm REASON FOR STUDY: sob COMPARISON: 07/30/2018 EXAM PARAMETERS: NUMBER OF VIEWS: One view. TECHNIQUE: Single frontal radiographic view of the chest acquired. RADIATION DOSE: NA LIMITATIONS: None. FINDINGS: LUNGS AND PLEURA: Hyperexpansion of the lungs. Mild chronic interstitial changes MEDIASTINUM AND HILAR STRUCTURES: No masses. Contour normal. HEART AND VASCULAR STRUCTURES: Heart normal in size. Normal vasculature. BONES: No acute findings. HARDWARE: None in the chest. OTHER: No other significant finding. IMPRESSION: Chronic lung changes with no acute cardiopulmonary findings. TECHNICAL DOCUMENTATION: JOB ID: [id number] [employer]- All Rights Reserved Reading location - IP/workstation name: [facility]
[2018-08-31 15:10] LABS: ARTERIAL BLOOD FIO2 3L
[2018-08-31 15:17] LABS: ABSOLUTE LYMPHOCYTES# (MANUAL) 0.2 10^3/uL (0.5-4.7); ABSOLUTE MONOCYTES # (MANUAL) 0.2 10^3/uL (0.1-1.4); ABSOLUTE NEUTROPHILS# (MANUAL) 7.8 10^3/uL (1.7-8.2); BASOPHILS % (MANUAL) 0 % (0-2); EOSINOPHILS % (MANUAL) 0 % (0-6); HYPOCHROMASIA SLIGHT; LYMPHOCYTES % (MANUAL) 2 % (13-45); MONOCYTES % (MANUAL) 3 % (3-13); PLATELET COMMENT ADEQUATE; POLYCHROMASIA 1+; SEGMENTED NEUTROPHILS % (MAN) 94 % (42-78); TOTAL CELLS COUNTED 100; TOXIC GRANULATION SLIGHT
[2018-08-31] MEDS ORDERED: ASPIRIN 81 MG TABLET, CHEWABLE PO ONE (15:40)
[2018-08-31] MEDS ORDERED: BUMETANIDE 1 MG TABLET PO ONE (15:41)
[2018-08-31 15:49] LABS: APPEARANCE,URINE CLEAR; BILIRUBIN,URINE NEGATIVE (NEGATIVE); COLOR,URINE YELLOW; GLUCOSE, URINE NEGATIVE (NEGATIVE); KETONES,URINE NEGATIVE (NEGATIVE); LEUKOCYTE ESTERASE,URINE NEGATIVE (NEGATIVE); NITRITE,URINE NEGATIVE (NEGATIVE); PROTEIN,URINE 100 mg/dL (NEGATIVE); URINE SPECIFIC GRAVITY 1.011; UROBILINOGEN,URINE NEGATIVE mg/dL (<2.0)
--- NOTE | 2018-08-31 16:19 | ER Document Report ---
ED Respiratory Problem - General Chief Complaint: Respiratory Distress Stated Complaint: DIFFICULTY BREATHING Time Seen by Provider: 08/31/18 14:12 Notes: 83-year-old female to emergency department for evaluation of shortness of breath. Patient has long-standing history of COPD as well as CHF. Getting worse over the last several days. Followed by Dr. Barber. Intermittent chest pain as well. Denies any fever, chills, sweats. TRAVEL OUTSIDE OF THE [place] IN LAST 30 DAYS: No - HPI Patient complains to provider of: Chest pain, CHF, COPD, Short of breath Duration: Continuous Severity: Severe Pain Level: 1 Context: Hx CHF, Hx COPD Short of Breath: Severe - Related Data Allergies/Adverse Reactions: erythromycin base [Erythromycin Base] Allergy (Verified 08/31/18 13:52) furosemide [From Lasix] Allergy (Verified 08/31/18 13:52) levofloxacin [From Levaquin] Allergy (Verified 08/31/18 13:52) metformin HCl [From Glucophage] Allergy (Verified 08/31/18 13:52) SWELLING FACE Penicillins Allergy (Verified 08/31/18 13:52) pioglitazone HCl [From Actos] Allergy (Verified 08/31/18 13:52) SWELLING FACE Toqqjih-Pal-Htj Reductase Inhibitor Allergy (Verified 08/31/18 13:52) MUSCLE PAIN Sulfa (Sulfonamide Antibiotics) Allergy (Verified 08/31/18 13:52) SICK sulfamethoxazole [From Bactrim] Allergy (Verified 08/31/18 13:52) SICK trimethoprim [From Bactrim] Allergy (Verified 08/31/18 13:52) SICK Iodinated Contrast- Oral and IV Dye Adverse Reaction (Verified 08/31/18 13:52) Past Medical History - General Information source: Patient, [facility] Records - Social History Smoking Status: Current Every Day Smoker Frequency of alcohol use: None Drug Abuse: None Lives with: Alone Family History: Reviewed & Not Pertinent, COPD Patient has suicidal ideation: No Patient has homicidal ideation: No - Past Medical History Cardiac Medical History: Reports: Hx Coronary Artery Disease, Hx Hypercholesterolemia, Hx Hypertension Denies: Hx Heart Attack Pulmonary Medical History: Reports: Hx Asthma, Hx Bronchitis, Hx COPD, Hx Pneumonia, Hx Tuberculosis Neurological Medical History: Denies: Hx Cerebrovascular Accident, Hx Seizures Endocrine Medical History: Reports: Hx Diabetes Mellitus Type 2 Renal/ Medical History: Denies: Hx Peritoneal Dialysis GI Medical History: Reports: Hx Hiatal Hernia, Hx Ulcer - 50 YEARS AGO. Denies: Hx Hepatitis Musculoskeletal Medical History: Denies Hx Arthritis Psychiatric Medical History: Reports: Hx Depression Infectious Medical History: Denies: Hx Hepatitis Past Surgical History: Reports: Hx Cholecystectomy, Hx Orthopedic Surgery - back, Hx Rectal Surgery, Hx Tubal Ligation. Denies: Hx Mastectomy, Hx Open Heart Surgery, Hx Pacemaker - Immunizations Hx Diphtheria, Pertussis, Tetanus Vaccination: Yes Hx Pneumococcal Vaccination: 06/26/13 Review of Systems - Review of Systems Notes: Constitutional: denies: Chills, Diaphoresis, Fever, Malaise, Weakness EENT: denies: Eye discharge, Blurred vision, Tearing, Double vision, Nose congestion, Nose discharge, Throat swelling, Mouth pain Cardiovascular: denies: Palpitations, Heart racing, Orthopnea, Dyspnea,+Chest pain Respiratory: Complaining of shortness of breath, wheeze, cough Gastrointestinal: denies: Abdominal pain, Diarrhea, Nausea, Vomiting, Black st ools, bright red blood in stool Genitourinary: denies: Burning, Dysuria, Discharge, Frequency, Flank pain, Hematuria Musculoskeletal: denies: Joint pain, Joint swelling, Muscle pain, Muscle stiffness, back pain Hematologic/Lymphatic: denies: Anemia, Easy bleeding, Easy bruising, Blood clots Neurological/Psychological: denies: Confusion, Dementia, Depression, Loss of consciousness Skin: No lesions, no masses, no skin breakdown, no abscesses Physical Exam - Vital signs Vitals: Temp Pulse Resp BP Pulse Ox 98.5 F 107 H 16 143/74 H 88 L 08/31/18 13:55 08/31/18 13:55 08/31/18 13:55 08/31/18 13:55 08/31/18 13:55 Interpretation: Tachycardic, Hypoxic, Tachypneic - General General appearance: Appears well, Alert - HEENT Head: Normocephalic, Atraumatic Eyes: Normal Pupils: PERRL - Respiratory Respiratory status: Respiratory distress, Pursed lip breathing, Tachypnea, Tripod position Chest status: Nontender Breath sounds: Rales, Wheezing Chest palpation: Normal - Cardiovascular Rhythm: Tachycardia Heart sounds: Normal auscultation Murmur: No - Abdominal Inspection: Normal Distension: No distension Bowel sounds: Normal Tenderness: Nontender Organomegaly: No organomegaly - Back Back: Normal, Nontender - Extremities General upper extremity: Normal inspection, Nontender, Normal color, Normal ROM, Normal temperature General lower extremity: Normal inspection, Nontender, Normal color, Normal ROM, Normal temperature, Normal weight bearing. No: Volodymyr's sign - Neurological Neuro grossly intact: Yes Cognition: Short term memory loss Orientation: AAOx4 [place] Coma Scale Eye Opening: Spontaneous Be Coma Scale Verbal: Oriented [place] Coma Scale Motor: Obeys Commands Be Coma Scale Total: 15 Speech: Normal Motor strength normal: LUE, RUE, LLE, RLE Sensory: Normal - Psychological Associated symptoms: Normal affect, Normal mood - Skin Skin Temperature: Warm Skin Moisture: Dry Skin Color: Normal Course - Re-evaluation Re-evalutation: 08/31/18 16:19 Laboratory 08/31/18 08/31/18 08/31/18 14:10 14:10 14:10 WBC 8.3 RBC 3.84 Hgb 10.8 L Hct 33.3 L MCV 87 MCH 28.1 MCHC 32.4 RDW 15.4 H Plt Count 298 Total Counted 100 Seg Neutrophils % Not Reportable Seg Neuts % (Manual) 94 H Lymphocytes % Not Reportable Lymphocytes % (Manual) 2 L Atypical Lymphs % 1 Monocytes % Not Reportable Monocytes % (Manual) 3 Eosinophils % Not Reportable Eosinophils % (Manual) 0 Basophils % Not Reportable Basophils % (Manual) 0 Absolute Neutrophils Not Reportable Abs Neuts (Manual) 7.8 Absolute Lymphocytes Not Reportable Abs Lymphs (Manual) 0.2 L Absolute Monocytes Not Reportable Abs Monocytes (Manual) 0.2 Absolute Eosinophils Not Reportable Absolute Eos (Manual) 0.0 Absolute Basophils Not Reportable Abs Basophils (Manual) 0.0 Toxic Granulation SLIGHT Platelet Comment ADEQUATE Polychromasia 1+ Hypochromasia SLIGHT Carbonic Acid HCO3/H2CO3 Ratio ABG pH ABG pCO2 ABG pO2 ABG HCO3 ABG Total CO2 ABG O2 Saturation ABG Base Excess FiO2 Sodium 139.3 Potassium 4.7 Chloride 94 L Carbon Dioxide 40 H* Anion Gap 5 BUN 24 H Creatinine 1.16 Est GFR ( Amer) 54 L Est GFR (Non-Af Amer) 45 L Glucose 183 H Calcium 9.0 Total Bilirubin 0.4 Direct Bilirubin 0.2 Neonat Total Bilirubin Not Reportable Neonat Direct Bilirubin Not Reportable Neonat Indirect Bili Not Reportable AST 18 ALT 12 Alkaline Phosphatase 163 H Creatine Kinase 28 L CK-MB (CK-2) 1.63 Troponin I 0.073 NT-Pro-B Natriuret Pep Total Protein 6.6 Albumin 3.6 Urine Color Urine Appearance Urine pH Ur Specific [place] Urine Protein Urine Glucose (UA) Urine Ketones Urine Blood Urine Nitrite Urine Bilirubin Urine Urobilinogen Ur Leukocyte Esterase Urine WBC (Auto) Urine RBC (Auto) U Hyaline Cast (Auto) Squamous Epi Cells Auto Urine Mucus (Auto) Urine Ascorbic Acid 08/31/18 08/31/18 08/31/18 14:10 14:45 14:56 WBC RBC Hgb Hct MCV MCH MCHC RDW Plt Count Total Counted Seg Neutrophils % Seg Neuts % (Manual) Lymphocytes % Lymphocytes % (Manual) Atypical Lymphs % Monocytes % Monocytes % (Manual) Eosinophils % Eosinophils % (Manual) Basophils % Basophils % (Manual) Absolute Neutrophils Abs Neuts (Manual) Absolute Lymphocytes Abs Lymphs (Manual) Absolute Monocytes Abs Monocytes (Manual) Absolute Eosinophils Absolute Eos (Manual) Absolute Basophils Abs Basophils (Manual) Toxic Granulation Platelet Comment Polychromasia Hypochromasia Carbonic Acid 1.91 H HCO3/H2CO3 Ratio 20:1 ABG pH 7.42 ABG pCO2 63.4 H ABG pO2 94.3 ABG HCO3 39.8 H ABG Total CO2 41.8 H ABG O2 Saturation 97.1 ABG Base Excess 13.0 FiO2 3L Sodium Potassium Chloride Carbon Dioxide Anion Gap BUN Creatinine Est GFR ( Amer) Est GFR (Non-Af Amer) Glucose Calcium Total Bilirubin Direct Bilirubin Neonat Total Bilirubin Neonat Direct Bilirubin Neonat Indirect Bili AST ALT Alkaline Phosphatase Creatine Kinase CK-MB (CK-2) Troponin I NT-Pro-B Natriuret Pep 2230 H Total Protein Albumin Urine Color YELLOW Urine Appearance CLEAR Urine pH 5.0 Ur Specific [place] 1.011 Urine Protein 100 H Urine Glucose (UA) NEGATIVE Urine Ketones NEGATIVE Urine Blood NEGATIVE Urine Nitrite NEGATIVE Urine Bilirubin NEGATIVE Urine Urobilinogen NEGATIVE Ur Leukocyte Esterase NEGATIVE Urine WBC (Auto) 1 Urine RBC (Auto) 0 U Hyaline Cast (Auto) 8 Squamous Epi Cells Auto 1 Urine Mucus (Auto) RARE Urine Ascorbic Acid 40 H Chest X-Ray 08/31/18 14:04 IMPRESSION: Chronic lung changes with no acute cardiopulmonary findings. I did consult with Dr. Barber. Will admit to the [facility] at this time - Vital Signs Vital signs: Temp Pulse Resp BP Pulse Ox 97.9 F 104 H 20 165/113 H 94 08/31/18 17:50 08/31/18 17:50 08/31/18 17:50 08/31/18 17:50 08/31/18 17:50 - Laboratory Result Diagrams: 08/31/18 14:10 08/31/18 14:10 Laboratory results interpreted by me: 08/31/18 08/31/18 08/31/18 14:10 14:10 14:10 Hgb 10.8 L Hct 33.3 L RDW 15.4 H Seg Neuts % (Manual) 94 H Lymphocytes % (Manual) 2 L Abs Lymphs (Manual) 0.2 L Carbonic Acid ABG pCO2 ABG HCO3 ABG Total CO2 Chloride 94 L Carbon Dioxide 40 H* BUN 24 H Est GFR ( Amer) 54 L Est GFR (Non-Af Amer) 45 L Glucose 183 H Alkaline Phosphatase 163 H Creatine Kinase 28 L NT-Pro-B Natriuret Pep 2230 H Urine Protein Urine Ascorbic Acid 08/31/18 08/31/18 14:45 14:56 Hgb Hct RDW Seg Neuts % (Manual) Lymphocytes % (Manual) Abs Lymphs (Manual) Carbonic Acid 1.91 H ABG pCO2 63.4 H ABG HCO3 39.8 H ABG Total CO2 41.8 H Chloride Carbon Dioxide BUN Est GFR ( Amer) Est GFR (Non-Af Amer) Glucose Alkaline Phosphatase Creatine Kinase NT-Pro-B Natriuret Pep Urine Protein 100 H Urine Ascorbic Acid 40 H Critical Care Note - Critical Care Note Total time excluding time spent on procedures (mins): 35 Comments: Hypoxia, tachycardia, congestive heart failure, consultation with primary care doctor Discharge - Discharge Clinical Impression: COPD exacerbation, Elevated troponin Congestive heart failure (CHF) Qualifiers: Heart failure type: unspecified Heart failure chronicity: unspecified Qualified Code(s): I50.9 - Heart failure, unspecified Condition: Good Disposition: ADMITTED INPATIENT Admitting Provider: Sunil Unit Admitted: [facility]
--- NOTE | 2018-08-31 16:38 | EKG REPORT ---
SEVERITY:- NORMAL ECG - SINUS RHYTHM : Confirmed by: Yenny Choi MD 31-Aug-2018 16:37:36
--- NOTE | 2018-08-31 17:02 | RADIOLOGY REPORT (SQ) ---
EXAM DESCRIPTION: CTA CHEST COMPLETED DATE/TIME: 08/31/2018 4:49 pm REASON FOR STUDY: hypoxia, sob COMPARISON: None. TECHNIQUE: CT scan of the chest performed using helical scanning technique with dynamic intravenous contrast injection. Images reviewed with lung, soft tissue and bone windows. Reconstructed coronal and sagittal MPR images reviewed. Additional 3 dimensional post-processing performed to develop Maximal Intensity Projection images ([place] P). All images stored on PACS. All CT scanners at this facility use dose modulation, iterative reconstruction, and/or weight based d osing when appropriate to reduce radiation dose to as low as reasonably achievable (ALARA). [facility]: Dose Right [facility]: CareDose [facility]: Dose Right [facility]: Teradose 4D [facility]: Libratone CONTRAST TYPE AND DOSE: contrast/concentration: Isovue 350.00 mg/ml; Total Contrast Delivered: 61.0 ml; Total Saline Delivered: 96.0 ml Contrast bolus optimized for the pulmonary arteries. Not diagnostic for the aorta. RENAL FUNCTION: BUN 24 creatinine 1.16. RADIATION DOSE: CT Rad equipment meets quality standard of care and radiation dose reduction techniq ues were employed. CTDIvol: 14.3 - 16.5 mGy. DLP: 521 mGy-cm. . LIMITATIONS: None. FINDINGS: LUNGS AND PLEURA: Emphysematous changes. No masses, infiltrates, or pneumothorax. No ple ural effusions or pleural calcifications. AORTA AND GREAT VESSELS: No aneurysm. Contrast bolus not optimized for the aorta. HEART: No pericardial effusion. No significant coronary artery calcifications. PULMONARY ARTERIES: No emboli visualized in the main pulmonary arteries or the segmental branches. HILAR AND MEDIASTINAL STRUCTURES: No identified masses or abnormal nodes. Large hiatal hernia. HARDWARE: None in the chest. UPPER ABDOMEN: No significant findings. Limited exam. THYROID AND OTHER SOFT TISSUES: No masses. No adenopathy. BONES: Chronic degenerative changes in the spine. Numerous old compression deformities. Previous ky phoplasty. 3D MIPS: Confirm above findings. OTHER: No other significant finding. IMPRESSION: 1. NORMAL CTA OF THE CHEST. NO PULMONARY EMBOLI. 2. CHRONIC EMPHYSEMATOUS CHANGES. NO ACUTE FINDINGS. 3. LARGE HIATAL HERNIA. 4. CHRONIC CHANGES IN THE SPINE. NUMEROUS OLD COMPRESSION DEFORMITIES. PREVIOUS KYPHOPLASTY. COMMENT: Quality ID # [id number]: Final reports with documentation of one or more dose reduction techniques (e.g., Automated exposure control, adjustment of the mA and/or kV according to patient size, use of iterative reconstruction technique) TECHNICAL DOCUMENTATION: JOB ID: [id number] [employer]- All Rights Reserved Reading location - IP/workstation name: [facility]
--- NOTE | 2018-08-31 20:18 | PDOC H&P ---
History of Present Illness Admission Date/PCP: 08/31/18 16:25 BIENVENIDO OSUNKRC Patient complains of: Worsening difficuty with breathing History of Present Illness: SRINIVASA WINN is a 83 year old female patient known to my practice who presented to the ED with several days of worsening difficulty with breathing, two pillows orthopnea and wheezing. Patient admitted to bilateral leg swelling with some improvement in recent days since her visit to daughter's home to dog sit. She denied excessive salt intake. Admitted to smoking about three sticks of cigarette daily. She has long standing history of oxygen dependent COPD 0n 3L/min via nasal cannula. She reported intermittent chest pain but denied denied palpitation, dizziness, light headedness. She denied any abdominal pain, nausea or vomiting. No fever or chills. She denied any urinary symptoms to suggest ongoing infection. Her morbidities include end stage COPD oxygen dependent, cigarette smoker, chronic systolic CHF, HTN, HLD, CAD, DM type 2, Hypothyroidism, Osteoarthritis, multiple vertebral compression fractures, and Depression. Past Medical History Cardiac Medical History: Reports: Coronary Artery Disease, Hyperlipidema, Hypertension Denies: Myocardial Infarction Pulmonary Medical History: Reports: Asthma, Bronchitis, Chronic Obstructive Pulmonary Disease (COPD), Pneumonia, Tuberculosis Neurological Medical History: Denies: Seizures Endocrine Medical History: Reports: Diabetes Mellitus Type 2 GI Medical History: Reports: Hiatal Hernia Denies: Hepatitis Musculoskeltal Medical History: Denies: Arthritis Psychiatric Medical History: Reports: Depression Hematology: Reports: Anemia - NOW Denies: Sickle Cell Disease Past Surgical History Past Surgical History: Reports: Cholecystectomy, Orthopedic Surgery - back, Tubal Ligation Denies: Amputation, Mastectomy, Pacemaker Social History Lives with: Alone Smoking Status: Current Every Day Smoker Cigarettes Packs Per Day: 1 Number of Years Smokin Last Time Smoked: 08/30/18 Frequency of Alcohol Use: None Hx Recreational Drug Use: No Drugs: None Hx Prescription Drug Abuse: No - Advance Directive Resuscitation Status: Full Code Family History Family History: Reviewed & Not Pertinent, COPD Parental Family History Reviewed: Yes Children Family History Reviewed: Yes Sibling(s) Family History Reviewed.: Yes Medication/Allergy Home Medications: Albuterol Sulfate [Proair Hfa Inhalation Aerosol 8.5 gm Mdi] 2 puff IH Q4HP PRN 08/31/18 Aspirin [Aspirin 81 mg Chewable Tablet] 81 mg PO DAILY 08/31/18 Bupropion HCl [Wellbutrin 100 mg Tablet] 100 mg PO DAILY 08/31/18 Ciclesonide [[place] HFA] 2 puff IH BID 08/31/18 Cyclosporine 0.05% Oph Emulsio [Restasis 0.05% Opthalmic Droperette] 1 drop OU Q12 08/31/18 Docusate Sodium [Colace 100 mg Capsule] 100 mg PO DAILY 08/31/18 Fluticasone Propionate [Flonase Nasal [place] 50 Mcg/[place] 16 gm] 2 sprays NASL Q12 08/31/18 Gabapentin [Neurontin 300 mg Capsule] 300 mg PO DAILY 08/31/18 Insulin Lispro Protamin/Lispro [Humalog Mix 75-25 100 unit/mL] 15 unit SUBCUT BIDBS 08/31/18 Isosorbide Mononitrate [Imdur 30 mg Tablet.er] 30 mg PO DAILY 08/31/18 Levothyroxine Sodium [Synthroid 0.075 mg Tablet] 0.075 mg PO Q6AM 08/31/18 Linaclotide [Linzess 145 Mcg Capsule] 145 mcg PO DAILY 08/31/18 Montelukast Sodium [Singulair 10 mg Tablet] 10 mg PO QHS 08/31/18 Ondansetron [Zofran Odt 4 mg Tablet] 4 mg PO Q4HP PRN 08/31/18 Pantoprazole Sodium [Protonix] 40 mg PO Q6AM 08/31/18 Rivastigmine [Exelon 4.6 Mg/24 Hr Transdermal Patch] 1 each TD DAILY 08/31/18 Torsemide [Demadex 10 mg Tablet] 5 mg PO QAM 08/31/18 Umeclidinium Brm/Vilanterol Tr [Anoro Ellipta 62.5-25 Mcg INH] 1 each IH DAILY 08/31/18 Allergies/Adverse Reactions: erythromycin base [Erythromycin Base] Allergy (Verified 08/31/18 13:52) furosemide [From Lasix] Allergy (Verified 08/31/18 13:52) levofloxacin [From Levaquin] Allergy (Verified 08/31/18 13:52) metformin HCl [From Glucophage] Allergy (Verified 08/31/18 13:52) SWELLING FACE Penicillins Allergy (Verified 08/31/18 13:52) pioglitazone HCl [From Actos] Allergy (Verified 08/31/18 13:52) SWELLING FACE Unmkkaq-Knq-Iix Reductase Inhibitor Allergy (Verified 08/31/18 13:52) MUSCLE PAIN Sulfa (Sulfonamide Antibiotics) Allergy (Verified 08/31/18 13:52) SICK sulfamethoxazole [From Bactrim] Allergy (Verified 08/31/18 13:52) SICK trimethoprim [From Bactrim] Allergy (Verified 08/31/18 13:52) SICK Iodinated Contrast- Oral and IV Dye Adverse Reaction (Verified 08/31/18 13:52) Review of Systems Constitutional: ABSENT: chills, fever(s), headache(s), weight gain, weight loss Eyes: ABSENT: visual disturbances Ears: ABSENT: hearing changes Nose, Mouth, and Throat: ABSENT: as per HPI, headache(s), mouth pain, sore throat, vertigo, other Cardiovascular: PRESENT: chest pain, dyspnea on exertion, edema, orthropnea. ABSENT: palpitations Respiratory: PRESENT: cough, dyspnea, sputum. ABSENT: hemoptysis Gastrointestinal: ABSENT: abdominal pain, constipation, diarrhea, hematemesis, hematochezia, nausea, vomiting Genitourinary: ABSENT: dysuria, hematuria Musculoskeletal: PRESENT: deformity - related to multiple joints involvment with arthritis Integumentary: ABSENT: rash, wounds Neurological: ABSENT: abnormal gait, abnormal speech, confusion, dizziness, focal weakness, syncope Psychiatric: PRESENT: depression. ABSENT: anxiety, homidical ideation, suicidal ideation Endocrine: ABSENT: cold intolerance, heat intolerance, polydipsia, polyuria Hematologic/Lymphatic: ABSENT: easy bleeding, easy bruising, lymphadenopathy Allergic/Immunologic: ABSENT: seasonal rhinorrhea Physical Exam Vital Signs: Temp Pulse Resp BP Pulse Ox 97.9 F 104 H 20 165/113 H 94 08/31/18 17:50 08/31/18 17:50 08/31/18 17:50 08/31/18 17:50 08/31/18 17:50 Intake & Output 08/30/18 08/31/18 09/01/18 06:59 06:59 06:59 Intake Total 0 Output Total 0 Balance 0 Weight 47.3 kg General appearance: PRESENT: mild distress - with supplemental oxygen at 3L/min, thin - chronically ill looking Head exam: PRESENT: atraumatic, normocephalic Eye exam: PRESENT: conjunctiva pink, EOMI, PERRLA. ABSENT: scleral icterus Ear exam: PRESENT: normal external ear exam Mouth exam: PRESENT: moist Respiratory exam: PRESENT: decreased breath sounds, prolonged expiratory phas, rhonchi, wheezes Cardiovascular exam: PRESENT: RRR. ABSENT: diastolic murmur, rubs, systolic murmur Pulses: PRESENT: +1 pedal pulses bilateral Vascular exam: PRESENT: normal capillary refill. ABSENT: pallor GI/Abdominal exam: PRESENT: normal bowel sounds, soft. ABSENT: distended, guarding, mass, organolmegaly, rebound, tenderness Extremities exam: PRESENT: pedal edema - 2+ bilaterally Musculoskeletal exam: PRESENT: deformity - related to multiple joints invoilvement with arthritis Neurological exam: PRESENT: alert, awake, oriented to person, oriented to place, oriented to time, oriented to situation, CN II-XII grossly intact. ABSENT: motor sensory deficit Psychiatric exam: PRESENT: appropriate affect, normal mood. ABSENT: homicidal ideation, suicidal ideation Skin exam: PRESENT: dry, intact, warm. ABSENT: cyanosis, rash Results Laboratory Results: 08/31/18 14:10 08/31/18 14:10 08/31/18 08/31/18 08/31/18 14:10 14:10 14:45 WBC 8.3 RBC 3.84 Hgb 10.8 L Hct 33.3 L MCV 87 MCH 28.1 MCHC 32.4 RDW 15.4 H Plt Count 298 Seg Neutrophils % Not Reportable Lymphocytes % Not Reportable Monocytes % Not Reportable Eosinophils % Not Reportable Basophils % Not Reportable Absolute Neutrophils Not Reportable Absolute Lymphocytes Not Reportable Absolute Monocytes Not Reportable Absolute Eosinophils Not Reportable Absolute Basophils Not Reportable Carbonic Acid HCO3/H2CO3 Ratio ABG pH ABG pCO2 ABG pO2 ABG HCO3 ABG O2 Saturation ABG Base Excess FiO2 Sodium 139.3 Potassium 4.7 Chloride 94 L Carbon Dioxide 40 H* Anion Gap 5 BUN 24 H Creatinine 1.16 Est GFR ( Amer) 54 L Est GFR (Non-Af Amer) 45 L Glucose 183 H Calcium 9.0 Total Bilirubin 0.4 AST 18 ALT 12 Alkaline Phosphatase 163 H Total Protein 6.6 Albumin 3.6 Urine Color YELLOW Urine Appearance CLEAR Urine pH 5.0 Ur Specific [place] 1.011 Urine Protein 100 H Urine Glucose (UA) NEGATIVE Urine Ketones NEGATIVE Urine Blood NEGATIVE Urine Nitrite NEGATIVE Ur Leukocyte Esterase NEGATIVE Urine WBC (Auto) 1 Urine RBC (Auto) 0 08/31/18 14:56 WBC RBC Hgb Hct MCV MCH MCHC RDW Plt Count Seg Neutrophils % Lymphocytes % Monocytes % Eosinophils % Basophils % Absolute Neutrophils Absolute Lymphocytes Absolute Monocytes Absolute Eosinophils Absolute Basophils Carbonic Acid 1.91 H HCO3/H2CO3 Ratio 20:1 ABG pH 7.42 ABG pCO2 63.4 H ABG pO2 94.3 ABG HCO3 39.8 H ABG O2 Saturation 97.1 ABG Base Excess 13.0 FiO2 3L Sodium Potassium Chloride Carbon Dioxide Anion Gap BUN Creatinine Est GFR ( Amer) Est GFR (Non-Af Amer) Glucose Calcium Total Bilirubin AST ALT Alkaline Phosphatase Total Protein Albumin Urine Color Urine Appearance Urine pH Ur Specific [place] Urine Protein Urine Glucose (UA) Urine Ketones Urine Blood Urine Nitrite Ur Leukocyte Esterase Urine WBC (Auto) Urine RBC (Auto) 08/31/18 08/31/18 08/31/18 14:10 14:10 14:10 Creatine Kinase 28 L CK-MB (CK-2) 1.63 Troponin I 0.073 NT-Pro-B Natriuret Pep 2230 H 08/31/18 17:21 Creatine Kinase CK-MB (CK-2) Troponin I 0.076 NT-Pro-B Natriuret Pep Impressions: Chest X-Ray 08/31/18 14:04 IMPRESSION: Chronic lung changes with no acute cardiopulmonary findings. Chest/Abdomen CTA 08/31/18 15:43 IMPRESSION: 1. NORMAL CTA OF THE CHEST. NO PULMONARY EMBOLI. 2. CHRONIC EMPHYSEMATOUS CHANGES. NO ACUTE FINDINGS. 3. LARGE HIATAL HERNIA. 4. CHRONIC CHANGES IN THE SPINE. NUMEROUS OLD COMPRESSION DEFORMITIES. PREVIOUS KYPHOPLASTY. Assessment & Plan - Diagnosis (1) Congestive heart failure (CHF) Qualifiers: Heart failure type: unspecified Heart failure chronicity: unspecified Qualified Code(s): I50.9 - Heart failure, unspecified Is this a current diagnosis for this admission?: Yes Plan: Obtain complete echocardiogram. Start on Lasix 20 mg IV daily. (2) Elevated troponin Is this a current diagnosis for this admission?: Yes Plan: Obtain serial cardiac enzymes q6 hours. Monitor symptoms intensity. Maintain on preadmission home medications. (3) Chronic respiratory failure with hypercapnia Is this a current diagnosis for this admission?: Yes Plan: Failure compensated with normal pH. Maintain on supplemental oxygen at 3L/min via nasal cannula. (4) End stage chronic obstructive pulmonary disease Is this a current diagnosis for this admission?: Yes Plan: There may be some component of exacerbation in her worsening shortness of breath. I will adjust her home medication as necessary for relief of her symptoms. (5) Adult failure to thrive syndrome Is this a current diagnosis for this admission?: Yes Plan: Maintain on oral supplementation with Ensure 1 can p.o tid with meals. (6) CAD (coronary artery disease) Qualifiers: Coronary Disease-Associated Artery/Lesion type: [place] artery Associated angina: without angina (7) Diabetes mellitus type 2 in nonobese Is this a current diagnosis for this admission?: Yes Plan: Continue preadmission medications with Accuchek achs and Humalog sliding scale coverage. (8) HTN (hypertension) Qualifiers: Hypertension type: essential hypertension Qualified Code(s): I10 - Essential (primary) hypertension Is this a current diagnosis for this admission?: Yes Plan: Continue preadmission medications. (9) HLD (hyperlipidemia) Qualifiers: Hyperlipidemia type: pure hypercholesterolemia Qualified Code(s): E78.00 - Pure hypercholesterolemia, unspecified; E78.0 - Pure hypercholesterolemia Is this a current diagnosis for this admission?: Yes Plan: Continue preadmission medications (10) Hypothyroidism (acquired) Is this a current diagnosis for this admission?: Yes Plan: Continue preadmission medications (11) Hiatal hernia with GERD Is this a current diagnosis for this admission?: Yes Plan: Continue preadmission medications. (12) Senile dementia uncomp Qualifiers: Dementia behavioral disturbance: without behavioral disturbance Qualified Code(s): F03.90 - Unspecified dementia without behavioral disturbance Is this a current diagnosis for this admission?: Yes Plan: Continue preadmission medications - Time Time Spent: 50 to 70 Minutes Medications reviewed and adjusted accordingly: Yes - Inpatient Certification Based on my medical assessment, after consideration of the patient's comorbidities, presenting symptoms, or acuity I expect that the services needed warrant INPATIENT care.: Yes I certify that my determination is in accordance with my understanding of Medicare's requirements for reasonable and necessary INPATIENT services [42 CFR 412.3e].: Yes Medical Necessity: Need Close Monitoring Due to Risk of Patient Decompensation, Need For Continuous Telemetry Monitoring, Need for Nebulizer Therapy and Monitoring of Response, Risk of Complication if Not Cared For in Hospital 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
[2018-08-31 21:38] LABS: CREATINE KINASE MB 1.89 ng/mL (<4.55); TROPONIN I 0.117 ng/mL
[2018-08-31] MEDS: FLUTICASONE NASAL SPRAY 50 MCG/SPRY 120 SPRAY/16 GM NASL SCH (21:59)
[2018-08-31] MEDS ORDERED: METHYLPREDNISOLONE INJ 40 MG/1 ML SDV IV SCH (22:00)
[2018-08-31] MEDS ORDERED: ENOXAPARIN SODIUM INJ 40 MG/0.4 ML DISP.SYRIN SUBCUT SCH (22:00)
[2018-08-31] MEDS: ONDANSETRON 4 MG TAB.RAPDIS PO PRN (22:01)
[2018-08-31] MEDS: METHYLPREDNISOLONE INJ 125 MG/2 ML SDV IV SCH (22:01)
[2018-08-31] MEDS: MONTELUKAST SODIUM 10 MG TABLET PO SCH (22:02)
[2018-08-31] MEDS: NICOTINE 7 MG/24 HR PATCH.TD24 TD SCH (22:06)
[2018-08-31] MEDS: CYCLOSPORINE 0.05% OPH EMULSIO 0.4 ML DROPERETTE OU SCH (22:06)
[2018-08-31] MEDS: IPRATROPIUM/ALBUTEROL 0.5-2.5 MG/3 ML AMPUL NEB PRN (23:10)
[2018-09-01] MEDS: ONDANSETRON 4 MG TAB.RAPDIS PO PRN ×2 (02:02→10:31)
[2018-09-01 03:01] LABS: ABSOLUTE LYMPHOCYTES (AUTO) 0.2 10^3/uL (0.5-4.7); ABSOLUTE MONOCYTES (AUTO) 0.1 10^3/uL (0.1-1.4); ABSOLUTE NEUT (AUTO) 2.7 10^3/uL (1.7-8.2); BASOPHILS % (AUTO) 0.1 % (0-2); HEMATOCRIT 31.5 % (36.0-47.0); HEMOGLOBIN 10.3 g/dL (12.0-15.5); LYMPHOCYTES % (AUTO) 6.1 % (13-45); MEAN CORPUSCULAR HGB CONC 32.7 g/dL (32.0-36.0); MEAN CORPUSCULAR VOLUME 86 fl (80-97); MONOCYTES % (AUTO) 1.9 % (3-13); PLATELET COUNT 238 10^3/uL (150-450); RED BLOOD COUNT 3.68 10^6/uL (3.72-5.28); RED CELL DISTRIBUTION WIDTH 15.4 % (11.5-14.0); SEGMENTED NEUTROPHILS % (AUTO) 91.9 % (42-78); TOTAL CELLS COUNTED % (AUTO) 100 %
[2018-09-01 03:11] LABS: WHITE BLOOD COUNT 2.9 10^3/uL (4.0-10.5)
[2018-09-01 03:27] LABS: CREATINE KINASE MB 1.82 ng/mL (<4.55); TROPONIN I 0.149 ng/mL
[2018-09-01 03:31] LABS: FREE T3 2.5 pg/mL (2.77-5.27); FREE T4 (FREE THYROXINE) 1.32 ng/dL (0.78-2.19)
[2018-09-01 03:45] LABS: THYROID STIMULATING HORMONE 0.37 uIU/mL (0.47-4.68)
[2018-09-01] MEDS: LEVOTHYROXINE SODIUM 0.075 MG TABLET PO SCH (05:29)
[2018-09-01] MEDS: METHYLPREDNISOLONE INJ 125 MG/2 ML SDV IV SCH ×3 (05:30→21:42)
[2018-09-01] MEDS: IPRATROPIUM/ALBUTEROL 0.5-2.5 MG/3 ML AMPUL NEB PRN ×4 (06:15→21:04)
[2018-09-01 07:30] LABS: ALANINE AMINOTRANSFERASE 15 U/L (9-52); ALBUMIN 3.5 g/dL (3.5-5.0); ALKALINE PHOSPHATASE 147 U/L (38-126); ANION GAP 8 (5-19); ASPARTATE AMINO TRANSFERASE 16 U/L (14-36); BILIRUBIN,DIRECT 0.2 mg/dL (0.0-0.4); BILIRUBIN,TOTAL 0.2 mg/dL (0.2-1.3); BLOOD UREA NITROGEN 33 mg/dL (7-20); CARBON DIOXIDE 35 mmol/L (22-30); CHLORIDE 95 mmol/L (98-107); GLUCOSE 268 mg/dL (75-110); POTASSIUM 5.2 mmol/L (3.6-5.0); SODIUM 138.1 mmol/L (137-145); TOTAL PROTEIN 6.2 g/dL (6.3-8.2)
[2018-09-01] MEDS ORDERED: (PENDING PHARMACY ID) (Torsemide [Demadex 10 Mg Tablet] 10 MG) PO SCH (08:00)
[2018-09-01] MEDS ORDERED: [UNRECOGNIZED DRUG - OTHER] SUBCUT SCH (08:00)
[2018-09-01] MEDS ORDERED: LISPRO SUBCUT SCH (08:00)
[2018-09-01] MEDS ORDERED: INSULIN LISPRO PROTAMIN SUBCUT SCH (08:00)
[2018-09-01 09:16] LABS: CREATINE KINASE MB 1.85 ng/mL (<4.55)
[2018-09-01 09:26] LABS: TROPONIN I 0.132 ng/mL
[2018-09-01] MEDS ORDERED: (PENDING PHARMACY ID) (Linaclotide 145 MCG) PO SCH (10:00)
[2018-09-01] MEDS ORDERED: TORSEMIDE 20 MG TABLET PO SCH (10:00)
[2018-09-01] MEDS: DOCUSATE SODIUM 100 MG CAPSULE PO SCH (10:31)
[2018-09-01] MEDS: ISOSORBIDE MONONITRATE 30 MG TAB.ER.24H PO SCH (10:32)
[2018-09-01] MEDS: NICOTINE 7 MG/24 HR PATCH.TD24 TD SCH (10:32)
[2018-09-01] MEDS: RIVASTIGMINE 4.6 MG/24 HR PATCH.TD24 TD SCH (10:32)
[2018-09-01] MEDS: CYCLOSPORINE 0.05% OPH EMULSIO 0.4 ML DROPERETTE OU SCH ×2 (10:32→21:42)
[2018-09-01] MEDS: GABAPENTIN 300 MG CAPSULE PO SCH (10:32)
[2018-09-01] MEDS: ASPIRIN 81 MG TABLET, CHEWABLE PO SCH (10:32)
[2018-09-01] MEDS: FLUTICASONE NASAL SPRAY 50 MCG/SPRY 120 SPRAY/16 GM NASL SCH ×2 (10:34→21:41)
[2018-09-01] MEDS: BUPROPION HCL 100 MG TABLET PO SCH (10:37)
[2018-09-01] MEDS ORDERED: DEXTROSE 50%-WATER 25 GM/50 ML DISP.SYRIN IV PRN ×2 (12:31)
[2018-09-01] MEDS ORDERED: DEXTROSE 40% GEL 15 GM TUBE PO PRN ×2 (12:31)
[2018-09-01] MEDS ORDERED: GLUCAGON,HUMAN RECOMB 1 MG INJ IM PRN (12:31)
--- NOTE | 2018-09-01 12:31 | PDOC PROGRESS REPORT ---
Subjective Progress Note for:: 09/01/18 Subjective:: Patient reported some improvement in her breathing but continue to cough with minimal expectoration. No chest pain. No abdominal pain, nausea, vomiting, or diarrhea. No fever or chills. Requesting for Tylenol due to headache. No dizziness. Reason For Visit: ACUTE SYSTOLIC CHF,EXACERBATED COPD,ELEVATED Physical Exam Vital Signs: Temp Pulse Resp BP Pulse Ox 97.9 F 71 18 160/65 H 96 09/01/18 07:46 09/01/18 11:22 09/01/18 11:22 09/01/18 07:46 09/01/18 11:22 Intake & Output 08/31/18 09/01/18 09/02/18 06:59 06:59 06:59 Intake Total 0 Output Total 0 Balance 0 Weight 49.8 kg General appearance: PRESENT: mild distress - remain on supplemental oxygen via nasal cannula at 2.5 to 3L/min., thin Head exam: PRESENT: atraumatic, normocephalic Eye exam: PRESENT: conjunctiva pink, EOMI, PERRLA. ABSENT: scleral icterus Ear exam: PRESENT: normal external ear exam Mouth exam: PRESENT: moist Respiratory exam: PRESENT: decreased breath sounds, prolonged expiratory phas, rhonchi, wheezes Cardiovascular exam: PRESENT: RRR. ABSENT: diastolic murmur, rubs, systolic murmur GI/Abdominal exam: PRESENT: normal bowel sounds, soft. ABSENT: distended, guarding, mass, organolmegaly, rebound, tenderness Extremities exam: PRESENT: pedal edema - trace to below knee level Musculoskeletal exam: PRESENT: deformity - significant thoracic kyphosis Neurological exam: PRESENT: alert, awake, oriented to person, oriented to place, oriented to time, oriented to situation, CN II-XII grossly intact. ABSENT: motor sensory deficit Psychiatric exam: PRESENT: appropriate affect, normal mood. ABSENT: homicidal ideation, suicidal ideation Skin exam: PRESENT: dry, intact, warm. ABSENT: cyanosis, rash Results Laboratory Results: 09/01/18 02:50 09/01/18 02:50 08/31/18 08/31/18 08/31/18 14:10 14:10 14:45 WBC 8.3 RBC 3.84 Hgb 10.8 L Hct 33.3 L MCV 87 MCH 28.1 MCHC 32.4 RDW 15.4 H Plt Count 298 Seg Neutrophils % Not Reportable Lymphocytes % Not Reportable Monocytes % Not Reportable Eosinophils % Not Reportable Basophils % Not Reportable Absolute Neutrophils Not Reportable Absolute Lymphocytes Not Reportable Absolute Monocytes Not Reportable Absolute Eosinophils Not Reportable Absolute Basophils Not Reportable Carbonic Acid HCO3/H2CO3 Ratio ABG pH ABG pCO2 ABG pO2 ABG HCO3 ABG O2 Saturation ABG Base Excess FiO2 Sodium 139.3 Potassium 4.7 Chloride 94 L Carbon Dioxide 40 H* Anion Gap 5 BUN 24 H Creatinine 1.16 Est GFR ( Amer) 54 L Est GFR (Non-Af Amer) 45 L Glucose 183 H Calcium 9.0 Total Bilirubin 0.4 AST 18 ALT 12 Alkaline Phosphatase 163 H Total Protein 6.6 Albumin 3.6 TSH Free T4 Free T3 pg/mL Urine Color YELLOW Urine Appearance CLEAR Urine pH 5.0 Ur Specific [place] 1.011 Urine Protein 100 H Urine Glucose (UA) NEGATIVE Urine Ketones NEGATIVE Urine Blood NEGATIVE Urine Nitrite NEGATIVE Ur Leukocyte Esterase NEGATIVE Urine WBC (Auto) 1 Urine RBC (Auto) 0 08/31/18 09/01/18 09/01/18 14:56 02:50 02:50 WBC 2.9 L D RBC 3.68 L Hgb 10.3 L Hct 31.5 L MCV 86 MCH 28.0 MCHC 32.7 RDW 15.4 H Plt Count 238 Seg Neutrophils % 91.9 H Lymphocytes % 6.1 L Monocytes % 1.9 L Eosinophils % 0.0 Basophils % 0.1 Absolute Neutrophils 2.7 Absolute Lymphocytes 0.2 L Absolute Monocytes 0.1 Absolute Eosinophils 0.0 Absolute Basophils 0.0 Carbonic Acid 1.91 H HCO3/H2CO3 Ratio 20:1 ABG pH 7.42 ABG pCO2 63.4 H ABG pO2 94.3 ABG HCO3 39.8 H ABG O2 Saturation 97.1 ABG Base Excess 13.0 FiO2 3L Sodium Potassium Chloride Carbon Dioxide Anion Gap BUN Creatinine Est GFR ( Amer) Est GFR (Non-Af Amer) Glucose Calcium Total Bilirubin AST ALT Alkaline Phosphatase Total Protein Albumin TSH 0.37 L Free T4 1.32 Free T3 pg/mL 2.50 L Urine Color Urine Appearance Urine pH Ur Specific [place] Urine Protein Urine Glucose (UA) Urine Ketones Urine Blood Urine Nitrite Ur Leukocyte Esterase Urine WBC (Auto) Urine RBC (Auto) 09/01/18 02:50 WBC RBC Hgb Hct MCV MCH MCHC RDW Plt Count Seg Neutrophils % Lymphocytes % Monocytes % Eosinophils % Basophils % Absolute Neutrophils Absolute Lymphocytes Absolute Monocytes Absolute Eosinophils Absolute Basophils Carbonic Acid HCO3/H2CO3 Ratio ABG pH ABG pCO2 ABG pO2 ABG HCO3 ABG O2 Saturation ABG Base Excess FiO2 Sodium 138.1 Potassium 5.2 H Chloride 95 L Carbon Dioxide 35 H Anion Gap 8 BUN 33 H Creatinine 1.47 H Est GFR ( Amer) 41 L Est GFR (Non-Af Amer) 34 L Glucose 268 H Calcium 9.0 Total Bilirubin 0.2 AST 16 ALT 15 Alkaline Phosphatase 147 H Total Protein 6.2 L Albumin 3.5 TSH Free T4 Free T3 pg/mL Urine Color Urine Appearance Urine pH Ur Specific [place] Urine Protein Urine Glucose (UA) Urine Ketones Urine Blood Urine Nitrite Ur Leukocyte Esterase Urine WBC (Auto) Urine RBC (Auto) 08/31/18 08/31/18 08/31/18 14:10 14:10 14:10 Creatine Kinase 28 L CK-MB (CK-2) 1.63 Troponin I 0.073 NT-Pro-B Natriuret Pep 2230 H 08/31/18 08/31/18 08/31/18 17:21 20:48 20:48 Creatine Kinase 25 L CK-MB (CK-2) 1.89 Troponin I 0.076 0.117 NT-Pro-B Natriuret Pep 09/01/18 09/01/18 09/01/18 02:50 02:50 08:33 Creatine Kinase 26 L 26 L CK-MB (CK-2) 1.82 Troponin I 0.149 NT-Pro-B Natriuret Pep 09/01/18 08:33 Creatine Kinase CK-MB (CK-2) 1.85 Troponin I 0.132 NT-Pro-B Natriuret Pep Impressions: Chest X-Ray 08/31/18 14:04 IMPRESSION: Chronic lung changes with no acute cardiopulmonary findings. Chest/Abdomen CTA 08/31/18 15:43 IMPRESSION: 1. NORMAL CTA OF THE CHEST. NO PULMONARY EMBOLI. 2. CHRONIC EMPHYSEMATOUS CHANGES. NO ACUTE FINDINGS. 3. LARGE HIATAL HERNIA. 4. CHRONIC CHANGES IN THE SPINE. NUMEROUS OLD COMPRESSION DEFORMITIES. PREVI OUS KYPHOPLASTY. Assessment & Plan - Diagnosis (1) Congestive heart failure (CHF) Qualifiers: Heart failure type: diastolic Heart failure chronicity: acute on chronic Qualified Code(s): I50.33 - Acute on chronic diastolic (congestive) heart failure Is this a current diagnosis for this admission?: Yes Plan: Continue current medication management. Her office echocardiogram completed on 06/30/18 suggested mild diastolic dysfunction and mild pulmonary hypertension. She will continue on current medication management. Defer request for repeat echocardiogram. (2) Elevated troponin Is this a current diagnosis for this admission?: Yes Plan: Probably due to cardiac leakage or related to her renal impairment. No acute EKG changes or associated elevated CK and CKMB levels. (3) Chronic respiratory failure with hypercapnia Is this a current diagnosis for this admission?: Yes Plan: Continue current bronchodilators and Solu Medrol therapy. Encouraged use of bedside Flutter to assist expectoration. (4) End stage chronic obstructive pulmonary disease Is this a current diagnosis for this admission?: Yes (5) Adult failure to thrive syndrome Is this a current diagnosis for this admission?: Yes (6) CAD (coronary artery disease) Qualifiers: Coronary Disease-Associated Artery/Lesion type: [place] artery Associated angina: without angina Is this a current diagnosis for this admission?: Yes (7) Diabetes mellitus type 2 in nonobese Is this a current diagnosis for this admission?: Yes Plan: maintain on Humalog insulin sliding scale coverage for steroid exacerbated hyperglycemia management (8) HTN (hypertension) Qualifiers: Hypertension type: essential hypertension Qualified Code(s): I10 - Essential (primary) hypertension Is this a current diagnosis for this admission?: Yes (9) HLD (hyperlipidemia) Qualifiers: Hyperlipidemia type: pure hypercholesterolemia Qualified Code(s): E78.00 - Pure hypercholesterolemia, unspecified; E78.0 - Pure hypercholesterolemia Is this a current diagnosis for this admission?: Yes (10) Hypothyroidism (acquired) Is this a current diagnosis for this admission?: Yes (11) Hiatal hernia with GERD Is this a current diagnosis for this admission?: Yes (12) Senile dementia uncomp Qualifiers: Dementia behavioral disturbance: without behavioral disturbance Qualified Code(s): F03.90 - Unspecified dementia without behavioral disturbance Is this a current diagnosis for this admission?: Yes - Time Time Spent with patient: 25-34 minutes Medications reviewed and adjusted accordingly: Yes Anticipated discharge: Home with Homehealth Within: Other - Inpatient Certification Based on my medical assessment, after consideration of the patient's comorbidities, presenting symptoms, or acuity I expect that the services needed warrant INPATIENT care.: Yes I certify that my determination is in accordance with my understanding of Medicare's requirements for reasonable and necessary INPATIENT services [42 CFR 412.3e].: Yes Medical Necessity: Significant Comorbidiites Make Outpatient Treatment Too [place], Need Close Monitoring Due to Risk of Patient Decompensation, Need For Continuous Telemetry Monitoring, Need for Nebulizer Therapy and Monitoring of Response, Risk of Complication if Not Cared For in Hospital 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
[2018-09-01] MEDS: LOSARTAN POTASSIUM 50 MG TABLET PO SCH (13:54)
[2018-09-01] MEDS: INSULIN LISPRO 100 UNIT/ML 3 ML VIAL SUBCUT PRN ×2 (13:55→22:53)
[2018-09-01] MEDS: ACETAMINOPHEN 325 MG TABLET PO PRN ×2 (13:56→23:22)
[2018-09-01] MEDS: LANSOPRAZOLE 30 MG TAB.RAP.DR PO SCH (13:56)
[2018-09-01] MEDS: ENOXAPARIN SODIUM INJ 30 MG/0.3 ML DISP.SYRIN SUBCUT SCH (13:57)
[2018-09-01] MEDS ORDERED: ENOXAPARIN SODIUM INJ 30 MG/0.3 ML DISP.SYRIN SUBCUT ONE (14:00)
--- NOTE | 2018-09-01 14:22 | EKG REPORT ---
SEVERITY:- ABNORMAL ECG - SINUS RHYTHM CONSIDER ANTEROSEPTAL INFARCT : Confirmed by: Yenny Choi MD 01-Sep-2018 14:21:32
[2018-09-01 15:05] LABS: CREATINE KINASE MB 1.71 ng/mL (<4.55)
[2018-09-01 15:09] LABS: TROPONIN I 0.111 ng/mL
[2018-09-01] MEDS ORDERED: TIOTROPIUM BROMIDE DPI 5 CAP/KIT (18 MCG/CAP) IH ONE ×2 (17:00→17:28)
[2018-09-01] MEDS ORDERED: FLUTICASONE/SALMETEROL DISKUS 250-50 MCG/DOSE IH ONE (17:27)
--- NOTE | 2018-09-01 21:27 | CONSULTATION REPORT E ---
Consultation Report NAME: SRINIVASA WINN : 1935 AGE: 83Y DATE: 309 A TO: RITIKA DALTON M.D. FROM: BIENVENIDO NAM M.D. Requesting Physician REASON FOR CONSULTATION: The patient is an 83-year-old female who came in with severe shortness of breath with COPD exacerbation and pulmonary edema, congestive heart failure. Patient was given nebulizer treatment, IV Solu-Medrol and IV Lasix, Bumex, losartan for blood pressure control, isosorbide mononitrate and furosemide. Patient also in today because of acute shortness of breath. Currently feeling slightly better. Denies any fever, chills, or hemoptysis. Some chest pain. Denies any purulent sputum production. No vomiting, no nausea, no diarrhea. PAST MEDICAL HISTORY: 1. Coronary artery disease. 2. Hyperlipidemia. 3. Hypertension. 4. Asthma. 5. Bronchitis. 6. COPD. 7. Pneumonia. 8. Tuberculosis. 9. History of hiatal hernia. 10. Type 2 diabetes mellitus. PAST SURGICAL HISTORY: 1. Cholecystectomy. 2. Tubal ligation. SOCIAL HISTORY: Lives alone. Current every day smoker 1 pack per day. Has been smoking for the last few years. Denies any alcohol abuse, illicit drug use. MEDICATIONS: Include: 1. Albuterol. 2. Aspirin. 3. Wellbutrin. 5. Cyclosporine. 6. Colace. 7. Flonase nasal spray. 8. Gabapentin. 9. Insulin Lispro. 10. Isosorbide mononitrate. 11. Synthroid. 12. Linzess. 13. Singulair. 14. Zofran. 15. Protonix. 16. Exelon. 17. Furosemide. 18. Anoro Ellipta. ALLERGIES: INCLUDE: 1. AZITHROMYCIN. 2. LASIX. 3. LEVAQUIN. 4. METFORMIN. 5. PENICILLIN. 6. PIOGLITAZONE. 7. STATINS. 8. SULFA. 9. SULFAMETHOXAZOLE. 10. TRIMETHOPRIM. 11. IV CONTRAST. REVIEW OF SYSTEMS: CONSTITUTIONAL: No fever or chills. HEENT: Eyes: No jaundice, no pallor. Ear, nose and throat: No ear drainage, no nasal discharge. CHEST AND LUNGS: Respiration: COPD, shortness of breath, coughing, pulmonary edema, pulmonary congestion. CARDIAC: History of pulmonary edema, heart failure, hypertension. GASTROINTESTINAL: No nausea, vomiting, diarrhea. GENITOURINARY: No dysuria, hematuria. EXTREMITIES: History of bipedal edema on admission. PHYSICAL EXAMINATION: GENERAL: The patient is awake, alert, coherent, oriented x3. Afebrile. Not in apparent respiratory distress. VITAL SIGNS: Temperature of 97.8 with a T-max of 98.8, pulse rate of 96, blood pressure is 135/64, respirations 16, saturation 96% 3 L nasal cannula. EYES: No jaundice or pallor. EARS, NOSE, AND THROAT: No ear drainage. No nasal discharge. CHEST AND LUNGS: No wheezing. No rhonchi, no course crackles. CARDIOVASCULAR: S1 and S2 is distinct. Regular rate and rhythm. ABDOMEN: Flabby, positive bowel sounds, soft, nondistended, nontender. EXTREMITIES: No joint swelling, no cellulitis, +1 bipedal edema. LABORATORY: CBC done today showed white count of 2.9, hemoglobin 10.3, hematocrit 31.5, and platelet count is 238. Chemistry done today showed sodium 138, potassium is 5.2, chloride 95, CO2 is 25, BUN 53, creatinine 1.47, glucose 278, and calcium is 9. Hemoglobin A1c is 5.5. Total protein 6.2 and albumin is 3.5. Chest x-ray done today showed bilateral emphysema, no apparent signs of pneumonia or pneumothorax. bilaterally probably due to pulmonary congestion. ASSESSMENT: 1. COPD IN ACUTE EXACERBATION- BRONCHOSPASM. 2. CONGESTIVE HEART FAILURE DECOMPENSATED. 3. HYPOXEMIA, SEVERE. PLAN/RECOMMENDATION: 1. Will start patient on Spiriva inhaler one puff inhaled once a day. Advair 250 inhaler 1 puff bid daily. 2. Albuterol inhaler. Will give duo nebulizers as needed. 3. Optimize blood pressure control. DICTATING PHYSICIAN: RITIKA DALTON MD,TITA,MPH [id number] PHY#: [id number] ID: [id number] JOB#: [id number] ACCT: [id number] cc:RITIKA DALTON M.D. > [facility]
[2018-09-01] MEDS: FLUTICASONE/SALMETEROL DISKUS 250-50 MCG/DOSE IH SCH (21:41)
[2018-09-01] MEDS: MONTELUKAST SODIUM 10 MG TABLET PO SCH (21:42)
[2018-09-01 21:48] LABS: CREATINE KINASE MB 1.72 ng/mL (<4.55); TROPONIN I 0.102 ng/mL
[2018-09-02] MEDS: IPRATROPIUM/ALBUTEROL 0.5-2.5 MG/3 ML AMPUL NEB PRN ×5 (01:00→23:41)
[2018-09-02 03:53] LABS: HEMATOCRIT 28.5 % (36.0-47.0); HEMOGLOBIN 9.4 g/dL (12.0-15.5); MEAN CORPUSCULAR HEMOGLOBIN 28.6 pg (27.0-33.4); MEAN CORPUSCULAR HGB CONC 33.2 g/dL (32.0-36.0); MEAN CORPUSCULAR VOLUME 86 fl (80-97); PLATELET COUNT 232 10^3/uL (150-450); RED CELL DISTRIBUTION WIDTH 15.9 % (11.5-14.0)
[2018-09-02 04:12] LABS: ABSOLUTE LYMPHOCYTES# (MANUAL) 0.2 10^3/uL (0.5-4.7); ABSOLUTE MONOCYTES # (MANUAL) 0.1 10^3/uL (0.1-1.4); ABSOLUTE NEUTROPHILS# (MANUAL) 7.7 10^3/uL (1.7-8.2); BASOPHILS % (MANUAL) 0 % (0-2); EOSINOPHILS % (MANUAL) 0 % (0-6); LYMPHOCYTES % (MANUAL) 3 % (13-45); MONOCYTES % (MANUAL) 1 % (3-13); SEGMENTED NEUTROPHILS % (MAN) 96 % (42-78); TOTAL CELLS COUNTED 100
[2018-09-02 04:16] LABS: ANISOCYTOSIS 1+; PLATELET COMMENT ADEQUATE; TOXIC GRANULATION SLIGHT
[2018-09-02 04:24] LABS: ANION GAP 8 (5-19); BLOOD UREA NITROGEN 55 mg/dL (7-20); CALCIUM 8.6 mg/dL (8.4-10.2); CARBON DIOXIDE 37 mmol/L (22-30); CHLORIDE 94 mmol/L (98-107); CREATINE KINASE 31 U/L (30-135); GLUCOSE 279 mg/dL (75-110); POTASSIUM 5.1 mmol/L (3.6-5.0); SODIUM 138.6 mmol/L (137-145)
[2018-09-02 04:36] LABS: CREATINE KINASE MB 1.97 ng/mL (<4.55); TROPONIN I 0.087 ng/mL
[2018-09-02] MEDS: LANSOPRAZOLE 30 MG TAB.RAP.DR PO SCH (06:35)
[2018-09-02] MEDS: LEVOTHYROXINE SODIUM 0.075 MG TABLET PO SCH (06:35)
[2018-09-02] MEDS: METHYLPREDNISOLONE INJ 125 MG/2 ML SDV IV SCH (06:35)
[2018-09-02] MEDS: TIOTROPIUM BROMIDE DPI 5 CAP/KIT (18 MCG/CAP) IH SCH (08:00)
[2018-09-02] MEDS: INSULIN LISPRO 100 UNIT/ML 3 ML VIAL SUBCUT PRN ×3 (08:01→22:24)
[2018-09-02] MEDS: FLUTICASONE/SALMETEROL DISKUS 250-50 MCG/DOSE IH SCH ×2 (08:01→19:24)
[2018-09-02] MEDS: CYCLOSPORINE 0.05% OPH EMULSIO 0.4 ML DROPERETTE OU SCH ×2 (09:21→22:24)
[2018-09-02] MEDS: FLUTICASONE NASAL SPRAY 50 MCG/SPRY 120 SPRAY/16 GM NASL SCH ×2 (09:22→22:24)
[2018-09-02] MEDS: NICOTINE 7 MG/24 HR PATCH.TD24 TD SCH (09:22)
[2018-09-02] MEDS: ONDANSETRON 4 MG TAB.RAPDIS PO PRN (09:22)
[2018-09-02] MEDS: TORSEMIDE 20 MG TABLET PO SCH (09:22)
[2018-09-02] MEDS: RIVASTIGMINE 4.6 MG/24 HR PATCH.TD24 TD SCH (09:22)
[2018-09-02] MEDS: LOSARTAN POTASSIUM 50 MG TABLET PO SCH (09:23)
[2018-09-02] MEDS: ASPIRIN 81 MG TABLET, CHEWABLE PO SCH (09:23)
[2018-09-02] MEDS: BUPROPION HCL 100 MG TABLET PO SCH (09:23)
[2018-09-02] MEDS: GABAPENTIN 300 MG CAPSULE PO SCH (09:23)
[2018-09-02] MEDS: DOCUSATE SODIUM 100 MG CAPSULE PO SCH (09:23)
[2018-09-02] MEDS: ISOSORBIDE MONONITRATE 30 MG TAB.ER.24H PO SCH (09:23)
[2018-09-02] MEDS: ENOXAPARIN SODIUM INJ 30 MG/0.3 ML DISP.SYRIN SUBCUT SCH (09:24)
[2018-09-02] MEDS ORDERED: TORSEMIDE 20 MG TABLET PO SCH (10:00)
[2018-09-02] MEDS ORDERED: PREDNISONE 20 MG TABLET PO SCH (10:00)
[2018-09-02 10:08] LABS: CREATINE KINASE MB 2.2 ng/mL (<4.55); TROPONIN I 0.082 ng/mL
--- NOTE | 2018-09-02 21:41 | PROGRESS NOTE E ---
Progress Note NAME: SRINIVASA WINN : 1935 AGE: 83Y DATE: 09/02/2018 ROOM: 309 SUBJECTIVE: The patient is an 83-year-old female who came in with severe dyspnea and acute respiratory failure requiring noninvasive mechanical ventilation. Currently feeling a lot better, down to nasal cannula. Denies any fever, chills, increasing cough, or purulent sputum production, chest pain, hemoptysis. No nausea, vomiting, diarrhea. OBJECTIVE: GENERAL: The patient is awake, alert, coherent, oriented x3. Afebrile, not in apparent severe respiratory distress. VITAL SIGNS: Temperature 98.4 with a T-max of 98.4, heart rate is 87, blood pressure is 128/47, respirations 22, saturation 98% on 3 liters. EYES: No jaundice or pallor. EARS, NOSE, AND THROAT: No ear drainage. No nasal discharge. CHEST AND LUNGS: Mild wheezing bibasilarly. No coarse crackles, no rhonchi noted. CARDIOVASCULAR: S1, S2 distinct. Normal rate and regular rhythm. ABDOMEN: Flabby, positive bowel sounds, soft, nondistended. EXTREMITIES: No joint swelling or cellulitis or bipedal edema. LABORATORY DATA: CBC done this morning showed a white count of 8 from 12.9 yesterday, hemoglobin *------*, hematocrit is 38.5, platelet count is 232. Chemistry done today shows sodium is 138, potassium 5.1, chloride 94, CO2 is 37, BUN is 55, creatinine is 1.51, glucose 279, and calcium is 8.6. IMAGING STUDIES: Reviewed chest CT scan done on 08/21/2018 showed severe emphysema bilaterally, no pneumonia or worsening pulmonary nodules or pleural effusion. ASSESSMENT: 1. SEVERE COPD/EMPHYSEMA, CURRENTLY STABLE AND NOT IN ACUTE EXACERBATION. 2. ACUTE RESPIRATORY FAILURE, CURRENTLY RESOLVED. PLAN/RECOMMENDATION: 1. Continue Spiriva inhaler and Advair 250 DiskHaler one puff b.i.d. 2. Continue albuterol inhaler as needed. 3. Taper prednisone dose to 20 mg daily for 5 days. 4. Recommend pulmonary follow up in 2 to 3 weeks after hospital discharge. DICTATING PHYSICIAN: RITIKA DALTON MD,TITA,MPH [id number] PHY#: [id number] ID: [id number] JOB#: [id number] ACCT: [id number] cc: > [facility]
[2018-09-02] MEDS: MONTELUKAST SODIUM 10 MG TABLET PO SCH (22:24)
[2018-09-03] MEDS: IPRATROPIUM/ALBUTEROL 0.5-2.5 MG/3 ML AMPUL NEB PRN ×3 (04:45→16:12)
[2018-09-03 05:00] LABS: ABSOLUTE LYMPHOCYTES (AUTO) 0.7 10^3/uL (0.5-4.7); ABSOLUTE MONOCYTES (AUTO) 0.9 10^3/uL (0.1-1.4); ABSOLUTE NEUT (AUTO) 9.1 10^3/uL (1.7-8.2); BASOPHILS % (AUTO) 0.1 % (0-2); HEMATOCRIT 29.6 % (36.0-47.0); HEMOGLOBIN 9.9 g/dL (12.0-15.5); LYMPHOCYTES % (AUTO) 6.9 % (13-45); MEAN CORPUSCULAR HEMOGLOBIN 28.7 pg (27.0-33.4); MEAN CORPUSCULAR HGB CONC 33.4 g/dL (32.0-36.0); MEAN CORPUSCULAR VOLUME 86 fl (80-97); MONOCYTES % (AUTO) 8.5 % (3-13); PLATELET COUNT 249 10^3/uL (150-450); RED BLOOD COUNT 3.44 10^6/uL (3.72-5.28); RED CELL DISTRIBUTION WIDTH 15.6 % (11.5-14.0); SEGMENTED NEUTROPHILS % (AUTO) 84.5 % (42-78); TOTAL CELLS COUNTED % (AUTO) 100 %; WHITE BLOOD COUNT 10.7 10^3/uL (4.0-10.5)
[2018-09-03 05:16] LABS: BLOOD UREA NITROGEN 62 mg/dL (7-20); CALCIUM 8.5 mg/dL (8.4-10.2); GLUCOSE 123 mg/dL (75-110); POTASSIUM 4.4 mmol/L (3.6-5.0)
[2018-09-03 05:58] LABS: CARBON DIOXIDE 39 mmol/L (22-30); CHLORIDE 96 mmol/L (98-107); SODIUM 138.6 mmol/L (137-145)
[2018-09-03 06:04] LABS: ANION GAP 4 (5-19)
[2018-09-03] MEDS: LEVOTHYROXINE SODIUM 0.075 MG TABLET PO SCH (06:07)
[2018-09-03] MEDS: LANSOPRAZOLE 30 MG TAB.RAP.DR PO SCH (06:07)
[2018-09-03] MEDS: FLUTICASONE/SALMETEROL DISKUS 250-50 MCG/DOSE IH SCH (08:18)
[2018-09-03] MEDS: TIOTROPIUM BROMIDE DPI 5 CAP/KIT (18 MCG/CAP) IH SCH (08:18)
[2018-09-03] MEDS: INSULIN LISPRO 100 UNIT/ML 3 ML VIAL SUBCUT PRN ×2 (08:19→17:06)
[2018-09-03] MEDS ORDERED: PREDNISONE 20 MG TABLET PO SCH (10:00)
[2018-09-03] MEDS: GABAPENTIN 300 MG CAPSULE PO SCH (10:15)
[2018-09-03] MEDS: LOSARTAN POTASSIUM 50 MG TABLET PO SCH (10:15)
[2018-09-03] MEDS: ISOSORBIDE MONONITRATE 30 MG TAB.ER.24H PO SCH (10:15)
[2018-09-03] MEDS: ASPIRIN 81 MG TABLET, CHEWABLE PO SCH (10:15)
[2018-09-03] MEDS: NICOTINE 7 MG/24 HR PATCH.TD24 TD SCH (10:15)
[2018-09-03] MEDS: DOCUSATE SODIUM 100 MG CAPSULE PO SCH (10:15)
[2018-09-03] MEDS: TORSEMIDE 20 MG TABLET PO SCH (10:16)
[2018-09-03] MEDS: RIVASTIGMINE 4.6 MG/24 HR PATCH.TD24 TD SCH (10:17)
[2018-09-03] MEDS: CYCLOSPORINE 0.05% OPH EMULSIO 0.4 ML DROPERETTE OU SCH (10:17)
[2018-09-03] MEDS: FLUTICASONE NASAL SPRAY 50 MCG/SPRY 120 SPRAY/16 GM NASL SCH (10:17)
[2018-09-03] MEDS: BUPROPION HCL 100 MG TABLET PO SCH (10:20)
[2018-09-03] MEDS: ENOXAPARIN SODIUM INJ 30 MG/0.3 ML DISP.SYRIN SUBCUT SCH (10:20)
--- NOTE | 2018-09-03 18:14 | PDOC PROGRESS REPORT ---
Subjective Progress Note for:: 09/02/18 Subjective:: Patient reported a fall couple of days ago prior to admission and currently claimed worsening right knee pain. Taking Tylenol with some relief. Breathing is improving. No chest pain. No fever or chills. No nausea, vomiting, or abdominal pain. Reason For Visit: ACUTE SYSTOLIC CHF,EXACERBATED COPD,ELEVATED Physical Exam Vital Signs: Temp Pulse Resp BP Pulse Ox 97.6 F 84 17 125/45 L 96 09/02/18 03:45 09/02/18 06:59 09/02/18 06:59 09/02/18 03:45 09/02/18 06:59 Intake & Output 09/01/18 09/02/18 09/03/18 06:59 06:59 06:59 Intake Total 0 640 Output Total 0 500 Balance 0 140 Weight 49.8 kg 49.5 kg Physical Exam: General appearance: PRESENT: mild distress - remain on supplemental oxygen via nasal cannula at 3L/min., thin Head exam: PRESENT: atraumatic, normocephalic Eye exam: PRESENT: conjunctiva pink, EOMI, PERRLA. ABSENT: scleral icterus Ear exam: PRESENT: normal external ear exam Mouth exam: PRESENT: moist Respiratory exam: PRESENT: decreased breath sounds, prolonged expiratory phase, rhonchi, wheezes Cardiovascular exam: PRESENT: RRR. ABSENT: diastolic murmur, rubs, systolic murmur GI/Abdominal exam: PRESENT: normal bowel sounds, soft. ABSENT: distended, guarding, mass, organomegaly, rebound, tenderness Extremities exam: PRESENT: pedal edema - trace to below knee level Musculoskeletal exam: PRESENT: deformity - significant thoracic kyphosis Neurological exam: PRESENT: alert, awake, oriented to person, oriented to place, oriented to time, oriented to situation, CN II-XII grossly intact. ABSENT: motor sensory deficit Psychiatric exam: PRESENT: appropriate affect, normal mood. ABSENT: homicidal ideation, suicidal ideation Skin exam: PRESENT: dry, intact, warm. ABSENT: cyanosis, rash Results Laboratory Results: 09/02/18 03:37 09/02/18 03:37 09/02/18 09/02/18 03:37 03:37 WBC 8.0 D RBC 3.30 L Hgb 9.4 L Hct 28.5 L MCV 86 MCH 28.6 MCHC 33.2 RDW 15.9 H Plt Count 232 Seg Neutrophils % Not Reportable Lymphocytes % Not Reportable Monocytes % Not Reportable Eosinophils % Not Reportable Basophils % Not Reportable Absolute Neutrophils Not Reportable Absolute Lymphocytes Not Reportable Absolute Monocytes Not Reportable Absolute Eosinophils Not Reportable Absolute Basophils Not Reportable Sodium 138.6 Potassium 5.1 H Chloride 94 L Carbon Dioxide 37 H Anion Gap 8 BUN 55 H Creatinine 1.51 H Est GFR ( Amer) 40 L Est GFR (Non-Af Amer) 33 L Glucose 279 H Calcium 8.6 08/31/18 08/31/18 08/31/18 14:10 14:10 14:10 Creatine Kinase 28 L CK-MB (CK-2) 1.63 Troponin I 0.073 NT-Pro-B Natriuret Pep 2230 H 08/31/18 08/31/18 08/31/18 17:21 20:48 20:48 Creatine Kinase 25 L CK-MB (CK-2) 1.89 Troponin I 0.076 0.117 NT-Pro-B Natriuret Pep 09/01/18 09/01/18 09/01/18 02:50 02:50 08:33 Creatine Kinase 26 L 26 L CK-MB (CK-2) 1.82 Troponin I 0.149 NT-Pro-B Natriuret Pep 09/01/18 09/01/18 09/01/18 08:33 14:24 14:24 Creatine Kinase 24 L CK-MB (CK-2) 1.85 1.71 Troponin I 0.132 0.111 NT-Pro-B Natriuret Pep 09/01/18 09/01/18 09/02/18 21:09 21:09 03:37 Creatine Kinase 27 L CK-MB (CK-2) 1.72 1.97 Troponin I 0.102 0.087 NT-Pro-B Natriuret Pep 09/02/18 03:37 Creatine Kinase 31 CK-MB (CK-2) Troponin I NT-Pro-B Natriuret Pep Impressions: Chest X-Ray 08/31/18 14:04 IMPRESSION: Chronic lung changes with no acute cardiopulmonary findings. Chest/Abdomen CTA 08/31/18 15:43 IMPRESSION: 1. NORMAL CTA OF THE CHEST. NO PULMONARY EMBOLI. 2. CHRONIC EMPHYSEMATOUS CHANGES. NO ACUTE FINDINGS. 3. LARGE HIATAL HERNIA. 4. CHRONIC CHANGES IN THE SPINE. NUMEROUS OLD COMPRESSION DEFORMITIES. PREVIOUS KYPHOPLASTY. Assessment & Plan - Diagnosis (1) Congestive heart failure (CHF) Qualifiers: Heart failure type: diastolic Heart failure chronicity: acute on chronic Qualified Code(s): I50.33 - Acute on chronic diastolic (congestive) heart failure Is this a current diagnosis for this admission?: Yes (2) Elevated troponin Is this a current diagnosis for this admission?: Yes (3) Chronic respiratory failure with hypercapnia Is this a current diagnosis for this admission?: Yes (4) End stage chronic obstructive pulmonary disease Is this a current diagnosis for this admission?: Yes (5) Adult failure to thrive syndrome Is this a current diagnosis for this admission?: Yes (6) CAD (coronary artery disease) Qualifiers: Coronary Disease-Associated Artery/Lesion type: [place] artery Associated angina: without angina Is this a current diagnosis for this admission?: Yes (7) Diabetes mellitus type 2 in nonobese Is this a current diagnosis for this admission?: Yes (8) HTN (hypertension) Qualifiers: Hypertension type: essential hypertension Qualified Code(s): I10 - Essential (primary) hypertension Is this a current diagnosis for this admission?: Yes (9) HLD (hyperlipidemia) Qualifiers: Hyperlipidemia type: pure hypercholesterolemia Qualified Code(s): E78.00 - Pure hypercholesterolemia, unspecified; E78.0 - Pure hypercholesterolemia Is this a current diagnosis for this admission?: Yes (10) Hypothyroidism (acquired) Is this a current diagnosis for this admission?: Yes (11) Hiatal hernia with GERD Is this a current diagnosis for this admission?: Yes (12) Senile dementia uncomp Qualifiers: Dementia behavioral disturbance: without behavioral disturbance Qualified Code(s): F03.90 - Unspecified dementia without behavioral disturbance Is this a current diagnosis for this admission?: Yes - Time Time Spent with patient: 25-34 minutes Medications reviewed and adjusted accordingly: Yes Anticipated discharge: Home with Homehealth Within: Other - Inpatient Certification Based on my medical assessment, after consideration of the patient's comorbidities, presenting symptoms, or acuity I expect that the services needed warrant INPATIENT care.: Yes I certify that my determination is in accordance with my understanding of Medicare's requirements for reasonable and necessary INPATIENT services [42 CFR 412.3e].: Yes Medical Necessity: Significant Comorbidiites Make Outpatient Treatment Too Risky, Need Close Monitoring Due to Risk of Patient Decompensation, Need For Continuous Telemetry Monitoring, Need for Nebulizer Therapy and Monitoring of Response, Risk of Complication if Not Cared For in Hospital Post Hospital Care: D/C [employer] Documentation - Plan Summary Plan Summary: D/C Rich Krishnamurthy. Start on Prednisone 40 mg po daily. Continue all other current medication management. Pulmonary consult input appreciated.
[2018-09-03 18:39] VITALS: BP 165/113
--- NOTE | 2018-09-09 17:35 | PDOC DISCHARGE SUMMARY ---
General - Admit/Disc Date/PCP Admission Date/Primary Care Provider: 08/31/18 16:25 BIENVENIDO CYRIL Discharge Date: 09/03/18 - Discharge Diagnosis (1) Congestive heart failure (CHF) Is this a current diagnosis for this admission?: Yes (2) Elevated troponin Is this a current diagnosis for this admission?: Yes (3) Chronic respiratory failure with hypercapnia Is this a current diagnosis for this admission?: Yes (4) End stage chronic obstructive pulmonary disease Is this a current diagnosis for this admission?: Yes (5) Adult failure to thrive syndrome Is this a current diagnosis for this admission?: Yes (6) CAD (coronary artery disease) Is this a current diagnosis for this admission?: Yes (7) Diabetes mellitus type 2 in nonobese Is this a current diagnosis for this admission?: Yes (8) HTN (hypertension) Is this a current diagnosis for this admission?: Yes (9) HLD (hyperlipidemia) Is this a current diagnosis for this admission?: Yes (10) Hypothyroidism (acquired) Is this a current diagnosis for this admission?: Yes (11) Hiatal hernia with GERD Is this a current diagnosis for this admission?: Yes (12) Senile dementia uncomp Is this a current diagnosis for this admission?: Yes - Additional Information Resuscitation Status: Full Code Discharge Diet: Cardiac, Diabetic Discharge Activity: Activity As Tolerated, Balance Activity w/Rest, Weigh Daily Home Medications: Albuterol Sulfate [Proair Hfa Inhalation Aerosol 8.5 gm Mdi] 2 puff IH Q4HP PRN 08/31/18 Aspirin [Aspirin 81 mg Chewable Tablet] 81 mg PO DAILY 08/31/18 Bupropion HCl [Wellbutrin 100 mg Tablet] 100 mg PO DAILY 08/31/18 Ciclesonide [[place] HFA] 2 puff IH BID 08/31/18 Cyclosporine 0.05% Oph Emulsio [Restasis 0.05% Opthalmic Droperette] 1 drop OU Q 12 08/31/18 Docusate Sodium [Colace 100 mg Capsule] 100 mg PO DAILY 08/31/18 Fluticasone Propionate [Flonase Nasal [place] 50 Mcg/[place] 16 gm] 2 sprays NASL Q12 08/31/18 Gabapentin [Neurontin 300 mg Capsule] 300 mg PO DAILY 08/31/18 Insulin Lispro Protamin/Lispro [Humalog Mix 75-25 100 unit/mL] 15 unit SUBCUT BIDBS 08/31/18 Isosorbide Mononitrate [Imdur 30 mg Tablet.er] 30 mg PO DAILY 08/31/18 Levothyroxine Sodium [Synthroid 0.075 mg Tablet] 0.075 mg PO Q6AM 08/31/18 Linaclotide [Linzess 145 Mcg Capsule] 145 mcg PO DAILY 08/31/18 Montelukast Sodium [Singulair 10 mg Tablet] 10 mg PO QHS 08/31/18 Ondansetron [Zofran Odt 4 mg Tablet] 4 mg PO Q4HP PRN 08/31/18 Pantoprazole Sodium [Protonix] 40 mg PO Q6AM 08/31/18 Rivastigmine [Exelon 4.6 Mg/24 Hr Transdermal Patch] 1 each TD DAILY 08/31/18 Torsemide [Demadex 10 mg Tablet] 5 mg PO QAM 08/31/18 Umeclidinium Brm/Vilanterol Tr [Anoro Ellipta 62.5-25 Mcg INH] 1 each IH DAILY 08/31/18 History of Present Illness Patient complains of: Worsening difficulty with breathing History of Present Illness: SRINIVASA WINN is a 83 year old female patient known to my practice who presented to the ED with several days of worsening difficulty with breathing, two pillows orthopnea and wheezing. Patient admitted to bilateral leg swelling with some improvement in recent days since her visit to daughter's home to dog sit. She denied excessive salt intake. Admitted to smoking about three sticks of cigarette daily. She has long standing history of oxygen dependent COPD 0n 3L/m in via nasal cannula. She reported intermittent chest pain but denied denied palpitation, dizziness, light headedness. She denied any abdominal pain, nausea or vomiting. No fever or chills. She denied any urinary symptoms to suggest ongoing infection. Her morbidities include end stage COPD oxygen dependent, cigarette smoker, chronic diastolic CHF, HTN, HLD, CAD, DM type 2, Hypothyroidism, Osteoarthritis, multiple vertebral compression fractures, and Depression. Hospital Course Hospital Course: She was managed as case of exacerbated COPD with IV Solu Medrol and bronchodilators. she was seen in consultation by Dr Gan, nursery supervisor with recommendation of Spiriva as add on to her medication management. She transition to oral Prednisone and will be tapered off gradually. There was concern for possible CHF contribution to her respiratory decompensation. Her recent outpatient echocardiogram did revealed satisfactory systolic LV function but revealed mild LV diastolic dysfunction and pulmonary hypertension. She was initially treated with Bumex and increase in her preadmission Torsemide dosing that could be responsible for her elevated BUN and creatinine at the time of discharge. She will be discharged home on tapering oral Prednisone, Spiriva and Advair therapy. She will follow up with Dr Gan and myself in the office as instructed upon discharge. Physical Exam Vital Signs: Temp Pulse Resp BP Pulse Ox 97.6 F 96 18 115/50 L 91 L 09/03/18 15:58 09/03/18 16:12 09/03/18 16:12 09/03/18 15:58 09/03/18 16:12 Intake & Output 09/02/18 09/03/18 09/04/18 06:59 06:59 06:59 Intake Total 640 724 974 Output Total 500 250 Balance 140 474 974 Weight 49.5 kg 47.8 kg Physical Exam: General appearance: PRESENT: Remain on baseline supplemental oxygen via nasal cannula at 3L/min., thin Head exam: PRESENT: atraumatic, normocephalic Eye exam: PRESENT: conjunctiva pink, EOMI, PERRLA. ABSENT: Pallor, scleral icterus Ear exam: PRESENT: normal external ear exam Mouth exam: PRESENT: moist Respiratory exam: PRESENT: decreased breath sounds, prolonged expiratory phase, minimal rhonchi, no wheezes Cardiovascular exam: PRESENT: RRR. ABSENT: diastolic murmur, rubs, systolic murmur GI/Abdominal exam: PRESENT: normal bowel sounds, soft. ABSENT: distended, guarding, mass, organomegaly, rebound, tenderness Extremities exam: PRESENT: pedal edema - trace to below knee level Musculoskeletal exam: PRESENT: deformity - significant thoracic kyphosis Neurological exam: PRESENT: alert, awake, oriented to person, oriented to place, oriented to time, oriented to situation, CN II-XII grossly intact. ABSENT: motor sensory deficit Psychiatric exam: PRESENT: appropriate affect, normal mood. ABSENT: homicidal ideation, suicidal ideation Skin exam: PRESENT: dry, intact, warm. ABSENT: cyanosis, rash Results Laboratory Results: 09/03/18 04:13 09/03/18 04:13 09/03/18 09/03/18 04:13 04:13 WBC 10.7 H RBC 3.44 L Hgb 9.9 L Hct 29.6 L MCV 86 MCH 28.7 MCHC 33.4 RDW 15.6 H Plt Count 249 Seg Neutrophils % 84.5 H Lymphocytes % 6.9 L Monocytes % 8.5 Eosinophils % 0.0 Basophils % 0.1 Absolute Neutrophils 9.1 H Absolute Lymphocytes 0.7 Absolute Monocytes 0.9 Absolute Eosinophils 0.0 Absolute Basophils 0.0 Sodium 138.6 Potassium 4.4 Chloride 96 L Carbon Dioxide 39 H Anion Gap 4 L BUN 62 H Creatinine 1.55 H Est GFR ( Amer) 39 L Est GFR (Non-Af Amer) 32 L Glucose 123 H Calcium 8.5 08/31/18 08/31/18 08/31/18 14:10 14:10 14:10 Creatine Kinase 28 L CK-MB (CK-2) 1.63 Troponin I 0.073 NT-Pro-B Natriuret Pep 2230 H 08/31/18 08/31/18 08/31/18 17:21 20:48 20:48 Creatine Kinase 25 L CK-MB (CK-2) 1.89 Troponin I 0.076 0.117 NT-Pro-B Natriuret Pep 09/01/18 09/01/18 09/01/18 02:50 02:50 08:33 Creatine Kinase 26 L 26 L CK-MB (CK-2) 1.82 Troponin I 0.149 NT-Pro-B Natriuret Pep 09/01/18 09/01/18 09/01/18 08:33 14:24 14:24 Creatine Kinase 24 L CK-MB (CK-2) 1.85 1.71 Troponin I 0.132 0.111 NT-Pro-B Natriuret Pep 09/01/18 09/01/18 09/02/18 21:09 21:09 03:37 Creatine Kinase 27 L CK-MB (CK-2) 1.72 1.97 Troponin I 0.102 0.087 NT-Pro-B Natriuret Pep 09/02/18 09/02/18 09/02/18 03:37 09:15 09:15 Creatine Kinase 31 35 CK-MB (CK-2) 2.20 Troponin I 0.082 NT-Pro-B Natriuret Pep Impressions: Chest X-Ray 08/31/18 14:04 IMPRESSION: Chronic lung changes with no acute cardiopulmonary findings. Chest/Abdomen CTA 08/31/18 15:43 IMPRESSION: 1. NORMAL CTA OF THE CHEST. NO PULMONARY EMBOLI. 2. CHRONIC EMPHYSEMATOUS CHANGES. NO ACUTE FINDINGS. 3. LARGE HIATAL HERNIA. 4. CHRONIC CHANGES IN THE SPINE. NUMEROUS OLD COMPRESSION DEFORMITIES. PREVIOUS KYPHOPLASTY. Qualifiers - * PATIENT BEING DISCHARGED WITH ANY OF THE FOLLOWING DIAGNOSIS: No Plan Discharge Plan: D/C home today. Follow up appointment with Dr Gan and myself as instructed upon discharge.
== END 2018-09-03 19:14 | disposition home or self-care (01) | DRG 190 ==
LOC: ER 13:51 → EH 16:25 → 3N 17:48
PROVIDERS: ADMIT Internal Medicine Geriatric Medicine; ATTEND Internal Medicine Geriatric Medicine
PROC: 3E0F73Z Introduction of Anti-inflammatory into Respiratory Tract, Via Natural or Artificial Opening (ICD-10-PCS; principal; 2018-08-31)
DX: J43.9 Emphysema, unspecified (principal); I50.33 Acute on chronic diastolic (congestive) heart failure; Z68.1 Body mass index [BMI] 19.9 or less, adult; J96.12 Chronic respiratory failure with hypercapnia; I11.0 Hypertensive heart disease with heart failure; F17.210 Nicotine dependence, cigarettes, uncomplicated; Z99.81 Dependence on supplemental oxygen; I25.10 Atherosclerotic heart disease of native coronary artery without angina pectoris; E11.9 Type 2 diabetes mellitus without complications; R74.8 Abnormal levels of other serum enzymes; R62.7 Adult failure to thrive; E78.5 Hyperlipidemia, unspecified; E03.9 Hypothyroidism, unspecified; M19.90 Unspecified osteoarthritis, unspecified site; F32.9 Major depressive disorder, single episode, unspecified; K21.9 Gastro-esophageal reflux disease without esophagitis; K44.9 Diaphragmatic hernia without obstruction or gangrene; F03.90 Unspecified dementia, unspecified severity, without behavioral disturbance, psychotic disturbance, mood disturbance, and anxiety; D64.9 Anemia, unspecified; Z90.49 Acquired absence of other specified parts of digestive tract; Z79.82 Long term (current) use of aspirin; Z79.4 Long term (current) use of insulin; Z79.899 Other long term (current) drug therapy; Z88.0 Allergy status to penicillin; Z88.2 Allergy status to sulfonamides; Z88.1 Allergy status to other antibiotic agents; Z88.8 Allergy status to other drugs, medicaments and biological substances; Z91.041 Radiographic dye allergy status; Z86.11 Personal history of tuberculosis
CPT/HCPCS: 36415; 71045; 71275; 80048; 80053; 81001; 82550; 82553; 82803; 82962; 83036; 83880; 84439; 84443; 84481; 84484; 85025; 93005; 93010; 94640; 94667; 96374; 99285; J1650; J1815; J2930; J3490; J7512; J7620; S0119

== ENCOUNTER 2018-09-15 19:35 | Inpatient (IN) | payer MEDICARE, MEDICAID ==
[2018-09-15] MEDS ORDERED: ASPIRIN 81 MG TABLET, CHEWABLE PO ONE (19:52)
[2018-09-15] MEDS ORDERED: IPRATROPIUM/ALBUTEROL 0.5-2.5 MG/3 ML AMPUL NEB ONE ×2 (19:55→22:04)
--- NOTE | 2018-09-15 20:27 | ER Document Report ---
ED Respiratory Problem - General Chief Complaint: Shortness Of Breath Stated Complaint: WEAKNESS/SHORTNESS OF BREATH Time Seen by Provider: 09/15/18 19:52 Notes: Patient is an 83-year-old female presents to the emergency department for generalized lower extremity swelling and shortness of breath. Patient states she was cleaning her house yesterday and found an old pack of cigarettes. Patient states she had tried to quit smoking but started smoking cigarettes yesterday and today. Patient noted that she had become more short of breath and her lower extremities were also more swollen than normal. Patient states the doctor told her that she had congestive heart failure and she does not understand what that means. States recently bilateral lower extremities have been more swollen than normal which was concerning to her. Patient states this morning she also had some chest pain in the center of her chest that was nonradiating, did not improve upon deep inspiration or movement. Patient admits to a subjective fever and increase in her cough and congestion since starting smoking yesterday. Per EMS patient's initial room air oxygen saturation was 89%. Patient is usually on O2 nasal cannula 3 L/min. After given 1 DuoNeb treatment by EMS patient's oxygen saturation came up to 99%. They also administered the patient 125 mg of Solu-Medrol IVP. Past medical history: COPD, congestive heart failure, coronary artery disease, hypothyroid, GERD Medications: Cozaar, NicoDerm, Spiriva, Advair, prednisone, Singulair, Synthroid, Flonase, Colace, aspirin, torsemide, Protonix, Zofran, Linzess, Imdur, Neurontin, Wellbutrin, Humalog Allergies: Erythromycin, Lasix, levofloxacin, metformin, penicillin, sulfa, IV dye TRAVEL OUTSIDE OF THE [place] IN LAST 30 DAYS: No - Related Data Allergies/Adverse Reactions: erythromycin base [Erythromycin Base] Allergy (Verified 08/31/18 13:52) furosemide [From Lasix] Allergy (Verified 08/31/18 13:52) levofloxacin [From Levaquin] Allergy (Verified 08/31/18 13:52) metformin HCl [From Glucophage] Allergy (Verified 08/31/18 13:52) SWELLING FACE Penicillins Allergy (Verified 08/31/18 13:52) pioglitazone HCl [From Actos] Allergy (Verified 08/31/18 13:52) SWELLING FACE Xkkfaoy-Bdi-Hkf Reductase Inhibitor Allergy (Verified 08/31/18 13:52) MUSCLE PAIN Sulfa (Sulfonamide Antibiotics) Allergy (Verified 08/31/18 13:52) SICK sulfamethoxazole [From Bactrim] Allergy (Verified 08/31/18 13:52) SICK trimethoprim [From Bactrim] Allergy (Verified 08/31/18 13:52) SICK Iodinated Contrast- Oral and IV Dye Adverse Reaction (Verified 08/31/18 13:52) Past Medical History - General Information source: Patient - Social History Smoking Status: Current Some Day Smoker Family History: Reviewed & Not Pertinent, COPD Patient has suicidal ideation: No Patient has homicidal ideation: No - Past Medical History Cardiac Medical History: Reports: Hx Coronary Artery Disease, Hx Hypercholesterolemia, Hx Hypertension Denies: Hx Heart Attack Pulmonary Medical History: Reports: Hx Asthma, Hx Bronchitis, Hx COPD, Hx Pneumonia, Hx Tuberculosis Neurological Medical History: Denies: Hx Cerebrovascular Accident, Hx Seizures Endocrine Medical History: Reports: Hx Diabetes Mellitus Type 2 Renal/ Medical History: Denies: Hx Peritoneal Dialysis GI Medical History: Reports: Hx Hiatal Hernia, Hx Ulcer - 50 YEARS AGO. Denies: Hx Hepatitis Musculoskeletal Medical History: Denies Hx Arthritis Psychiatric Medical History: Reports: Hx Depression Infectious Medical History: Denies: Hx Hepatitis Past Surgical History: Reports: Hx Cholecystectomy, Hx Orthopedic Surgery - back, Hx Rectal Surgery, Hx Tubal Ligation. Denies: Hx Mastectomy, Hx Open Heart Surgery, Hx Pacemaker - Immunizations Hx Diphtheria, Pertussis, Tetanus Vaccination: Yes Hx Pneumococcal Vaccination: 06/26/13 Review of Systems - Review of Systems Constitutional: See HPI EENT: See HPI Cardiovascular: See HPI Respiratory: See HPI Gastrointestinal: No symptoms reported Genitourinary: No symptoms reported Female Genitourinary: No symptoms reported Musculoskeletal: No symptoms reported Skin: No symptoms reported Hematologic/Lymphatic: No symptoms reported Neurological/Psychological: No symptoms reported Physical Exam - Vital signs Vitals: Resp 11 L 09/15/18 19:46 - Notes Notes: GENERAL: Alert, interacts well. Moderate respiratory distress, tachypneic and in tripod position. HEAD: Normocephalic, atraumatic. EYES: Pupils equal, round, and reactive to light. Extraocular movements intact. ENT: Oral mucosa moist, tongue midline. NECK: Full range of motion. Supple. Trachea midline. LUNGS: Inspiratory expiratory wheeze heard bilateral apices, diminished with very little air movement bilateral bases. Patient speaks in 3 word sentences but states that this is her normal respiratory effort. States she has not necessarily worried about her respiratory effort she is just worried because her bilateral lower extremities have been more swollen than normal. HEART: Regular rate and rhythm. No murmur ABDOMEN: Soft, non-tender. Non-distended. Bowel sounds present in all 4 quadrants. EXTREMITIES: Moves all 4 extremities spontaneously. normal radial and dorsalis pedis pulses bilaterally. No cyanosis. +1 pitting edema noted to bilateral knees bilaterally. BACK: no cervical, thoracic, lumbar midline tenderness. No saddle anesthesia, normal distal neurovascular exam. NEUROLOGICAL: Alert and oriented x3. Normal speech. Is cranial nerves II through XII grossly intact PSYCH: Normal affect, normal mood. SKIN: Warm, dry, normal turgor. No rashes or lesions noted. Course - Re-evaluation Re-evalutation: Patient's labs show no signs of leukocytosis. Her VBG did reveal a PCO2 of 83.3 with a pH of 7.30. Patient's PCO2 appears to be elevated every time she is in the emergency department and she is compensated as her pH is normal. Patient's initial troponin was 0.015 her BNP was 975 which is also downtrending from patient's recent visits. Patient's chest x-ray does show left basilar pneumonia and she was treated for such in the emergency room. Patient does not currently meet curb 65 criteria for admission. I attempted to get the patient up to walk around. Patient states at home she typically walks with a walker or a cane states she does not do much walking but is able to get around her house. Patient initially stood up and walked to the doorway of the patient room and stated that she had increased respiratory distress, felt g eneralized weakness and had to sit down. Patient's oxygen saturation at that time maintained around 93% on 3 L oxygen which she is on all the time. Discussed this case with patient's primary care doctor Dr. Barber who states he will admit the patient for observation due to her increased dyspnea on exertion and diagnosis of pneumonia. - Vital Signs Vital signs: Temp Pulse Resp BP Pulse Ox 98.1 F 97 20 126/86 H 97 09/16/18 03:08 09/16/18 04:17 09/16/18 04:17 09/16/18 03:10 09/16/18 04:17 - Laboratory Result Diagrams: 09/15/18 20:10 09/15/18 19:52 Laboratory results interpreted by me: 09/15/18 09/15/18 09/15/18 19:52 19:52 20:10 RBC 3.20 L Hgb 9.1 L Hct 27.7 L RDW 15.1 H VBG pCO2 VBG HCO3 Chloride 93 L Carbon Dioxide 42 H* Est GFR ( Amer) 51 L Est GFR (Non-Af Amer) 42 L Glucose 153 H Creatine Kinase < 20 L NT-Pro-B Natriuret Pep 975 H Total Protein 5.8 L Albumin 3.2 L 09/15/18 21:25 RBC Hgb Hct RDW VBG pCO2 83.3 H* VBG HCO3 40.1 H Chloride Carbon Dioxide Est GFR ( Amer) Est GFR (Non-Af Amer) Glucose Creatine Kinase NT-Pro-B Natriuret Pep Total Protein Albumin Discharge - Discharge Clinical Impression: Pneumonia Qualifiers: Pneumonia type: due to unspecified organism Laterality: left Lung location: lower lobe of lung Qualified Code(s): J18.1 - Lobar pneumonia, unspecified organism Condition: Stable Disposition: ADMITTED OBSERVATION Admitting Provider: Sunil Unit Admitted: Medical Floor
--- NOTE | 2018-09-15 20:28 | RADIOLOGY REPORT (SQ) ---
EXAM DESCRIPTION: XR CHEST 1 VIEW COMPLETED DATE/TME: 09/15/2018 19:52 CLINICAL HISTORY: 83 years, Female, CP COMPARISON: X-ray chest 08/31/2018 NUMBER OF VIEWS: TECHNIQUE: LIMITATIONS: None. FINDINGS: There is patchy infiltrate at the left lung base, compatible with pneumonia. This is a new finding, as compared with the prior chest x-ray. There is emphysema. There is tortuosity of the thoracic aorta. There is a small to moderate-sized hiatal hernia. The heart is normal in size. No evidence of heart failure. IMPRESSION: Left basilar pneumonia. Other findings as described. copyright 2010 [employer]- All Rights Reserved
[2018-09-15 20:31] LABS: ABSOLUTE EOSINOPHILS # (AUTO) 0.2 10^3/uL (0.0-0.6); ABSOLUTE LYMPHOCYTES (AUTO) 1.2 10^3/uL (0.5-4.7); ABSOLUTE MONOCYTES (AUTO) 0.4 10^3/uL (0.1-1.4); ABSOLUTE NEUT (AUTO) 6.3 10^3/uL (1.7-8.2); BASOPHILS % (AUTO) 0.6 % (0-2); EOSINOPHILS % (AUTO) 2.1 % (0-6); HEMATOCRIT 27.7 % (36.0-47.0); HEMOGLOBIN 9.1 g/dL (12.0-15.5); LYMPHOCYTES % (AUTO) 15.1 % (13-45); MEAN CORPUSCULAR HEMOGLOBIN 28.5 pg (27.0-33.4); MEAN CORPUSCULAR VOLUME 87 fl (80-97); MONOCYTES % (AUTO) 4.4 % (3-13); PLATELET COUNT 391 10^3/uL (150-450); RED CELL DISTRIBUTION WIDTH 15.1 % (11.5-14.0); SEGMENTED NEUTROPHILS % (AUTO) 77.8 % (42-78); TOTAL CELLS COUNTED % (AUTO) 100 %; WHITE BLOOD COUNT 8.1 10^3/uL (4.0-10.5)
[2018-09-15 20:36] LABS: INTERNATIONAL RATION (INR) 0.85; PROTHROMBIN TIME 12.1 SEC (11.4-15.4)
[2018-09-15] MEDS ORDERED: CEFTRIAXONE 1 GM/D5W RTU 1 GM/50 ML RTUPB IV ONE (20:42)
[2018-09-15] MEDS ORDERED: DOXYCYCLINE HYCLATE INJ 100 MG VIAL IV ONE (20:45)
[2018-09-15 20:47] LABS: ALANINE AMINOTRANSFERASE 26 U/L (9-52); ALBUMIN 3.2 g/dL (3.5-5.0); ALKALINE PHOSPHATASE 113 U/L (38-126); ASPARTATE AMINO TRANSFERASE 14 U/L (14-36); BILIRUBIN,DIRECT 0.2 mg/dL (0.0-0.4); BILIRUBIN,TOTAL 0.3 mg/dL (0.2-1.3); BLOOD UREA NITROGEN 16 mg/dL (7-20); CALCIUM 8.5 mg/dL (8.4-10.2); CHLORIDE 93 mmol/L (98-107); GLUCOSE 153 mg/dL (75-110); SODIUM 140.7 mmol/L (137-145); TOTAL PROTEIN 5.8 g/dL (6.3-8.2)
[2018-09-15 20:57] LABS: ANION GAP 6 (5-19); CREATINE KINASE < 20 U/L (30-135)
[2018-09-15 20:59] LABS: CREATINE KINASE MB 0.97 ng/mL (<4.55); TROPONIN I 0.015 ng/mL
[2018-09-15 21:00] LABS: CARBON DIOXIDE 42 mmol/L (22-30)
[2018-09-15 21:35] LABS: VENOUS BLOOD BASE EXCESS 11.4 mmol/L; VENOUS BLOOD HCO3 40.1 mmol/L (20-32); VENOUS BLOOD PH 7.3 (7.30-7.42)
[2018-09-15 21:39] LABS: VENOUS BLOOD PCO2 83.3 mmHg (35-63)
[2018-09-16] MEDS ORDERED: DEXTROSE 40% GEL 15 GM TUBE PO PRN (03:30)
[2018-09-16] MEDS ORDERED: DEXTROSE 40% GEL 15 GM TUBE X 2 PO PRN (03:30)
[2018-09-16] MEDS ORDERED: GLUCAGON,HUMAN RECOMB 1 MG INJ IM PRN (03:30)
[2018-09-16] MEDS ORDERED: DEXTROSE 50%-WATER SYRINGE 25 GM/50 ML DOSE IV PRN (03:30)
[2018-09-16] MEDS ORDERED: DEXTROSE 50%-WATER SYRINGE 12.5 GM/25 ML DOSE IV PRN (03:30)
[2018-09-16] MEDS: IPRATROPIUM/ALBUTEROL 0.5-2.5 MG/3 ML AMPUL NEB SCH ×6 (04:17→23:54)
[2018-09-16] MEDS: METHYLPREDNISOLONE INJ 40 MG/1 ML SDV IV SCH ×3 (06:13→22:31)
[2018-09-16] MEDS: INSULIN LISPRO 100 UNIT/ML 3 ML VIAL SUBCUT PRN ×4 (06:26→22:33)
[2018-09-16 09:30] LABS: ARTERIAL BLOOD H2CO3 1.89 mmol/L (1.05-1.35); ARTERIAL BLOOD HCO3 42.1 mmol/L (20-24); ARTERIAL BLOOD O2 SATURATION 92.5 % (94-98); ARTERIAL BLOOD PCO2 62.9 mmHg (35-45); ARTERIAL BLOOD PH 7.44 (7.35-7.45); ARTERIAL BLOOD PO2 64.1 mmHg (80-100); ARTERIAL BLOOD TOTAL CO2 44.1 mmol/L (21-25)
[2018-09-16 09:33] LABS: ARTERIAL BLOOD FIO2 2L
[2018-09-16] MEDS: DOXYCYCLINE HYCLATE 100 MG in DEXTROSE 5%-WATER 250 ML IV SCH ×2 (09:58→22:32)
[2018-09-16] MEDS: ACETAMINOPHEN 325 MG TABLET PO PRN ×2 (14:17→22:29)
[2018-09-16] MEDS: CEFTRIAXONE 1 GM/D5W RTU 1 GM/50 ML RTUPB IV SCH (17:13)
--- NOTE | 2018-09-16 18:00 | EKG REPORT ---
SEVERITY:- NORMAL ECG - SINUS RHYTHM : Confirmed by: Chula De Paz 16-Sep-2018 18:00:04
--- NOTE | 2018-09-16 19:20 | PDOC H&P ---
History of Present Illness Admission Date/PCP: 09/15/18 23:29 BIENVENIDO CYRIL Patient complains of: Weakness, Shortness of breath History of Present Illness: SRINIVASA WINN is a 83 year old female patient known to my practice who was recently discharged from this hospital. She was brought back to the ED by EMS due to complaint of shortness of breath, nonradiating chest pain, postprandial vomiting, increase coughing and chest congestion. Also, she was concern about her leg swelling. Her oxygen saturation on room air! was reported at 89%. She is oxygen dependent end stage COPD patient and this in unexpected. Her oxygen saturation came up to 99% on her usual baseline 3L/min supplemental oxygen via nasal cannula. She was treated in the field by EMS with DuoNeb and IV Solu Medrol. She denied any definite fever or chills. She denied palpitation or diaphoresis. She denied any dizziness or LOC. No nasal or sinus congestion. No post nasal drip. She expressed concern about constipation and some misalignment in her esophagus that made her swallowing delayed and she had to wait awhile between swallowing. She was admitted due to concern for new airspace disease on her chest X ray that suggested pneumonia. Her morbidities include Coronary Artery Disease, Hypertension, Hyperlipidemia, COPD, Diabetes Mellitus Type 2, Hiatal Hernia, and Depression. Past Medical History Cardiac Medical History: Reports: Coronary Artery Disease, Hyperlipidema, Hypertension Denies: Myocardial Infarction Pulmonary Medical History: Reports: Asthma, Bronchitis, Chronic Obstructive Pulmonary Disease (COPD), Pneumonia, Tuberculosis Neurological Medical History: Denies: Seizures Endocrine Medical History: Reports: Diabetes Mellitus Type 2 GI Medical History: Reports: Hiatal Hernia Denies: Hepatitis Musculoskeltal Medical History: Denies: Arthritis Psychiatric Medical History: Reports: Depression Hematology: Reports: Anemia - NOW Denies: Sickle Cell Disease Past Surgical History Past Surgical History: Reports: Cholecystectomy, Orthopedic Surgery - back, Tubal Ligation Denies: Amputation, Mastectomy, Pacemaker Social History Smoking Status: Current Some Day Smoker Cigarettes Packs Per Day: 1 Cigars Per Day: 0 Pipes Per Day: 0 Number of Years Smokin Last Time Smoked: yesterday Frequency of Alcohol Use: None Hx Recreational Drug Use: No Drugs: None Hx Prescription Drug Abuse: No Family History Family History: Reviewed & Not Pertinent, COPD Parental Family History Reviewed: Yes Children Family History Reviewed: Yes Sibling(s) Family History Reviewed.: Yes Medication/Allergy Home Medications: Albuterol Sulfate [Proair HFA Inhalation Aerosol 8.5 gm MDI] 2 puff IH Q4HP PRN 09/16/18 Aspirin [Aspirin 81 mg Chewable Tablet] 81 mg PO DAILY 09/16/18 Benzonatate [Tessalon [place] 100 mg Capsule] 100 mg PO TIDP PRN 09/16/18 Bupropion HCl [Wellbutrin 100 mg Tablet] 100 mg PO DAILY 09/16/18 Ciclesonide [[place] HFA] 2 puff IH BID 09/16/18 Cyclosporine 0.05% Oph Emulsio [Restasis 0.05% Oph Emulsion Pf 0.4 ml] 1 drop OU Q12 09/16/18 Docusate Sodium [Colace 100 mg Capsule] 100 mg PO DAILY 09/16/18 Fluticasone Propionate [Flonase Nasal [place] 50 Mcg/[place] 16 gm] 2 spray NASL Q12 09/16/18 Fluticasone/Salmeterol [Advair 250-50 Diskus 14 Dose/Diskus] 1 puff IH Q12 09/16/18 Gabapentin [Neurontin 300 mg Capsule] 300 mg PO DAILY 09/16/18 Insulin Lispro Protamin/Lispro [Humalog Mix 75-25 100 unit/mL] 15 units SQ BIDBS 09/16/18 Isosorbide Mononitrate [Imdur 30 mg Tablet.er] 30 mg PO DAILY 09/16/18 Levothyroxine Sodium 75 mcg PO Q6AM 09/16/18 Linaclotide [Linzess 145 Mcg Capsule] 145 mcg PO DAILY 09/16/18 Losartan Potassium [Cozaar 50 mg Tablet] 50 mg PO DAILY 09/16/18 Montelukast Sodium [Singulair 10 mg Tablet] 10 mg PO QPM 09/16/18 Nicotine [Nicoderm 7 mg/24 Hr Transdermal Patch] 1 patch TD DAILY 09/16/18 Ondansetron [Zofran Odt 4 mg Tablet] 4 mg PO Q4HP PRN 09/16/18 Pantoprazole Sodium [Protonix] 40 mg PO Q6AM 09/16/18 Prednisone [Deltasone] 10 mg PO DAILY 09/16/18 Rivastigmine [Exelon 4.6 mg/24 Hr Transdermal Patch] 1 patch TD DAILY 09/16/18 Tiotropium [place] [Spiriva Handihaler 5 Cap/Kit (18 Mcg/Cap)] 1 cap IH DAILY 09/16/18 Torsemide [Demadex 10 mg Tablet] 5 mg PO QAM 09/16/18 Allergies/Adverse Reactions: erythromycin base [Erythromycin Base] Allergy (Verified 08/31/18 13:52) furosemide [From Lasix] Allergy (Verified 08/31/18 13:52) levofloxacin [From Levaquin] Allergy (Verified 08/31/18 13:52) metformin HCl [From Glucophage] Allergy (Verified 08/31/18 13:52) SWELLING FACE Penicillins Allergy (Verified 08/31/18 13:52) pioglitazone HCl [From Actos] Allergy (Verified 08/31/18 13:52) SWELLING FACE Utfhspc-Ygr-Fxk Reductase Inhibitor Allergy (Verified 08/31/18 13:52) MUSCLE PAIN Sulfa (Sulfonamide Antibiotics) Allergy (Verified 08/31/18 13:52) SICK sulfamethoxazole [From Bactrim] Allergy (Verified 08/31/18 13:52) SICK trimethoprim [From Bactrim] Allergy (Verified 08/31/18 13:52) SICK Iodinated Contrast- Oral and IV Dye Adverse Reaction (Verified 08/31/18 13:52) Review of Systems Constitutional: PRESENT: weakness Eyes: PRESENT: visual disturbances Ears: PRESENT: hearing changes Cardiovascular: PRESENT: chest pain, dyspnea on exertion, edema Respiratory: PRESENT: cough, dyspnea Gastrointestinal: PRESENT: constipation, vomiting Genitourinary: ABSENT: dysuria, hematuria Musculoskeletal: PRESENT: deformity - related to multiple joints involvement with arthritis Integumentary: ABSENT: rash, wounds Neurological: ABSENT: abnormal gait, abnormal speech, confusion, dizziness, focal weakness, syncope Psychiatric: ABSENT: anxiety, depression, homidical ideation, suicidal ideation Endocrine: ABSENT: cold intolerance, heat intolerance, polydipsia, polyuria Hematologic/Lymphatic: ABSENT: easy bleeding, easy bruising, lymphadenopathy Allergic/Immunologic: ABSENT: seasonal rhinorrhea Physical Exam Vital Signs: Temp Pulse Resp BP Pulse Ox 97.8 F 81 18 138/46 H 96 09/16/18 08:13 09/16/18 08:13 09/16/18 08:13 09/16/18 08:13 09/16/18 08:13 Intake & Output 09/15/18 09/16/18 09/17/18 06:59 06:59 06:59 Intake Total 50 Balance 50 Weight 54.2 kg General appearance: PRESENT: mild distress - with supplemental oxygen via nasal cannula at 3L/min Head exam: PRESENT: atraumatic, normocephalic Eye exam: PRESENT: conjunctiva pink, EOMI, PERRLA. ABSENT: scleral icterus Ear exam: PRESENT: normal external ear exam Mouth exam: PRESENT: moist, other - oral thrush lesions on soft palate Teeth exam: PRESENT: edentulous Neck exam: PRESENT: full ROM. ABSENT: carotid bruit, JVD, lymphadenopathy, thyromegaly Respiratory exam: PRESENT: decreased breath sounds - at lung bases, prolonged expiratory phas, rhonchi Cardiovascular exam: PRESENT: RRR. ABSENT: diastolic murmur, rubs, systolic murmur Vascular exam: PRESENT: normal capillary refill. ABSENT: pallor GI/Abdominal exam: PRESENT: normal bowel sounds, soft. ABSENT: distended, gua rding, mass, organolmegaly, rebound, tenderness Rectal exam: PRESENT: deferred Extremities exam: PRESENT: pedal edema - minimal 1+ pitting edema bilaterally Musculoskeletal exam: PRESENT: deformity - related to multiple joints involvement with arthritis Neurological exam: PRESENT: alert, awake, oriented to person, oriented to place, oriented to time, oriented to situation, CN II-XII grossly intact. ABSENT: motor sensory deficit Psychiatric exam: PRESENT: appropriate affect, normal mood. ABSENT: homicidal ideation, suicidal ideation Skin exam: PRESENT: dry, warm Results Laboratory Results: 09/15/18 20:10 09/15/18 19:52 09/15/18 09/15/18 09/15/18 19:52 20:10 21:25 WBC 8.1 RBC 3.20 L Hgb 9.1 L Hct 27.7 L MCV 87 MCH 28.5 MCHC 33.0 RDW 15.1 H Plt Count 391 Seg Neutrophils % 77.8 Lymphocytes % 15.1 Monocytes % 4.4 Eosinophils % 2.1 Basophils % 0.6 Absolute Neutrophils 6.3 Absolute Lymphocytes 1.2 Absolute Monocytes 0.4 Absolute Eosinophils 0.2 Absolute Basophils 0.0 VBG pH 7.30 VBG pCO2 83.3 H* VBG HCO3 40.1 H VBG Base Excess 11.4 Sodium 140.7 Potassium 5.0 Chloride 93 L Carbon Dioxide 42 H* Anion Gap 6 BUN 16 Creatinine 1.22 Est GFR ( Amer) 51 L Est GFR (Non-Af Amer) 42 L Glucose 153 H Calcium 8.5 Total Bilirubin 0.3 AST 14 ALT 26 Alkaline Phosphatase 113 Total Protein 5.8 L Albumin 3.2 L 09/15/18 09/15/18 09/15/18 19:52 19:52 23:51 Creatine Kinase < 20 L CK-MB (CK-2) 0.97 Troponin I 0.015 0.013 NT-Pro-B Natriuret Pep 975 H Impressions: Chest X-Ray 09/15/18 19:52 IMPRESSION: Left basilar pneumonia. Other findings as described. copyright 2010 [employer]- All Rights Reserved Assessment & Plan - Diagnosis (1) Pneumonia of left lower lobe due to infectious organism Is this a current diagnosis for this admission?: Yes Plan: Maintain on IV Doxycycline and Rocephin coverage. Obtain sputum gram stain and culture for further evaluation. (2) Chronic respiratory failure with hypercapnia Is this a current diagnosis for this admission?: Yes Plan: Maintain on supplemental oxygen therapy as per her long standing need. (3) End stage chronic obstructive pulmonary disease Is this a current diagnosis for this admission?: Yes Plan: Maintain on bronchodilators. Maintain on low dose IV Solu Medrol in view of her possible infectious process. (4) Diabetes mellitus type 2 in nonobese Is this a current diagnosis for this admission?: Yes Plan: Continue preadmission medication management with Humalog sliding scale insulin coverage. (5) HTN (hypertension) Qualifiers: Hypertension type: essential hypertension Qualified Code(s): I10 - Essential (primary) hypertension Is this a current diagnosis for this admission?: Yes Plan: Continue her preadmission medication management. (6) CAD (coronary artery disease) Qualifiers: Coronary Disease-Associated Artery/Lesion type: [place] artery Associated angina: without angina Is this a current diagnosis for this admission?: Yes Plan: Continue her preadmission medication management. (7) HLD (hyperlipidemia) Qualifiers: Hyperlipidemia type: pure hypercholesterolemia Qualified Code(s): E78.00 - Pure hypercholesterolemia, unspecified; E78.0 - Pure hypercholesterolemia Is this a current diagnosis for this admission?: Yes Plan: Continue her preadmission medication management. (8) Hiatal hernia with GERD Is this a current diagnosis for this admission?: Yes Plan: Continue her preadmission medication management. Obtain barium swallow evaluation due to her report of possible achalasia and associated postprandial vomiting. Maintain on Glucerna supplementation with meals. (9) Hypothyroidism (acquired) Is this a current diagnosis for this admission?: Yes Plan: Continue her preadmission medication management. (10) Thrush, oral Is this a current diagnosis for this admission?: Yes Plan: Start on clotrimazole aristides therapy. - Time Time Spent: 50 to 70 Minutes Medications reviewed and adjusted accordingly: Yes Anticipated discharge: Home with Homehealth Within: Other - Inpatient Certification Based on my medical assessment, after consideration of the patient's comorbidities, presenting symptoms, or acuity I expect that the services needed warrant INPATIENT care.: Yes I certify that my determination is in accordance with my understanding of [facility]'s requirements for reasonable and necessary INPATIENT services [42 CFR 412.3e].: Yes Medical Necessity: Significant Comorbidiites Make Outpatient Treatment Too Risky, Need Close Monitoring Due to Risk of Patient Decompensation, Need For IV Fluids, Need For Continuous Telemetry Monitoring, Need for Nebulizer Therapy and Monitoring of Response, Need for IV Antibiotics, Risk of Complication if Not Cared For in Hospital Post Hospital Care: D/C Mannequin Decorator Documentation - Plan Summary Plan Summary: See admitting attending physician orders as per outlined care plan.
[2018-09-16] MEDS ORDERED: [UNRECOGNIZED DRUG - OTHER] SQ SCH (19:30)
[2018-09-16] MEDS ORDERED: INSULIN LISPRO PROTAMIN SQ SCH (19:30)
[2018-09-16] MEDS ORDERED: LISPRO SQ SCH (19:30)
[2018-09-16] MEDS ORDERED: (PENDING PHARMACY ID) (Linaclotide 145 MCG) PO SCH (19:30)
[2018-09-16] MEDS: ONDANSETRON 4 MG TAB.RAPDIS PO PRN (20:34)
[2018-09-16] MEDS: ISOSORBIDE MONONITRATE 30 MG TAB.ER.24H PO SCH (20:34)
[2018-09-16] MEDS: CLOTRIMAZOLE 10 MG TROCHE PO SCH (22:29)
[2018-09-16] MEDS: FLUTICASONE NASAL SPRAY 50 MCG/SPRY 120 SPRAY/16 GM NASL SCH (22:30)
[2018-09-16] MEDS: CYCLOSPORINE 0.05% OPH EMULSIO 0.4 ML DROPERETTE OU SCH (22:31)
[2018-09-17] MEDS: IPRATROPIUM/ALBUTEROL 0.5-2.5 MG/3 ML AMPUL NEB SCH ×5 (03:21→20:46)
[2018-09-17] MEDS: LEVOTHYROXINE SODIUM 0.075 MG TABLET PO SCH (06:40)
[2018-09-17] MEDS: METHYLPREDNISOLONE INJ 40 MG/1 ML SDV IV SCH ×3 (06:40→22:03)
[2018-09-17] MEDS: INSULIN LISPRO 100 UNIT/ML 3 ML VIAL SUBCUT PRN ×3 (07:39→22:03)
[2018-09-17] MEDS ORDERED: TORSEMIDE 5 MG PO SCH (08:00)
[2018-09-17 08:44] LABS: HEMATOCRIT 25.8 % (36.0-47.0); HEMOGLOBIN 8.6 g/dL (12.0-15.5); MEAN CORPUSCULAR HEMOGLOBIN 28.4 pg (27.0-33.4); MEAN CORPUSCULAR HGB CONC 33.5 g/dL (32.0-36.0); MEAN CORPUSCULAR VOLUME 85 fl (80-97); PLATELET COUNT 429 10^3/uL (150-450); RED BLOOD COUNT 3.04 10^6/uL (3.72-5.28); RED CELL DISTRIBUTION WIDTH 14.7 % (11.5-14.0)
[2018-09-17 09:05] LABS: ABSOLUTE LYMPHOCYTES# (MANUAL) 0.5 10^3/uL (0.5-4.7); ABSOLUTE MONOCYTES # (MANUAL) 0.1 10^3/uL (0.1-1.4); ABSOLUTE NEUTROPHILS# (MANUAL) 6.4 10^3/uL (1.7-8.2); BAND NEUTROPHILS % (MANUAL) 7 % (3-5); BASOPHILS % (MANUAL) 0 % (0-2); EOSINOPHILS % (MANUAL) 0 % (0-6); LYMPHOCYTES % (MANUAL) 6 % (13-45); MONOCYTES % (MANUAL) 1 % (3-13); SEGMENTED NEUTROPHILS % (MAN) 85 % (42-78); TOTAL CELLS COUNTED 100
[2018-09-17 09:06] LABS: PLATELET COMMENT ADEQUATE; RBC MORPHOLOGY COMMENT NORMO-CYTIC/CHROMIC
[2018-09-17 09:12] LABS: ANION GAP 9 (5-19); BLOOD UREA NITROGEN 26 mg/dL (7-20); CARBON DIOXIDE 37 mmol/L (22-30); CHLORIDE 90 mmol/L (98-107); GLUCOSE 197 mg/dL (75-110); POTASSIUM 5.2 mmol/L (3.6-5.0); SODIUM 135.8 mmol/L (137-145)
[2018-09-17] MEDS: ASPIRIN 81 MG TABLET, CHEWABLE PO SCH (09:12)
[2018-09-17] MEDS: BUPROPION HCL 100 MG TABLET PO SCH (09:13)
[2018-09-17] MEDS: GABAPENTIN 300 MG CAPSULE PO SCH (09:13)
[2018-09-17] MEDS: DOCUSATE SODIUM 100 MG CAPSULE PO SCH (09:13)
[2018-09-17] MEDS: LOSARTAN POTASSIUM 50 MG TABLET PO SCH (09:13)
[2018-09-17] MEDS: CYCLOSPORINE 0.05% OPH EMULSIO 0.4 ML DROPERETTE OU SCH ×2 (09:14→22:05)
[2018-09-17] MEDS: NICOTINE 7 MG/24 HR PATCH.TD24 TD SCH (09:14)
[2018-09-17] MEDS: ISOSORBIDE MONONITRATE 30 MG TAB.ER.24H PO SCH (09:14)
[2018-09-17] MEDS: CLOTRIMAZOLE 10 MG TROCHE PO SCH ×4 (09:14→22:04)
[2018-09-17] MEDS: RIVASTIGMINE 4.6 MG/24 HR PATCH.TD24 TD SCH (09:14)
[2018-09-17] MEDS: TIOTROPIUM BROMIDE DPI 5 CAP/KIT (18 MCG/CAP) IH SCH (09:15)
[2018-09-17] MEDS: FLUTICASONE NASAL SPRAY 50 MCG/SPRY 120 SPRAY/16 GM NASL SCH ×3 (09:15→22:17)
[2018-09-17] MEDS: DOXYCYCLINE HYCLATE 100 MG in DEXTROSE 5%-WATER 250 ML IV SCH ×2 (09:15→22:06)
--- NOTE | 2018-09-17 14:35 | RADIOLOGY REPORT (SQ) ---
EXAM DESCRIPTION: BARIUM SWALLOW ESOPHAGUS COMPLETED DATE/TIME: 09/17/2018 11:03 am REASON FOR STUDY: Difficulty with swallowing COMPARISON: None. TECHNIQUE: Under fluoroscopic guidance, patient ingested thin barium. Fluoroscopic spot images and r outine radiographic images acquired and stored on PACS. LIMITATIONS: Patient was unable to stand or lie flat on the table. Very limited study FLUOROSCOPY TIME: 1 minutes 37 seconds of fluoroscopy was used. 24 images saved to PACS. FINDINGS: NEUROMUSCULAR COORDINATION OF SWALLOW: Normal. No aspiration. ESOPHAGEAL MOTILITY: Esophagus has corkscrew appearance consistent with esophageal spasm. ESOPHAGEAL MUCOSA: Normal mucosa without masses or ulceration. GASTRO-ESOPHAGEAL JUNCTION: There is a large paraesophageal hernia that appears to compress the dista l esophagus slowing flow into the stomach. No gastroesophageal reflux was appreciated. NON-GI TRACT STRUCTURES: No significant finding. OTHER: No other significant finding. IMPRESSION: VERY LIMITED STUDY SHOWS ESOPHAGEAL SPASM AND PARAESOPHAGEAL HERNIA CAUSING COMPRESSION OF THE DISTAL ESOPHAGUS RESTRICTING THE FLOW OF CONTRAST INTO THE STOMACH. COMMENT: Quality ID [id number]: Final reports for procedures using fluoroscopy that document radiation exp osure indices, or exposure time and number of fluorographic images (if radiation exposure indices are not available) TECHNICAL DOCUMENTATION: JOB ID: [id number] [email or web address]- All Rights Reserved Reading location - IP/workstation name: [email or web address]
[2018-09-17] MEDS: MONTELUKAST SODIUM 10 MG TABLET PO SCH (17:07)
[2018-09-17] MEDS: CEFTRIAXONE 1 GM/D5W RTU 1 GM/50 ML RTUPB IV SCH (17:07)
--- NOTE | 2018-09-17 17:38 | PDOC PROGRESS REPORT ---
Subjective Progress Note for:: 09/17/18 Subjective:: Patient continue to expressed difficulty with swallowing solid food. No nausea or vomiting. Remain on supplemental oxygen therapy. No fever or chills. No significant coughing. Reason For Visit: PNEUMONIA Physical Exam Vital Signs: Temp Pulse Resp BP Pulse Ox 98.0 F 109 H 16 146/69 H 98 09/17/18 04:55 09/17/18 07:00 09/17/18 04:55 09/17/18 04:55 09/17/18 04:55 Intake & Output 09/16/18 09/17/18 09/18/18 06:59 06:59 06:59 Intake Total 50 787 Balance 50 787 Weight 54.2 kg 49.4 kg General appearance: PRESENT: mild distress - remain on supplemental oxygen. Head exam: PRESENT: atraumatic, normocephalic Eye exam: PRESENT: conjunctiva pink, EOMI, PERRLA. ABSENT: scleral icterus Ear exam: PRESENT: normal external ear exam Mouth exam: PRESENT: moist Respiratory exam: PRESENT: decreased breath sounds - at lung bases Cardiovascular exam: PRESENT: RRR. ABSENT: diastolic murmur, rubs, systolic murmur Vascular exam: ABSENT: pallor GI/Abdominal exam: PRESENT: normal bowel sounds, rebound, soft. ABSENT: te nderness Extremities exam: ABSENT: pedal edema Musculoskeletal exam: PRESENT: deformity - severe thoracic kyphosis. ABSENT: tenderness Neurological exam: PRESENT: alert, awake, oriented to person, oriented to place, oriented to time, oriented to situation, CN II-XII grossly intact. ABSENT: motor sensory deficit Psychiatric exam: PRESENT: appropriate affect, normal mood. ABSENT: homicidal ideation, suicidal ideation Skin exam: PRESENT: dry, warm Results Laboratory Results: 09/15/18 20:10 09/15/18 19:52 09/16/18 09:05 Carbonic Acid 1.89 H HCO3/H2CO3 Ratio 22:1 ABG pH 7.44 ABG pCO2 62.9 H ABG pO2 64.1 L ABG HCO3 42.1 H ABG O2 Saturation 92.5 L ABG Base Excess 16.0 FiO2 2L 09/15/18 09/15/18 09/15/18 19:52 19:52 23:51 Creatine Kinase < 20 L CK-MB (CK-2) 0.97 Troponin I 0.015 0.013 NT-Pro-B Natriuret Pep 975 H Impressions: Chest X-Ray 09/15/18 19:52 IMPRESSION: Left basilar pneumonia. Other findings as described. copyright 2010 [employer] All Rights Reserved Assessment & Plan - Diagnosis (1) Pneumonia of left lower lobe due to infectious organism Is this a current diagnosis for this admission?: Yes (2) Chronic respiratory failure with hypercapnia Is this a current diagnosis for this admission?: Yes (3) End stage chronic obstructive pulmonary disease Is this a current diagnosis for this admission?: Yes (4) Diabetes mellitus type 2 in nonobese Is this a current diagnosis for this admission?: Yes (5) HTN (hypertension) Qualifiers: Hypertension type: essential hypertension Qualified Code(s): I10 - Essential (primary) hypertension Is this a current diagnosis for this admission?: Yes (6) CAD (coronary artery disease) Qualifiers: Coronary Disease-Associated Artery/Lesion type: [place] artery Associated angina: without angina Is this a current diagnosis for this admission?: Yes (7) HLD (hyperlipidemia) Qualifiers: Hyperlipidemia type: pure hypercholesterolemia Qualified Code(s): E78.00 - Pure hypercholesterolemia, unspecified; E78.0 - Pure hypercholesterolemia Is this a current diagnosis for this admission?: Yes (8) Hiatal hernia with GERD Is this a current diagnosis for this admission?: Yes (9) Hypothyroidism (acquired) Is this a current diagnosis for this admission?: Yes (10) Thrush, oral Is this a current diagnosis for this admission?: Yes (11) Esophageal spasm Is this a current diagnosis for this admission?: Yes Plan: I will request GI consultation with Dr. Iraheta. - Time Time Spent with patient: 25-34 minutes Medications reviewed and adjusted accordingly: Yes Anticipated discharge: Home with Homehealth Within: Other - Inpatient Certification Based on my medical assessment, after consideration of the patient's comorbidities, presenting symptoms, or acuity I expect that the services needed warrant INPATIENT care.: Yes I certify that my determination is in accordance with my understanding of Medicare's requirements for reasonable and necessary INPATIENT services [42 CFR 412.3e].: Yes Medical Necessity: Need Close Monitoring Due to Risk of Patient Decompensation, Need For IV Fluids, Need For Continuous Telemetry Monitoring, Need for Nebulizer Therapy and Monitoring of Response, Need for IV Antibiotics, Risk of Complication if Not Cared For in Hospital, Risk of Diagnosis Which Will Require Inpatient Eval/Care/Monitoring Post Hospital Care: D/C Bargain Table Clerk Documentation - Plan Summary Plan Summary: Continue current antibiotic therapy. Request GI consultation with Dr. Iraheta regarding esophageal spasm and paraesophageal hernia with inlet obstruction.
[2018-09-17] MEDS: ACETAMINOPHEN 325 MG TABLET PO PRN (20:58)
[2018-09-18] MEDS: IPRATROPIUM/ALBUTEROL 0.5-2.5 MG/3 ML AMPUL NEB SCH ×6 (00:18→20:07)
[2018-09-18] MEDS: METHYLPREDNISOLONE INJ 40 MG/1 ML SDV IV SCH ×3 (05:18→21:39)
[2018-09-18] MEDS: LEVOTHYROXINE SODIUM 0.075 MG TABLET PO SCH (05:18)
[2018-09-18] MEDS: INSULIN LISPRO 100 UNIT/ML 3 ML VIAL SUBCUT PRN ×3 (08:16→18:50)
[2018-09-18] MEDS: DOXYCYCLINE HYCLATE 100 MG in DEXTROSE 5%-WATER 250 ML IV SCH ×2 (11:29→23:20)
[2018-09-18] MEDS: CLOTRIMAZOLE 10 MG TROCHE PO SCH ×4 (11:31→21:38)
[2018-09-18] MEDS: ASPIRIN 81 MG TABLET, CHEWABLE PO SCH (11:31)
[2018-09-18] MEDS: ISOSORBIDE MONONITRATE 30 MG TAB.ER.24H PO SCH (11:32)
[2018-09-18] MEDS: TIOTROPIUM BROMIDE DPI 5 CAP/KIT (18 MCG/CAP) IH SCH (11:32)
[2018-09-18] MEDS: BUPROPION HCL 100 MG TABLET PO SCH (11:33)
[2018-09-18] MEDS: GABAPENTIN 300 MG CAPSULE PO SCH (11:33)
[2018-09-18] MEDS: LOSARTAN POTASSIUM 50 MG TABLET PO SCH (11:33)
[2018-09-18] MEDS: DOCUSATE SODIUM 100 MG CAPSULE PO SCH (11:34)
[2018-09-18] MEDS: CYCLOSPORINE 0.05% OPH EMULSIO 0.4 ML DROPERETTE OU SCH ×2 (11:34→21:39)
[2018-09-18] MEDS: NICOTINE 7 MG/24 HR PATCH.TD24 TD SCH (11:35)
[2018-09-18] MEDS: RIVASTIGMINE 4.6 MG/24 HR PATCH.TD24 TD SCH (11:40)
[2018-09-18] MEDS: FLUTICASONE NASAL SPRAY 50 MCG/SPRY 120 SPRAY/16 GM NASL SCH ×3 (11:40→21:39)
[2018-09-18] MEDS: BENZONATATE 100 MG CAPSULE PO PRN ×2 (12:53→21:38)
[2018-09-18] MEDS: CEFTRIAXONE 1 GM/D5W RTU 1 GM/50 ML RTUPB IV SCH (18:50)
[2018-09-18] MEDS: MONTELUKAST SODIUM 10 MG TABLET PO SCH (18:50)
--- NOTE | 2018-09-18 18:57 | PDOC PROGRESS REPORT ---
Subjective Progress Note for:: 09/18/18 Subjective:: Patient continue to demonstrate difficulty with swallowing solid food but tolerated matched potato and liquid supplements. No nausea or vomiting. No fever or chills. No significant coughing. Remain on supplemental oxygen therapy. Reason For Visit: PNEUMONIA Physical Exam Vital Signs: Temp Pulse Resp BP Pulse Ox 98.0 F 88 16 153/60 H 92 09/18/18 16:36 09/18/18 16:38 09/18/18 16:38 09/18/18 16:36 09/18/18 16:38 Intake & Output 09/17/18 09/18/18 09/19/18 06:59 06:59 06:59 Intake Total 787 790 500 Balance 787 790 500 Weight 49.4 kg 50.8 kg Physical Exam: General appearance: PRESENT: mild distress - remain on supplemental oxygen. Head exam: PRESENT: atraumatic, normocephalic Eye exam: PRESENT: conjunctiva pink, EOMI, PERRLA. ABSENT: pallor, scleral icterus Ear exam: PRESENT: normal external ear exam Mouth exam: PRESENT: moist Respiratory exam: PRESENT: decreased breath sounds - at lung bases Cardiovascular exam: PRESENT: RRR. ABSENT: diastolic murmur, rubs, systolic murmur GI/Abdominal exam: PRESENT: normal bowel sounds, rebound, soft. ABSENT: tenderness Extremities exam: ABSENT: pedal edema Musculoskeletal exam: PRESENT: deformity - severe thoracic kyphosis. ABSENT: tenderness Neurological exam: PRESENT: alert, awake, oriented to person, oriented to place, oriented to time, oriented to situation, CN II-XII grossly intact. ABSENT: motor sensory deficit Psychiatric exam: PRESENT: appropriate affect, normal mood. ABSENT: homicidal ideation, suicidal ideation Skin exam: PRESENT: dry, warm Results Laboratory Results: 09/17/18 08:21 09/17/18 08:21 09/15/18 09/15/18 09/15/18 19:52 19:52 23:51 Creatine Kinase < 20 L CK-MB (CK-2) 0.97 Troponin I 0.015 0.013 NT-Pro-B Natriuret Pep 975 H Impressions: Chest X-Ray 09/15/18 19:52 IMPRESSION: Left basilar pneumonia. Other findings as described. copyright 2010 [employer]- All Rights Reserved Esophagus X-Ray 09/17/18 00:00 IMPRESSION: VERY LIMITED STUDY SHOWS ESOPHAGEAL SPASM AND PARAESOPHAGEAL HERNIA CAUSING COMPRESSION OF THE DISTAL ESOPHAGUS RESTRICTING THE FLOW OF CONTRAST INTO THE STOMACH. Assessment & Plan - Diagnosis (1) Pneumonia of left lower lobe due to infectious organism Is this a current diagnosis for this admission?: Yes (2) Chronic respiratory failure with hypercapnia Is this a current diagnosis for this admission?: Yes (3) End stage chronic obstructive pulmonary disease Is this a current diagnosis for this admission?: Yes (4) Diabetes mellitus type 2 in nonobese Is this a current diagnosis for this admission?: Yes (5) HTN (hypertension) Qualifiers: Hypertension type: essential hypertension Qualified Code(s): I10 - Essential (primary) hypertension Is this a current diagnosis for this admission?: Yes (6) CAD (coronary artery disease) Qualifiers: Coronary Disease-Associated Artery/Lesion type: [place] artery Associated angina: without angina Is this a current diagnosis for this admission?: Yes (7) HLD (hyperlipidemia) Qualifiers: Hyperlipidemia type: pure hypercholesterolemia Qualified Code(s): E78.00 - Pure hypercholesterolemia, unspecified; E78.0 - Pure hypercholesterolemia Is this a current diagnosis for this admission?: Yes (8) Hiatal hernia with GERD Is this a current diagnosis for this admission?: Yes (9) Hypothyroidism (acquired) Is this a current diagnosis for this admission?: Yes (10) Thrush, oral Is this a current diagnosis for this admission?: Yes (11) Esophageal spasm Is this a current diagnosis for this admission?: Yes - Time Time Spent with patient: 25-34 minutes Medications reviewed and adjusted accordingly: Yes Anticipated discharge: Home Within: Other - Inpatient Certification Based on my medical assessment, after consideration of the patient's comorbidities, presenting symptoms, or acuity I expect that the services needed warrant INPATIENT care.: Yes I certify that my determination is in accordance with my understanding of Medicare's requirements for reasonable and necessary INPATIENT services [42 CFR 412.3e].: Yes Medical Necessity: Need Close Monitoring Due to Risk of Patient Decompensation, Need For IV Fluids, Need For Continuous Telemetry Monitoring, Need for IV Antibiotics, Risk of Complication if Not Cared For in Hospital Post Hospital Care: D/C Reclaimer Documentation - Plan Summary Plan Summary: Continue IV antibiotic therapy and oral Mycelex. Sputum culture grew gram negative rods with Pushpa species. I discussed case with Dr. Iraheta, store stock associate, she will be scope to rule out any intraluminal contributing pathology of her barium sallow findings. At the present time her treatment options include liquid diet versus PEG tube feeding route. Patient insisted on oral feeding with full understanding about aspiration risk. I discussed her care plan with daughter Gi at [phone]. She remain full code.
[2018-09-19] MEDS: IPRATROPIUM/ALBUTEROL 0.5-2.5 MG/3 ML AMPUL NEB SCH ×6 (00:06→20:49)
[2018-09-19] MEDS: ONDANSETRON 4 MG TAB.RAPDIS PO PRN (03:41)
[2018-09-19] MEDS: METHYLPREDNISOLONE INJ 40 MG/1 ML SDV IV SCH ×3 (05:14→21:23)
[2018-09-19] MEDS: LEVOTHYROXINE SODIUM 0.075 MG TABLET PO SCH (05:14)
[2018-09-19] MEDS: INSULIN LISPRO 100 UNIT/ML 3 ML VIAL SUBCUT PRN ×3 (08:26→21:40)
--- NOTE | 2018-09-19 10:23 | PDOC PROGRESS REPORT ---
Subjective Progress Note for:: 09/19/18 Subjective:: Patient was admitted because of the pneumonia and the difficulty in swallowing According to the patient she able to drink the liquid but difficult with a solid diet Patient scheduled for the endoscopy by Dr. Iraheta on a Friday Patient's last endoscopy was done 3 years back Patient's currently on IV antibiotic Rocephin and doxycycline Denied any chest pain denied any shortness of the breath Reason For Visit: PNEUMONIA Physical Exam Vital Signs: Temp Pulse Resp BP Pulse Ox 97.6 F 88 16 167/79 H 95 09/19/18 08:07 09/19/18 08:48 09/19/18 08:48 09/19/18 08:07 09/19/18 08:48 Intake & Output 09/18/18 09/19/18 09/20/18 06:59 06:59 06:59 Intake Total 790 1050 Balance 790 1050 Weight 50.8 kg 50.9 kg General appearance: PRESENT: no acute distress, thin Head exam: PRESENT: atraumatic, normocephalic Eye exam: PRESENT: conjunctiva pink, EOMI, PERRLA. ABSENT: scleral icterus Ear exam: PRESENT: normal external ear exam Mouth exam: PRESENT: moist, tongue midline Neck exam: PRESENT: full ROM. ABSENT: carotid bruit, JVD, lymphadenopathy, thyromegaly Respiratory exam: PRESENT: clear to auscultation ramesh Cardiovascular exam: PRESENT: RRR. ABSENT: diastolic murmur, rubs, systolic murmur Pulses: PRESENT: normal dorsalis pedis pul, +2 pedal pulses bilateral Vascular exam: PRESENT: normal capillary refill GI/Abdominal exam: PRESENT: normal bowel sounds, soft. ABSENT: distended, guarding, mass, organolmegaly, rebound, tenderness Rectal exam: PRESENT: deferred Neurological exam: PRESENT: alert, awake, oriented to person, oriented to place, oriented to time, oriented to situation. ABSENT: motor sensory deficit Psychiatric exam: PRESENT: appropriate affect, normal mood. ABSENT: homicidal ideation, suicidal ideation Skin exam: PRESENT: dry, intact, warm. ABSENT: cyanosis, rash Results Laboratory Results: 09/17/18 08:21 09/17/18 08:21 09/15/18 09/15/18 09/15/18 19:52 19:52 23:51 Creatine Kinase < 20 L CK-MB (CK-2) 0.97 Troponin I 0.015 0.013 NT-Pro-B Natriuret Pep 975 H Impressions: Chest X-Ray 09/15/18 19:52 IMPRESSION: Left basilar pneumonia. Other findings as described. copyright 2010 [email or web address]- All Rights Reserved Esophagus X-Ray 09/17/18 00:00 IMPRESSION: VERY LIMITED STUDY SHOWS ESOPHAGEAL SPASM AND PARAESOPHAGEAL HERNIA CAUSING COMPRESSION OF THE DISTAL ESOPHAGUS RESTRICTING THE FLOW OF CONTRAST INTO THE STOMACH. Assessment & Plan - Diagnosis (1) Dysphagia Qualifiers: Dysphagia type: unspecified Qualified Code(s): R13.10 - Dysphagia, unspecified Is this a current diagnosis for this admission?: Yes Plan: Waiting for the Dr. Iraheta to further evaluations (2) Pneumonia of left lower lobe due to infectious organism Is this a current diagnosis for this admission?: Yes Plan: Continue IV antibiotic (3) Chronic respiratory failure with hypercapnia Is this a current diagnosis for this admission?: Yes (4) Diabetes mellitus type 2 in nonobese Is this a current diagnosis for this admission?: Yes (5) End stage chronic obstructive pulmonary disease Is this a current diagnosis for this admission?: Yes (6) Hypertension Qualifiers: Hypertension type: essential hypertension Qualified Code(s): I10 - Essential (primary) hypertension Is this a current diagnosis for this admission?: Yes - Time Time Spent with patient: 15-24 minutes Medications reviewed and adjusted accordingly: Yes Anticipated discharge: Other Within: Other - Plan Summary Plan Summary: Continues to IV antibiotic repeat the blood work and a chest x-ray in the morning aspirations precautions wait for the GI evaluations
[2018-09-19] MEDS: FLUTICASONE NASAL SPRAY 50 MCG/SPRY 120 SPRAY/16 GM NASL SCH ×2 (10:29→21:21)
[2018-09-19] MEDS: LOSARTAN POTASSIUM 50 MG TABLET PO SCH (10:30)
[2018-09-19] MEDS: ASPIRIN 81 MG TABLET, CHEWABLE PO SCH (10:30)
[2018-09-19] MEDS: ISOSORBIDE MONONITRATE 30 MG TAB.ER.24H PO SCH (10:30)
[2018-09-19] MEDS: DOCUSATE SODIUM 100 MG CAPSULE PO SCH (10:30)
[2018-09-19] MEDS: BUPROPION HCL 100 MG TABLET PO SCH (10:30)
[2018-09-19] MEDS: GABAPENTIN 300 MG CAPSULE PO SCH (10:30)
[2018-09-19] MEDS: NICOTINE 7 MG/24 HR PATCH.TD24 TD SCH (10:31)
[2018-09-19] MEDS: RIVASTIGMINE 4.6 MG/24 HR PATCH.TD24 TD SCH (10:31)
[2018-09-19] MEDS: TIOTROPIUM BROMIDE DPI 5 CAP/KIT (18 MCG/CAP) IH SCH (10:32)
[2018-09-19] MEDS: CYCLOSPORINE 0.05% OPH EMULSIO 0.4 ML DROPERETTE OU SCH ×2 (10:32→21:22)
[2018-09-19] MEDS: CLOTRIMAZOLE 10 MG TROCHE PO SCH ×4 (10:32→21:22)
[2018-09-19] MEDS: DOXYCYCLINE HYCLATE 100 MG in DEXTROSE 5%-WATER 250 ML IV SCH ×2 (10:34→21:25)
[2018-09-19] MEDS: BENZONATATE 100 MG CAPSULE PO PRN ×2 (16:19→21:23)
[2018-09-19] MEDS: CEFTRIAXONE 1 GM/D5W RTU 1 GM/50 ML RTUPB IV SCH (17:29)
[2018-09-19] MEDS: MONTELUKAST SODIUM 10 MG TABLET PO SCH (17:30)
[2018-09-20] MEDS: IPRATROPIUM/ALBUTEROL 0.5-2.5 MG/3 ML AMPUL NEB SCH ×7 (00:29→23:46)
[2018-09-20 04:40] LABS: ABSOLUTE LYMPHOCYTES (AUTO) 0.4 10^3/uL (0.5-4.7); ABSOLUTE MONOCYTES (AUTO) 0.3 10^3/uL (0.1-1.4); ABSOLUTE NEUT (AUTO) 6.9 10^3/uL (1.7-8.2); BASOPHILS % (AUTO) 0.1 % (0-2); HEMATOCRIT 26.9 % (36.0-47.0); HEMOGLOBIN 8.9 g/dL (12.0-15.5); LYMPHOCYTES % (AUTO) 5.4 % (13-45); MEAN CORPUSCULAR HEMOGLOBIN 28.1 pg (27.0-33.4); MEAN CORPUSCULAR HGB CONC 33.2 g/dL (32.0-36.0); MEAN CORPUSCULAR VOLUME 85 fl (80-97); MONOCYTES % (AUTO) 4.1 % (3-13); PLATELET COUNT 459 10^3/uL (150-450); RED BLOOD COUNT 3.18 10^6/uL (3.72-5.28); RED CELL DISTRIBUTION WIDTH 15.2 % (11.5-14.0); SEGMENTED NEUTROPHILS % (AUTO) 90.4 % (42-78); TOTAL CELLS COUNTED % (AUTO) 100 %; WHITE BLOOD COUNT 7.7 10^3/uL (4.0-10.5)
[2018-09-20 05:01] LABS: BLOOD UREA NITROGEN 38 mg/dL (7-20); CALCIUM 8.8 mg/dL (8.4-10.2); CARBON DIOXIDE 38 mmol/L (22-30); CHLORIDE 93 mmol/L (98-107); GLUCOSE 192 mg/dL (75-110); SODIUM 135.2 mmol/L (137-145)
[2018-09-20 05:05] LABS: ANION GAP 5 (5-19); POTASSIUM 5.7 mmol/L (3.6-5.0)
[2018-09-20] MEDS: LEVOTHYROXINE SODIUM 0.075 MG TABLET PO SCH (05:43)
[2018-09-20] MEDS: METHYLPREDNISOLONE INJ 40 MG/1 ML SDV IV SCH ×3 (05:43→21:51)
[2018-09-20] MEDS: INSULIN LISPRO 100 UNIT/ML 3 ML VIAL SUBCUT PRN ×4 (07:32→21:52)
[2018-09-20] MEDS: BENZONATATE 100 MG CAPSULE PO PRN ×2 (07:32→21:56)
[2018-09-20] MEDS: LOSARTAN POTASSIUM 50 MG TABLET PO SCH (09:32)
[2018-09-20] MEDS: GABAPENTIN 300 MG CAPSULE PO SCH (09:32)
[2018-09-20] MEDS: CYCLOSPORINE 0.05% OPH EMULSIO 0.4 ML DROPERETTE OU SCH ×2 (09:32→21:50)
[2018-09-20] MEDS: BUPROPION HCL 100 MG TABLET PO SCH (09:32)
[2018-09-20] MEDS: CLOTRIMAZOLE 10 MG TROCHE PO SCH ×4 (09:32→21:50)
[2018-09-20] MEDS: ISOSORBIDE MONONITRATE 30 MG TAB.ER.24H PO SCH (09:32)
[2018-09-20] MEDS: DOCUSATE SODIUM 100 MG CAPSULE PO SCH (09:32)
[2018-09-20] MEDS: ASPIRIN 81 MG TABLET, CHEWABLE PO SCH (09:32)
[2018-09-20] MEDS: RIVASTIGMINE 4.6 MG/24 HR PATCH.TD24 TD SCH (09:33)
[2018-09-20] MEDS: TIOTROPIUM BROMIDE DPI 5 CAP/KIT (18 MCG/CAP) IH SCH (09:33)
[2018-09-20] MEDS: NICOTINE 7 MG/24 HR PATCH.TD24 TD SCH (09:33)
[2018-09-20] MEDS: FLUTICASONE NASAL SPRAY 50 MCG/SPRY 120 SPRAY/16 GM NASL SCH ×2 (09:34→21:50)
[2018-09-20] MEDS: DOXYCYCLINE HYCLATE 100 MG in DEXTROSE 5%-WATER 250 ML IV SCH ×2 (09:34→21:53)
[2018-09-20] MEDS ORDERED: PATIROMER 8.4 GM SUSP PACKET PO ONE (13:15)
--- NOTE | 2018-09-20 14:43 | RADIOLOGY REPORT (SQ) ---
EXAM DESCRIPTION: CHEST 2 VIEWS COMPLETED DATE/TIME: 09/20/2018 2:28 pm REASON FOR STUDY: Pneumonia COMPARISON: 09/15/2018 and 08/31/2018. EXAM PARAMETERS: NUMBER OF VIEWS: two views TECHNIQUE: Digital Frontal and Lateral radiographic views of the chest acquired. RADIATION DOSE: NA LIMITATIONS: none FINDINGS: LUNGS AND PLEURA: Hyperinflation. Chronic interstitial changes. Mild linear densities in the left lung base. No lobar infiltrate. No pleural effusion or pneumothorax. MEDIASTINUM AND HILAR STRUCTURES: No masses or contour abnormalities. HEART AND VASCULAR STRUCTURES: Heart normal size. No evidence for failure. BONES: No acute findings. Chronic changes in the spine with prior kyphoplasty. HARDWARE: Clips in the upper abdomen. OTHER: Large hiatal hernia. IMPRESSION: COPD WITH CHRONIC INTERSTITIAL CHANGES. SCATTERED ATELECTASIS IN THE LEFT LUNG BASE. L ARGE HIATAL HERNIA. TECHNICAL DOCUMENTATION: JOB ID: [id number] [employer]- All Rights Reserved Reading location - IP/workstation name: [email or web address]
[2018-09-20] MEDS: MONTELUKAST SODIUM 10 MG TABLET PO SCH (17:10)
[2018-09-20] MEDS: CEFTRIAXONE 1 GM/D5W RTU 1 GM/50 ML RTUPB IV SCH (17:10)
[2018-09-20] MEDS ORDERED: AMLODIPINE BESYLATE 2.5 MG TABLET PO ONE (21:15)
[2018-09-20] MEDS ORDERED: HYDRALAZINE HCL INJ/PF 20 MG/1 ML SDV IV ONE (23:30)
[2018-09-21] MEDS: IPRATROPIUM/ALBUTEROL 0.5-2.5 MG/3 ML AMPUL NEB SCH ×6 (03:27→23:50)
[2018-09-21] MEDS: METHYLPREDNISOLONE INJ 40 MG/1 ML SDV IV SCH ×3 (05:14→21:06)
[2018-09-21] MEDS: LEVOTHYROXINE SODIUM 0.075 MG TABLET PO SCH (05:14)
[2018-09-21 06:35] LABS: ABSOLUTE LYMPHOCYTES (AUTO) 0.6 10^3/uL (0.5-4.7); ABSOLUTE MONOCYTES (AUTO) 0.5 10^3/uL (0.1-1.4); BASOPHILS % (AUTO) 0.1 % (0-2); HEMATOCRIT 27.8 % (36.0-47.0); HEMOGLOBIN 9.3 g/dL (12.0-15.5); LYMPHOCYTES % (AUTO) 8.1 % (13-45); MEAN CORPUSCULAR HEMOGLOBIN 28.3 pg (27.0-33.4); MEAN CORPUSCULAR HGB CONC 33.5 g/dL (32.0-36.0); MEAN CORPUSCULAR VOLUME 85 fl (80-97); MONOCYTES % (AUTO) 7.1 % (3-13); PLATELET COUNT 442 10^3/uL (150-450); RED BLOOD COUNT 3.29 10^6/uL (3.72-5.28); RED CELL DISTRIBUTION WIDTH 14.8 % (11.5-14.0); SEGMENTED NEUTROPHILS % (AUTO) 84.7 % (42-78); TOTAL CELLS COUNTED % (AUTO) 100 %; WHITE BLOOD COUNT 7.1 10^3/uL (4.0-10.5)
[2018-09-21 06:58] LABS: ANION GAP 9 (5-19); BLOOD UREA NITROGEN 40 mg/dL (7-20); CALCIUM 9.3 mg/dL (8.4-10.2); CARBON DIOXIDE 33 mmol/L (22-30); CHLORIDE 90 mmol/L (98-107); GLUCOSE 175 mg/dL (75-110); POTASSIUM 5.5 mmol/L (3.6-5.0); SODIUM 131.5 mmol/L (137-145)
[2018-09-21] MEDS: MIDAZOLAM 2 MG/2 ML INJ ONE ×2 (08:21→18:21)
[2018-09-21] MEDS: RIVASTIGMINE 4.6 MG/24 HR PATCH.TD24 TD SCH ×2 (10:19→22:58)
[2018-09-21] MEDS: TIOTROPIUM BROMIDE DPI 5 CAP/KIT (18 MCG/CAP) IH SCH (10:20)
[2018-09-21] MEDS: CYCLOSPORINE 0.05% OPH EMULSIO 0.4 ML DROPERETTE OU SCH ×2 (10:20→21:06)
[2018-09-21] MEDS: NICOTINE 7 MG/24 HR PATCH.TD24 TD SCH (10:20)
[2018-09-21] MEDS: DOXYCYCLINE HYCLATE 100 MG in DEXTROSE 5%-WATER 250 ML IV SCH ×2 (10:33→21:07)
[2018-09-21] MEDS: ASPIRIN 81 MG TABLET, CHEWABLE PO SCH (10:45)
[2018-09-21] MEDS: DOCUSATE SODIUM 100 MG CAPSULE PO SCH (10:45)
[2018-09-21] MEDS: LOSARTAN POTASSIUM 50 MG TABLET PO SCH (10:45)
[2018-09-21] MEDS: FLUTICASONE NASAL SPRAY 50 MCG/SPRY 120 SPRAY/16 GM NASL SCH ×2 (10:46→21:06)
[2018-09-21] MEDS: ISOSORBIDE MONONITRATE 30 MG TAB.ER.24H PO SCH (10:46)
[2018-09-21] MEDS: AMLODIPINE BESYLATE 2.5 MG TABLET PO SCH ×2 (10:47→20:55)
[2018-09-21] MEDS: GABAPENTIN 300 MG CAPSULE PO SCH (10:47)
[2018-09-21] MEDS: CLOTRIMAZOLE 10 MG TROCHE PO SCH ×4 (10:47→21:03)
[2018-09-21] MEDS: BUPROPION HCL 100 MG TABLET PO SCH (10:47)
--- NOTE | 2018-09-21 12:10 | PDOC PROGRESS REPORT ---
Subjective Progress Note for:: 09/21/18 Subjective:: Patient reported toleration of full liquid diet. No nausea or vomiting. No abdominal pain. Awaiting EGD evaluation. No chest pain. Remain on supplemental oxygen at 3L/min. Reason For Visit: PNEUMONIA Physical Exam Vital Signs: Temp Pulse Resp BP Pulse Ox 97.7 F 92 18 150/54 H 100 09/21/18 01:03 09/21/18 08:12 09/21/18 08:12 09/21/18 01:03 09/21/18 08:12 Intake & Output 09/20/18 09/21/18 09/22/18 06:59 06:59 06:59 Intake Total 2093 2482 Output Total 410 750 Balance 1683 1732 Weight 51 kg 51.6 kg Physical Exam: General appearance: PRESENT: mild distress - remain on supplemental oxygen. Head exam: PRESENT: atraumatic, normocephalic Eye exam: PRESENT: conjunctiva pink, EOMI, PERRLA. ABSENT: pallor, scleral icterus Ear exam: PRESENT: normal external ear exam Mouth exam: PRESENT: moist Respiratory exam: PRESENT: decreased breath sounds - at lung bases Cardiovascular exam: PRESENT: RRR. ABSENT: diastolic murmur, rubs, systolic murmur GI/Abdominal exam: PRESENT: normal bowel sounds, rebound, soft. ABSENT: tenderness Extremities exam: ABSENT: pedal edema Musculoskeletal exam: PRESENT: deformity - severe thoracic kyphosis. ABSENT: tenderness Neurological exam: PRESENT: alert, awake, oriented to person, oriented to place, oriented to time, oriented to situation, CN II-XII grossly intact. ABSENT: motor sensory deficit Psychiatric exam: PRESENT: appropriate affect, normal mood. ABSENT: homicidal ideation, suicidal ideation Skin exam: PRESENT: dry, warm Results Laboratory Results: 09/21/18 05:17 09/21/18 05:17 09/21/18 09/21/18 05:17 05:17 WBC 7.1 RBC 3.29 L Hgb 9.3 L Hct 27.8 L MCV 85 MCH 28.3 MCHC 33.5 RDW 14.8 H Plt Count 442 Seg Neutrophils % 84.7 H Lymphocytes % 8.1 L Monocytes % 7.1 Eosinophils % 0.0 Basophils % 0.1 Absolute Neutrophils 6.0 Absolute Lymphocytes 0.6 Absolute Monocytes 0.5 Absolute Eosinophils 0.0 Absolute Basophils 0.0 Sodium 131.5 L Potassium 5.5 H Chloride 90 L Carbon Dioxide 33 H Anion Gap 9 BUN 40 H Creatinine 1.09 Est GFR ( Amer) 58 L Est GFR (Non-Af Amer) 48 L Glucose 175 H Calcium 9.3 09/15/18 21:49 Blood Blood Culture - Final NO GROWTH IN 5 DAYS 09/15/18 20:54 Blood Blood Culture - Final NO GROWTH IN 5 DAYS 09/17/18 08:30 Sputum Gram Stain - Final 09/17/18 08:30 Sputum Sputum Culture - Final Enterobacter Cloacae Staphylococcus Aureus C.albicans/C.dubliniensis Greatly Reduced Normal Wendy 09/15/18 09/15/18 09/15/18 19:52 19:52 23:51 Creatine Kinase < 20 L CK-MB (CK-2) 0.97 Troponin I 0.015 0.013 NT-Pro-B Natriuret Pep 975 H Impressions: Esophagus X-Ray 09/17/18 00:00 IMPRESSION: VERY LIMITED STUDY SHOWS ESOPHAGEAL SPASM AND PARAESOPHAGEAL HERNIA CAUSING COMPRESSION OF THE DISTAL ESOPHAGUS RESTRICTING THE FLOW OF CONTRAST INTO THE STOMACH. Chest X-Ray 09/20/18 00:00 IMPRESSION: COPD WITH CHRONIC INTERSTITIAL CHANGES. SCATTERED ATELECTASIS IN THE LEFT LUNG BASE. LARGE HIATAL HERNIA. Assessment & Plan - Diagnosis (1) Pneumonia of left lower lobe due to infectious organism Is this a current diagnosis for this admission?: Yes (2) Chronic respiratory failure with hypercapnia Is this a current diagnosis for this admission?: Yes (3) End stage chronic obstructive pulmonary disease Is this a current diagnosis for this admission?: Yes (4) Diabetes mellitus type 2 in nonobese Is this a current diagnosis for this admission?: Yes (5) HTN (hypertension) Qualifiers: Hypertension type: essential hypertension Qualified Code(s): I10 - Essential (primary) hypertension Is this a current diagnosis for this admission?: Yes (6) CAD (coronary artery disease) Qualifiers: Coronary Disease-Associated Artery/Lesion type: [place] artery Associated angina: without angina Is this a current diagnosis for this admission?: Yes (7) HLD (hyperlipidemia) Qualifiers: Hyperlipidemia type: pure hypercholesterolemia Qualified Code(s): E78.00 - Pure hypercholesterolemia, unspecified; E78.0 - Pure hypercholesterolemia Is this a current diagnosis for this admission?: Yes (8) Hiatal hernia with GERD Is this a current diagnosis for this admission?: Yes (9) Hypothyroidism (acquired) Is this a current diagnosis for this admission?: Yes (10) Thrush, oral Is this a current diagnosis for this admission?: Yes (11) Esophageal spasm Is this a current diagnosis for this admission?: Yes - Time Time Spent with patient: 25-34 minutes Medications reviewed and adjusted accordingly: Yes Anticipated discharge: Home with Homehealth Within: Other - Inpatient Certification Based on my medical assessment, after consideration of the patient's comorbidities, presenting symptoms, or acuity I expect that the services needed warrant INPATIENT care.: Yes I certify that my determination is in accordance with my understanding of Medicare's requirements for reasonable and necessary INPATIENT services [42 CFR 412.3e].: Yes Medical Necessity: Need Close Monitoring Due to Risk of Patient Decompensation, Need For Continuous Telemetry Monitoring, Need for Nebulizer Therapy and Monitoring of Response, Need for IV Antibiotics, Risk of Complication if Not Cared For in Hospital Post Hospital Care: D/C Supervisor Scouring Pads Documentation - Plan Summary Plan Summary: Continue IV Doxycycline and Ceftriaxone coverage. Follow up on EGD findings. Continue all other current medication management.
[2018-09-21] MEDS: CEFTRIAXONE 1 GM/D5W RTU 1 GM/50 ML RTUPB IV SCH (17:11)
[2018-09-21] MEDS ORDERED: DIPHENHYDRAMINE HCL 50 MG/ML VIAL ONE (17:17)
[2018-09-21] MEDS ORDERED: ONDANSETRON HCL INJ/PF 4 MG/2 ML SDV ONE (17:17)
[2018-09-21] MEDS ORDERED: FLUMAZENIL INJ 0.5 MG/5 ML VIAL ONE (17:18)
[2018-09-21] MEDS ORDERED: GLUCAGON,HUMAN RECOMB 1 MG INJ ONE (17:18)
[2018-09-21] MEDS ORDERED: EPINEPHRINE INJ 1 MG/10 ML DISP.SYRIN ONE (17:18)
[2018-09-21] MEDS ORDERED: FENTANYL CITRATE INJ/PF 100 MCG/2 ML AMPUL ONE (17:18)
[2018-09-21] MEDS ORDERED: NALOXONE HCL INJ/PF 0.4 MG/1 ML SDV ONE (17:18)
--- NOTE | 2018-09-21 18:56 | PDOC CONSULTATION ---
Consultation Consult Date: 09/18/18 History of Present Illness Admission Date/PCP: 09/15/18 23:29 BIENVENIDODOMINIC NAM History of Present Illness: SRINIVASA WINN is a 83 year old femalePatient was admitted on 09/15/2018 with shortness of breath and severe COPD. Consultation was requested for dysphagia and abnormal upper GI series. Patient has had dysphagia off and on for years. She usually has problems swallowing solid foods. She sometimes has to bring the food back up. She does get heartburn off and sometimes vomits soon after eating. Barium swallow did show a large paraesophageal hiatal hernia with a corkscrew of esophagus from esophageal spasm and some compression of the distal esophagus restricting flow of contrast into the stomach. She is not a good candidate for surgery. Past Medical History Cardiac Medical History: Reports: Coronary Artery Disease, Hyperlipidema, Hypertension Denies: Myocardial Infarction Pulmonary Medical History: Reports: Asthma, Bronchitis, Chronic Obstructive Pulmonary Disease (COPD), Pneumonia, Tuberculosis Neurological Medical History: Denies: Seizures Endocrine Medical History: Reports: Diabetes Mellitus Type 2 GI Medical History: Reports: Hiatal Hernia Denies: Hepatitis Musculoskeltal Medical History: Denies: Arthritis Psychiatric Medical History: Reports: Depression Hematology: Reports: Anemia - NOW Denies: Sickle Cell Disease Past Surgical History Past Surgical History: Reports: Cholecystectomy, Orthopedic Surgery - back, Tubal Ligation Denies: Amputation, Mastectomy, Pacemaker Social History Smoking Status: Current Some Day Smoker Cigarettes Packs Per Day: 1 Cigars Per Day: 0 Pipes Per Day: 0 Number of Years Smokin Last Time Smoked: yesterday Frequency of Alcohol Use: None Hx Recreational Drug Use: No Drugs: None Hx Prescription Drug Abuse: No Family History Family History: Reviewed & Not Pertinent, COPD Parental Family History Reviewed: No Children Family History Reviewed: NA Sibling(s) Family History Reviewed.: NA Medication/Allergy Home Medications: Albuterol Sulfate [Proair HFA Inhalation Aerosol 8.5 gm MDI] 2 puff IH Q4HP PRN 09/16/18 Aspirin [Aspirin 81 mg Chewable Tablet] 81 mg PO DAILY 09/16/18 Benzonatate [Tessalon Perle 100 mg Capsule] 100 mg PO TIDP PRN 09/16/18 Bupropion HCl [Wellbutrin 100 mg Tablet] 100 mg PO DAILY 09/16/18 Ciclesonide [Alvesco HFA] 2 puff IH BID 09/16/18 Cyclosporine 0.05% Oph Emulsio [Restasis 0.05% Oph Emulsion Pf 0.4 ml] 1 drop OU Q12 09/16/18 Docusate Sodium [Colace 100 mg Capsule] 100 mg PO DAILY 09/16/18 Fluticasone Propionate [Flonase Nasal [place] 50 Mcg/[place] 16 gm] 2 spray NASL Q12 09/16/18 Fluticasone/Salmeterol [Advair 250-50 Diskus 14 Dose/Diskus] 1 puff IH Q12 09/16/18 Gabapentin [Neurontin 300 mg Capsule] 300 mg PO DAILY 09/16/18 Insulin Lispro Protamin/Lispro [Humalog Mix 75-25 100 unit/mL] 15 units SQ BIDBS 09/16/18 Isosorbide Mononitrate [Imdur 30 mg Tablet.er] 30 mg PO DAILY 09/16/18 Levothyroxine Sodium 75 mcg PO Q6AM 09/16/18 Linaclotide [Linzess 145 Mcg Capsule] 145 mcg PO DAILY 09/16/18 Losartan Potassium [Cozaar 50 mg Tablet] 50 mg PO DAILY 09/16/18 Montelukast Sodium [Singulair 10 mg Tablet] 10 mg PO QPM 09/16/18 Nicotine [Nicoderm 7 mg/24 Hr Transdermal Patch] 1 patch TD DAILY 09/16/18 Ondansetron [Zofran Odt 4 mg Tablet] 4 mg PO Q4HP PRN 09/16/18 Pantoprazole Sodium [Protonix] 40 mg PO Q6AM 09/16/18 Prednisone [Deltasone] 10 mg PO DAILY 09/16/18 Rivastigmine [Exelon 4.6 mg/24 Hr Transdermal Patch] 1 patch TD DAILY 09/16/18 Tiotropium [place] [Spiriva Handihaler 5 Cap/Kit (18 Mcg/Cap)] 1 cap IH DAILY 09/16/18 Torsemide [Demadex 10 mg Tablet] 5 mg PO QAM 09/16/18 Allergies/Adverse Reactions: erythromycin base [Erythromycin Base] Allergy (Verified 08/31/18 13:52) furosemide [From Lasix] Allergy (Verified 08/31/18 13:52) levofloxacin [From Levaquin] Allergy (Verified 08/31/18 13:52) metformin HCl [From Glucophage] Allergy (Verified 08/31/18 13:52) SWELLING FACE Penicillins Allergy (Verified 08/31/18 13:52) pioglitazone HCl [From Actos] Allergy (Verified 08/31/18 13:52) SWELLING FACE Qoxrhdt-Qmg-Yye Reductase Inhibitor Allergy (Verified 08/31/18 13:52) MUSCLE PAIN Sulfa (Sulfonamide Antibiotics) Allergy (Verified 08/31/18 13:52) SICK sulfamethoxazole [From Bactrim] Allergy (Verified 08/31/18 13:52) SICK trimethoprim [From Bactrim] Allergy (Verified 08/31/18 13:52) SICK Iodinated Contrast- Oral and IV Dye Adverse Reaction (Verified 08/31/18 13:52) Review of Systems All systems: reviewed and no additional remarkable complaints except as stated Physical Exam Vital Signs: Temp Pulse Resp BP Pulse Ox 97.7 F 90 21 H 133/64 H 98 09/21/18 17:29 09/21/18 18:46 09/21/18 18:46 09/21/18 18:46 09/21/18 18:46 Intake & Output 09/20/18 09/21/18 09/22/18 06:59 06:59 06:59 Intake Total 2093 2482 300 Output Total 410 750 Balance 1683 1732 300 Weight 51 kg 51.6 kg Exam: General: Patient is alert with some mouth breathing HEENT: There is no pallor or jaundice. PERRLA. Oropharynx normal Respiratory: There is kyphosis with reduced breath sounds bilaterally Cardiovascular: Heart sounds 1 and 2 normal with no murmurs. Abdominal: Not distended. Soft and nontender. Liver and spleen not palpable. No ascites demonstrated. Bowel sounds active. Rectal examination was deferred. Extremities: No edema Neurological: Alert and oriented x4. Skin: No significant rash Psychological: Normal affect Results Laboratory Results: 09/21/18 05:17 09/21/18 05:17 09/21/18 09/21/18 05:17 05:17 WBC 7.1 RBC 3.29 L Hgb 9.3 L Hct 27.8 L MCV 85 MCH 28.3 MCHC 33.5 RDW 14.8 H Plt Count 442 Seg Neutrophils % 84.7 H Lymphocytes % 8.1 L Monocytes % 7.1 Eosinophils % 0.0 Basophils % 0.1 Absolute Neutrophils 6.0 Absolute Lymphocytes 0.6 Absolute Monocytes 0.5 Absolute Eosinophils 0.0 Absolute Basophils 0.0 Sodium 131.5 L Potassium 5.5 H Chloride 90 L Carbon Dioxide 33 H Anion Gap 9 BUN 40 H Creatinine 1.09 Est GFR ( Amer) 58 L Est GFR (Non-Af Amer) 48 L Glucose 175 H Calcium 9.3 09/17/18 08:30 Sputum Gram Stain - Final 09/17/18 08:30 Sputum Sputum Culture - Final Enterobacter Cloacae Staphylococcus Aureus C.albicans/C.dubliniensis Greatly Reduced Normal Wendy 09/15/18 21:49 Blood Blood Culture - Final NO GROWTH IN 5 DAYS 09/15/18 20:54 Blood Blood Culture - Final NO GROWTH IN 5 DAYS 09/15/18 09/15/18 09/15/18 19:52 19:52 23:51 Creatine Kinase < 20 L CK-MB (CK-2) 0.97 Troponin I 0.015 0.013 NT-Pro-B Natriuret Pep 975 H Impressions: Esophagus X-Ray 09/17/18 00:00 IMPRESSION: VERY LIMITED STUDY SHOWS ESOPHAGEAL SPASM AND PARAESOPHAGEAL HERNIA CAUSING COMPRESSION OF THE DISTAL ESOPHAGUS RESTRICTING THE FLOW OF CONTRAST INTO THE STOMACH. Chest X-Ray 09/20/18 00:00 IMPRESSION: COPD WITH CHRONIC INTERSTITIAL CHANGES. SCATTERED ATELECTASIS IN THE LEFT LUNG BASE. LARGE HIATAL HERNIA. Assessment & Plan - Diagnosis (1) Abnormal finding on GI tract imaging Is this a current diagnosis for this admission?: Yes Plan: She has a large hernia with some narrowing of the distal esophagus related to the hernia. She will undergo an EGD to rule out mucosal abnormalities and to see if dilation is possible. With severe COPD I believe conservative management will be the safest approach. She is able to tolerate liquid and soft foods and has been avoiding meats (2) Dysphagia Qualifiers: Dysphagia type: unspecified Qualified Code(s): R13.10 - Dysphagia, unspecified Is this a current diagnosis for this admission?: Yes (3) Esophageal spasm Is this a current diagnosis for this admission?: Yes (4) End stage chronic obstructive pulmonary disease Is this a current diagnosis for this admission?: Yes
--- NOTE | 2018-09-21 19:01 | Operative Report ---
Operative Report DATE OF SURGERY: 09/21/18 Operative Report: Pre-op diagnosis: Dysphagia and abnormal barium swallow Post-op diagnosis: 1. 6 cm sliding hiatal hernia 2. Distal esophageal spasm with some stenosis Surgery: Esophagogastroduodenoscopy Medications: Versed 1mg Tissue removed: None Procedure: After informed consent obtained from patient, the throat was sprayed with Hurricane and conscious sedation was achieved. The upper endoscope was inserted into the esophagus under direct vision and advanced into the stomach. The duodenum was entered and examined to the second part. Endoscope was then slowly pulled out of the patient as the mucosa was examined into details. Patient tolerated procedure well. Findings Esophagus: The Z line was at 35 cm with the top of the gastric folds at 41 cm. There was tortuosity at the distal 5-7 cm of the esophagus consistent with spasm and a corkscrew esophagus. There was some narrowing at the diaphragmatic hiatus but no scarring or esophagitis identified. Antrum: Normal Body: Normal Fundus: Normal Duodenum first part: Normal Duodenum second part: Normal Plan: Continue with PPI, soft foods and liquids. OPERATION: .
[2018-09-21] MEDS: MONTELUKAST SODIUM 10 MG TABLET PO SCH (20:55)
[2018-09-21] MEDS ORDERED: NICOTINE 7 MG/24 HR PATCH.TD24 TD ONE (22:00)
[2018-09-21] MEDS ORDERED: RIVASTIGMINE 4.6 MG/24 HR PATCH.TD24 TD ONE (22:00)
[2018-09-21] MEDS: INSULIN LISPRO 100 UNIT/ML 3 ML VIAL SUBCUT PRN (22:55)
[2018-09-22] MEDS: IPRATROPIUM/ALBUTEROL 0.5-2.5 MG/3 ML AMPUL NEB SCH ×6 (04:06→23:14)
[2018-09-22] MEDS: METHYLPREDNISOLONE INJ 40 MG/1 ML SDV IV SCH (05:17)
[2018-09-22] MEDS: LEVOTHYROXINE SODIUM 0.075 MG TABLET PO SCH (05:17)
[2018-09-22 05:31] LABS: ANION GAP 6 (5-19); BLOOD UREA NITROGEN 41 mg/dL (7-20); CALCIUM 8.4 mg/dL (8.4-10.2); CARBON DIOXIDE 36 mmol/L (22-30); CHLORIDE 92 mmol/L (98-107); GLUCOSE 104 mg/dL (75-110); SODIUM 133.7 mmol/L (137-145)
[2018-09-22 05:45] LABS: POTASSIUM 4.4 mmol/L (3.6-5.0)
--- NOTE | 2018-09-22 07:48 | PDOC PROGRESS REPORT ---
Subjective Progress Note for:: 09/22/18 Subjective:: Patient EGD revealed sliding hernia and distal esophageal spasm as well as stenosis. She is tolerating full liquid with recommendation to advance to oft diet. she denied any nausea or vomiting. No abdominal pain. No chest pain. Remain on supplemental oxygen via nasal cannula. Reason For Visit: PNEUMONIA Physical Exam Vital Signs: Temp Pulse Resp BP Pulse Ox 98.0 F 79 18 159/60 H 100 09/22/18 04:24 09/22/18 07:00 09/22/18 04:24 09/22/18 04:24 09/22/18 04:24 Intake & Output 09/21/18 09/22/18 09/23/18 06:59 06:59 06:59 Intake Total 2482 1467 Output Total 750 Balance 1732 1467 Weight 51.6 kg 52.9 kg Physical Exam: General appearance: PRESENT: mild distress - remain on supplemental oxygen. Head exam: PRESENT: atraumatic, normocephalic Eye exam: PRESENT: conjunctiva pink, EOMI, PERRLA. ABSENT: pallor, scleral icterus Ear exam: PRESENT: normal external ear exam Mouth exam: PRESENT: moist Respiratory exam: PRESENT: decreased breath sounds - at lung bases Cardiovascular exam: PRESENT: RRR. ABSENT: diastolic murmur, rubs, systolic murmur GI/Abdominal exam: PRESENT: normal bowel sounds, rebound, soft. ABSENT: tenderness Extremities exam: ABSENT: pedal edema Musculoskeletal exam: PRESENT: deformity - severe thoracic kyphosis. ABSENT: tenderness Neurological exam: PRESENT: alert, awake, oriented to person, oriented to place, oriented to time, oriented to situation, CN II-XII grossly intact. ABSENT: motor sensory deficit Psychiatric exam: PRESENT: appropriate affect, normal mood. ABSENT: homicidal ideation, suicidal ideation Skin exam: PRESENT: dry, warm Results Laboratory Results: 09/21/18 05:17 09/22/18 04:47 09/22/18 04:47 Sodium 133.7 L Potassium 4.4 D Chloride 92 L Carbon Dioxide 36 H Anion Gap 6 BUN 41 H Creatinine 1.25 Est GFR ( Amer) 50 L Est GFR (Non-Af Amer) 41 L Glucose 104 Calcium 8.4 09/17/18 08:30 Sputum Gram Stain - Final 09/17/18 08:30 Sputum Sputum Culture - Final Enterobacter Cloacae Staphylococcus Aureus C.albicans/C.dubliniensis Greatly Reduced Normal Wendy 09/15/18 09/15/18 09/15/18 19:52 19:52 23:51 Creatine Kinase < 20 L CK-MB (CK-2) 0.97 Troponin I 0.015 0.013 NT-Pro-B Natriuret Pep 975 H Impressions: Esophagus X-Ray 09/17/18 00:00 IMPRESSION: VERY LIMITED STUDY SHOWS ESOPHAGEAL SPASM AND PARAESOPHAGEAL HERNIA CAUSING COMPRESSION OF THE DISTAL ESOPHAGUS RESTRICTING THE FLOW OF CONTRAST INTO THE STOMACH. Chest X-Ray 09/20/18 00:00 IMPRESSION: COPD WITH CHRONIC INTERSTITIAL CHANGES. SCATTERED ATELECTASIS IN THE LEFT LUNG BASE. LARGE HIATAL HERNIA. Assessment & Plan - Diagnosis (1) Pneumonia of left lower lobe due to infectious organism Is this a current diagnosis for this admission?: Yes (2) Chronic respiratory failure with hypercapnia Is this a current diagnosis for this admission?: Yes (3) End stage chronic obstructive pulmonary disease Is this a current diagnosis for this admission?: Yes (4) Diabetes mellitus type 2 in nonobese Is this a current diagnosis for this admission?: Yes (5) HTN (hypertension) Qualifiers: Hypertension type: essential hypertension Qualified Code(s): I10 - Essential (primary) hypertension Is this a current diagnosis for this admission?: Yes (6) CAD (coronary artery disease) Qualifiers: Coronary Disease-Associated Artery/Lesion type: grindstone artery Associated angina: without angina Is this a current diagnosis for this admission?: Yes (7) HLD (hyperlipidemia) Qualifiers: Hyperlipidemia type: pure hypercholesterolemia Qualified Code(s): E78.00 - Pure hypercholesterolemia, unspecified; E78.0 - Pure hypercholesterolemia Is this a current diagnosis for this admission?: Yes (8) Hiatal hernia with GERD Is this a current diagnosis for this admission?: Yes (9) Hypothyroidism (acquired) Is this a current diagnosis for this admission?: Yes (10) Thrush, oral Is this a current diagnosis for this admission?: Yes (11) Esophageal spasm Is this a current diagnosis for this admission?: Yes - Time Time Spent with patient: 25-34 minutes Medications reviewed and adjusted accordingly: Yes Anticipated discharge: Home with Homehealth Within: Other - Inpatient Certification Based on my medical assessment, after consideration of the patient's comorbidities, presenting symptoms, or acuity I expect that the services needed warrant INPATIENT care.: Yes I certify that my determination is in accordance with my understanding of Medicare's requirements for reasonable and necessary INPATIENT services [42 CFR 412.3e].: Yes Medical Necessity: Significant Comorbidiites Make Outpatient Treatment Too Ri marcelo, Need Close Monitoring Due to Risk of Patient Decompensation, Need For IV Fluids, Need For Continuous Telemetry Monitoring, Risk of Complication if Not Cared For in Hospital Post Hospital Care: D/C Director Digital Communications Documentation - Plan Summary Plan Summary: D/C Ceftriaxone and Doxycycline. Start on Doxycycline 100 mg po bid. Advance diet to soft consistency. D/C IV Solu Medrol. Restart on Advair 250/50 mcg 1 puff po bid.
[2018-09-22] MEDS: LANSOPRAZOLE 30 MG TAB.RAP.DR PO SCH (08:52)
[2018-09-22] MEDS: ONDANSETRON 4 MG TAB.RAPDIS PO PRN (08:52)
[2018-09-22] MEDS: ASPIRIN 81 MG TABLET, CHEWABLE PO SCH (10:56)
[2018-09-22] MEDS: AMLODIPINE BESYLATE 2.5 MG TABLET PO SCH ×2 (10:56→17:55)
[2018-09-22] MEDS: BUPROPION HCL 100 MG TABLET PO SCH (10:56)
[2018-09-22] MEDS: LOSARTAN POTASSIUM 50 MG TABLET PO SCH (10:56)
[2018-09-22] MEDS: NICOTINE 7 MG/24 HR PATCH.TD24 TD SCH (10:56)
[2018-09-22] MEDS: GABAPENTIN 300 MG CAPSULE PO SCH (10:56)
[2018-09-22] MEDS: ISOSORBIDE MONONITRATE 30 MG TAB.ER.24H PO SCH (10:56)
[2018-09-22] MEDS: DOCUSATE SODIUM 100 MG CAPSULE PO SCH (10:56)
[2018-09-22] MEDS: CYCLOSPORINE 0.05% OPH EMULSIO 0.4 ML DROPERETTE OU SCH ×2 (11:05→22:33)
[2018-09-22] MEDS: FLUTICASONE NASAL SPRAY 50 MCG/SPRY 120 SPRAY/16 GM NASL SCH ×2 (11:05→22:32)
[2018-09-22] MEDS: CLOTRIMAZOLE 10 MG TROCHE PO SCH ×4 (11:05→22:33)
[2018-09-22] MEDS: TIOTROPIUM BROMIDE DPI 5 CAP/KIT (18 MCG/CAP) IH SCH (11:05)
[2018-09-22] MEDS: INSULIN LISPRO 100 UNIT/ML 3 ML VIAL SUBCUT PRN ×2 (12:26→17:51)
[2018-09-22] MEDS: FLUTICASONE/SALMETEROL DISKUS 250-50 MCG/DOSE IH SCH ×2 (15:30→22:31)
[2018-09-22] MEDS: PREDNISONE 20 MG TABLET PO SCH (15:30)
[2018-09-22] MEDS: DOXYCYCLINE HYCLATE 100 MG TABLET PO SCH ×2 (15:30→22:58)
[2018-09-22] MEDS: BENZONATATE 100 MG CAPSULE PO PRN (15:42)
[2018-09-22] MEDS: MONTELUKAST SODIUM 10 MG TABLET PO SCH (17:51)
[2018-09-22] MEDS: RIVASTIGMINE 4.6 MG/24 HR PATCH.TD24 TD SCH (22:32)
[2018-09-22] MEDS ORDERED: DOXYCYCLINE HYCLATE 100 MG TABLET PO ONE (22:58)
[2018-09-23] MEDS: INSULIN LISPRO 100 UNIT/ML 3 ML VIAL SUBCUT PRN (00:06)
[2018-09-23] MEDS: IPRATROPIUM/ALBUTEROL 0.5-2.5 MG/3 ML AMPUL NEB SCH ×2 (04:02→08:27)
[2018-09-23] MEDS: LEVOTHYROXINE SODIUM 0.075 MG TABLET PO SCH (05:11)
[2018-09-23 08:06] VITALS: BP 131/46
--- NOTE | 2018-09-23 08:27 | PDOC DISCHARGE SUMMARY ---
General - Admit/Disc Date/PCP Admission Date/Primary Care Provider: 09/15/18 23:29 BIENVENIDOJAYLIN NAM Discharge Date: 09/23/18 - Discharge Diagnosis (1) Pneumonia of left lower lobe due to infectious organism Is this a current diagnosis for this admission?: Yes (2) Chronic respiratory failure with hypercapnia Is this a current diagnosis for this admission?: Yes (3) End stage chronic obstructive pulmonary disease Is this a current diagnosis for this admission?: Yes (4) Diabetes mellitus type 2 in nonobese Is this a current diagnosis for this admission?: Yes (5) HTN (hypertension) Is this a current diagnosis for this admission?: Yes (6) CAD (coronary artery disease) Is this a current diagnosis for this admission?: Yes (7) HLD (hyperlipidemia) Is this a current diagnosis for this admission?: Yes (8) Hiatal hernia with GERD Is this a current diagnosis for this admission?: Yes (9) Hypothyroidism (acquired) Is this a current diagnosis for this admission?: Yes (10) Thrush, oral Is this a current diagnosis for this admission?: Yes (11) Esophageal spasm Is this a current diagnosis for this admission?: Yes - Additional Information Resuscitation Status: Full Code Prescriptions: Amlodipine Besylate [Norvasc 2.5 mg Tablet] 2.5 mg PO BID #60 tablet Clotrimazole [Mycelex 10 mg Aristides] 10 mg PO TIDHS #30 aristides Doxycycline Hyclate [Vibramycin 100 mg Tablet] 100 mg PO Q12 #14 tablet Home Medications: Albuterol Sulfate [Proair HFA Inhalation Aerosol 8.5 gm MDI] 2 puff IH Q4HP PRN 09/16/18 Aspirin [Aspirin 81 mg Chewable Tablet] 81 mg PO DAILY 09/16/18 Benzonatate [Tessalon Perle 100 mg Capsule] 100 mg PO TIDP PRN 09/16/18 Bupropion HCl [Wellbutrin 100 mg Tablet] 100 mg PO DAILY 09/16/18 Ciclesonide [Alvesco HFA] 2 puff IH BID 09/16/18 Cyclosporine 0.05% Oph Emulsio [Restasis 0.05% Oph Emulsion Pf 0.4 ml] 1 drop OU Q12 09/16/18 Docusate Sodium [Colace 100 mg Capsule] 100 mg PO DAILY 09/16/18 Fluticasone Propionate [Flonase Nasal [place] 50 Mcg/[place] 16 gm] 2 spray NASL Q12 09/16/18 Fluticasone/Salmeterol [Advair 250-50 Diskus 14 Dose/Diskus] 1 puff IH Q12 09/16/18 Gabapentin [Neurontin 300 mg Capsule] 300 mg PO DAILY 09/16/18 Insulin Lispro Protamin/Lispro [Humalog Mix 75-25 100 unit/mL] 15 units SQ BIDBS 09/16/18 Isosorbide Mononitrate [Imdur 30 mg Tablet.er] 30 mg PO DAILY 09/16/18 Levothyroxine Sodium 75 mcg PO Q6AM 09/16/18 Linaclotide [Linzess 145 Mcg Capsule] 145 mcg PO DAILY 09/16/18 Losartan Potassium [Cozaar 50 mg Tablet] 50 mg PO DAILY 09/16/18 Montelukast Sodium [Singulair 10 mg Tablet] 10 mg PO QPM 09/16/18 Nicotine [Nicoderm 7 mg/24 Hr Transdermal Patch] 1 patch TD DAILY 09/16/18 Ondansetron [Zofran Odt 4 mg Tablet] 4 mg PO Q4HP PRN 09/16/18 Pantoprazole Sodium [Protonix] 40 mg PO Q6AM 09/16/18 Prednisone [Deltasone] 10 mg PO DAILY 09/16/18 Rivastigmine [Exelon 4.6 mg/24 Hr Transdermal Patch] 1 patch TD DAILY 09/16/18 Tiotropium [place] [Spiriva Handihaler 5 Cap/Kit (18 Mcg/Cap)] 1 cap IH DAILY 09/16/18 Torsemide [Demadex 10 mg Tablet] 5 mg PO QAM 09/16/18 Amlodipine Besylate [Norvasc 2.5 mg Tablet] 2.5 mg PO BID #60 tablet 09/23/18 Clotrimazole [Mycelex 10 mg Aristides] 10 mg PO TIDHS #30 aristides 09/23/18 Doxycycline Hyclate [Vibramycin 100 mg Tablet] 100 mg PO Q12 #14 tablet 09/23/18 History of Present Illness Patient complains of: shortness of breath, nonradiating chest pain, postprandial vomiting, increase coughing and chest congestion History of Present Illness: SRINIVASA WINN is a 83 year old female patient known to my practice who was recently discharged from this hospital. She was brought back to the ED by EMS due to complaint of shortness of breath, nonradiating chest pain, postprandial vomiting, increase coughing and chest congestion. Also, she was concern about her leg swelling. Her oxygen saturation on room air! was reported at 89%. She is oxygen dependent end stage COPD patient and this in unexpected. Her oxygen saturation came up to 99% on her usual baseline 3L/min supplemental oxygen via nasal cannula. She was treated in the field by EMS with DuoNeb and IV Solu Medrol. She denied any definite fever or chills. She denied palpitation or diaphoresis. She denied any dizziness or LOC. No nasal or sinus congestion. No post nasal drip. She expressed concern about constipation and some misalignment in her esophagus that made her swallowing delayed and she had to wait awhile between swallowing. She was admitted due to concern for new airspace disease on her chest X ray that suggested pneumonia. Her morbidities include Coronary Artery Disease, Hypertension, Hyperlipidemia, COPD, Diabetes Mellitus Type 2, Hiatal Hernia, and Depression. Hospital Course Hospital Course: She was admitted with concern for lobar pneumonia. She was started on IV Ceftriaxone and Doxycycline. Due to her persistent postprandial vomiting and reported incidental dilatation of her esophagus, she had a barium swallow evaluation that revealed paraesophageal hernia with distal esophageal stenosis and spasm. She was seen in consultation by Dr. Iraheta, chemical equipment controller, and had EGD evaluation on 09/21/2018 with confirmed nutcracker esophageal spasm features and GERD without erosive component. It was recommended to continue PPI therapy and maintenance on soft diet. Patient have been tolerant of this diet r estriction. She was transition to oral Doxycycline based on her sputum culture findings. She remain on Mycelex therapy for oral thrush treatment. She will be discharge home today on seven more days of antibiotic and antifungal coverage. She will follow up in the office as instructed upon discharge. Physical Exam Vital Signs: Temp Pulse Resp BP Pulse Ox 98.2 F 79 18 131/46 H 98 09/23/18 08:00 09/23/18 08:00 09/23/18 05:26 09/23/18 08:00 09/23/18 08:00 Intake & Output 09/22/18 09/23/18 09/24/18 06:59 06:59 06:59 Intake Total 1467 775 Output Total 200 Balance 1467 575 Weight 52.9 kg 53.9 kg Physical Exam: General appearance: PRESENT: mild distress - remain on supplemental oxygen. Head exam: PRESENT: atraumatic, normocephalic Eye exam: PRESENT: conjunctiva pink, EOMI, PERRLA. ABSENT: pallor, scleral icterus Ear exam: PRESENT: normal external ear exam Mouth exam: PRESENT: moist Respiratory exam: PRESENT: decreased breath sounds - at lung bases Cardiovascular exam: PRESENT: RRR. ABSENT: diastolic murmur, rubs, systolic murmur GI/Abdominal exam: PRESENT: normal bowel sounds, rebound, soft. ABSENT: tenderness Extremities exam: ABSENT: pedal edema Musculoskeletal exam: PRESENT: deformity - severe thoracic kyphosis. ABSENT: tenderness Neurological exam: PRESENT: alert, awake, oriented to person, oriented to place, oriented to time, oriented to situation, CN II-XII grossly intact. ABSENT: motor sensory deficit Psychiatric exam: PRESENT: appropriate affect, normal mood. ABSENT: homicidal ideation, suicidal ideation Skin exam: PRESENT: dry, warm Results Laboratory Results: 09/21/18 05:17 09/22/18 04:47 09/17/18 08:30 Sputum Gram Stain - Final 09/17/18 08:30 Sputum Sputum Culture - Final Enterobacter Cloacae Staphylococcus Aureus C.albicans/C.dubliniensis Greatly Reduced Normal Wendy 09/15/18 09/15/18 09/15/18 19:52 19:52 23:51 Creatine Kinase < 20 L CK-MB (CK-2) 0.97 Troponin I 0.015 0.013 NT-Pro-B Natriuret Pep 975 H Impressions: Esophagus X-Ray 09/17/18 00:00 IMPRESSION: VERY LIMITED STUDY SHOWS ESOPHAGEAL SPASM AND PARAESOPHAGEAL HERNIA CAUSING COMPRESSION OF THE DISTAL ESOPHAGUS RESTRICTING THE FLOW OF CONTRAST INTO THE STOMACH. Chest X-Ray 09/20/18 00:00 IMPRESSION: COPD WITH CHRONIC INTERSTITIAL CHANGES. SCATTERED ATELECTASIS IN THE LEFT LUNG BASE. LARGE HIATAL HERNIA. Qualifiers - * PATIENT BEING DISCHARGED WITH ANY OF THE FOLLOWING DIAGNOSIS: No Plan Discharge Plan: D/C home today with [employer]W [employer]AT OPERATOR service for VN and PT. Follow up in the office as instructed upon discharge.
[2018-09-23] MEDS: LANSOPRAZOLE 30 MG TAB.RAP.DR PO SCH (08:48)
[2018-09-23] MEDS: NICOTINE 7 MG/24 HR PATCH.TD24 TD SCH (09:12)
[2018-09-23] MEDS: AMLODIPINE BESYLATE 2.5 MG TABLET PO SCH (09:13)
[2018-09-23] MEDS: PREDNISONE 20 MG TABLET PO SCH (09:13)
[2018-09-23] MEDS: DOCUSATE SODIUM 100 MG CAPSULE PO SCH (09:13)
[2018-09-23] MEDS: GABAPENTIN 300 MG CAPSULE PO SCH (09:13)
[2018-09-23] MEDS: LOSARTAN POTASSIUM 50 MG TABLET PO SCH (09:13)
[2018-09-23] MEDS: CLOTRIMAZOLE 10 MG TROCHE PO SCH (09:13)
[2018-09-23] MEDS: ASPIRIN 81 MG TABLET, CHEWABLE PO SCH (09:13)
[2018-09-23] MEDS: BUPROPION HCL 100 MG TABLET PO SCH (09:13)
[2018-09-23] MEDS: FLUTICASONE NASAL SPRAY 50 MCG/SPRY 120 SPRAY/16 GM NASL SCH (09:21)
[2018-09-23] MEDS: FLUTICASONE/SALMETEROL DISKUS 250-50 MCG/DOSE IH SCH (09:21)
[2018-09-23] MEDS: DOXYCYCLINE HYCLATE 100 MG TABLET PO SCH (09:21)
[2018-09-23] MEDS: CYCLOSPORINE 0.05% OPH EMULSIO 0.4 ML DROPERETTE OU SCH (09:22)
[2018-09-23] MEDS: ISOSORBIDE MONONITRATE 30 MG TAB.ER.24H PO SCH (09:22)
[2018-09-23] MEDS: TIOTROPIUM BROMIDE DPI 5 CAP/KIT (18 MCG/CAP) IH SCH (09:25)
== END 2018-09-23 10:58 | disposition home health service (06) | DRG 178 ==
LOC: ER 19:35 → OBSVTOIN 23:29 → EH 23:29 → 3W 09-16 02:47
PROVIDERS: ADMIT Internal Medicine Geriatric Medicine; ATTEND Internal Medicine Geriatric Medicine
PROC: 0DJ08ZZ Inspection of Upper Intestinal Tract, Via Natural or Artificial Opening Endoscopic (ICD-10-PCS; principal; 2018-09-21 18:00)
DX: J15.211 Pneumonia due to Methicillin susceptible Staphylococcus aureus (principal); J96.12 Chronic respiratory failure with hypercapnia; J44.0 Chronic obstructive pulmonary disease with (acute) lower respiratory infection; B37.0 Candidal stomatitis; J15.6 Pneumonia due to other Gram-negative bacteria; K21.9 Gastro-esophageal reflux disease without esophagitis; K44.9 Diaphragmatic hernia without obstruction or gangrene; K22.4 Dyskinesia of esophagus; E11.9 Type 2 diabetes mellitus without complications; I10 Essential (primary) hypertension; I25.10 Atherosclerotic heart disease of native coronary artery without angina pectoris; E78.00 Pure hypercholesterolemia, unspecified; E03.9 Hypothyroidism, unspecified; F32.9 Major depressive disorder, single episode, unspecified; Z79.82 Long term (current) use of aspirin; Z79.4 Long term (current) use of insulin; Z79.899 Other long term (current) drug therapy; Z99.81 Dependence on supplemental oxygen; Z98.51 Tubal ligation status; Z90.49 Acquired absence of other specified parts of digestive tract; F17.210 Nicotine dependence, cigarettes, uncomplicated; Z88.1 Allergy status to other antibiotic agents; Z88.2 Allergy status to sulfonamides; Z88.8 Allergy status to other drugs, medicaments and biological substances; Z88.0 Allergy status to penicillin
CPT/HCPCS: 36415; 43235; 71045; 71046; 74220; 80048; 80053; 82550; 82553; 82803; 82962; 83880; 84484; 85025; 85610; 87040; 87070; 87077; 87186; 87205; 93005; 93010; 94640; 96365; 96367; 99285; J0171; J0360; J0696; J1200; J1610; J1815; J2250; J2310; J2405; J2920; J3010; J3490; J7060; J7512; J7620; S0119

== ENCOUNTER 2018-10-25 14:15 | Emergency (ER) | payer MEDICARE, MEDICAID ==
[2018-10-25] MEDS ORDERED: IPRATROPIUM/ALBUTEROL 0.5-2.5 MG/3 ML AMPUL NEB ONE (14:22)
[2018-10-25] MEDS ORDERED: ETOMIDATE INJ/PF 20 MG/10 ML SDV IV ONE ×3 (14:26→22:03)
[2018-10-25] MEDS ORDERED: PROPOFOL 1,000 MG/100 ML INFUS..BTL IV ONE (14:32)
[2018-10-25] MEDS ORDERED: KETAMINE HCL INJ 500 MG/10 ML VIAL ONE ×2 (14:36→16:08)
[2018-10-25] MEDS ORDERED: FENTANYL CITRATE INJ/PF 100 MCG/2 ML AMPUL ONE ×2 (14:46→15:41)
[2018-10-25] MEDS ORDERED: ASPIRIN 81 MG TABLET, CHEWABLE PO ONE (15:30)
[2018-10-25] MEDS ORDERED: ASPIRIN 300 MG SUPP, RECTAL PR ONE (15:36)
[2018-10-25] MEDS ORDERED: ROCURONIUM BROMIDE INJ 50 MG/5 ML VIAL IV ONE (15:48)
--- NOTE | 2018-10-25 15:48 | RADIOLOGY REPORT (SQ) ---
EXAM DESCRIPTION: CHEST SINGLE VIEW COMPLETED DATE/TIME: 10/25/2018 3:28 pm REASON FOR STUDY: er 2 post intubation COMPARISON: 09/20/2018 TECHNIQUE: Single frontal radiographic view of the chest acquired. NUMBER OF VIEWS: One view. LIMITATIONS: None. FINDINGS: LUNGS AND PLEURA: No pneumothorax. Left basilar patchy consolidation -small pleural effus ion. Right lung appears clear. MEDIASTINUM AND HILAR STRUCTURES: Stable. HEART AND VASCULAR STRUCTURES: Stable. BONES: No acute findings. HARDWARE: Endotracheal tube tip overlies the mid trachea, approximately 5.5 cm above the level of the staci. OTHER: No other significant finding. IMPRESSION: Left basilar patchy consolidation -small pleural effusion. Endotracheal tube tip overlie s the mid trachea, approximately 5.5 cm above the level of the staci. TECHNICAL DOCUMENTATION: JOB ID: [id number] [employer]- All Rights Reserved Reading location - IP/workstation name: [email or web address]
[2018-10-25 15:50] LABS: HEMATOCRIT 37.4 % (36.0-47.0); HEMOGLOBIN 12.1 g/dL (12.0-15.5); INTERNATIONAL RATION (INR) 0.99; MEAN CORPUSCULAR HGB CONC 32.2 g/dL (32.0-36.0); MEAN CORPUSCULAR VOLUME 87 fl (80-97); PARTIAL THROMBOPLASTIN TIME 26.2 SEC (23.5-35.8); PLATELET COUNT 471 10^3/uL (150-450); PROTHROMBIN TIME 13.6 SEC (11.4-15.4); RED BLOOD COUNT 4.31 10^6/uL (3.72-5.28); WHITE BLOOD COUNT 22.9 10^3/uL (4.0-10.5)
--- NOTE | 2018-10-25 15:53 | ER Document Report ---
ED General - General Chief Complaint: Respiratory Distress Stated Complaint: POSSIBLE ANEMIA Primary Care Provider: BIENVENIDO NAM MD [Primary Care Provider] - Follow up as needed Mode of Arrival: Medic Information source: Patient, Relative, [facility] Records Cannot obtain history due to: Unstable vital signs Notes: 83-year-old female with COPD, coronary artery disease, hypertension, reported recent GI bleed presents via EMS from home with significant shortness of breath. Patient is hypoxic, tachypneic unable to speak in full sentences. EMS reported that the patient's oxygen saturation upon arrival was 78%. Patient was declining BiPAP, breathing treatments in route. Upon arrival to the emergency department patient had has significant tachypnea, accessory muscle use. patient reports recent admission to [facility] for a heart attack. No family at the bedside and due to patient's medical condition she is unable to provide me with any detailed history. TRAVEL OUTSIDE OF THE [place] IN LAST 30 DAYS: No - HPI Onset: Just prior to arrival - Related Data Allergies/Adverse Reactions: erythromycin base [Erythromycin Base] Allergy (Verified 08/31/18 13:52) furosemide [From Lasix] Allergy (Verified 08/31/18 13:52) levofloxacin [From Levaquin] Allergy (Verified 08/31/18 13:52) metformin HCl [From Glucophage] Allergy (Verified 08/31/18 13:52) SWELLING FACE Penicillins Allergy (Verified 08/31/18 13:52) pioglitazone HCl [From Actos] Allergy (Verified 08/31/18 13:52) SWELLING FACE Hsztfic-Rws-Zre Reductase Inhibitor Allergy (Verified 08/31/18 13:52) MUSCLE PAIN Sulfa (Sulfonamide Antibiotics) Allergy (Verified 08/31/18 13:52) SICK sulfamethoxazole [From Bactrim] Allergy (Verified 08/31/18 13:52) SICK trimethoprim [From Bactrim] Allergy (Verified 08/31/18 13:52) SICK Iodinated Contrast- Oral and IV Dye Adverse Reaction (Verified 08/31/18 13:52) Past Medical History - General Information source: Patient, Relative, Emergency Med Personnel, [facility] Records Cannot obtain history due to: Unstable vital signs, Other - Respiratory distressUnstable - Social History Smoking Status: Current Every Day Smoker Cigarette use (# per day): Yes - 10 Family History: Reviewed & Not Pertinent, COPD - Past Medical History Cardiac Medical History: Reports: Hx Coronary Artery Disease, Hx Hypercholesterolemia, Hx Hypertension Denies: Hx Heart Attack Pulmonary Medical History: Reports: Hx Asthma, Hx Bronchitis, Hx COPD, Hx Pneumonia, Hx Tuberculosis Neurological Medical History: Denies: Hx Cerebrovascular Accident, Hx Seizures Endocrine Medical History: Reports: Hx Diabetes Mellitus Type 2 Renal/ Medical History: Denies: Hx Peritoneal Dialysis GI Medical History: Reports: Hx Hiatal Hernia, Hx Ulcer - 50 YEARS AGO. Denies: Hx Hepatitis Musculoskeletal Medical History: Denies Hx Arthritis Psychiatric Medical History: Reports: Hx Depression Infectious Medical History: Denies: Hx Hepatitis Past Surgical History: Reports: Hx Cholecystectomy, Hx Orthopedic Surgery - back, Hx Rectal Surgery, Hx Tubal Ligation. Denies: Hx Mastectomy, Hx Open Heart Surgery, Hx Pacemaker - Immunizations Hx Diphtheria, Pertussis, Tetanus Vaccination: Yes Hx Pneumococcal Vaccination: 06/26/13 Review of Systems - Review of Systems -: Yes ROS unobtainable due to patient's medical condition Physical Exam - Vital signs Vitals: Pulse Ox 100 10/25/18 15:48 - Notes Notes: PHYSICAL EXAMINATION: GENERAL: Ill-appearing, frail, cachectic, in severe distress. Tripoding, cyanotic HEAD: Atraumatic, normocephalic. EYES: Pupils equal round and reactive to light, extraocular movements intact, conjunctiva are normal. ENT: Nares patent, oropharynx clear without exudates. Dry mucous membranes. NECK: Normal range of motion, supple without lymphadenopathy LUNGS: Tachypneic, hypoxic, accessory muscle use, increased work of breathing. Tripoding, cyanotic, diminished breath sounds throughout HEART: Tachycardic, regular rhythm without murmurs ABDOMEN: Soft, nontender, nondistended abdomen. No guarding, no rebound. No masses appreciated. Female : deferred Musculoskeletal: Normal range of motion, 1+ pitting edema no cyanosis. NEUROLOGICAL: Awake, alert PSYCH: Anxious SKIN: Skin tenting Course - Re-evaluation Re-evalutation: Laboratory 10/25/18 10/25/18 10/25/18 15:00 15:00 15:00 WBC 22.9 H RBC 4.31 Hgb 12.1 Hct 37.4 MCV 87 MCH 28.0 MCHC 32.2 RDW 15.0 H Plt Count 471 H Total Counted 100 Seg Neutrophils % Not Reportable Seg Neuts % (Manual) 90 H Lymphocytes % Not Reportable Lymphocytes % (Manual) 3 L Monocytes % Not Reportable Monocytes % (Manual) 7 Eosinophils % Not Reportable Eosinophils % (Manual) 0 Basophils % Not Reportable Basophils % (Manual) 0 Absolute Neutrophils Not Reportable Abs Neuts (Manual) 20.6 H Absolute Lymphocytes Not Reportable Abs Lymphs (Manual) 0.7 Absolute Monocytes Not Reportable Abs Monocytes (Manual) 1.6 H Absolute Eosinophils Not Reportable Absolute Eos (Manual) 0.0 Absolute Basophils Not Reportable Abs Basophils (Manual) 0.0 Clumped Platelets PRESENT Large Platelets PRESENT Platelet Comment INCREASED Poikilocytosis SLIGHT Anisocytosis SLIGHT Ovalocytes SLIGHT PT 13.6 INR 0.99 APTT 26.2 Sodium 141.3 Potassium 3.9 Chloride 95 L Carbon Dioxide 37 H Anion Gap 9 BUN 22 H Creatinine 0.93 Est GFR ( Amer) > 60 Est GFR (Non-Af Amer) 58 L Glucose 228 H Calcium 8.7 Total Bilirubin 0.9 Direct Bilirubin 0.5 H Neonat Total Bilirubin Not Reportable Neonat Direct Bilirubin Not Reportable Neonat Indirect Bili Not Reportable AST 30 ALT 17 Alkaline Phosphatase 120 Creatine Kinase < 20 L CK-MB (CK-2) Troponin I Total Protein 6.1 L Albumin 3.1 L 10/25/18 15:00 WBC RBC Hgb Hct MCV MCH MCHC RDW Plt Count Total Counted Seg Neutrophils % Seg Neuts % (Manual) Lymphocytes % Lymphocytes % (Manual) Monocytes % Monocytes % (Manual) Eosinophils % Eosinophils % (Manual) Basophils % Basophils % (Manual) Absolute Neutrophils Abs Neuts (Manual) Absolute Lymphocytes Abs Lymphs (Manual) Absolute Monocytes Abs Monocytes (Manual) Absolute Eosinophils Absolute Eos (Manual) Absolute Basophils Abs Basophils (Manual) Clumped Platelets Large Platelets Platelet Comment Poikilocytosis Anisocytosis Ovalocytes PT INR APTT Sodium Potassium Chloride Carbon Dioxide Anion Gap BUN Creatinine Est GFR ( Amer) Est GFR (Non-Af Amer) Glucose Calcium Total Bilirubin Direct Bilirubin Neonat Total Bilirubin Neonat Direct Bilirubin Neonat Indirect Bili AST ALT Alkaline Phosphatase Creatine Kinase CK-MB (CK-2) 2.00 Troponin I 0.093 Total Protein Albumin Chest X-Ray 10/25/18 00:00 IMPRESSION: Left basilar patchy consolidation -small pleural effusion. Endotracheal tube tip overlies the mid trachea, approximately 5.5 cm above the level of the staci. Temp Pulse Resp BP Pulse Ox 100 10/25/18 15:48 Laboratory 10/25/18 10/25/18 10/25/18 15:00 15:00 15:00 WBC 22.9 H RBC 4.31 Hgb 12.1 Hct 37.4 MCV 87 MCH 28.0 MCHC 32.2 RDW 15.0 H Plt Count 471 H Total Counted 100 Seg Neutrophils % Not Reportable Seg Neuts % (Manual) 90 H Lymphocytes % Not Reportable Lymphocytes % (Manual) 3 L Monocytes % Not Reportable Monocytes % (Manual) 7 Eosinophils % Not Reportable Eosinophils % (Manual) 0 Basophils % Not Reportable Basophils % (Manual) 0 Absolute Neutrophils Not Reportable Abs Neuts (Manual) 20.6 H Absolute Lymphocytes Not Reportable Abs Lymphs (Manual) 0.7 Absolute Monocytes Not Reportable Abs Monocytes (Manual) 1.6 H Absolute Eosinophils Not Reportable Absolute Eos (Manual) 0.0 Absolute Basophils Not Reportable Abs Basophils (Manual) 0.0 Clumped Platelets PRESENT Large Platelets PRESENT Platelet Comment INCREASED Poikilocytosis SLIGHT Anisocytosis SLIGHT Ovalocytes SLIGHT PT 13.6 INR 0.99 APTT 26.2 Sodium 141.3 Potassium 3.9 Chloride 95 L Carbon Dioxide 37 H Anion Gap 9 BUN 22 H Creatinine 0.93 Est GFR ( Amer) > 60 Est GFR (Non-Af Amer) 58 L Glucose 228 H Calcium 8.7 Total Bilirubin 0.9 Direct Bilirubin 0.5 H Neonat Total Bilirubin Not Reportable Neonat Direct Bilirubin Not Reportable Neonat Indirect Bili Not Reportable AST 30 ALT 17 Alkaline Phosphatase 120 Creatine Kinase < 20 L CK-MB (CK-2) Troponin I Total Protein 6.1 L Albumin 3.1 L 10/25/18 15:00 WBC RBC Hgb Hct MCV MCH MCHC RDW Plt Count Total Counted Seg Neutrophils % Seg Neuts % (Manual) Lymphocytes % Lymphocytes % (Manual) Monocytes % Monocytes % (Manual) Eosinophils % Eosinophils % (Manual) Basophils % Basophils % (Manual) Absolute Neutrophils Abs Neuts (Manual) Absolute Lymphocytes Abs Lymphs (Manual) Absolute Monocytes Abs Monocytes (Manual) Absolute Eosinophils Absolute Eos (Manual) Absolute Basophils Abs Basophils (Manual) Clumped Platelets Large Platelets Platelet Comment Poikilocytosis Anisocytosis Ovalocytes PT INR APTT Sodium Potassium Chloride Carbon Dioxide Anion Gap BUN Creatinine Est GFR ( Amer) Est GFR (Non-Af Amer) Glucose Calcium Total Bilirubin Direct Bilirubin Neonat Total Bilirubin Neonat Direct Bilirubin Neonat Indirect Bili AST ALT Alkaline Phosphatase Creatine Kinase CK-MB (CK-2) 2.00 Troponin I 0.093 Total Protein Albumin 10/25/18 15:48 83-year-old female presented in respiratory distress, hypoxic, tachypneic, unable to speak in full sentences, with increased work of breathing and significant distress. Patient declining BiPAP, breathing treatments. Due to the patient's condition the decision was made to intubate the patient. This was done successfully with glide scope and a 7.0. Ketamine and etomidate were administered. Changes were noted on monitoring engineer and EKG was obtained which showed ST elevation in leads II III and aVF with reciprocal changes in 1 and aVL. [facility] was contacted and I did speak to Dr. Potter who is familiar with the patient and states that the patient was recently discharged with a GI bleed. Patient was administered rectal aspirin but was not given heparin, lytics due to this reported bleed. [facility] informed us that there was no transport available. Due to whether they were unable to fly. After multiple phone calls no local tracts were available. They stated they would do another weather check in 30 minutes and call us back . In the interim [facility] was then contacted and I spoke to Dr. Fisher who recommend giving a 50 mg/kg heparin bolus which was given. Patient was accepted to [facility] informed a helicopter would be here within 20 minutes upon transfer team arrival patient is. 10/25/18 16:40 [facility] contacted us and told us that the helicopter was on the way. They did not call us back initially to let us know that they were cleared for weather. At this point I have 2 helicopters and route to our facility after trying for over an hour to get any transport for this patient who is having an a ctive STEMI. After speaking with the patient's family who is at the bedside they are requesting that the patient be brought to [facility] since she was just recently admitted there. I will follow the family's wishes and canceled the helicopter to [facility]. 10/25/18 17:09 Chest x-ray shows that the ET tube was 5.5 cm from the staci. This was advanced 3 cm. 10/25/18 17:15 Patient reevaluated and now is biting the tube, coughing. Propofol bolus, 2 mg of Versed, 50 mics of fentanyl were administered. Intubated, tachycardic but with no nausea. ST elevation still noted on monitoring engineer. Troponin reviewed and 0.093. 10/25/18 21:58 - Vital Signs Vital signs: Temp Pulse Resp BP Pulse Ox 100 10/25/18 15:48 - Laboratory Result Diagrams: 10/25/18 15:00 10/25/18 15:00 Laboratory results interpreted by me: 10/25/18 10/25/18 15:00 15:00 WBC 22.9 H RDW 15.0 H Plt Count 471 H Seg Neuts % (Manual) 90 H Lymphocytes % (Manual) 3 L Abs Neuts (Manual) 20.6 H Abs Monocytes (Manual) 1.6 H Chloride 95 L Carbon Dioxide 37 H BUN 22 H Est GFR (Non-Af Amer) 58 L Glucose 228 H Direct Bilirubin 0.5 H Creatine Kinase < 20 L Total Protein 6.1 L Albumin 3.1 L - Diagnostic Test Radiology reviewed: Image reviewed, Reports reviewed - EKG Interpretation by Me EKG shows normal: ST-T Waves - ST elevation in 2 3 and aVF with reciprocal changes in 1 and aVL. Procedures - Intubation Orotracheal Time of Intubation: 16:10 Airway evaluation: Normal anatomy Mallampati Classification: Class 2 Medications: Etomidate, Ketamine Intubation method: Orotracheal Blade type: Brock Blade size: 3 Equipment used: Glidescope ETT size: 7.0 ETT secured at: Lips ETT secured at (cm): 22 Breath Sounds after Intubation: Equal End tidal CO2 confirmed: Yes Ventilator settings: SIMV Intubation Complications: No complications Critical Care Note - Critical Care Note Total time excluding time spent on procedures (mins): 120 - Minutes of critical care time spent in direct contact evaluating and reevaluating the patient, treating symptoms, reviewing labs and studies and speaking with family and consultants excluding any procedures Discharge - Discharge Clinical Impression: Pleural effusion, Elevated troponin, History of upper gastrointestinal bleeding Respiratory failure Qualifiers: Chronicity: acute Respiratory failure complication: hypoxia Qualified Code(s): J96.01 - Acute respiratory failure with hypoxia STEMI (ST elevation myocardial infarction) Qualifiers: Involved coronary artery: unspecified coronary artery Qualified Code(s): I21.3 - ST elevation (STEMI) myocardial infarction of unspecified site Pneumonia Qualifiers: Pneumonia type: due to unspecified organism Laterality: unspecified laterality Lung location: unspecified part of lung Qualified Code(s): J18.9 - Pneumonia, unspecified organism Leukocytosis Qualifiers: Leukocytosis type: unspecified Qualified Code(s): D72.829 - Elevated white blood cell count, unspecified HTN (hypertension) Qualifiers: Hypertension type: unspecified Qualified Code(s): I10 - Essential (primary) hypertension Condition: Critical Disposition: [facility] Referrals: BIENVENIDO NAM MD [Primary Care Provider] - Follow up as needed
[2018-10-25 15:54] LABS: ALANINE AMINOTRANSFERASE 17 U/L (9-52); ALBUMIN 3.1 g/dL (3.5-5.0); ALKALINE PHOSPHATASE 120 U/L (38-126); ANION GAP 9 (5-19); ASPARTATE AMINO TRANSFERASE 30 U/L (14-36); BILIRUBIN,DIRECT 0.5 mg/dL (0.0-0.4); BILIRUBIN,TOTAL 0.9 mg/dL (0.2-1.3); BLOOD UREA NITROGEN 22 mg/dL (7-20); CALCIUM 8.7 mg/dL (8.4-10.2); CARBON DIOXIDE 37 mmol/L (22-30); CHLORIDE 95 mmol/L (98-107); GLUCOSE 228 mg/dL (75-110); POTASSIUM 3.9 mmol/L (3.6-5.0); SODIUM 141.3 mmol/L (137-145); TOTAL PROTEIN 6.1 g/dL (6.3-8.2)
[2018-10-25 15:56] LABS: CREATINE KINASE < 20 U/L (30-135)
--- NOTE | 2018-10-25 15:58 | EKG REPORT ---
SEVERITY:- ABNORMAL ECG - SINUS TACHYCARDIA WITH IRREGULAR RATE 97-170 INFERIOR INJURY, PROBABLE EARLY ACUTE INFERIOR INFARCT BORDERLINE R WAVE PROGRESSION, ANTERIOR LEADS : Confirmed by: Abner Sanchez MD 25-Oct-2018 15:57:51
[2018-10-25] MEDS ORDERED: VANCOMYCIN HCL INJ 1000 MG VIAL ONE (16:01)
--- NOTE | 2018-10-25 16:01 | EKG REPORT ---
SEVERITY:- ABNORMAL ECG - SINUS TACHYCARDIA WITH PACS. RIGHT AXIS DEVIATION ST DEPRESSION, PROBABLY RATE RELATED : Confirmed by: Abner Sanchez MD 25-Oct-2018 16:00:20
[2018-10-25 16:09] LABS: TROPONIN I 0.093 ng/mL
[2018-10-25 16:14] LABS: ABSOLUTE LYMPHOCYTES# (MANUAL) 0.7 10^3/uL (0.5-4.7); ABSOLUTE MONOCYTES # (MANUAL) 1.6 10^3/uL (0.1-1.4); ABSOLUTE NEUTROPHILS# (MANUAL) 20.6 10^3/uL (1.7-8.2); BASOPHILS % (MANUAL) 0 % (0-2); EOSINOPHILS % (MANUAL) 0 % (0-6); LYMPHOCYTES % (MANUAL) 3 % (13-45); MONOCYTES % (MANUAL) 7 % (3-13); SEGMENTED NEUTROPHILS % (MAN) 90 % (42-78); TOTAL CELLS COUNTED 100
[2018-10-25 16:15] LABS: ANISOCYTOSIS SLIGHT; OVALOCYTES SLIGHT; PLATELET CLUMPS PRESENT; PLATELET COMMENT INCREASED; PLATELET LARGE PRESENT; POIKILOCYTOSIS SLIGHT
[2018-10-25] MEDS ORDERED: ENOXAPARIN SODIUM INJ 60 MG/0.6 ML DISP.SYRIN SUBCUT ONE (16:17)
[2018-10-25] MEDS ORDERED: MIDAZOLAM HCL 0 MG/0 ML RTUINJ ONE (16:19)
[2018-10-25] MEDS ORDERED: HEPARIN SOD (PORCINE) 1,000 UNIT/ML 10 ML VIAL ONE (16:22)
[2018-10-25] MEDS ORDERED: MIDAZOLAM 2 MG/2 ML INJ ONE (16:23)
[2018-10-25] MEDS ORDERED: PROPOFOL INJ 200 MG/20 ML VIAL IV ONE (16:51)
[2018-10-25] MEDS ORDERED: SODIUM BICARBONATE 8.4% INJ 50 MEQ/50 ML DISP.SYRIN ONE (16:52)
[2018-10-25] MEDS ORDERED: CALCIUM GLUCONATE 1000 MG/10 ML INJ IV ONE ×3 (16:52→22:06)
--- NOTE | 2018-10-25 17:32 | RADIOLOGY REPORT (SQ) ---
EXAM DESCRIPTION: CHEST SINGLE VIEW COMPLETED DATE/TIME: 10/25/2018 5:06 pm REASON FOR STUDY: OG confirmation COMPARISON: Earlier exam same date TECHNIQUE: Single frontal radiographic view of the chest acquired. NUMBER OF VIEWS: One view. LIMITATIONS: None. FINDINGS: LUNGS AND PLEURA: No pneumothorax. Similar left basilar consolidation - pleural effusion. MEDIASTINUM AND HILAR STRUCTURES: Stable. HEART AND VASCULAR STRUCTURES: Stable. BONES: No acute findings. HARDWARE: Endotracheal tube remains in stable position. New nasogastric catheter is present with beni e port overlying the mid esophageal level, tip overlying the lower esophageal level. OTHER: No other significant finding. IMPRESSION: New nasogastric catheter is present with side port overlying the mid esophageal level, t ip overlying the lower esophageal level. Remainder the exam is unchanged. TECHNICAL DOCUMENTATION: JOB ID: [id number] [id number] 2010 [employer]- All Rights Reserved Reading location - IP/workstation name: [email or web address]
[2018-10-25] MEDS ORDERED: PIPERACILLIN/TAZOBACTAM 3.375 GM VIAL IV ONE ×2 (19:15→22:04)
[2018-10-25] MEDS ORDERED: FENTANYL CITRATE INJ/PF 100 MCG/2 ML AMPUL IV ONE (22:04)
[2018-10-25] MEDS ORDERED: KETAMINE HCL INJ 500 MG/10 ML VIAL IV ONE (22:04)
[2018-10-25] MEDS ORDERED: VANCOMYCIN HCL INJ 1000 MG VIAL IV ONE (22:04)
[2018-10-25] MEDS ORDERED: HEPARIN SOD (PORCINE) 1,000 UNIT/ML 10 ML VIAL IV ONE (22:05)
[2018-10-25] MEDS ORDERED: MIDAZOLAM 2 MG/2 ML INJ IV ONE (22:05)
[2018-10-25] MEDS ORDERED: SODIUM BICARBONATE 8.4% INJ 50 MEQ/50 ML DISP.SYRIN IV ONE (22:06)
[2018-10-25] MEDS ORDERED: PROPOFOL 1,000 MG/100 ML INFUS..BTL IV PRN (22:06)
--- NOTE | 2018-10-25 22:34 | EKG REPORT ---
SEVERITY:- ABNORMAL ECG - SINUS TACHYCARDIA SUPRAVENTRICULAR BIGEMINY INFERIOR INJURY, PROBABLE EARLY ACUTE INFARCT BORDERLINE R WAVE PROGRESSION, ANTERIOR LEADS : Confirmed by: Abner Sanchez MD 25-Oct-2018 22:33:10
== END 2018-10-25 17:45 | disposition short-term general hospital (02) ==
LOC: ER 14:15
DX: J96.01 Acute respiratory failure with hypoxia (principal); J18.9 Pneumonia, unspecified organism; I21.3 ST elevation (STEMI) myocardial infarction of unspecified site; J90 Pleural effusion, not elsewhere classified; F17.210 Nicotine dependence, cigarettes, uncomplicated; E11.9 Type 2 diabetes mellitus without complications; I10 Essential (primary) hypertension; J44.9 Chronic obstructive pulmonary disease, unspecified; I25.10 Atherosclerotic heart disease of native coronary artery without angina pectoris; Z88.1 Allergy status to other antibiotic agents; Z88.8 Allergy status to other drugs, medicaments and biological substances; Z88.0 Allergy status to penicillin; Z88.2 Allergy status to sulfonamides; Z87.19 Personal history of other diseases of the digestive system
CPT/HCPCS: 93005; 94640; 99291; 99292; 96375; 96365; 36415; 82553; 82550; 85025; 85610; 85730; 80053; 84484; 71045; 94660; 93010; 31500; J2250; A9270 ×2; J0610; J3490 ×4; J3010; J1644; J2704; J3370; J7620